=== PATIENT | female | born 1955 | race Caucasian/White ===

== ENCOUNTER 2020-04-25 12:17 | Emergency (ER) | payer MEDICAID, SELFPAY ==
[2020-04-25] VITALS (7 sets, daily range): BP systolic 100–113; BP diastolic 65–74; PULSE 70–86; RESP 17–22; TEMP 36.8; O2SAT 95–97; BMI 29.4
--- NOTE | 2020-04-25 12:31 | EKG12_ITS ---
Test Reason : CP Blood Pressure : / mmHG Vent. Rate : 080 BPM Atrial Rate : 080 BPM P-R Int : 154 ms QRS Dur : 084 ms QT Int : 394 ms P-R-T Axes : 039 -02 064 degrees QTc Int : 454 ms Normal sinus rhythm Low voltage QRS Borderline ECG Confirmed by MEGAN LATIF, OWEN ([id number]), editor in chief KAYLIE COLON ([id number]) on 04/30/2020 8:23:53 A M Referred By: ANTONIO Confirmed By:EILEEN UGZMAN MD
--- NOTE | 2020-04-25 12:31 | ED.VIS.GEN ---
History of Present Illness Chief Complaint: Chest Pain Informant: Patient Onset: Today Narrative: Patient presents with episode of sweating, lightheadedness and dizziness. Symptoms resolved after she took 1 nitro. Patient has had 2 prior MIs. During her heart attack in 2014 patient's only symptom was diffuse sweating. Patient is currently fighting a stone in her salivary duct. Patient states she was sitting on the couch eating lunch when today's episode occurred. She does state that she had increased pain when trying to eat and this preceded today's episode. - Past Medical History (1) Myocardial infarction Status: Chronic (2) H/O heart artery stent Status: Chronic Past Medical History - Allergies and Home Meds Allergies/Adverse Reactions: Allergies niacin Allergy (Verified 04/25/20 12:18) Rash Primary Care Physician: Josey Agarwal NP, SHEET PILE DRIVER OPERATOR-C [Nurse Practitioner] - Prior records reviewed: Yes Smoking Status: Current every day smoker Review of Systems General: Denies: Chills, Fever Eyes: Denies: Visual changes - bilaterally ENT: Denies: Bilateral ear pain Cardiovascular: Denies: Chest pain Respiratory: Denies: Dyspnea, Cough Gastrointestinal: Denies: Abdominal pain, Nausea, Vomiting Musculoskeletal: Denies: Swelling, Extremity Pain Skin: Denies: Rash Neurological: Reports: - - Sweating, lightheaded and dizzy Hematologic: Denies: Easy bruising, Easy bleeding Allergy: Denies: Uticaria Physical Exam Vital Signs/Narrative: Vital Signs Temp Pulse Resp BP Pulse Ox 04/25/20 12:18 98.3 F 86 22 H 103/67 96 04/25/20 12:17 84 22 H 103/67 95 Inital Vital Signs reviewed: Yes General: Well nourished, Well developed Head: Normocephalic ENT: Moist mucous membranes Neck: Supple Cardiovascular: Regular rate, Regular rhythm Respiratory: No distress, CTA bilaterally Abdomen: Soft, Nontender Back: Nontender Skin: Normal color Neurological: Alert, Oriented x3, Normal Strength, Normal Sensation Psychological: Normal affect Diagnostic/Tx/Re-eval Impressions Chest X-Ray 04/25/20 12:54 IMPRESSION: Stable mild increased linear markings at the lung bases suggestive of mild linear scarring. Electronically Signed: Ananth Clay, at 13:08 EDT , Service support , 04/25/20 12:54 Chest 1 View (Portable) [RAD] Stat Laboratory Results 04/25/20 04/25/20 04/25/20 12:33 12:33 15:27 WBC 10.3 RBC 4.86 Hgb 14.8 Hct 44.5 MCV 91.6 MCH 30.5 MCHC 33.3 RDW Std Deviation 41.1 RDW Coeff of Erica 12.3 Plt Count 335 MPV 10.4 Immature Gran % (Auto) 0.300 Neut % (Auto) 59.9 Lymph % (Auto) 33.5 [place] % (Auto) 4.9 Eos % (Auto) 1.0 Baso % (Auto) 0.4 Absolute Neuts (auto) 6.2 Absolute Lymphs (auto) 3.44 Nucleated RBC % 0 Sodium 133 L Potassium 3.4 L Chloride 101 Carbon Dioxide 25.0 Anion Gap 7 BUN 10 Creatinine 1.01 Estim Creat Clear Calc 55.44 Est GFR (MDRD) Af Amer 71 Est GFR (MDRD) Non-Af 59 L BUN/Creatinine Ratio 9.9 L Glucose 140 H Calcium 9.1 Troponin I < 0.015 < 0.015 - EKG Initial EKG Interpretation: Sinus Rhythm - Sinus at 80 with no acute ischemia. Follow-up EKG Interpretation: Sinus Rhythm - Sinus at 74 with no acute ischemia. - Medical Decision Making Patient denies having chest pain with this episode. She did break out in sweats and my suspicion is this was a vasovagal reaction from her pain after eating. I did obtain a report from the patient's heart cath that was performed in January 2019. This revealed normal left main coronary artery with patent previous LAD stent and patent previous circumflex stent. There is a 40% stenosis of the distal circumflex. 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 EF was 50%. Patient did agree to a repeat 3-hour EKG and troponin. Both of these are unremarkable. 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 ED Disposition - Plan for ED Patient: Disposition: Home or Assisted Living Diagnosis: Atypical chest pain Instructions: ED Chest Pain NonCardiac Referrals: Josey Agarwal SHEET PILE DRIVER OPERATOR, SHE[employer] PILE DRIVER OPERATOR-C [Nurse Practitioner] - 1 Week
[2020-04-25 12:38] LABS: Absolute Lymphocyte Count 3.44 X10^3/uL (0.83-4.51); Absolute Neutrophil Count 6.2 X10^3/uL (2.0-7.7); Basophil# 0.04 X10^3/uL; Basophil% 0.4 % (0-1); Hematocrit 44.5 % (37-47); Hemoglobin 14.8 g/dL (12.0-15.0); Lymphocyte # 3.44 X10^3/ul (4.0); Lymphocyte % 33.5 % (19-41); Mean Corp Hgb Conc 33.3 g/dL (32-36); Mean Corpuscular Hgb 30.5 pg (27.0-32.0); Mean Corpuscular Volume 91.6 fL (81-99); Mean Platelet Vol. 10.4 fl (6.2-12.0); Monocyte% 4.9 % (0-10); NRBC Flagged by Analyzer 0 % (0-5); Neutrophil # 6.16 X10^3/uL (2.7-7.7); Neutrophil % 59.9 % (47-70); Platelet Count 335 K/mm3 (150-450); RBC Distribution Width CV 12.3 % (11.6-14.6); RBC Distribution Width SD 41.1 fl (35.1-43.9); Red Blood Count 4.86 M/mm3 (4.2-5.4); White Blood Count 10.3 K/mm3 (4.4-11.0)
--- NOTE | 2020-04-25 12:54 | RAD_ITS ---
STUDY: X-RAY CHEST REASON FOR EXAM: Female, 64 years old. Pat arrives to ed with resolved chest pain. Took 1 nitro at 1130am. Hx of mi and stents. Pain currently in left jaw with hx of stone in her saliva gland. TECHNIQUE: Single AP portable view of the chest. COMPARISON: Comparison is made with prior study dated 02/02/2017. FINDINGS: EKG electrodes are seen. Stable mild increased markings at the lung bases suggestive of a scarring. There is no demonstrated pleural abnormality. Normal size heart. Normal mediastinum and sivakumar. Normal visualized pulmonary arteries. There is atherosclerotic calcification of the aortic arch with tortuosity. There are diffuse degenerative changes of the visualized thoracic spine. Normal visualized ribs, clavicles, and shoulders. There is no demonstrated abnormality of the visualized soft tissue structures of the upper abdomen. RAD/Chest 1 View (Portable) IMPRESSION: Stable mild increased linear markings at the lung bases suggestive of mild linear scarring. Electronically Signed: Ananth Clay, at 13:08 EDT , Service support ,
[2020-04-25 12:56] LABS: Anion Gap 7 (5-15); BUN 10 mg/dL (7-18); BUN/Creat Ratio 9.9 RATIO (10-20); Calcium,Total 9.1 mg/dL (8.5-10.1); Chloride 101 mmol/L (98-107); Creatinine, Serum 1.01 mg/dL (0.55-1.02); EST Glomerular Filtration Rate 59 mL/min (>60); Est Glom Filt Rate - Afr Amer 71 mL/min (>60); Estimated Creatinine Clearance 55.44 ml/min; Glucose 140 mg/dL (74-106); Potassium 3.4 mmol/L (3.5-5.1); Sodium Level 133 mmol/L (136-145)
[2020-04-25] MEDS: 0.9% Normal Saline 1,000 ML 150 ML IV (13:07)
--- NOTE | 2020-04-25 15:30 | EKG12_ITS ---
Test Reason : REPEAT EKG Blood Pressure : / mmHG Vent. Rate : 074 BPM Atrial Rate : 074 BPM P-R Int : 156 ms QRS Dur : 078 ms QT Int : 424 ms P-R-T Axes : 036 -04 056 degrees QTc Int : 470 ms Normal sinus rhythm Low voltage QRS Borderline ECG Confirmed by MEGAN LATIF, OWEN ([id number]), video effects editor KAYLIE COLON ([id number]) on 04/30/2020 8:24:08 A M Referred By: ANTONIO Confirmed By:EILEEN GUZMAN MD
== END 2020-04-25 16:09 | disposition home or self-care (01) ==
PROVIDERS: Emergency Provider Emergency Medicine; PCP Family Medicine
DX: R07.89 Other chest pain (principal); I25.2 Old myocardial infarction; Z95.5 Presence of coronary angioplasty implant and graft; Z79.82 Long term (current) use of aspirin; Z79.899 Other long term (current) drug therapy; F17.200 Nicotine dependence, unspecified, uncomplicated
CPT/HCPCS: 71045; 80048; 84484; 85025; 93005; 96360; 96361; 99285; J7030; A4216

== ENCOUNTER → 2025-02-07 | Outpatient (CLI) | payer MEDICARE, SELFPAY ==
--- NOTE | 2025-02-07 07:21 | CT_ITS ---
PROCEDURE: SOFT TISSUE NECK WITH CONTRAST 02/07/2025 REASON FOR EXAM: LEFT NECK MASS TECHNIQUE: SOFT TISSUE NECK WITH CONTRAST CONTRAST: Isovue-300 VOLUME: 75 mL One or more dose reduction techniques were used (e.g., Automated exposure control, adjustment of the mA and/or kV according to patient size, use of iterative reconstruction technique). RADIATION DOSE SUMMARY: CTDlvol: 16.99 mGy DLP: 492.51 mGycm COMPARISON: None FINDINGS: Airway: Midline and patent. Salivary glands: There is a swollen left parotid gland. There is a 9.3 mm by a 5.5 mm calculus in the anterior midportion of the left parotid gland. Lymph nodes: Small benign-appearing submental lymph nodes. Thyroid: Unremarkable Vasculature: Calcification of the carotid arteries. Orbits: Unremarkable Paranasal sinuses and mastoids: Grossly clear at visualized levels. Lung apices: Clear. Upper mediastinum: Unremarkable Bones: Multilevel degenerative changes of the spine. Other: CT/Soft Tissue Neck WITH Contrast IMPRESSION: Swelling of the left parotid gland with a 9.3 mm x 5.5 mm calculus in the anter ior and portion of the left parotid gland. Reading Location: [id number]
--- OUTSIDE RECORDS SUMMARY | 2025-02-07 07:33 | XMS RPT_ITS | CCD ---
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 Name Role Phone MANDO ALVAREZ Unavailable Unavaila ble TAYLORHARDIK Gibbons Unavailable Unavailable Rojas [employer], Yaneth Nicole Unavailable Unavaila ble SheetsElana Unavailable [phone] Unavailable Unavailable Sheets DOElana Primary Care Provider Sheets DOElana Primary Care Provider Sheets DOElana Primary Care Provider [phone] Sheets DO, Elana C Primary Care Provider Elana Chery Primary Care Joleen vailable Mando Stevens Attending Joleen vailable Mando Stevens Referring Joleen vailable Sheets Elana EUGENE Primary Care Pro vider Sheets DOElana Primary Care Provider BOB MARTIN Attending Unavailable ELANA CHERY Primary Care Unavailable BOB MARTIN Referring Unavailable ELANA CHERY Referring Unavailable ELANA CHERY Primary Care Unavailable BOB MARTIN Attending Unavailable ELANA CHERY Primary Care Joleen vailable ELANA CHERY Primary Care Joleen vailable Mando Stevens MD Unavailable Mando Stevens MD Unavailable ELANA CHERY Attending Unavailable ELANA CHERY Referring Unavailable SHEETS, ELANA C Primary Care Unavailable SHEETS, ELANA C Attending Unavailable SHEETS, ELANA C Referring Unavailable SHEETS, ELANA C Primary Care Unavailable SHEETS, ELANA C Primary Care Unavailable YANETH GLYNN Attending Unavaila ble SHEETS, ELANA C Referring Unavailable SHEETS, ELANA C Primary Care Unavailable SHEETS, ELANA C Attending Unavailable SHEETS, ELANA C Primary Care Unavailable SHEETS, ELANA C Attending Unavailable SHEETS, ELANA C Referring Unavailable SHEETS, ELANA C Primary Care Unavailable PHI LANCASTER Referring Unavailable SHEETS, ELANA C Primary Care Unavailable Parth'MANDO ANDREWS Attending Unavail able SHEETS, ELANA LONDONO Primary Care Joleen vailable MANDO STEVENS Attending Unavail able SHEETS, ELANA LONDONO Primary Care Joleen vailable [place] Attending Unavailabl e WarCarl garay Referring Unavailabl e Sheets, Elana Primary Care Unavailable Allergies Allergy Classification Reported Allergen(s) Allergy Type Date of Onset Reaction(s) Facility Anti-Epileptic Agents (2 sources) gabapentin Drug Allergy 2 Swelling [facility] Niacin (2 sources) Niacin Drug Allergy 6 Rash [facility] Opioid Agonists (2 sources) traMADol Drug Allergy 6 Itching [facility] (2 sources) atorvastatin Drug Allergy 6 [facility] Work Phone: (1 source) Lovastatin Drug Allergy 6 Itching; Rash [facility] Work Phone: (2 sources) traMADol Drug Allergy 6 itching [facility] Work Phone: (19 sources) Hmg-Coa Reductase Inhibitors (Statins); Translations: [Statins] Allergy to drug (finding) Myalgia [facility] 305 DO Work Phone: (19 sources) Lovastatin / Niacin; Translations: [Advicor TB24] Drug Allergy Itching, Rash [facility] 305 DO Work Phone: (20 sources) traMADol; Translations: [tramadol] Drug Allergy 6 Itching, Other [facility] (20 sources) Niacin; Translations: [NIACIN] Drug Allergy 6 Rash [facility] (20 sources) gabapentin; Translations: [GABAPENTIN] Drug Allergy 2 Swelling [facility] (5 sources) HMG-CoA reductase inhibitor; Translations: [CRTOIIS-BUH-KSA REDUCTASE INHIBITORS] Drug Allergy 3 Rash, Myalgia [facility] Work Phone: (5 sources) Lovastatin / Niacin; Translations: [NIACIN-LOVASTATI N] Drug Allergy [address] [facility] (1 source) Niacin Drug Allergy 0 [facility] Medications Current Medications Medication Drug Class(es) Dates Sig (Normalized) Sig (Original) acetaminophen 500 mg oral tablet (20 sources) End: 09-06-2024 take 1 tablet by mouth every eight hours as needed acetaminophen (Tylenol) 500 mg tablet Take 1 tablet (500 mg) by mouth every 8 hours if needed for mild pain (1 - 3). Active Comment on above: Take 500 mg by mouth every 8 hours as needed. acetaminophen 325 mg / HYDROcodone bitartrate 5 mg oral tablet (2 sources) Opioid Agonist Start: 04-06-2023 End: 05-18-2024 take 0.5-1 tablets by mouth twice daily as needed for pain HYDROcodone-acetami nophen (Amboy) 5-325 mg tablet Take 0.5-1 tablets by mouth 2 times a day as needed for moderate pain (4 - 6). 04/06/2023 05/18/2024 Discontinued (Med List Cleanup) acetaminophen 325 mg / oxyCODONE hydrochloride 5 mg oral tablet (20 sources) Opioid Agonist Start: 02-03-2023 oxyCODONE-acetamino phen (PERCOCET) 5-325 mg tablet TAKE 1/2 TO 1 TABLET UP TO 3 TIMES DAILY NEEDED FOR PAIN 02/03/2023 Active Comment on above: TAKE 1/2 TO 1 TABLET UP TO 3 TIMES DAILY NEEDED FOR PAIN [id number] 200 actuat albuterol 0.09 mg/actuat metered dose inhaler (20 sources) beta2-Adrenergic Agonist Start: 08-10-2024 End: 09-06-2024 take 2-4 puff(s) by inhalation every two hours as needed for wheezing albuterol HFA (PROVENTIL HFA, VENTOLIN HFA) 90 mcg/actuation inhaler Inhale 2-4 Puffs as instructed every 2 hours as needed for wheezing/shortness of breath. 1 Each 08/10/2024 09/06/2024 Discontinued Start: 03-05-2022 End: 10-18-2024 albuterol HFA (PROVENTIL HFA , VENTOLIN HFA) 90 mcg/actuation inhaler Indications: Other emphysema (HCC) USE 2 INHALATIONS BY MOUTH EVERY 4 HOURS NEEDED 40.2 g 3 10/18/2024 Active Start: 01-08-2022 End: 03-05-2022 take 2 puff(s) by mouth every four hours as needed albuterol HFA (PROVENTIL HFA, VENTOLIN HFA) 90 mcg/actuation inhaler Indications: Other emphysema (HCC) INHALE 2 PUFFS BY MOUTH EVERY 4 HOURS NEEDED 1 Each 5 01/08/2022 03/05/2022 Discontinued Start: 03-05-2021 End: 12-30-2021 take 2 puff(s) by mouth every four hours as needed albuterol HFA (PROVENTIL HFA, VENTOLIN HFA) 90 mcg/actuation inhaler Indications: Other emphysema (HCC) INHALE 2 PUFFS BY MOUTH EVERY 4 HOURS NEEDED 1 Each 5 03/05/2021 12/30/2021 Discontinued Start: 06-28-2018 End: 12-30-2021 take 2.5 mg by inhalation every six hours as needed albuterol (PROVENTIL) 2.5 mg /3 mL (0.083 %) nebulizer solution Use 3 mL via nebulizer every 6 hours as needed for Wheezing/Shortness of Breath. Inhale by nebulizer over 5-15 minutes. 30 Vial 0 06/28/2018 12/30/2021 Discontinued Start: 05-13-2016 take 2 puff(s) by in halation every four hours as needed for cough PROAIR HFA 108 (90 Base) MCG/ACT AERS 2 puffs INH q 4 hours PRN SOB/Cough ALBUTEROL SULFATE [id number] Bonnie Kirkland CNP End: 12-26-2024 albuterol 2.5 mg /3 mL (0.08 3 %) nebulizer solution Inhale. 12/26/2024 Discontinued (Med List Cleanup) Albuterol Sulfat e (2.5 MG/3ML) 0.083% Inhalation Nebulization Solution USE 1 UNIT DOSE EVERY 4-6 HOURS NEEDED FOR WHEEZING . Quantity: 0 Refills: 0 Ordered: 15-May-2021 DO Active take 1 puff(s) by in halation every four hours as needed ProAir HFA 108 (90 Base) MCG/ACT AERS INHALE 1 PUFF EVERY 4 HOURS NEEDED. Quantity: 0 Refills: 0 Ordered: 15-May-2021 DO Active Comment on above: Use 3 mL via nebuliz er every 6 hours as needed for Wheezing/Shortness of Breath. Inhale by nebulizer over 5-15 minutes. INHALE 2 PUFFS BY MO UTH EVERY 4 HOURS NEEDED USE 2 INHALATIONS BY MOUTH EVERY 4 HOURS NEEDED amLODIPine 5 mg oral tablet (20 sources) Dihydropyridine Calcium Channel Jessica Start: 016 End: take 1 tablet by mouth once daily amLODIPine (Norvasc) 5 mg tablet Indications: Essential (primary) hypertension Take 1 tablet (5 mg) by mouth once daily. as directed 90 tablet 3 09/12/2024 Active Comment on above: TAKE 1 TABLET BY NATHALY TH ONCE DAILY. atorvastatin 40 mg oral tablet (20 sources) HMG-CoA Reductase Inhibitor Start: take 1 tablet by mouth once daily at bedtime atorvastatin (Lipitor) 40 mg tablet Indications: Mixed hyperlipidemia Take 1 tablet (40 mg) by mouth once daily at bedtime. 90 tablet 3 09/12/2024 Active Start: 03-17-2024 take 1 tablet by nathaly th once daily at bedtime atorvastatin (Lipitor) 40 mg tablet Indications: Mixed hyperlipidemia TAKE 1 TABLET BY MOUTH EVERYDAY AT BEDTIME 90 tablet 3 03/17/2024 Active Start: 05-04-2023 take 1 tablet by nathaly th once daily at bedtime atorvastatin (Lipitor) 40 mg tablet Indications: Mixed hyperlipidemia TAKE 1 TABLET BY MOUTH EVERYDAY AT BEDTIME 90 tablet 3 05/04/2023 Active Start: 05-14-2022 take 1 tablet by nathaly th once daily at bedtime Atorvastatin Calcium 40 MG Oral Tablet take 1 tablet by mouth once daily at bedtime Quantity: 90 Refills: 3 Ordered: 14-May-2022 Mando Stevens MD Start : 14-May-2022 Active Start: 05-02-2021 take 0.5 tablet by m outh once daily at bedtime Atorvastatin Calcium 80 MG Oral Tablet Take 1/2 Tablet by mouth everyday at bedtime Quantity: 45 Refills: 3 Ordered: 17-May-2021 Mando Stevens MD Start : 02-May-2021 Active Start: 05-13-2016 take 1 tablet by nathaly th once daily atorvastatin (LIPITOR) 80 mg tablet TAKE 1 TABLET BY MOUTH ONCE DAILY. 30 tablet 11 08/14/2016 Active Comment on above: TAKE 1 TABLET BY NATHALY TH ONCE DAILY. baclofen 10 mg oral tablet (1 source) gamma-Aminobutyric Acid-ergic Agonist Start: 3 End: 3 baclofen (Lioresal) 10 mg tablet 1 tablet (10 mg) 3 times a day as needed for muscle spasms. 0 08/13/2022 05/20/2023 Discontinued (Therapy completed) benazepril hydrochloride 10 mg oral tablet (20 sources) Angiotensin Converting Enzyme Inhibitor Start: 6 End: 6 take 1 tablet by mouth once daily benazepril (LOTENSIN) 10 mg tablet 1 po every day 06/11/2019 Active Comment on above: 1 po every day calcium carbonate 500 mg chewable tablet (20 sources) calcium carbonat e (TUMS) 500 mg chew Take 500 mg by mouth as needed. Active End: 05-20-2023 calcium carbonate (Tums) 200 mg calcium chewable tablet Chew 1 tablet (500 mg) if needed for indigestion or heartburn. 0 05/20/2023 Discontinued (Therapy completed) Comment on above: Take 500 mg by mouth as needed. cephalexin 500 mg oral capsule (1 source) Cephalosporin Antibacterial Start: 023 End: 023 take 1 capsule by mouth every eight hours cephalexin (Keflex) 500 mg capsule Take 1 capsule (500 mg) by mouth every 8 hours. 0 04/01/2023 05/20/2023 Discontinued (Therapy completed) clopidogrel 75 mg oral tablet (20 sources) P2Y12 Platelet Inhibitor Start: 016 End: take 1 tablet by mouth once daily clopidogrel (PLAVIX) 75 mg tablet Take 1 tablet by mouth once daily. 0 07/26/2015 Active Comment on above: Take 1 tablet by nathaly once daily. cyclobenzaprine hydrochloride 10 mg oral tablet (20 sources) Muscle Relaxant Start: End: take 1 tablet by mouth three times daily as needed for muscle spasms cyclobenzaprine (Flexeril) 10 mg tablet Take 1 tablet (10 mg) by mouth 3 times a day as needed for muscle spasms. 0 11/05/2022 05/20/2023 Discontinued (Therapy completed) Comment on above: Take 1 tablet by nathaly three times daily as needed. TAKE 1 TABLET BY NATHALY THREE TIMES A DAY NEEDED dextromethorphan hydrobromide 3 mg/ml oral solution (1 source) Uncompetitive W-jcvyid-V-aspartate Receptor Antagonist, Sigma-1 Agonist End: dextromethorphan 15 mg/5 mL syrup Take by mouth. As directed. 0 05/20/2023 Discontinued (Therapy completed) docusate sodium 100 mg oral capsule (20 sources) Start: take 1 capsule by mouth twice daily docusate sodium (COLACE) 100 mg capsule Take 1 capsule by mouth twice daily. 60 capsule 01/25/2021 Active Comment on above: Take 1 capsule by mo [facility] twice daily. famotidine 20 mg oral tablet (20 sources) Histamine-2 Receptor Antagonist Start: 025 take 1 tablet by mouth once daily famotidine (PEPCID) 20 mg tablet Indications: GERD without esophagitis Take 1 tablet by mouth once daily. 90 tablet 3 12/02/2024 Active Start: 05-14-2023 End: 06-03-2024 take 1 tablet by mouth once daily famotidine (PEPCID) 20 mg tablet Indications: GERD without esophagitis Take 1 tablet by mouth once daily. 90 tablet 3 06/03/2024 Active Start: 06-03-2021 End: 05-23-2022 take 1 tablet by mouth once daily famotidine (PEPCID) 20 mg tablet Indications: GERD without esophagitis Take 1 tablet by mouth once daily. 90 tablet 3 05/23/2022 Active Comment on above: Take 1 tablet by nathaly th once daily. take 1 tablet by nathaly th every day hydroCHLOROthiazide 12.5 mg oral capsule (20 sources) Thiazide Diuretic Start: 2023 take 1 capsule by mouth once daily hydroCHLOROthiazide (Microzide) 12.5 mg capsule Indications: Essential (primary) hypertension TAKE 1 CAPSULE BY MOUTH EVERY DAY 90 capsule 3 03/17/2024 Active Start: 05-21-2021 End: 05-20-2023 take 1 capsule by mouth once daily hydroCHLOROthiazide (Microzide) 12.5 mg capsule Indications: Essential (primary) hypertension TAKE 1 CAPSULE BY MOUTH EVERY DAY 90 capsule 3 05/04/2023 Active Start: 03-13-2016 take 1 tablet by nathaly th once daily hydroCHLOROthiazide (HYDRODIURIL, ESIDRIX) 12.5 mg tablet TAKE 1 TABLET BY MOUTH ONCE DAILY. 90 tablet 3 10/08/2016 Active Comment on above: TAKE 1 TABLET BY NATHALY TH ONCE DAILY. ketorolac tromethamine 5 mg/ml ophthalmic solution (2 sources) Nonsteroidal Anti-inflammatory Drug, Cyclooxygenase Inhibitor Start: 05-10-20 take 1 drop(s) into the eye(s) four times daily ketorolac (Acular) 0.5 % ophthalmic solution Administer 1 drop into the right eye 4 times a day. 05/10/2024 Active metoprolol tartrate 25 mg oral tablet (20 sources) beta-Adrenergic Jessica Start: 09-13-19 take 0.5 tablet by mouth twice daily metoprolol tartrate (Lopressor) 25 mg tablet Indications: Essential (primary) hypertension Take 0.5 tablets (12.5 mg) by mouth 2 times a day. 90 tablet 2 09/12/2024 Active Start: 03-17-2024 take 0.5 tablet by m outh twice daily metoprolol tartrate (Lopressor) 25 mg tablet Indications: Essential (primary) hypertension TAKE 1/2 TABLET TWICE A DAY BY MOUTH 90 tablet 3 03/17/2024 Active Start: 02-02-2023 take 0.5 tablet by m outh every twelve hours metoprolol tartrate, short acting, (LOPRESSOR) 25 mg tablet Take 0.5 tablets by mouth every 12 hours. 0 02/02/2023 Active Start: 05-21-2021 End: 05-20-2023 take 0.5 tablet by mouth twice daily metoprolol tartrate (Lopressor) 25 mg tablet Indications: Essential (primary) hypertension TAKE 1/2 TABLET BY MOUTH TWICE A DAY 90 tablet 3 05/04/2023 Active Start: 03-13-2016 METOPROLOL TAR TRATE 50 MG TABS 1/2 tab two times daily METOPROLOL TARTRATE [id number] Yaneth Quintanilla take 1 tablet by nathaly th once daily at bedtime metoprolol succinate ER (TOPROL XL) 25 mg 24 hr tablet Take 25 mg by mouth once daily. One tablet at bedtime Active take 1 tablet by nathaly th twice daily metoprolol succinate ER (TOPROL XL) 25 mg 24 hr tablet Take 25 mg by mouth twice daily. 0 Active Comment on above: Take 25 mg by mouth twice daily. Take 0.5 tablets by mouth every 12 hours. Take 25 mg by mouth once daily. One tablet at bedtime nitroglycerin 0.4 mg sublingual tablet (20 sources) Nitrate Vasodilator Start: 03-13-20 End: 06-17-20 24 nitroglycerin (Nitrostat) 0.4 mg SL tablet Indications: CAD S/P percutaneous coronary angioplasty , Past myocardial infarction Place 1 tablet (0.4 mg) under the tongue every 5 minutes if needed for chest pain. 25 tablet 5 09/12/2024 Active Comment on above: DISSOLVE 1 TABLET UN KRISTINE THE TONGUE EVERY 5 MINUTES NEEDED. ofloxacin 3 mg/ml ophthalmic solution (2 sources) Quinolone Antimicrobial Start: 05-10-20 take 1 drop(s) into the eye(s) four times daily ofloxacin (Ocuflox) 0.3 % ophthalmic solution Administer 1 drop into the right eye 4 times a day. 05/10/2024 Active potassium chloride 10 meq extended release oral tablet (20 sources) Start: 06-09-20 End: 11-25-19 25 potassium chloride (K-TAB) 10 mEq tablet Indications: Hypokalemia TAKE 1 TABLET EVERY DAY 90 tablet 3 11/24/2024 Active Start: 03-05-2021 End: 06-27-2022 take 1 tablet by mouth once daily potassium chloride (K-TAB) 10 mEq tablet Indications: Hypokalemia Take 1 tablet by mouth once daily. 90 tablet 3 06/27/2022 Active Comment on above: Take 1 tablet by nathaly th once daily. take 1 tablet by nathaly th every day pravastatin sodium 40 mg oral tablet (20 sources) HMG-CoA Reductase Inhibitor Start: End: take 2 tablets by mouth once daily at bedtime pravastatin (Pravachol) 40 mg tablet Take 2 tablets (80 mg) by mouth once daily at bedtime. 04/14/2022 05/18/2024 Discontinued (Med List Cleanup) Start: 04-14-2022 take 1 tablet by nathaly th once daily Pravastatin Sodium 40 MG Oral Tablet TAKE 1 TABLET DAILY. Quantity: 90 Refills: 3 Ordered: 14-Apr-2022 Mando Stevens MD Start : 14-Apr-2022 Active End: 12-03-2023 take 1 tablet by mouth once daily at bedtime pravastatin (PRAVACHOL) 80 mg tablet Take 80 mg by mouth daily at bedtime. 0 12/03/2023 Discontinued (Other) Comment on above: Take 80 mg by mouth daily at bedtime. spironolactone 25 mg oral tablet (20 sources) Aldosterone Antagonist Start: 05-13-20 take 1 tablet by mouth once daily spironolactone (ALDACTONE) 25 mg tablet TAKE 1 TABLET BY MOUTH ONCE DAILY. 90 tablet 3 07/15/2016 Active Comment on above: TAKE 1 TABLET BY NATHALY TH ONCE DAILY. tiZANidine 4 mg oral tablet (20 sources) Central alpha-2 Adrenergic Agonist Start: 02-12-20 take 1 tablet by mouth three times daily as needed tiZANidine (ZANAFLEX) 4 mg tablet TAKE 1/2 TO 1 TABLET BY MOUTH UP TO 3 TIMES A DAY, NEEDED FOR MUSCLE SPASMS 02/11/2023 Active Start: 08-19-2021 End: 11-15-2021 take 1 tablet by mouth every eight hours as needed tiZANidine (ZANAFLEX) 4 mg tablet Take 1 tablet by mouth every 8 hours as needed (muscle spasm). 60 tablet 1 08/19/2021 11/04/2021 Discontinued Comment on above: Take 1 tablet by nathaly th every 8 hours as needed (muscle spasm). TAKE 1/2 TO 1 TABLET BY MOUTH UP TO 3 TIMES A DAY, NEEDED FOR MUSCLE SPASMS triamcinolone-dimet hicone 0.1-5 % ktoc (3 sources) Start: 11-09-2023 End: 11-19-2023 triamcinolone-dimet hicone 0.1-5 % ktoc Apply to affected area two times a day for 10 days. 1 Kit 0 11/09/2023 11/19/2023 Active zolpidem tartrate 10 mg oral tablet (20 sources) gamma-Aminobutyric Acid-ergic Agonist Start: 08-31-2023 End: 01-05-2025 take 1 tablet by mouth every 30 days at bedtime as needed zolpidem (AMBIEN) 10 mg Indications: Chronic insomnia Take 1 tablet by mouth at bedtime as needed for up to 30 days. for insomnia. 90 tablet 12/06/2024 01/05/2025 Active Start: 02-14-2022 End: 12-26-2024 take 1 tablet by mouth every 30 days at bedtime as needed zolpidem (AMBIEN) 5 mg tablet Indications: Chronic insomnia Take 1 tablet by mouth at bedtime as needed for up to 30 days. for insomnia. 30 tablet 0 04/13/2023 05/13/2023 Active Comment on above: Take 1 tablet by nathaly at bedtime as needed for up to 30 days. for insomnia. Completed/Discontinued Medications Medication Drug Class(es) Dates Sig (Normalized) Sig (Original) Aspirin (20 sources) Platelet Aggregation Inhibitor, Nonsteroidal Anti-inflammatory Drug Start: 03-13-2016 ASPIRIN LOW DOSE 81 MG TBEC [address] daily ASPIRIN [id number] Yaneth Lee Dwight Start: 12-12-2011 take 1 tablet by nathaly th once daily aspirin, enteric coated (ASPIRIN, ENTERIC COATED) 81 mg EC tablet Take 1 tablet by mouth once daily. 0 12/12/2011 Active Comment on above: Take 1 tablet by nathaly once daily. Wolfgang [employer] Body TABS (14 sources) [employer] Bod y TABS as directed Quantity: 0 Refills: 0 Ordered: 15-May-2021 DO Active betamethasone 1 mg/ml topical cream (10 sources) Corticosteroid Start: 023 End: 025 betamethasone valerate (Valisone) 0.1 % cream Apply topically 2 times a day. APPLY TO AFFECTED AREA 10/09/2022 12/26/2024 Discontinued (Med List Cleanup) Comment on above: Apply to affected ar ea twice daily. cholecalciferol 55921 unt oral tablet (1 source) Vitamin D Start: 016 VITAMIN D3 86108 UNIT TABS one tab once a week CHOLECALCIFEROL [id number] Yaneth Quintanilla ezetimibe 10 mg oral tablet (20 sources) Dietary Cholesterol Absorption Inhibitor Start: 022 take 1 tablet by mouth once daily ezetimibe (ZETIA) 10 mg tablet Indications: Hyperlipidemia, mixed Take 10 mg by mouth once daily. 0 01/21/2022 Active Start: 02-24-2021 End: 12-30-2021 take 1 tablet by mouth once daily ezetimibe (ZETIA) 10 mg tablet Indications: Hyperlipidemia, mixed Take 10 mg by mouth once daily. 0 02/24/2021 12/30/2021 Discontinued Comment on above: Take 10 mg by mouth once daily. gabapentin 300 mg oral capsule (15 sources) Anti-epileptic Agent Start: 10-15-19 End: 01-13-20 take 1 capsule by mouth three times daily gabapentin (NEURONTIN) 300 mg capsule Take 1 capsule by mouth three times daily for 90 days. 90 capsule 2 10/14/2021 Active Comment on above: Take 1 capsule by mo ut three times daily for 90 days. hydrOXYzine pamoate 25 mg oral capsule (8 sources) Antihistamine Start: 06-12-20 End: 12-31-19 take 25-50 mg by mouth every twenty-four hours as needed hydrOXYzine pamoate (VISTARIL) 25 mg capsule Take 1-2 capsules by mouth at bedtime as needed (insomnia). 60 capsule 2 06/12/2021 12/30/2021 Discontinued Comment on above: Take 1-2 capsules by mouth at bedtime as needed (insomnia). ibuprofen 800 mg oral tablet (4 sources) Nonsteroidal Anti-inflammatory Drug Start: 05-13-20 16 IBUPROFEN 800 MG TABS one table TID IBUPROFEN [id number] Elham Guadarrama LPN take 1 tablet by nathaly th every six hours as needed ibuprofen 200 mg tablet Take 1 tablet (2 00 mg) by mouth every 6 hours if needed for mild pain (1 - 3). Active iv contrast (will be provide d with radiology test) (8 sources) Start: 08-13-2021 End: 12-30-2021 iv contrast (will be provide d with radiology test) CT Urogram WO/W Inject, intravenously, once for 1 dose.No IV access, insert saline lock prior to the beginning of sedation, infusion, injection of imaging exam. Discontinue saline lock post exam. If Pt. has a central line or IVAD, may access for administration according to line specific nursing protocol. Once exam is complete flush line and de-access according to line specific nursing protocol in the CT contrast administration guidelines link. 1 Each 0 08/13/2021 12/30/2021 Discontinued Start: 08-13-2021 iv contrast (w ill be provided with radiology test) CT Urogram WO/W Inject, intravenously, once for 1 dose.No IV access, insert saline lock prior to the beginning of sedation, infusion, injection of imaging exam. Discontinue saline lock post exam. If Pt. has a central line or IVAD, may access for administration according to line specific nursing protocol. Once exam is complete flush line and de-access according to line specific nursing protocol in the CT contrast administration guidelines link. 1 Each 0 08/13/2021 Active Comment on above: CT Urogram WO/W Inje ct, intravenously, once for 1 dose.No IV access, insert saline lock prior to the beginning of sedation, infusion, injection of imaging exam. Discontinue saline lock post exam. If Pt. has a central line or IVAD, may access for administration according to line specific nursing protocol. Once exam is complete flush line and de-access according to line specific nursing protocol in the CT contrast administration guidelines link. lidocaine 0.05 mg/mg medicated patch (7 sources) Antiarrhythmic, Amide Local Anesthetic Start: 11-12-19 24 End: 12-03-19 24 apply 1 dose transdermal route once daily lidocaine (LIDODERM) 5 % Indications: Left lumbar radiculitis Apply 1 Patch as directed once daily. REMOVE AFTER 12 HOURS. 30 Patch 2 11/12/2023 12/03/2023 Discontinued (Other) Start: 11-09-2023 End: 11-23-2023 lidocaine HCL (XYLOCAINE) 1 % topical gel Apply 1 application to affected area every 8 hours as needed for up to 14 days. 226 g 0 11/09/2023 11/23/2023 Active loratadine 10 mg oral tablet (20 sources) Start: 05-21-2021 End: 05-18-2024 take 1 tablet by mouth once daily loratadine (CLARITIN) 10 mg tablet Indications: Acute rhinosinusitis Take 1 tablet by mouth once daily. 30 tablet 11 01/08/2022 02/14/2022 Discontinued Comment on above: TAKE 1 TABLET BY NATHALY TH EVERY DAY Take 1 tablet by nathaly th once daily. methocarbamol 750 mg oral tablet (20 sources) Muscle Relaxant Start: 07-31-2021 End: 01-19-2022 take 1 tablet by mouth three times daily methocarbamol (ROBAXIN) 750 mg tablet Take 1 tablet by mouth three times daily. 90 tablet 0 01/20/2022 Active End: 05-20-2023 take 1 tablet by mouth three times daily methocarbamol (Robaxin) 500 mg tablet Take 1 tablet (500 mg) by mouth 3 times a day. 0 05/20/2023 Discontinued (Therapy completed) Comment on above: Take 1 tablet by nathaly th three times daily. TAKE 1 TABLET BY NATHALY TH THREE TIMES A DAY METHYLPREDNISOLONE (2 sources) Corticosteroid Start: 03-13-2016 MEDROL 4 MG TBPK one tab ther pack uad per package METHYLPREDNISOLONE [id number] Yaneth Quintanilla Start: 03-13-2016 End: 06-12-2016 MEDROL 4 MG TBPK one tab the r pack uad per package METHYLPREDNISOLONE [id number] Yaneth Rojas LPN pregabalin 50 mg oral capsule (8 sources) Start: 12-30-2021 End: 03-30-2022 take 1 capsule by mouth three times daily pregabalin (LYRICA) 50 mg capsule Indications: Radiculopathy, lumbar region Take 1 capsule by mouth three times daily for 90 days. 90 capsule 2 12/30/2021 02/14/2022 Discontinued Comment on above: Take 1 capsule by mo [facility] three times daily for 90 days. raNITIdine 150 mg oral tablet (1 source) Histamine-2 Receptor Antagonist Start: 03-13-2016 take 1 tablet by mouth twice daily RANITIDINE HCL 150 MG TABS One tablet by mouth twice daily RANITIDINE HCL [id number] Yaneth Quintanilla Tussin SYRP (14 sources) Tussin SYRP as directed Quantity: 0 Refills: 0 Ordered: 15-May-2021 DO Active Problems Active Problems Problem Classification Problem Date Documented Da te Episodic/Chronic Chronic kidney disease (20 sources) Chronic kidney disease stage 3; Translations: [Stage 3 chronic kidney disease] Onset: 9 11-11-2019 Chronic Chronic kidney disease (1 source) Chronic kidney disease; Translations: [Stage 3 chronic kidney disease, unspecified whether stage 3a or 3b CKD (HCC)] Onset: 0 Chronic obstructive pulmonary disease and bronchiectasis (20 sources) Chronic obstructive lung disease; Translations: [Pulmonary emphysema] Onset: 6 06-12-2016 Chronic Conditions associated with dizziness or vertigo (1 source) Dizziness; Translations: [Dizziness and giddiness] 12-13-2024 Episodic Coronary atherosclerosis and other heart disease (20 sources) Coronary arteriosclerosis; Translations: [Coronary atherosclerosis of unspecified type of vessel, [place] or graft] Onset: 2 05-13-2016 Chronic Disorders of lipid metabolism (20 sources) Mixed hyperlipidemia; Translations: [Mixed hyperlipidemia] Onset: 9 09-21-2018 Chronic Esophageal disorders (20 sources) Gastroesophageal reflux disease; Translations: [Gastro-esophageal reflux disease with esophagitis] Onset: 6 05-13-2016 Chronic Essential hypertension (20 sources) Hypertensive disorder; Translations: [Unspecified essential hypertension] Onset: 9 09-21-2018 Chronic Gastrointestinal hemorrhage (4 sources) Rectal hemorrhage; Translations: [Hemorrhage of anus and rectum] Onset: 4 12-19-2023 Episodic Immunizations and screening for infectious disease (6 sources) Patient encounter status; Translations: [Encounter for immunization] Episodic Miscellaneous mental health disorders (20 sources) Chronic insomnia; Translations: [Psychophysiologic insomnia] Onset: 7 03-23-2017 Chronic Nonmalignant breast conditions (3 sources) Lump in lower outer quadrant of left breast; Translations: [Unspecified lump in the left breast, lower outer quadrant] Episodic Nonspecific chest pain (3 sources) Chest pain; Translations: [Chest pain, unspecified] Onset: 5 12-26-2024 Episodic Other aftercare (14 sources) Drug therapy finding; Translations: [Long-term (current) use of other medications] Episodic Other and unspecified benign neoplasm (1 source) History of polyp of colon; Translations: [Personal history of colonic polyps] Episodic Other and unspecified benign neoplasm (1 source) Lipoma of right upper limb; Translations: [Benign lipomatous neoplasm of skin and subcutaneous tissue of right arm] 09-16-2023 Episodic Other circulatory disease (1 source) Hypotensive episode; Translations: [Hypotension, unspecified] 01-01-2025 Episodic Other connective tissue disease (1 source) Swelling of lower limb; Translations: [Other specified soft tissue disorders] 12-19-2023 Episodic Other inflammatory condition of skin (20 sources) Psoriasis; Translations: [Psoriasis, unspecified] Onset: 3 08-22-2022 Chronic Other non-traumatic joint disorders (1 source) Hip pain; Translations: [Pain in right hip] Episodic Other nutritional; endocrine; and metabolic disorders (17 sources) Obesity; Translations: [Obesity, unspecified] Onset: 4 05-18-2024 Chronic Other nutritional; endocrine; and metabolic disorders (2 sources) Body mass index (BMI) 30.0-30.9, adult; Translations: [Body mass index (BMI) 30.0-30.9, adult] Onset: 4 Chronic Other nutritional; endocrine; and metabolic disorders (2 sources) Overweight; Translations: [Overweight] Episodic Other nutritional; endocrine; and metabolic disorders (5 sources) Overweight in adulthood with body mass index of 25 or more but less than 30; Translations: [Body mass index (BMI) 29.0-29.9, adult] Onset: 3 05-20-2023 Episodic Other nutritional; endocrine; and metabolic disorders (1 source) H/O: Disorder; Translations: [Personal history of other endocrine, nutritional and metabolic disease] 01-07-2024 Episodic Other nutritional; endocrine; and metabolic disorders (2 sources) Body mass index (BMI) 27.0-27.9, adult; Translations: [Body mass index (BMI) 27.0-27.9, adult] Onset: 5 Episodic Other skin disorders (1 source) Localized swelling, mass and lump, neck; Translations: [Localized swelling, mass and lump, neck] Onset: 5 Episodic Other upper respiratory infections (1 source) Acute rhinosinusitis; Translations: [Acute sinusitis, unspecified] Episodic Residual codes; unclassified (1 source) Tobacco use and exposure - finding; Translations: [Tobacco use] Episodic Residual codes; unclassified (1 source) Tobacco user; Translations: [Tobacco use] Episodic Substance-related disorders (20 sources) Tobacco dependence syndrome; Translations: [Smokes tobacco daily] Onset: 6 05-13-2016 Chronic Comment on above: since age 21, smokes 1 PPD; Unclassified (2 sources) Hypokalemia / E87.6(ICD-9) Onset: 7 Unclassified (1 source) F/U 3 Month Onset: 5 Unclassified (1 source) Obesity, class 1; Translations: [Obesity, class 1] Onset: 4 Past or Other Problems Problem Classification Problem Date Documented Date Episodic/Chronic Acquired foot deformities (20 sources) Metatarsophalangeal joint stiff; Translations: [Other deformities of toe(s) (acquired), right foot] Onset: 9 09-21-2018 Episodic Acute myocardial infarction (3 sources) Myocardial infarction; Translations: [Acute myocardial infarction, unspecified] Onset: 3 Resolved: 3 05-20-2023 Chronic Coronary atherosclerosis and other heart disease (4 sources) Coronary angioplasty status; Translations: [Coronary angioplasty status] Onset: 3 Episodic Fluid and electrolyte disorders (20 sources) Hypokalemia; Translations: [Hypopotassemia] Onset: 9 07-01-2019 Episodic Genitourinary symptoms and ill-defined conditions (20 sources) Microscopic hematuria; Translations: [Other microscopic hematuria] Onset: 2 02-14-2022 Episodic Influenza (1 source) Influenza due to other identified influenza virus with other respiratory manifestations; Translations: [Influenza A] Onset: 5 Episodic Osteoarthritis (20 sources) Osteoarthritis of multiple joints ; Translations: [Polyosteoarthritis, unspecified] Onset: 9 Resolved: 9 09-28-2018 Chronic Other and unspecified benign neoplasm (20 sources) Lipoma (clinical); Translations: [Benign lipomatous neoplasm, unspecified] Onset: 4 09-16-2023 Episodic Other and unspecified benign neoplasm (20 sources) Lipoma of upper limb; Translations: [Benign lipomatous neoplasm of skin and subcutaneous tissue of unspecified limb] Onset: 4 09-16-2023 Episodic Other connective tissue disease (20 sources) Chronic pain of left upper limb; Translations: [Pain in left finger(s)] Onset: 7 Resolved: 8 01-07-2018 Episodic Other diseases of veins and lymphatics (19 sources) Vascular insufficiency; Translations: [Venous (peripheral) insufficiency, unspecified] Onset: 3 05-19-2023 Episodic Other gastrointestinal disorders (20 sources) Heartburn; Translations: [Heartburn] Onset: 8 11-23-2017 Episodic Other gastrointestinal disorders (1 source) Diarrhea, unspecified; Translations: [Diarrhea, unspecified type] Onset: 5 Episodic Other lower respiratory disease (1 source) Chronic cough; Translations: [Cough] Onset: 6 05-13-2016 Episodic Other nutritional; endocrine; and metabolic disorders (20 sources) Obese class I; Translations: [Obesity, unspecified] Onset: 9 Resolved: 0 04-26-2020 Chronic Other nutritional; endocrine; and metabolic disorders (1 source) Personal history of other endocrine, nutritional and metabolic disease; Translations: [History of low potassium] Onset: 4 Episodic Spondylosis; intervertebral disc disorders; other back problems (20 sources) Chronic low back pain; Translations: [Chronic midline low back pain without sciatica] Onset: 7 03-23-2017 Episodic Unclassified (1 source) Other and unspecified misadventures during medical care; Translations: [Hypokalemia] Onset: 7 Unclassified (1 source) Obesity, class 1; Translations: [Obesity, class 1] Onset: 4 Varicose veins of lower extremity (19 sources) Varicose veins of lower extremity with inflammation; Translations: [Varicose veins of lower extremities with inflammation] Onset: 3 05-19-2023 Episodic Results Test Name Value Interpretation Reference Range Facility BASIC METABOLIC PANEL WITH A VIDYA ARGUELLOon 12-27-2024 BUN/CREATININE RATIO SEE NOTE: Normal 6-22 [facility] Comment on above: Result Comment: Not Reported: BUN and Creatinine are within reference range. Performed By: #### 7 600, [id number] #### [facility] [place] [address] Crate Opener: Reza Ramirez MD Calcium [Mass/Vol] 9.1 mg/dL Normal 8.6-10.4 [facility] Comment on above: Performed By: #### 7 600, [id number] #### [facility] [place] [address] Crate Opener: Reza Ramirez MD Chloride [Moles/Vol] 96 mmol/L Low 98-110 [facility] Comment on above: Performed By: #### 7 600, [id number] #### [facility] [place] [address] Crate Opener: Reza Ramirez MD CO2 [Moles/Vol] 25 mmol/L Normal 20-32 [facility] Comment on above: Performed By: #### 7 600, [id number] #### [facility] [place] [address] Crate Opener: Reza Ramirez MD Creatinine [Mass/Vol] 0.88 mg/dL Normal 0.50-1.05 [facility] Comment on above: Performed By: #### 7 600, [id number] #### [facility] [place] [address] Crate Opener: Reza Ramirez MD ELECTROLYTE BALANCE 12 mmol/L (calc) Normal 7-17 [facility] Comment on above: Performed By: #### 7 600, [id number] #### [facility] [address], [address] [place] [address] Crate Opener: Reza Ramirez MD GFR/1.73 sq M.predicted among non-blacks MDRD (S/P/Bld) [Vol rate/Area] 72 mL/min/{1.73_m2} Normal > OR = 60 [facility] Comment on above: Performed By: #### 7 600, [id number] #### [facility] of [address], [address] [place] [address] Crate Opener: Reza Ramirez MD Glucose [Mass/Vol] 96 mg/dL Normal 65-99 [facility] Comment on above: Result Comment: Fasting reference interval Performed By: #### 7 600, [id number] #### [facility] [place] [address] Crate Opener: Reza Ramirez MD Potassium [Moles/Vol] 3.8 mmol/L Normal 3.5-5.3 [facility] Comment on above: Performed By: #### 7 600, 50389 #### [facility] [place] [address] Crate Opener: Reza Ramirez MD Sodium [Moles/Vol] 133 mmol/L Low 135-146 [facility] Comment on above: Performed By: #### 7 600, 45649 #### [facility] [place] [address] Crate Opener: Reza Ramirez MD Urea nitrogen [Mass/Vol] 11 mg/dL Normal 7-25 [facility] Comment on above: Performed By: #### 7 600, 84140 #### [facility] of [place] [address] Crate Opener: Reza Ramirez MD LIPID PANEL, [facility] 12-11 Cholesterol [Mass/Vol] 126 mg/dL Normal <200 [facility] Comment on above: Order Comment: FASTI NG:YES FASTING: YES Performed By: #### 7 600, [id number] #### [facility] [address], [address] [place], [place] [id number] Crate Opener: Reza Ramirez MD Cholesterol in HDL [Mass/Vol] 32 mg/dL Low > OR = 50 [facility] Comment on above: Order Comment: FASTI NG:YES FASTING: YES Performed By: #### 7 600, 84731 #### [facility] [address], [address] [place] [address] Crate Opener: Reza Ramirez MD Cholesterol in LDL [Mass/Vol] 73 mg/dL Normal [facility] Comment on above: Order Comment: FASTI NG:YES FASTING: YES Result Comment: Refe rence range: <100 Desirable range <100 mg/dL for primary prevention; <70 mg/dL for patients with CHD or diabetic patients with > or = 2 CHD risk factors. LDL-C is now calculated using the Jessica calculation, which is a validated novel method providing better accuracy than the Friedewald equation in the estimation of LDL-C. Nhan CARLOS et al. TANG. 2013;310(19): 4941-0739 (http://education.[employer]/faq/XDJ322) Performed By: #### 7 600, [id number] #### [facility] [address], [address] [place] [address] Crate Opener: Reza Ramirez MD Cholesterol.total/Ch olesterol in HDL [Mass ratio] 3.9 {ratio} Normal <5.0 [facility] Comment on above: Order Comment: FASTI NG:YES FASTING: YES Performed By: #### 7 600, 86027 #### [facility] [address], [address] [place], [place] [id number] Crate Opener: Reza Ramirez MD NON HDL CHOLESTEROL 94 mg/dL (calc) Normal <130 [facility] Comment on above: Order Comment: FASTI NG:YES FASTING: YES Result Comment: For patients with diabetes plus 1 major ASCVD risk factor, treating to a non-HDL-C goal of <100 mg/dL (LDL-C of <70 mg/dL) is considered a therapeutic option. Performed By: #### 7 600, 90300 #### [facility] [address], [address] [place] [address] Crate Opener: Reza Ramirez MD Triglyceride [Mass/Vol] 125 mg/dL Normal <150 [facility] Comment on above: Order Comment: FASTI NG:YES FASTING: YES Performed By: #### 7 600, 03253 #### [facility] [address], [address] [place] [address] Crate Opener: Reza Ramirez MD CNOVon 12-06-2024 CNOV Office Visit (AGFAMP LARISSA) JACKIE YU ([id number]) 1955 F Date Time Provider Department 12/06/24 9:00 AM ELANA CHERY During your visit today, we recorded the following information about you: Temperature Pulse Blood pressure Weight 98.6 degrees 81/minute 102/70 81.2 kg Height 1.676 m Elana Chery DO 01/01/2025 12:06 AM Signed Subjective HPI Jackie is a 69-year-old female with a history of HTN and two MIs, presenting for evaluation of hypotension. Hypotension: - Noted hypotensive readings as low as SBP 91 mmHg. - Current SBP: 102 mmHg. - Reports fatigue and occasional dizziness. - No syncope. - On Norvasc 5 mg, benazepril 10 mg, HCTZ 12.5 mg, metoprolol ER 25 mg, and spironolactone 25 mg daily. - Oil Analyst is Dr. Mando Stevens at [facility] in [place]; next appointment in May. Myocardial Infarctions: - History of two MIs. - Underwent heart catheterization two years ago with no significant findings. - On Lipitor 80 mg daily. Nicotine Use: - Smokes approximately one pack of cigarettes per day. - Not ready to quit. Sleep: - Taking Ambien, which is effective for sleep. ALLERGIES Allergen Reactions Tramadol Itching Niacin Rash Gabapentin Swelling Current Outpatient Medications Medication Sig Dispense Refill famotidine (PEPCID) 20 mg tablet Take 1 tablet by mouth once daily. 90 tablet 3 potassium chloride (K-TAB) 10 mEq tablet TAKE 1 TABLET EVERY DAY 90 tablet 3 albuterol HFA (PROVENTIL HFA, VENTOLIN HFA) 90 mcg/actuation inhaler USE 2 INHALATIONS BY MOUTH EVERY 4 HOURS NEEDED 40.2 g 3 oxyCODONE-acetaminophen (PERCOCET) 5-325 mg tablet TAKE 1/2 TO 1 TABLET UP TO 3 TIMES DAILY NEEDED FOR PAIN tiZANidine (ZANAFLEX) 4 mg tablet TAKE 1/2 TO 1 TABLET BY MOUTH UP TO 3 TIMES A DAY, NEEDED FOR MUSCLE SPASMS amLODIPine (NORVASC) 5 mg tablet Take 1 tablet by mouth once daily. 90 tablet 3 nitroglycerin sublingual (NITROQUICK) 0.4 mg SL tablet DISSOLVE 1 TABLET UNDER THE TONGUE EVERY 5 MINUTES NEEDED. 100 tablet 0 docusate sodium (COLACE) 100 mg capsule Take 1 capsule by mouth twice daily. 60 capsule 0 benazepril (LOTENSIN) 10 mg tablet 1 po every day calcium carbonate (TUMS) 500 mg chew Take 500 mg by mouth as needed. hydroCHLOROthiazide (HYDRODIURIL, ESIDRIX) 12.5 mg tablet TAKE 1 TABLET BY MOUTH ONCE DAILY. 90 tablet 3 atorvastatin (LIPITOR) 80 mg tablet TAKE 1 TABLET BY MOUTH ONCE DAILY. 30 tablet 11 spironolactone (ALDACTONE) 25 mg tablet TAKE 1 TABLET BY MOUTH ONCE DAILY. 90 tablet 3 metoprolol succinate ER (TOPROL XL) 25 mg 24 hr tablet Take 25 mg by mouth once daily. One tablet at bedtime clopidogrel (PLAVIX) 75 mg tablet Take 1 tablet by mouth once daily. 0 aspirin, enteric coated (ASPIRIN, ENTERIC COATED) 81 mg EC tablet Take 1 tablet by mouth once daily. 0 zolpidem (AMBIEN) 10 mg Take 1 tablet by mouth at bedtime as needed for up to 30 days. for insomnia. 90 tablet 0 No current facility-administered medications for this visit. ACTIVE PROBLEM LIST Ascvd (Arteriosclerotic Cardiovascular Disease) Gerd With Esophagitis Chronic Insomnia Chronic Midline Low Back Pain With Left-Sided Sciatica Smoker Heartburn Other Emphysema (Hcc) Hallux Limitus of Right Foot Hypertension Stage 3 Chronic Kidney Disease (Hcc) Hyponatremia Spinal Stenosis of Lumbar Region Left Lumbar Radiculitis Microscopic Hematuria Hypokalemia Hyperlipidemia, Mixed Psoriasis Lipoma Lipoma of Upper Extremity Social History Tobacco Use Smoking status: Every Day Current packs/day: 1.00 Average packs/day: 1 pack/day for 45.0 years (45.0 ttl pk-yrs) Types: Cigarettes Start date: 07/13/1984 Smokeless tobacco: Never Vaping Use Vaping status: Never Used Substance Use Topics Alcohol use: Yes Comment: rare Drug use: Never Family History Problem Relation Age of Onset Heart Mother CABG Hyperlipidemia Mother Hypertension Mother Coronary Artery Disease Mother Heart Sister stents No Known Problems Brother Diabetes No Family History Stroke No Family History Blood Disease No Family History Blood Clots No Family History Factor 5 Leiden No Family History DVT No Family History Systemic Lupus Erythematosus No Family History Multiple Sclerosis No Family History Bipolar disorder No Family History Schizophrenia No Family History Alzheimer's Disease No Family History Dementia No Family History Parkinson?s Disease No Family History COPD No Family History Aneurysm No Family History Reviewed past medical history, family history and surgeries. All medications and supplements were reviewed with the patient. Review of Systems Constitutional: Positive for malaise/fatigue. Negative for chills, diaphoresis, fever and weight loss. HENT: Negative for ear pain and hearing loss. Eyes (more content not included)... [facility] (ALONZOMPLARISSA) JACKIE YU ([id number]) 1955 F Date Time Provider Department 09/12/24 ELANA CHERY During your visit today, we recorded the following information about you: Kalyani Flores MA 09/12/2024 7:21 AM Signed ----- Message from Ayana Lee MA sent at 09/06/2024 8:35 AM EST ----- Send all medications to [facility] pharmacy as patient's insurance changed. MIGUEL Mcgee Kimberly C, DO 09/13/2024 11:58 AM Signed Addended by: ELANA CHERY on: 09/13/2024 11:58 AM Modules accepted: Orders Allergies As of Date: 09/12/2024 Noted Allergy Reaction TRAMADOL 05/09/2016 9 - Itching NIACIN 07/26/2015 2 - Rash GABAPENTIN 03/29/2022 7 - Swelling Date Reviewed: 09/06/2024 Reviewed by: Elana Chery DO - Fully Assessed Reason for Visit: Medication Problem [65] Visit Diagnosis:Hypokalemia [E87.6] Order(s):potassium chloride (K-TAB) 10 mEq tabletTake 1 tablet by mouth once daily.Disp: 90 tabletRfl: 0 Prescriptions as of 09/13/2024 - potassium chloride (K-TAB) 10 mEq tablet Take 1 tablet by mouth once daily. - zolpidem (AMBIEN) 10 mg Take 1 tablet by mouth at bedtime as needed for up to 30 days. for insomnia. - albuterol HFA (PROVENTIL HFA, VENTOLIN HFA) 90 mcg/actuation inhaler USE 2 INHALATIONS BY MOUTH EVERY 4 HOURS NEEDED - famotidine (PEPCID) 20 mg tablet Take 1 tablet by mouth once daily. - oxyCODONE-acetaminophen (PERCOCET) 5-325 mg tablet TAKE 1/2 TO 1 TABLET UP TO 3 TIMES DAILY NEEDED FOR PAIN - tiZANidine (ZANAFLEX) 4 mg tablet TAKE 1/2 TO 1 TABLET BY MOUTH UP TO 3 TIMES A DAY, NEEDED FOR MUSCLE SPASMS - amLODIPine (NORVASC) 5 mg tablet Take 1 tablet by mouth once daily. - nitroglycerin sublingual (NITROQUICK) 0.4 mg SL tablet DISSOLVE 1 TABLET UNDER THE TONGUE EVERY 5 MINUTES NEEDED. - docusate sodium (COLACE) 100 mg capsule Take 1 capsule by mouth twice daily. - benazepril (LOTENSIN) 10 mg tablet 1 po every day - calcium carbonate (TUMS) 500 mg chew Take 500 mg by mouth as needed. - hydroCHLOROthiazide (HYDRODIURIL, ESIDRIX) 12.5 mg tablet TAKE 1 TABLET BY MOUTH ONCE DAILY. - atorvastatin (LIPITOR) 80 mg tablet TAKE 1 TABLET BY MOUTH ONCE DAILY. - spironolactone (ALDACTONE) 25 mg tablet TAKE 1 TABLET BY MOUTH ONCE DAILY. - metoprolol succinate ER (TOPROL XL) 25 mg 24 hr tablet Take 25 mg by mouth once daily. One tablet at bedtime - clopidogrel (PLAVIX) 75 mg tablet Take 1 tablet by mouth once daily. - aspirin, enteric coated (ASPIRIN, ENTERIC COATED) 81 mg EC tablet Take 1 tablet by mouth once daily. Problem List As Of Date 09/12/2024 Noted Resolved ASCVD (arteriosclerotic cardiovascular disease)*02/13/2012 GERD with esophagitis [K21.00] 03/23/2017 Chronic insomnia [F51.04] 03/23/2017 Chronic midline low back pain with left-sided s*03/23/2017 Smoker [F17.200] 03/23/2017 Chronic thumb pain, left [M79.645, G89.29] 05/04/2017 01/07/2018 Heartburn [R12] 11/23/2017 Other emphysema (HCC) [J43.8] 12/04/2017 Hallux limitus of right foot [M20.5X1] 09/21/2018 Hypertension [I10] 09/21/2018 Osteoarthritis of multiple joints [M15.9] 09/28/2018 09/28/2018 Obesity, Class I, BMI 30-34.9 [E66.811] 03/01/2019 04/26/2020 Stage 3 chronic kidney disease (HCC) [N18.30] 05/12/2019 Hyponatremia [E87.1] 07/01/2019 Spinal stenosis of lumbar region [M48.061] 11/16/2020 Left lumbar radiculitis [M54.16] 11/16/2020 Microscopic hematuria [R31.29] 02/14/2022 Hypokalemia [E87.6] 02/14/2022 Hyperlipidemia, mixed [E78.2] 03/13/2022 Psoriasis [L40.9] 08/22/2022 Lipoma [D17.9] 09/16/2023 Lipoma of upper extremity [D17.20] 09/16/2023 Prescriptions ordered this encounter Disp Refills Start End POTASSIUM CHLORIDE ER 10 MEQ TABLET,* 90 t* 0 09/13/2024 Route: ORAL Sig: Take 1 tablet by mouth once daily. Medications Discontinued During This Encounter Prescriptions - potassium chloride (K-TAB) 10 mEq tablet (Discontinued) TAKE 1 TABLET BY MOUTH EVERY DAY Encounter Status:Closed by KALYANI FLORES on 09/12/24 [facility] CNOVon 09-06-2024 CNOV Office Visit (THEA DIAS) JACKIE YU ([id number]) 1955 F Date Time Provider Department 09/06/24 9:00 AM ELANA CHERY During your visit today, we recorded the following information about you: Temperature Pulse Respiration Blood pressure 98.1 degrees 81/minute 16/minute 102/62 Weight Height 83 kg 1.676 m Elana Chery DO 09/24/2024 6:16 PM Signed Subjective HPI F/u for pain, bad today, all over today in shoulders, hips BP is low today, she will call her size mixer to discuss She takes ambien as needed for bedtime She takes percocet as needed, usually once a day Takes it when she gets home from work if needed She smokes up to 1 PPD ALLERGIES Allergen Reactions Tramadol Itching Niacin Rash Gabapentin Swelling Current Outpatient Medications Medication Sig Dispense Refill zolpidem (AMBIEN) 10 mg Take 1 tablet by mouth at bedtime as needed for up to 30 days. for insomnia. 30 tablet 0 albuterol HFA (PROVENTIL HFA, VENTOLIN HFA) 90 mcg/actuation inhaler Inhale 2-4 Puffs as instructed every 2 hours as needed for wheezing/shortness of breath. 1 Each 0 albuterol HFA (PROVENTIL HFA, VENTOLIN HFA) 90 mcg/actuation inhaler USE 2 INHALATIONS BY MOUTH EVERY 4 HOURS NEEDED 40.2 g 3 famotidine (PEPCID) 20 mg tablet Take 1 tablet by mouth once daily. 90 tablet 3 potassium chloride (K-TAB) 10 mEq tablet TAKE 1 TABLET BY MOUTH EVERY DAY 90 tablet 0 oxyCODONE-acetaminophen (PERCOCET) 5-325 mg tablet TAKE 1/2 TO 1 TABLET UP TO 3 TIMES DAILY NEEDED FOR PAIN tiZANidine (ZANAFLEX) 4 mg tablet TAKE 1/2 TO 1 TABLET BY MOUTH UP TO 3 TIMES A DAY, NEEDED FOR MUSCLE SPASMS amLODIPine (NORVASC) 5 mg tablet Take 1 tablet by mouth once daily. 90 tablet 3 nitroglycerin sublingual (NITROQUICK) 0.4 mg SL tablet DISSOLVE 1 TABLET UNDER THE TONGUE EVERY 5 MINUTES NEEDED. 100 tablet 0 docusate sodium (COLACE) 100 mg capsule Take 1 capsule by mouth twice daily. 60 capsule 0 benazepril (LOTENSIN) 10 mg tablet 1 po every day calcium carbonate (TUMS) 500 mg chew Take 500 mg by mouth as needed. hydroCHLOROthiazide (HYDRODIURIL, ESIDRIX) 12.5 mg tablet TAKE 1 TABLET BY MOUTH ONCE DAILY. 90 tablet 3 atorvastatin (LIPITOR) 80 mg tablet TAKE 1 TABLET BY MOUTH ONCE DAILY. 30 tablet 11 spironolactone (ALDACTONE) 25 mg tablet TAKE 1 TABLET BY MOUTH ONCE DAILY. 90 tablet 3 metoprolol succinate ER (TOPROL XL) 25 mg 24 hr tablet Take 25 mg by mouth once daily. One tablet at bedtime clopidogrel (PLAVIX) 75 mg tablet Take 1 tablet by mouth once daily. 0 aspirin, enteric coated (ASPIRIN, ENTERIC COATED) 81 mg EC tablet Take 1 tablet by mouth once daily. 0 acetaminophen (TYLENOL) 500 mg tablet Take 500 mg by mouth every 8 hours as needed. (Patient not taking: Reported on 06/06/2024) No current facility-administered medications for this visit. ACTIVE PROBLEM LIST Ascvd (Arteriosclerotic Cardiovascular Disease) Gerd With Esophagitis Chronic Insomnia Chronic Midline Low Back Pain With Left-Sided Sciatica Smoker Heartburn Other Emphysema (Hcc) Hallux Limitus of Right Foot Hypertension Stage 3 Chronic Kidney Disease (Hcc) Hyponatremia Spinal Stenosis of Lumbar Region Left Lumbar Radiculitis Microscopic Hematuria Hypokalemia Hyperlipidemia, Mixed Psoriasis Lipoma Lipoma of Upper Extremity Social History Tobacco Use Smoking status: Every Day Current packs/day: 1.00 Average packs/day: 1 pack/day for 45.0 years (45.0 ttl pk-yrs) Types: Cigarettes Start date: 07/13/1984 Smokeless tobacco: Never Vaping Use Vaping status: Never Used Substance Use Topics Alcohol use: Yes Comment: rare Drug use: Never Family History Problem Relation Age of Onset Heart Mother CABG Hyperlipidemia Mother Hypertension Mother Coronary Artery Disease Mother Heart Sister stents No Known Problems Brother Diabetes No Family History Stroke No Family History Blood Disease No Family History Blood Clots No Family History Factor 5 Leiden No Family History DVT No Family History Systemic Lupus Erythematosus No Family History Multiple Sclerosis No Family History Bipolar disorder No Family History Schizophrenia No Family History Alzheimer's Disease No Family History Dementia No Family History Parkinson?s Disease No Family History COPD No Family History Aneurysm No Family History Reviewed past medical history, family history and surgeries. All medications and supplements were reviewed with the patient. Review of Systems Constitutional: Negative for chills, diaphoresis, fever, malaise/fatigue and weight loss. HENT: Negative for ear pain and hearing loss. Eyes: Negative for blurred vision and double vision. Respiratory: Negative for cough and shortness of breath. Cardiovascular: Negative for chest pain, palpitations and leg swelling. Gastro (more content not included)... Normal [facility] ALLIED HEALTHon 08-10-2024 ALLIED HEALTH HNO ID: [id number] Author: OLEGARIO ULLOA CT Service: Radiology Author Type: Technologist Type: Allied Health Filed: 08/10/2024 09:08 Note Text: Radiology Service Progress Note PATIENT NAME: Jackie Yu DATE OF SERVICE: August 10, 2024 TIME: 9:08 AM PATIENT IDENTITY VERIFICATION COMPLETED USING TWO (2) IDENTIFIERS: Name and Date of confirmed by patient verbally. FALL SCREENING: Has the patient had 2 falls in the last year or 1 fall with injury or currently using an Ambulatory Assistive Device (Walker, Cane, Wheelchair, Crutches, etc.)? No PATIENT GENDER DATA: Assigned female at . status: : No status: NO. PATIENT RELEVANT IMPLANT DATA REVIEWED: Not Applicable PATIENT PRESENTS WITH AN IMPLANTABLE OR ATTACHED SUPERVISOR PIPELINE MAINTENANCE: No RADIOLOGY DEPARTMENT: General X-ray: Exam(s) Completed: Chest X-Ray PERIPHERAL IV DATA: Not applicable SIGNED BY: CHAR Kaufman August 10, 2024 9:08 AM Normal [facility] Basic metabolic 2000 panelon 08-10-2024 Anion gap [Moles/Vol] 12 mmol/L Normal 8-15 [facility] Comment on above: Order Comment: Speci men Type: BLOOD SPECIMEN Ordering Facility: [facility] Address: [address] [place] [address] Performed By: #### 2 4321-2 #### [facility] CLIA [id number] [address] [facility] [place] [address] [place] Calcium [Mass/Vol] 8.9 mg/dL Normal 8.5-10.2 [facility] Comment on above: Order Comment: Speci men Type: BLOOD SPECIMEN Ordering Facility: [facility] Address: [address] [place] [address] Performed By: #### 2 4321-2 #### [facility] CLIA [id number] [address] [place] [address] [place] Chloride [Moles/Vol] 91 mmol/L Low 98-107 [facility] Comment on above: Order Comment: Speci men Type: BLOOD SPECIMEN Ordering Facility: [facility] Address: [address] [place] [address] Performed By: #### 2 4321-2 #### [facility] CLIA [id number] [address] [place] [address] [place] CO2 [Moles/Vol] 25 mmol/L Normal 22-30 [facility] Comment on above: Order Comment: Speci men Type: BLOOD SPECIMEN Ordering Facility: [facility] Address: [address] [place] [address] Performed By: #### 2 4321-2 #### [facility] CLIA [id number] [address] [place] [address] [place] Creatinine [Mass/Vol] 0.80 mg/dL Normal 0.58-0.96 [facility] Comment on above: Order Comment: Speci men Type: BLOOD SPECIMEN Ordering Facility: [facility] Address: [address] [place] [address] Performed By: #### 2 4321-2 #### [facility] CLIA [id number] [address] [place] [address] [place] Creatinine and Glomerular filtration rate.predicted panel (S/P/Bld) 80 mL/min/1.73m??? Normal >=60 [facility] Comment on above: Order Comment: Berry duarte Type: BLOOD SPECIMEN Ordering Facility: [facility] Address: [address] [place] [address] Result Comment: Pito mated Glomerular Filtration Rate (eGFR) is calculated using the 2020 CKD-EPI creatinine equation. This equation utilizes serum creatinine, sex, and age as parameters. The creatinine assay has traceable calibration to isotope dilution-mass spectrometry. Refer to KDIGO guidelines for clinical interpretation. In patients with unstable renal function, e.g. those with acute kidney injury, the eGFR may not accurately reflect actual GFR. Performed By: #### 2 4321-2 #### [facility] CLIA [id number] [address] [place], [place] [id number] [place] Glucose [Mass/Vol] 127 mg/dL High 74-99 [facility] Comment on above: Order Comment: Berry duarte Type: BLOOD SPECIMEN Ordering Facility: [facility] Address: [address] [place] [address] Result Comment: The [place] Diabetes Association (ADA) provides guidance for cutoff values for fasting glucose and random glucose. The ADA defines fasting as no caloric intake for at least 8 hours. Fasting plasma glucose results between 100 to 125 mg/dL indicate increased risk for diabetes (prediabetes). Fasting plasma glucose results greater than or equal to 126 mg/dL meet the criteria for diagnosis of diabetes. In the absence of unequivocal hyperglycemia, results should be confirmed by repeat testing. In a patient with classic symptoms of hyperglycemia or hyperglycemic crisis, random plasma glucose results greater than or equal to 200 mg/dL meet the criteria for diagnosis of diabetes. Reference: Standards of Medical Care in Diabetes 2016, [place] [employer] Association. Diabetes Care. 2016.39(Suppl 1). Performed By: #### 2 4321-2 #### [facility] CLIA [id number] [address] [place] [address] [place] Potassium [Moles/Vol] 3.7 mmol/L Normal 3.7-5.1 [facility] Comment on above: Order Comment: Speci men Type: BLOOD SPECIMEN Ordering Facility: [facility] Address: [address] [place] [address] Performed By: #### 2 4321-2 #### [facility] CLIA [id number] [address] [place] [address] [place] Sodium [Moles/Vol] 128 mmol/L Low 136-144 [facility] Comment on above: Order Comment: Speci men Type: BLOOD SPECIMEN Ordering Facility: [facility] Address: [address] [place] [address] Performed By: #### 2 4321-2 #### [facility] CLIA [id number] [address] [place] Urea nitrogen [Mass/Vol] 8 mg/dL Normal 7-21 [facility] Comment on above: Order Comment: Speci men Type: BLOOD SPECIMEN Ordering Facility: [facility] Address: [address] [place] [address] Performed By: #### 2 4321-2 #### [facility] CLIA [id number] [address] [place] CBC W Auto Differential pane l (Bld)on 08-10-2024 Basophils (Bld) [#/Vol] 10*3/uL Normal <0.11 [facility] Comment on above: Order Comment: Speci men Type: BLOOD SPECIMEN Ordering Facility: [facility] Address: [address] [place] [address] Performed By: #### 5 7021-8 #### [facility] CLIA [id number] [address] [place] Basophils/100 WBC (Bld) 0.2 % Normal [facility] Comment on above: Order Comment: Speci men Type: BLOOD SPECIMEN Ordering Facility: [facility] Address: [address] [place] [address] Performed By: #### 5 7021-8 #### [facility] CLIA [id number] [address] [place] [address] [place] Differential cell count method Nom (Bld) Auto Normal [facility] Comment on above: Order Comment: Speci men Type: BLOOD SPECIMEN Ordering Facility: [facility] Address: [address] [place] [address] Performed By: #### 5 7021-8 #### [facility] CLIA [id number] [address] [place] [address] [place] Eosinophils (Bld) [#/Vol] 0.07 10*3/uL Normal <0.46 [facility] Comment on above: Order Comment: Speci men Type: BLOOD SPECIMEN Ordering Facility: [facility] Address: [address] [place] [address] Performed By: #### 5 7021-8 #### [facility] CLIA [id number] [address] [place] [id number] [facility] Eosinophils/100 WBC (Bld) 1.5 % Normal [facility] Comment on above: Order Comment: Speci men Type: BLOOD SPECIMEN Ordering Facility: [facility] Address: [address] [place] [address] Performed By: #### 5 7021-8 #### [facility] CLIA [id number] [address] [place] [address] [facility] Erythrocyte distribution width (RBC) [Ratio] 12.1 % Normal 11.5-15.0 [facility] Comment on above: Order Comment: Speci men Type: BLOOD SPECIMEN Ordering Facility: [facility] Address: [address] [place] [address] Performed By: #### 5 7021-8 #### [facility] CLIA [id number] [address] [place] [address] [facility] Hematocrit (Bld) [Volume fraction] 44.7 % Normal 36.0-46.0 [facility] Comment on above: Order Comment: Speci men Type: BLOOD SPECIMEN Ordering Facility: [facility] Address: [address] [place] [address] Performed By: #### 5 7021-8 #### [facility] CLIA [id number] [address] [place] [address] [place] Hemoglobin (Bld) [Mass/Vol] 15.1 g/dL Normal 11.5-15.5 [facility] Comment on above: Order Comment: Speci men Type: BLOOD SPECIMEN Ordering Facility: [facility] Address: [address] [place] [address] Performed By: #### 5 7021-8 #### [facility] CLIA [id number] [address] [place] [address] [place] Immature granulocytes (Bld) [#/Vol] 10*3/uL Normal <0.10 [facility] Comment on above: Order Comment: Speci men Type: BLOOD SPECIMEN Ordering Facility: [facility] Address: [address] [place] [address] Performed By: #### 5 7021-8 #### [facility] CLIA [id number] [address] [place] [address] [place] Immature granulocytes/100 WBC (Bld) 0.2 % Normal [facility] Comment on above: Order Comment: Speci men Type: BLOOD SPECIMEN Ordering Facility: [facility] Address: [address] [place] [address] Performed By: #### 5 7021-8 #### [facility] CLIA [id number] [address] [place] [address] [place] Lymphocytes (Bld) [#/Vol] 2.27 10*3/uL Normal 1.00-4.00 [facility] Comment on above: Order Comment: Speci men Type: BLOOD SPECIMEN Ordering Facility: [facility] Address: [address] [place] [address] Performed By: #### 5 7021-8 #### [facility] CLIA [id number] [address] [place] [address] [place] Lymphocytes/100 WBC (Bld) 47.2 % Normal [facility] Comment on above: Order Comment: Speci men Type: BLOOD SPECIMEN Ordering Facility: [facility] Address: [address] [place] [address] Performed By: #### 5 7021-8 #### [facility] CLIA [id number] [address] [place] [address] [facility] MCH (RBC) [Entitic mass] 30.6 pg Normal 26.0-34.0 [facility] Comment on above: Order Comment: Speci men Type: BLOOD SPECIMEN Ordering Facility: [facility] Address: [address] [place] [address] Performed By: #### 5 7021-8 #### [facility] CLIA [id number] [address] [place] [address] [place] MCHC (RBC) [Mass/Vol] 33.8 g/dL Normal 30.5-36.0 [facility] Comment on above: Order Comment: Speci men Type: BLOOD SPECIMEN Ordering Facility: [facility] Address: [address] [place] [address] Performed By: #### 5 7021-8 #### [facility] CLIA [id number] [address] [place] [address] [place] MCV (RBC) [Entitic vol] 90.5 fL Normal 80.0-100.0 [facility] Comment on above: Order Comment: Speci men Type: BLOOD SPECIMEN Ordering Facility: [facility] Address: [address] [place] [address] Performed By: #### 5 7021-8 #### [facility] CLIA [id number] [address] [place] [id number] [facility] Monocytes (Bld) [#/Vol] 0.40 10*3/uL Normal <0.87 [facility] Comment on above: Order Comment: Speci men Type: BLOOD SPECIMEN Ordering Facility: [facility] Address: [address] [place] [address] Performed By: #### 5 7021-8 #### [facility] CLIA [id number] [address] [place] [address] [place] Monocytes/100 WBC (Bld) 8.3 % Normal [facility] Comment on above: Order Comment: Speci men Type: BLOOD SPECIMEN Ordering Facility: [facility] Address: [address] [place] [address] Performed By: #### 5 7021-8 #### [facility] CLIA [id number] [address] [place] [address] [place] Neutrophils (Bld) [#/Vol] 2.05 10*3/uL Normal 1.45-7.50 [facility] Comment on above: Order Comment: Speci men Type: BLOOD SPECIMEN Ordering Facility: [facility] Address: [address] [place] [address] Performed By: #### 5 7021-8 #### [facility] CLIA [id number] [address] [place] [address] [place] Neutrophils/100 WBC (Bld) 42.6 % Normal [facility] Comment on above: Order Comment: Speci men Type: BLOOD SPECIMEN Ordering Facility: [facility] Address: [address] [place] [address] Performed By: #### 5 7021-8 #### [facility] CLIA [id number] [address] [place] [address] [place] Nucleated RBC (Bld) [#/Vol] Normal [facility] Comment on above: Order Comment: Speci men Type: BLOOD SPECIMEN Ordering Facility: [facility] Address: [address] [place] [address] Performed By: #### 5 7021-8 #### [facility] CLIA [id number] [address] [place] [address] [place] Nucleated RBC/100 WBC (Bld) [Ratio] Normal [facility] Comment on above: Order Comment: Speci men Type: BLOOD SPECIMEN Ordering Facility: [facility] Address: [address] [place] [address] Performed By: #### 5 7021-8 #### [facility] CLIA [id number] [address] [place] [address] [place] Platelet mean volume (Bld) [Entitic vol] 10.6 fL Normal 9.0-12.7 [facility] Comment on above: Order Comment: Speci men Type: BLOOD SPECIMEN Ordering Facility: [facility] Address: [address] [place] [address] Performed By: #### 5 7021-8 #### [facility] CLIA [id number] [address] [place] [address] [place] Platelets (Bld) [#/Vol] 250 10*3/uL Normal 150-400 [facility] Comment on above: Order Comment: Speci men Type: BLOOD SPECIMEN Ordering Facility: [facility] Address: [address] [place] [address] Performed By: #### 5 7021-8 #### [facility] CLIA [id number] [address] [place] [address] [place] RBC (Bld) [#/Vol] 4.94 10*6/uL Normal 3.90-5.20 [facility] Comment on above: Order Comment: Speci men Type: BLOOD SPECIMEN Ordering Facility: [facility] Address: [address] [place] [address] Performed By: #### 5 7021-8 #### [facility] CLIA [id number] [address] [place] [address] [place] WBC (Bld) [#/Vol] 4.81 10*3/uL Normal 3.70-11.00 [facility] Comment on above: Order Comment: Speci men Type: BLOOD SPECIMEN Ordering Facility: [facility] Address: [address] [place] [address] Performed By: #### 5 7021-8 #### [facility] CLIA [id number] [address] [place] [address] [facility] ECG COMPLETEon 08-10-2024 ECG COMPLETE Ventricular Rate : 8 3 BPM Atrial Rate : 83 BPM P-R Interval : 136 ms QRS Duration : 72 ms Q-T Interval : 388 ms QTC Calculation(Bazett) : 455 ms Calculated P [place] : 67 degrees Calculated R [place] : 21 degrees Calculated T [place] : 77 degrees NORMAL SINUS RHYTHM NORMAL ECG NO PREVIOUS ECGS AVAILABLE Confirmed by MD CASEY VINAYAK ([id number]) on 08/10/2024 2:40:59 PM NAME : JACKIE YU PID : [id number] : 1955 Gender : Female Race : ORD : [id number] Procedure Date : Aug 10 2024 09:18:28 Edit Date : Aug 10 2024 14:41:01 Diagnosis: NORMAL SINUS RHYTHM NORMAL ECG NO PREVIOUS ECGS AVAILABLE Confirmed by MD CASEY VINAYAK ([id number]) on 08/10/2024 2:40:59 PM Test Reason : Shortness of Breath [facility] : [facility] Over[facility] By : MD CASEY VINAYAK Edited By : MD CASEY VINAYAK Referred By : , Acquired by : SUSAN FERGUSON [facility] ED NOTEon 08-10-2024 ED NOTE HNO ID: [id number] Author: BRITTA WELCH RN Service: ? Author Type: Registered Nurse Type: ED Notes Filed: 08/12/2024 08:54 Note Text: Patient Call Back Information How are you doing ? better Did we appropriately manage your pain? Yes Did you understand your discharge instructions? Yes Did you get your prescriptions filled? Yes Were you able to make a follow-up appointment with your physician? No Were you comfortable during your stay here? Yes Did a member of the ER nursing team round on you during your visit? Yes You will receive a patient satisfaction survey in the mail in the nest 2 weeks, please take the time to fill out the survey as your input from your ER visit is very important to us. Yes Can we do anything else to help you? No [facility] ED NOTE HNO ID: [id number] Author: BRITTA WELCH RN Service: ? Author Type: Registered Nurse Type: ED Notes Filed: 08/10/2024 11:27 Note Text: Pt given discharge instructions, pt questions answered and pt denies any further questions at time of discharge. Pt ambulates out of dept with a steady gait. 3 rx sent to [facility] [place] Normal [facility] ED NOTE HNO ID: [id number] Author: BRITTA WELCH, CARLOS Service: ? Author Type: Registered Nurse Type: ED Notes Filed: 08/10/2024 11:28 Note Text: Xray completed Normal [facility] ED NOTE HNO ID: [id number] Author: JAMAR YEPEZ, CARLOS Service: ? 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 - Symptoms began Thursday with worsening cough. - Severity: moderate - Timing: constant - Quality: sore - Symptoms are associated with cough, diarrhea x 2 days, lightheadedness when she stands up. - Symptoms are not associated with abdominal pain, chest pain, fever, rash, vomiting, leg pain, leg swelling, hemoptysis, syncope. Patient resents saying that she started on Thursday with a worsening cough from her baseline with history of COPD. She states she is short of breath. No chest pain. No known fever. She states her cough is dry. She denies hemoptysis or syncope. She states this morning she woke up and felt lightheaded. She states it is more when she stands up. She states it then goes away. She states that she had diarrhea for the past 2 days. She describes the diarrhea as watery and nonbloody. No abdominal pain. No vomiting. 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 She otherwise states that she has had no recent antibiotic use, no recent travel, no recent hospitalizations, no suspicious food intake. PAST MEDICAL HISTORY Diagnosis Date Arthritis ASCVD (arteriosclerotic cardiovascular disease) Chronic insomnia Chronic kidney disease, stage III (moderate) ([facility]) Closed displaced fracture of metatarsal bone of right foot DDD (degenerative disc disease), cervical GERD (gastroesophageal reflux disease) Hallux limitus of right foot Heart attack (HCC) 10/23/2006 another in apr 2015 High cholesterol Hypertension Hypokalemia Hyponatremia IBS (irritable bowel syndrome) Left lumbar radiculitis Microscopic hematuria Other emphysema ([facility]) Psoriasis Spinal stenosis PAST SURGICAL HISTORY Procedure Laterality Date CATARACT SURGERY, COMPLEX Bilateral 2023 FOOT SURGERY HX Right 1999 heal spur, tarsal tunnel FOOT SURGERY HX Right 09/28/2018 spur removed HEART SURGERY HX stents x11 HYSTERECTOMY 2000 HYSTERECTOMY HX IMPLANT NEUROELECTRD, PERIPHER STENTS (SPECIFY) heart stents, 2006, 2008, 2007, 2009, 2014 TONSILLECTOMY HX 1984 FAMILY HISTORY Problem Relation Age of Onset Heart Mother CABG Hyperlipidemia Mother Hypertension Mother Coronary Artery Disease Mother Heart Sister stents No Known Problems Brother Diabetes No Family History Stroke No Family History Blood Disease No Family History Blood Clots No Family History Factor 5 Leiden No Family History DVT No Family History Systemic Lupus Erythematosus No Family History Multiple Sclerosis No Family History Bipolar disorder No Family History Schizophrenia No Family History Alzheimer's Disease No Family History Dementia No Family History Parkinson?s Disease No Family History COPD No Family History Aneurysm No Family History Social History Tobacco Use Smoking status: Every Day Current packs/day: 1.00 Average packs/day: 1 pack/day for 45.0 years (45.0 ttl pk-yrs) Types: Cigarettes Start date: 07/13/1984 Smokeless tobacco: Never Vaping Use Vaping status: Never Used Substance and Sexual Activity Alcohol use: Yes Comment: rare Drug use: Never Sexual activity: Yes Partners: Male ALLERGIES Allergen Reactions Tramadol Itching Niacin Rash Gabapentin Swelling Review of Systems Constitutional: Negative for chills and fever. HENT: Positive for sore throat. Negative for drooling, ear pain, facial swelling and trouble swallowing. Respiratory: Positive for cough, shortness of breath and wheezing. Cardiovascular: Negative for chest pain. Gastrointestinal: Positive for diarrhea. Negative for abdominal pain, blood in stool, nausea and vomiting. Genitourinary: Negative for dysuria and flank pain. Musculoskeletal: Negative for neck stiffness. Skin: Negative for rash. Neurological: Positive for light-headedness (only when she stands up). Negative for syncope, weakness, numbness and headaches. Psychiatric/Behavioral: Negative for agitation and confusion. Physical Exam Vitals BP Pulse Temp Temp src Resp SpO2 Weight Height 08/10/24 0900 08/10/24 0838 08/10/24 0838 08/10/24 0838 08/10/24 0838 08/10/24 0838 08/10/24 0838 -- 102/69 90 36.1 ?C (97 ?F) Temporal 22 (!) 94 % 80.7 kg (178 lb) Physical Exam Vitals and nursing note reviewed. Constitutional: General: She is not in acute distress. Appearance: She is not ill-appearing, toxic-appearing or diaphoretic. HENT: Head: Normocephalic and atraumatic. Mouth/Throat: Mouth: Mucous membranes are moist. Pharyn (more content not included)... Normal [facility] HIGH SENSITIVITY TROPONIN T (INITIAL)on 08-10-2024 Troponin T.cardiac High sensitivity method [Mass/Vol] <6 Normal <12 [facility] Comment on above: Order Comment: Berry duarte Type: BLOOD SPECIMEN Ordering Facility: [facility] Address: [address] [place] [address] Performed By: #### L [id number] #### [facility] CLIA [id number] [address] [place] [address] [place] HIGH SENSITIVITY TROPONIN T (SECOND)on 08-10-2024 Troponin T.cardiac High sensitivity method [Mass/Vol] <6 Normal <12 [facility] Comment on above: Order Comment: Trinai gerald Type: BLOOD SPECIMEN Ordering Facility: [facility] Address: [address] [place] [address] Performed By: #### L [id number] #### [facility] CLIA [id number] [address] [place] [address] [place] S pyo DNA Throat Ql FLAKO+prob juan ramon 08-10-2024 S. pyogenes DNA FLAKO+probe Ql (Throat) Not detected Normal Not detected [facility] Comment on above: Order Comment: Speci men Type: SWAB Ordering Facility: [facility] Address: [address] [place] [address] Performed By: #### 6 0489-2 #### [facility] CLIA [id number] [address] [place], [place] [id number] [facility] XR CHEST 1V FRONTALon 2024 XR CHEST 1V FRONTAL * * *Final Report* * * DATE OF EXAM: Aug 10 2024 9:07AM LDX 5290 - XR CHEST 1V FRONTAL / PROCEDURE REASON: Shortness of breath * * * * Physician Interpretation * * * * EXAMINATION: CHEST RADIOGRAPH (SINGLE VIEW AP OR PA) CLINICAL HISTORY: Shortness of breath, Cough MQ: XC1_5 Comparison: 02/10/2019 RESULT: Lines, tubes, and devices: None. Lungs and pleura: No consolidation. No lung mass. No pleural effusion. Cardiomediastinal silhouette: Normal cardiomediastinal silhouette. Other: Spinal stimulator noted. IMPRESSION: No acute radiographic abnormality. Candle Maker: PSCB Transcribe Date/Time: Aug 10 2024 9:18A Dictated by : BREANNA CHRISTY MD This examination was interpreted and the report reviewed and electronically signed by: BREANNA CHRISTY MD on Aug 10 2024 9:19AM EST [id number] Normal [facility] Hepatic function 2000 panelo n 06-14-2024 Albumin [Mass/Vol] 4.1 g/dL 3.9 - 4.9 g/dL [facility] ALP [Catalytic activity/Vol] 156 U/L High 34 - 123 U/L [facility] ALT With P-5'-P [Catalytic activity/Vol] 13 U/L 7 - 38 U/L [facility] AST With P-5'-P [Catalytic activity/Vol] 14 U/L 13 - 35 U/L [facility] Bilirubin [Mass/Vol] 0.5 mg/dL 0.2 - 1 .3 mg/dL [facility] Bilirubin.direct [Mass/Vol] mg/dL NINF - 0.2 mg/dL [facility] Interpretation and review of laboratory results Abnormal [facility] Protein [Mass/Vol] 7.1 g/dL 6.3 - 8.0 g/dL [facility] Albumin [Mass/Vol] 4.1 g/dL Normal 3.9-4.9 [facility] Comment on above: Order Comment: Speci men Type: BLOOD SPECIMEN Ordering Facility: [facility] Address: [address] [place] [address] Performed By: #### 2 4325-3 #### [facility] CLIA [id number] [address] [place] [address] [place] ALP [Catalytic activity/Vol] 156 U/L High 34-123 [facility] Comment on above: Order Comment: Speci men Type: BLOOD SPECIMEN Ordering Facility: [facility] Address: [address] [place] [address] Performed By: #### 2 4325-3 #### [facility] CLIA [id number] [address] [place] [address] [place] ALT With P-5'-P [Catalytic activity/Vol] 13 U/L Normal 7-38 [facility] Comment on above: Order Comment: Speci men Type: BLOOD SPECIMEN Ordering Facility: [facility] Address: [address] [place] [address] Performed By: #### 2 4325-3 #### [facility] CLIA [id number] [address] [place] [address] [place] AST With P-5'-P [Catalytic activity/Vol] 14 U/L Normal 13-35 [facility] Comment on above: Order Comment: Speci men Type: BLOOD SPECIMEN Ordering Facility: [facility] Address: [address] [place] [address] Performed By: #### 2 4325-3 #### [facility] CLIA [id number] [address] [place] [address] [place] Bilirubin [Mass/Vol] 0.5 mg/dL Normal 0.2-1.3 [facility] Comment on above: Order Comment: Berry duarte Type: BLOOD SPECIMEN Ordering Facility: [facility] Address: [address] [place] [address] Performed By: #### 2 4325-3 #### [facility] CLIA [id number] [address] [place] [address] [place] Bilirubin.direct [Mass/Vol] mg/dL Normal <0.2 [facility] Comment on above: Order Comment: Berry duarte Type: BLOOD SPECIMEN Ordering Facility: [facility] Address: [address] [place] [address] Performed By: #### 2 4325-3 #### [facility] CLIA [id number] [address] [place] [address] [place] Protein [Mass/Vol] 7.1 g/dL Normal 6.3-8.0 [facility] Comment on above: Order Comment: Berry gerald Type: BLOOD SPECIMEN Ordering Facility: [facility] Address: [address] [place] [address] Performed By: #### 2 4325-3 #### [facility] CLIA [id number] [address] [place] [id number] [facility] [place] FECAL IMMUNOCHEMICAL TEST (F IT)on 06-13-2024 COLOGUARD RESULT Negative [facility] CNOVon 06-06-2024 CNOV Office Visit (THEA DIAS) JACKIE YU ([id number]) 1955 F Date Time Provider Department 06/06/24 3:00 PM ELANA CHERY During your visit today, we recorded the following information about you: Temperature Pulse Respiration Blood pressure 98 degrees 87/minute 18/minute 118/76 Weight Height 83 kg 1.676 m PoonamElanaDO 06/23/2024 10:23 AM Signed Jackie Yu is a 69 year old female here for a Medicare wellness visit. Medicare Health Risk Assessment General Health Very good Exercise: Minutes/Day 0 min Exercise: Days/Week 0 days Alcohol: Daily Use Never Alcohol: Drinks/Day Patient does not drink Alcohol: 6 or more drinks Never Feel off balance no Concerns: Teeth/Dentures no Concerns: Sexual function no Troubled by feelings no Frequency: Eating healthy diet yes ADLs requiring help no Safety precautions in home/vehicle no Smoke, vape, chews tobacco Yes, smokes 1 PPD Difficulty hearing no Difficulty seeing no Current Providers Specialists: I have reviewed specialist-related care of the patient in the medical record. Medical/Family history review Reviewed and updated problem list, medical/surgical/family /social history, medications, and allergies. Opioid use review Opioid Medications (last 90 days) 06/06/2024 Opioid Medications oxycodone HCl/acetaminophen TAKE 1/2 TO 1 TABLET UP TO 3 TIMES DAILY NEEDED FOR PAIN (5-325 mg tab) Details Patient-reported medication Prescribed No opioid use on file in the last 90 days Does patient have risk factors for opioid abuse? No Pain overview Current pain concerns and treatment plan reviewed. Patient not currently experiencing pain. Depression Screening PHQ-2 Score: 1 PHQ-9 Score: 2 Cognitive screening Mini Cog Score: 3 Cognitive screening reviewed and No further action needed (score 3-5). Functional Observation Was the patient's Timed Up AND Go test unsteady or >= 12 seconds? No Advance Care Planning Patient was not able to provide a surrogate decision maker or written advance directives Measurements BP 118/76 Pulse 87 Temp 36.7 ?C (98 ?F) Resp 18 Ht 167.6 cm (5' 6) Wt 83 kg (183 lb) SpO2 96% BMI 29.54 kg/m? ASSESSMENT/PLAN: 1. Medicare annual wellness visit, subsequent - ICD9: V70.0, ICD10: Z00.00 (primary diagnosis) - Counseled on healthy diet and regular exercise 2. Other emphysema (HCC) - ICD9: 492.8, ICD10: J43.8 ALBUTEROL SULFATE HFA 90 MCG/ACTUATION AEROSOL INHALER 3. Hyperlipidemia, mixed - ICD9: 272.2, ICD10: E78.2 - Controlled - Continue current medications - Counseled on healthy diet and regular exercise - HEPATIC FUNCTION PNL Elana Chery DO Referring Provider: SELF [200] Allergies As of Date: 06/06/2024 Noted Allergy Reaction TRAMADOL 05/09/2016 9 - Itching NIACIN 07/26/2015 2 - Rash GABAPENTIN 03/29/2022 7 - Swelling Date Reviewed: 06/06/2024 Reviewed by: Elana Chery DO - Fully Assessed Reason for Visit: Medicare Wellness Exam [4060] Primary Visit Diagnosis:Medicare annual wellness visit, subsequent [Z00.00] Other Visit Diagnoses:Other emphysema (HCC) [J43.8] Hyperlipidemia, mixed [E78.2] Order(s):albuterol HFA (PROVENTIL HFA, VENTOLIN HFA) 90 mcg/actuation inhalerUSE 2 INHALATIONS BY MOUTH EVERY 4 HOURS NEEDEDDisp: 40.2 gRfl: 3 ADVANCE CARE PLAN DISCUSSION [2330072] Order #: [id number]: 1 HEPATIC FUNCTION PNL [SQHFP] Order #: [id number] FUTURE Prescriptions as of 06/23/2024 - albuterol HFA (PROVENTIL HFA, VENTOLIN HFA) 90 mcg/actuation inhaler USE 2 INHALATIONS BY MOUTH EVERY 4 HOURS NEEDED - famotidine (PEPCID) 20 mg tablet Take 1 tablet by mouth once daily. - zolpidem (AMBIEN) 10 mg Take 1 tablet by mouth at bedtime as needed for up to 30 days. for insomnia. - potassium chloride (K-TAB) 10 mEq tablet TAKE 1 TABLET BY MOUTH EVERY DAY - oxyCODONE-acetaminophen (PERCOCET) 5-325 mg tablet TAKE 1/2 TO 1 TABLET UP TO 3 TIMES DAILY NEEDED FOR PAIN - tiZANidine (ZANAFLEX) 4 mg tablet TAKE 1/2 TO 1 TABLET BY MOUTH UP TO 3 TIMES A DAY, NEEDED FOR MUSCLE SPASMS - amLODIPine (NORVASC) 5 mg tablet Take 1 tablet by mouth once daily. - nitroglycerin sublingual (NITROQUICK) 0.4 mg SL tablet DISSOLVE 1 TABLET UNDER THE TONGUE EVERY 5 MINUTES NEEDED. - docusate sodium (COLACE) 100 mg capsule Take 1 capsule by mouth twice daily. - benazepril (LOTENSIN) 10 mg tablet 1 po every day - acetaminophen (TYLENOL) 500 mg tablet Take 500 mg by mouth every 8 hours as needed. - calcium carbonate (TUMS) 500 mg chew Take 500 mg by mouth as needed. - hydroCHLOROthiazide (HYDRODIURIL, ESIDRIX) 12.5 mg tablet TAKE 1 TABLET BY MOUTH ONCE DAILY. - atorvastatin (LIPITOR) 80 mg tablet TAKE 1 TABLET BY MOUTH ONCE DAILY. - spironolactone (ALDACTONE) 25 mg tablet TAKE 1 TABLET BY MOUTH ONCE DAILY. - met (more content not included)... Normal [facility] Lipid 1996 panelon 4 Cholesterol [Mass/Vol] 139 mg/dL Normal 0-199 [facility] Comment on above: Result Comment: Age Desirable Borderline High High 0-19 Y 0 - 169 170 - 199 >/= 200 20-24 Y 0 - 189 190 - 224 >/= 225 >24 Y 0 - 199 200 - 239 >/= 240 All ranges are based on fasting samples. Specific therapeutic targets will vary based on patient-specific cardiac risk. Pediatric guidelines reference:Pediatrics 2011, 128(S5).Adult guidelines reference: NCEP ATPIII Guidelines,TANG 2001, 258:2486-97 Venipuncture immediately after or during the administration of Metamizole may lead to falsely low results. Testing should be performed immediately prior to Metamizole dosing. Performed By: #### 2 4331-1 #### PAMELA LAWSON ([id number]) [facility] ([facility]) [address] [place] [address] Cholesterol in HDL [Mass/Vol] 33.5 mg/dL Normal [facility] Comment on above: Result Comment: Age Very Low Low Normal High 0-19 Y < 35 < 40 40-45 ---- 20-24 Y ---- < 40 >45 ---- >24 Y ---- < 40 40-60 >60 Performed By: #### 2 4331-1 #### PAMELA LAWSON ([id number]) [facility] ([facility]) [address] [place] [address] Cholesterol in LDL [Mass/Vol] 80 mg/dL Normal <=99 [facility] Comment on above: Result Comment: Near Borderline AGE Desirable Optimal High High Very High 0-19 Y 0 - 109 --- 110-129 >/= 130 ---- 20-24 Y 0 - 119 --- 120-159 >/= 160 ---- >24 Y 0 - 99 100-129 130-159 160-189 >/=190 Performed By: #### 2 4331-1 #### PAMELA LAWSON ([id number]) [facility] ([facility]) [address] [place] [address] Cholesterol in VLDL [Mass/Vol] 25 mg/dL Normal 0-40 [facility] Comment on above: Performed By: #### 2 4331-1 #### PAMELA LAWSON ([id number]) [facility] ([facility]) [address] [place] [address] CHOLESTEROL/HDL RATIO 4.1 Normal [facility] Comment on above: Result Comment: Ref Values Desirable < 3.4 High Risk > 5.0 Performed By: #### 2 4331-1 #### PAMELA LAWSON ([id number]) [facility] ([facility]) [address] [place] [address] NON HDL CHOLESTEROL 106 mg/dL Normal 0-149 [facility] Comment on above: Result Comment: Age Desirable Borderline High High Very High 0-19 Y 0 - 119 120 - 144 >/= 145 >/= 160 20-24 Y 0 - 149 150 - 189 >/= 190 ---- >24 Y 30 mg/dL above LDL Cholesterol goal Performed By: #### 2 4331-1 #### PAMELA LAWSON ([id number]) [facility] ([facility]) [address] [place] [address] Triglyceride [Mass/Vol] 126 mg/dL Normal 0-149 [facility] Comment on above: Result Comment: Age Desirable Borderline High Very High SEX:B mg/dL mg/dL mg/dL mg/dL <=14D 86-277 ---- ---- ---- 15D-365D 55-277 ---- ---- ---- 1Y-9Y 0-74 75-99 >=100 ---- 10Y-19Y 0-89 90-129 >=130 ---- 20Y-24Y 0-114 115-149 >=150 ---- >= 25Y 0-149 150-199 200-499 >=500 Venipuncture immediately after or during the administration of Metamizole may lead to falsely low results. Testing should be performed immediately prior to Metamizole dosing. Performed By: #### 2 4331-1 #### PAMELA LAWSON ([id number]) [facility] ([facility]) [address] [place] [address] Renal function 2000 panelon 05-12-2024 Albumin BCP dye [Mass/Vol] 3.9 g/dL Normal 3.4-5.0 [facility] Comment on above: Performed By: #### 2 4362-6 #### PAMELA LAWSON ([id number]) [facility] ([facility]) [address] [place] [address] Anion gap [Moles/Vol] 11 mmol/L Normal 10-20 [facility] Comment on above: Performed By: #### 2 4362-6 #### PAMELA LAWSON ([id number]) [facility] ([facility]) [address] [place] [address] Calcium [Mass/Vol] 9.3 mg/dL Normal 8.6-10.3 [facility] Comment on above: Performed By: #### 2 4362-6 #### PAMELA LAWSON ([id number]) [facility] ([facility]) [address] [place] [address] Chloride [Moles/Vol] 95 mmol/L Low 98-107 [facility] Comment on above: Performed By: #### 2 4362-6 #### PAMELA LAWSON ([id number]) [facility] ([facility]) [address] [place] [address] CO2 [Moles/Vol] 29 mmol/L Normal 21-32 [facility] Comment on above: Performed By: #### 2 4362-6 #### PAMELA LAWSON ([id number]) [facility] ([facility]) [address] [place] [address] Creatinine [Mass/Vol] 0.83 mg/dL Normal 0.50-1.05 [facility] Comment on above: Performed By: #### 2 4362-6 #### PAMELA LAWSON ([id number]) [facility] ([facility]) [address] [place] [address] Glomerular filtration rate/1.73 sq M.predicted 77 mL/min/1.73m*2 Normal >60 [facility] Comment on above: Result Comment: Calc ulations of estimated GFR are performed using the 2020 CKD-EPI Study Refit equation without the race variable for the IDMS-Traceable creatinine methods. https://jasn.asnjournals.org/content//ASN.1217299 988 Performed By: #### 2 4362-6 #### PAMELA LAWSON ([id number]) [facility] ([facility]) [address] [place] [address] Glucose [Mass/Vol] 114 mg/dL High 74-99 [facility] Comment on above: Performed By: #### 2 4362-6 #### PAMELA LAWSON ([id number]) [facility] ([facility]) [address] [place] [address] Phosphate [Mass/Vol] 4.3 mg/dL Normal 2.5-4.9 [facility] Comment on above: Result Comment: The performance characteristics of phosphorus testing in heparinized plasma have been validated by the individual laboratory site where testing is performed. Testing on heparinized plasma is not approved by the FDA; however, such approval is not necessary. Performed By: #### 2 4362-6 #### PAMELA LAWSON ([id number]) [facility] ([facility]) [address] [place] [address] Potassium [Moles/Vol] 4.2 mmol/L Normal 3.5-5.3 [facility] Comment on above: Performed By: #### 2 4362-6 #### PAMELA LAWSON ([id number]) [facility] ([facility]) [address] [place] [address] Sodium [Moles/Vol] 131 mmol/L Low 136-145 [facility] Comment on above: Performed By: #### 2 4362-6 #### APMELA LAWSON ([id number]) [facility] ([facility]) [address] [place] [address] Urea nitrogen [Mass/Vol] 9 mg/dL Normal 6-23 [facility] Comment on above: Performed By: #### 2 4362-6 #### PAMELA LAWSON ([id number]) [facility] ([facility]) [address] [place] [address] CNOVon 03-04-2024 CNOV Office Visit (THEA DIAS) JACKIE YU ([id number]) 1955 F Date Time Provider Department 03/04/24 4:00 PM ELANA CHERY During your visit today, we recorded the following information about you: Temperature Pulse Respiration Blood pressure 98.1 degrees 86/minute 16/minute 124/76 Weight Height 82.6 kg 1.683 m Elana Chery DO 03/25/2024 9:10 PM Signed Subjective HPI Pt is here for f/u for pain She is getting numbness in the distal part of her feet from the forefoot to the toes She is allergic to gabapentin, and does not want to take lyrica She is feeling more tired than before 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 for insomnia. 30 tablet 0 potassium chloride (K-TAB) 10 mEq tablet take 1 tablet by mouth every day 90 tablet 0 famotidine (PEPCID) 20 mg tablet take 1 tablet by mouth every day 90 tablet 3 oxyCODONE-acetaminophen (PERCOCET) 5-325 mg tablet TAKE 1/2 TO 1 TABLET UP TO 3 TIMES DAILY NEEDED FOR PAIN tiZANidine (ZANAFLEX) 4 mg tablet TAKE 1/2 TO 1 TABLET BY MOUTH UP TO 3 TIMES A DAY, NEEDED FOR MUSCLE SPASMS amLODIPine (NORVASC) 5 mg tablet Take 1 tablet by mouth once daily. 90 tablet 3 albuterol HFA (PROVENTIL HFA, VENTOLIN HFA) 90 mcg/actuation inhaler USE 2 INHALATIONS BY MOUTH EVERY 4 HOURS NEEDED 40.2 g 3 nitroglycerin sublingual (NITROQUICK) 0.4 mg SL tablet DISSOLVE 1 TABLET UNDER THE TONGUE EVERY 5 MINUTES NEEDED. 100 tablet 0 docusate sodium (COLACE) 100 mg capsule Take 1 capsule by mouth twice daily. (Patient taking differently: Take 100 mg by mouth as needed.) 60 capsule 0 benazepril (LOTENSIN) 10 mg tablet 1 po every day acetaminophen (TYLENOL) 500 mg tablet Take 500 mg by mouth every 8 hours as needed. calcium carbonate (TUMS) 500 mg chew Take 500 mg by mouth as needed. hydroCHLOROthiazide (HYDRODIURIL, ESIDRIX) 12.5 mg tablet TAKE 1 TABLET BY MOUTH ONCE DAILY. 90 tablet 3 atorvastatin (LIPITOR) 80 mg tablet TAKE 1 TABLET BY MOUTH ONCE DAILY. 30 tablet 11 spironolactone (ALDACTONE) 25 mg tablet TAKE 1 TABLET BY MOUTH ONCE DAILY. 90 tablet 3 metoprolol succinate ER (TOPROL XL) 25 mg 24 hr tablet Take 25 mg by mouth once daily. One tablet at bedtime clopidogrel (PLAVIX) 75 mg tablet Take 1 tablet by mouth once daily. 0 aspirin, enteric coated (ASPIRIN, ENTERIC COATED) 81 mg EC tablet Take 1 tablet by mouth once daily. 0 No current facility-administered medications for this visit. ACTIVE PROBLEM LIST Ascvd (Arteriosclerotic Cardiovascular Disease) Gerd With Esophagitis Chronic Insomnia Chronic Midline Low Back Pain With Left-Sided Sciatica Smoker Heartburn Other Emphysema (Hcc) Hallux Limitus of Right Foot Hypertension Stage 3 Chronic Kidney Disease (Hcc) Hyponatremia Spinal Stenosis of Lumbar Region Left Lumbar Radiculitis Microscopic Hematuria Hypokalemia Hyperlipidemia, Mixed Psoriasis Lipoma Lipoma of Upper Extremity Social History Tobacco Use Smoking status: Every Day Current packs/day: 1.00 Average packs/day: 1 pack/day for 45.0 years (45.0 ttl pk-yrs) Types: Cigarettes Start date: 07/13/1984 Smokeless tobacco: Never Vaping Use Vaping status: Never Used Substance Use Topics Alcohol use: Yes Comment: rare Drug use: Never Family History Problem Relation Age of Onset Heart Mother CABG Hyperlipidemia Mother Hypertension Mother Coronary Artery Disease Mother Heart Sister stents No Known Problems Brother Diabetes No Family History Stroke No Family History Blood Disease No Family History Blood Clots No Family History Factor 5 Leiden No Family History DVT No Family History Systemic Lupus Erythematosus No Family History Multiple Sclerosis No Family History Bipolar disorder No Family History Schizophrenia No Family History Alzheimer's Disease No Family History Dementia No Family History Parkinson?s Disease No Family History COPD No Family History Aneurysm No Family History Reviewed past medical history, family history and surgeries. All medications and supplements were reviewed with the patient. Review of Systems Constitutional: Negative for chills, diaphoresis, fever, malaise/fatigue and weight loss. HENT: Negative for ear pain and hearing loss. Eyes: Negative for blurred vision and double vision. Respiratory: Negative for cough and shortness of breath. Cardiovascular: Negative for chest pain, palpitations a (more content not included)... Normal [facility] CNOVon 02-12-2024 CNOV Office Visit (GENSWS ) JACKIE YU ([id number]) 1955 F Date Time Provider Department 02/12/24 8:15 AM BOB MARTIN During your visit today, we recorded the following information about you: Temperature Pulse Blood pressure Weight 97.4 degrees 80/minute 136/64 85.2 kg Bob Martin MD 02/14/2024 1:44 PM Signed FOLLOW UP VISIT NAME: Jackie Yu [facility] NO.: [id number] DATE OF SERVICE: 02/12/2024 : 1955 REFERRING PHYSICIAN: Elana Chery DO Jackie is a patient I am following for anal pain and occasional bleeding. Jackie is a 68 year old female with a complaint of anal pain. she has noticed anal pain with bleeding episodically for some time. she denies a history of constipation but did note some issues with frequent loose stools and straining. The patient was seen by her primary care physician and was referred for treatment. she has tried topical lidocaine. Patient's last colonoscopy was 10 years ago and she is currently due for colonoscopy. Patient has a history of coronary artery disease on Plavix and aspirin for coronary stents The patient is being seen by me today at the request of Dr. Elana Chery DO for my opinion and advice regarding anal pain likely fissure. She returns today for follow-up evaluation. She states she last noted irritation approximately 1 month ago. VITALS: Blood pressure 136/64, pulse 80, temperature 36.3 ?C (97.4 ?F), temperature source Temporal, weight 85.2 kg (187 lb 12.8 oz). On examination, deferred Assessment IMPRESSION: Anal discomfort, question fistula versus internal hemorrhoids PLAN: If the patient notes any problems or signs of recurrent bleeding, the patient should contact my office and follow-up for examination versus anoscopy and hemorrhoidal banding. Once this issue is solved we will discuss need for screening colonoscopy Diagnoses: (K62.5) Rectum bleeding (primary encounter diagnosis) (J44.9) Chronic obstructive pulmonary disease, unspecified COPD type (HCC) Return to Clinic: The patient is instructed to follow-up with me when symptomatic. ____ Bob Martin MD Referring Provider: BOB MARTIN [[id number]] Allergies As of Date: 02/12/2024 Noted Allergy Reaction TRAMADOL 05/09/2016 9 - Itching NIACIN 07/26/2015 2 - Rash GABAPENTIN 03/29/2022 7 - Swelling Date Reviewed: 02/12/2024 Reviewed by: Dominique Campos RN - Fully Assessed Reason for Visit: Established Patient [175] Primary Visit Diagnosis:Rectum bleeding [K62.5] Other Visit Diagnosis:Chronic obstructive pulmonary disease, unspecified COPD type (HCC) [J44.9] Prescriptions as of 02/14/2024 - zolpidem (AMBIEN) 10 mg Take 1 tablet by mouth at bedtime as needed for up to 30 days. for insomnia. - potassium chloride (K-TAB) 10 mEq tablet take 1 tablet by mouth every day - famotidine (PEPCID) 20 mg tablet take 1 tablet by mouth every day - oxyCODONE-acetaminophen (PERCOCET) 5-325 mg tablet TAKE 1/2 TO 1 TABLET UP TO 3 TIMES DAILY NEEDED FOR PAIN - tiZANidine (ZANAFLEX) 4 mg tablet TAKE 1/2 TO 1 TABLET BY MOUTH UP TO 3 TIMES A DAY, NEEDED FOR MUSCLE SPASMS - amLODIPine (NORVASC) 5 mg tablet Take 1 tablet by mouth once daily. - albuterol HFA (PROVENTIL HFA, VENTOLIN HFA) 90 mcg/actuation inhaler USE 2 INHALATIONS BY MOUTH EVERY 4 HOURS NEEDED - nitroglycerin sublingual (NITROQUICK) 0.4 mg SL tablet DISSOLVE 1 TABLET UNDER THE TONGUE EVERY 5 MINUTES NEEDED. - docusate sodium (COLACE) 100 mg capsule Take 1 capsule by mouth twice daily. - benazepril (LOTENSIN) 10 mg tablet 1 po every day - acetaminophen (TYLENOL) 500 mg tablet Take 500 mg by mouth every 8 hours as needed. - calcium carbonate (TUMS) 500 mg chew Take 500 mg by mouth as needed. - hydroCHLOROthiazide (HYDRODIURIL, ESIDRIX) 12.5 mg tablet TAKE 1 TABLET BY MOUTH ONCE DAILY. - atorvastatin (LIPITOR) 80 mg tablet TAKE 1 TABLET BY MOUTH ONCE DAILY. - spironolactone (ALDACTONE) 25 mg tablet TAKE 1 TABLET BY MOUTH ONCE DAILY. - metoprolol succinate ER (TOPROL XL) 25 mg 24 hr tablet Take 25 mg by mouth once daily. One tablet at bedtime - clopidogrel (PLAVIX) 75 mg tablet Take 1 tablet by mouth once daily. - aspirin, enteric coated (ASPIRIN, ENTERIC COATED) 81 mg EC tablet Take 1 tablet by mouth once daily. Problem List As Of Date 02/12/2024 Noted Resolved ASCVD (arteriosclerotic cardiovascular disease)*02/13/2012 GERD with esophagitis [K21.00] 03/23/2017 Chronic insomnia [F51.04] 03/23/2017 Chronic midline low back pain with left-sided s*03/23/2017 Smoker [F17.200] 03/23/2017 Chronic thumb pain, left [M79.645, G89.29] 05/04/2017 01/07/2018 Heartburn [R12] 11/23/2017 Other emphysema (HCC) [J43.8] 12/04/2017 Hallux limitus of right foot [M20.5X1] 09/21/2018 Hypertension [I10] 09/21/2018 Osteoarthritis of (more content not included)... Normal [facility] Basic metabolic 2000 panelon 01-07-2024 Anion gap [Moles/Vol] 9 mmol/L 8 - 15 mmol/L [facility] Calcium [Mass/Vol] 9.4 mg/dL 8.5 - 10. 2 mg/dL [facility] Chloride [Moles/Vol] 94 mmol/L Low 98 - 10 7 mmol/L [facility] CO2 [Moles/Vol] 28 mmol/L 22 - 30 mmol/L [facility] Creatinine [Mass/Vol] 0.83 mg/dL 0.58 - 0.96 mg/dL [facility] GFR/1.73 sq M.predicted among non-blacks MDRD (S/P/Bld) [Vol rate/Area] 77 mL/min/{1.73_m2} - PINF [facility] Comment on above: Estimated Glomerular Filtration Rate (eGFR) is calculated using the 2020 CKD-EPI creatinine equation. This equation utilizes serum creatinine, sex, and age as parameters. The creatinine assay has traceable calibration to isotope dilution-mass spectrometry. Refer to KDIGO guidelines for clinical interpretation. In patients with unstable renal function, e.g. those with acute kidney injury, the eGFR may not accurately reflect actual GFR. Glucose [Mass/Vol] 113 mg/dL High 74 - 99 mg/dL [facility] Comment on above: The [place] Diab[employer] s Association (ADA) provides guidance for cutoff values for fasting glucose and random glucose. The ADA defines fasting as no caloric intake for at least 8 hours. Fasting plasma glucose results between 100 to 125 mg/dL indicate increased risk for diabetes (prediabetes). Fasting plasma glucose results greater than or equal to 126 mg/dL meet the criteria for diagnosis of diabetes. In the absence of unequivocal hyperglycemia, results should be confirmed by repeat testing. In a patient with classic symptoms of hyperglycemia or hyperglycemic crisis, random plasma glucose results greater than or equal to 200 mg/dL meet the criteria for diagnosis of diabetes. Reference: Standards of Medical Care in Diabetes 2016, [place] [employer]. Diabetes Care. 2016.39(Suppl 1). Interpretation and review of laboratory results Abnormal [facility] Potassium [Moles/Vol] 4.1 mmol/L 3.7 - 5.1 mmol/L [facility] Sodium [Moles/Vol] 131 mmol/L Low 136 - 144 mmol/L [facility] Urea nitrogen [Mass/Vol] 8 mg/dL 7 - 21 mg/dL [facility] Anion gap [Moles/Vol] 9 mmol/L Normal 8-15 [facility] Comment on above: Order Comment: Berry duarte Type: BLOOD SPECIMEN Ordering Facility: [facility] Address: [address] [place] [address] Performed By: #### 2 4321-2 #### [facility] CLIA [id number] [address] [place] [address] [place] Calcium [Mass/Vol] 9.4 mg/dL Normal 8.5-10.2 [facility] Comment on above: Order Comment: Berry duarte Type: BLOOD SPECIMEN Ordering Facility: [facility] Address: [address] [place] [address] Performed By: #### 2 4321-2 #### [facility] CLIA [id number] [address] [place] [place] [id number] [place] Chloride [Moles/Vol] 94 mmol/L Low 98-107 [facility] Comment on above: Order Comment: Berry duarte Type: BLOOD SPECIMEN Ordering Facility: [facility] Address: [address] [place] [address] Performed By: #### 2 4321-2 #### [facility] CLIA [id number] [address] [place] [address] [place] CO2 [Moles/Vol] 28 mmol/L Normal 22-30 [facility] Comment on above: Order Comment: Speci men Type: BLOOD SPECIMEN Ordering Facility: [facility] Address: [address] [place] [address] Performed By: #### 2 4321-2 #### [facility] CLIA [id number] [address] [place] [address] [place] Creatinine [Mass/Vol] 0.83 mg/dL Normal 0.58-0.96 [facility] Comment on above: Order Comment: Speci men Type: BLOOD SPECIMEN Ordering Facility: [facility] Address: [address] [place] [address] Performed By: #### 2 4321-2 #### [facility] CLIA [id number] [address] [place] [id number] [facility] Creatinine and Glomerular filtration rate.predicted panel (S/P/Bld) 77 mL/min/1.73m??? Normal >=60 [facility] Comment on above: Order Comment: Speci men Type: BLOOD SPECIMEN Ordering Facility: [facility] Address: [address] [place] [address] Result Comment: Pito mated Glomerular Filtration Rate (eGFR) is calculated using the 2020 CKD-EPI creatinine equation. This equation utilizes serum creatinine, sex, and age as parameters. The creatinine assay has traceable calibration to isotope dilution-mass spectrometry. Refer to KDIGO guidelines for clinical interpretation. In patients with unstable renal function, e.g. those with acute kidney injury, the eGFR may not accurately reflect actual GFR. Performed By: #### 2 4321-2 #### [facility] CLIA [id number] [address] [place] [address] [place] Glucose [Mass/Vol] 113 mg/dL High 74-99 [facility] Comment on above: Order Comment: Speci men Type: BLOOD SPECIMEN Ordering Facility: [facility] Address: [address] [place] [address] Result Comment: The [place] Diabetes Association (ADA) provides guidance for cutoff values for fasting glucose and random glucose. The ADA defines fasting as no caloric intake for at least 8 hours. Fasting plasma glucose results between 100 to 125 mg/dL indicate increased risk for diabetes (prediabetes). Fasting plasma glucose results greater than or equal to 126 mg/dL meet the criteria for diagnosis of diabetes. In the absence of unequivocal hyperglycemia, results should be confirmed by repeat testing. In a patient with classic symptoms of hyperglycemia or hyperglycemic crisis, random plasma glucose results greater than or equal to 200 mg/dL meet the criteria for diagnosis of diabetes. Reference: Standards of Medical Care in Diabetes 2016, [place] [employer]. Diabetes Care. 2016.39(Suppl 1). Performed By: #### 2 4321-2 #### [facility] CLIA [id number] [address] [place] [address] [place] Potassium [Moles/Vol] 4.1 mmol/L Normal 3.7-5.1 [facility] Comment on above: Order Comment: Speci men Type: BLOOD SPECIMEN Ordering Facility: [facility] Address: [address] [place] [address] Performed By: #### 2 4321-2 #### [facility] CLIA [id number] [address] [place] [address] [place] Sodium [Moles/Vol] 131 mmol/L Low 136-144 [facility] Comment on above: Order Comment: Speci men Type: BLOOD SPECIMEN Ordering Facility: [facility] Address: [address] [place] [address] Performed By: #### 2 4321-2 #### [facility] CLIA [id number] [address] [place] [address] [place] Urea nitrogen [Mass/Vol] 8 mg/dL Normal 7-21 [facility] Comment on above: Order Comment: Speci men Type: BLOOD SPECIMEN Ordering Facility: [facility] Address: [address] [place] [address] Performed By: #### 2 4321-2 #### [facility] CLIA [id number] [address] [place] [address] [facility] [place] 01-06-2024 CNPN Telephone (AGRODRIMPLE) JACKIE YU ([id number]) 1955 F Date Time Provider Department 01/06/24 ELANA CHERY During your visit today, we recorded the following information about you: Ayana Sandhu MA 01/06/2024 7:26 AM Signed ----- Message from Bing Barron MA sent at 12/23/2023 7:32 AM EDT ----- Remind pt. Time to recheck potassium. Bing Barron MA Allergies As of Date: 01/06/2024 Noted Allergy Reaction TRAMADOL 05/09/2016 9 - Itching NIACIN 07/26/2015 2 - Rash GABAPENTIN 03/29/2022 7 - Swelling Date Reviewed: 12/26/2023 Reviewed by: Bob Martin MD - Fully Assessed Reason for Visit: Lab Orders [168] Primary Visit Diagnosis:History of low potassium [Z86.39] Order(s):BASIC METABOLIC PANEL [SQBMP] Order #: [id number] FUTURE Prescriptions as of 01/07/2024 - zolpidem (AMBIEN) 10 mg Take 1 tablet by mouth at bedtime as needed for up to 30 days. for insomnia. - potassium chloride (K-TAB) 10 mEq tablet take 1 tablet by mouth every day - famotidine (PEPCID) 20 mg tablet take 1 tablet by mouth every day - oxyCODONE-acetaminophen (PERCOCET) 5-325 mg tablet TAKE 1/2 TO 1 TABLET UP TO 3 TIMES DAILY NEEDED FOR PAIN - tiZANidine (ZANAFLEX) 4 mg tablet TAKE 1/2 TO 1 TABLET BY MOUTH UP TO 3 TIMES A DAY, NEEDED FOR MUSCLE SPASMS - amLODIPine (NORVASC) 5 mg tablet Take 1 tablet by mouth once daily. - albuterol HFA (PROVENTIL HFA, VENTOLIN HFA) 90 mcg/actuation inhaler USE 2 INHALATIONS BY MOUTH EVERY 4 HOURS NEEDED - nitroglycerin sublingual (NITROQUICK) 0.4 mg SL tablet DISSOLVE 1 TABLET UNDER THE TONGUE EVERY 5 MINUTES NEEDED. - docusate sodium (COLACE) 100 mg capsule Take 1 capsule by mouth twice daily. - benazepril (LOTENSIN) 10 mg tablet 1 po every day - acetaminophen (TYLENOL) 500 mg tablet Take 500 mg by mouth every 8 hours as needed. - calcium carbonate (TUMS) 500 mg chew Take 500 mg by mouth as needed. - hydroCHLOROthiazide (HYDRODIURIL, ESIDRIX) 12.5 mg tablet TAKE 1 TABLET BY MOUTH ONCE DAILY. - atorvastatin (LIPITOR) 80 mg tablet TAKE 1 TABLET BY MOUTH ONCE DAILY. - spironolactone (ALDACTONE) 25 mg tablet TAKE 1 TABLET BY MOUTH ONCE DAILY. - metoprolol succinate ER (TOPROL XL) 25 mg 24 hr tablet Take 25 mg by mouth once daily. One tablet at bedtime - clopidogrel (PLAVIX) 75 mg tablet Take 1 tablet by mouth once daily. - aspirin, enteric coated (ASPIRIN, ENTERIC COATED) 81 mg EC tablet Take 1 tablet by mouth once daily. Problem List As Of Date 01/06/2024 Noted Resolved ASCVD (arteriosclerotic cardiovascular disease)*02/13/2012 GERD with esophagitis [K21.00] 03/23/2017 Chronic insomnia [F51.04] 03/23/2017 Chronic midline low back pain with left-sided s*03/23/2017 Smoker [F17.200] 03/23/2017 Chronic thumb pain, left [M79.645, G89.29] 05/04/2017 01/07/2018 Heartburn [R12] 11/23/2017 Other emphysema (HCC) [J43.8] 12/04/2017 Hallux limitus of right foot [M20.5X1] 09/21/2018 Hypertension [I10] 09/21/2018 Osteoarthritis of multiple joints [M15.9] 09/28/2018 09/28/2018 Obesity, Class I, BMI 30-34.9 [E66.9] 03/01/2019 04/26/2020 Stage 3 chronic kidney disease (HCC) [N18.30] 05/12/2019 Hyponatremia [E87.1] 07/01/2019 Spinal stenosis of lumbar region [M48.061] 11/16/2020 Left lumbar radiculitis [M54.16] 11/16/2020 Microscopic hematuria [R31.29] 02/14/2022 Hypokalemia [E87.6] 02/14/2022 Hyperlipidemia, mixed [E78.2] 03/13/2022 Psoriasis [L40.9] 08/22/2022 Lipoma [D17.9] 09/16/2023 Lipoma of upper extremity [D17.20] 09/16/2023 Encounter Status:Closed by [facility] Office Visit (GENSWS ) JACKIE YU ([id number]) 1955 F Date Time Provider Department 12/25/23 1:30 PM BOB MARTINS During your visit today, we recorded the following information about you: Temperature Pulse Blood pressure Weight 97.8 degrees 95/minute 110/72 82.7 kg Karyna Rogers RN 12/25/2023 1:28 PM Signed REVIEW OF SYSTEMS: General: The patient denies fatigue, denies weight loss, denies weight gain, denies feeling hot, and denies feelings of cold. Eyes: The patient denies glaucoma, denies eye injury/surgery, does not wear glasses or contacts. Ear/Nose/Throat: The patient NOTES allergies, denies hayfever, denies ear infections, and denies bloody noses. Cardiovascular: The patient denies chest pain, NOTES heart disease, NOTES high blood pressure,NOTES cardiac stent, NOTES prior heart attack, denies irregular heart beat, NOTES high cholesterol, denies poor circulation, denies heart failure, other cardiac issues, denies claudication, denies cold feet, denies peripheral arterial stent. Respiratory: The patient denies tuberculosis, denies pneumonia, NOTES frequent cough, denies pulmonary embolism, NOTES shortness of breath, and denies coughing up blood. Gastrointestinal: The patient denies difficulty swallowing, NOTES acid reflux, denies ulcers, denies vomiting, denies jaundice/hepatitis, denies gallbladder problems, denies black or tarry stools, denies hemorrhoids, NOTES bleeding from rectum, denies diverticulitis, denies constipation, denies diarrhea, denies loss of stool control, and denies hernias. Kidney/Bladder: The patient NOTES kidney disease, denies urine infections, and denies bloody urine. Skin: The patient denies a history of skin cancer, denies bleeding/changing moles, and denies a history of skin rash. Neurologic: The patient denies a history of epilepsy/convulsions, denies headaches, NOTES head/spinal injuries, and denies stroke/TIA. Psychiatric: The patient denies psychiatric medications, denies depression, and denies voices, denies substance abuse. Endocrine: The patient denies thyroid disorders, denies diabetes, and denies hormonal problems. Hematologic: The patient NOTES a history of bruising, NOTES bleeding, and denies anemia, denies blood clots. Infections: The patient NOTES a history of measles and mumps, denies rheumatic fever, and denies sexually transmitted diseases. Musculoskeletal: The patient NOTES back pain/injury, NOTES back problems, denies sciatica, denies knee/foot trouble, denies arthritis, or denies gout. When was patient's last Mammogram screening? 04/2023 Last Colonoscopy: more than 10 years ago CARLOS Rodriguez Richard T, MD 12/25/2023 2:02 PM Signed The following instructions are important for you related to your office visit today with the [facility]. INSTRUCTIONS FOR AN ANAL FISSURE You have an anal fissure. An anal fissure is a small tear at at the edge of the anus. It is usually caused by straining with bowel movements, but sometime it occurs during periods of loose stools or diarrhea. 70% of the time, anal fissures will heal will regulation of the stools and conservative measures. Regulation of the bowel habits is most important - The fissure will not heal if there is continued straining. I usually recommend fiber for initial regularion. Add Miralax - now available over the counter, if fiber alone isn't helping the constipation. Healing of the fissure will not occur until bowel regulation is achieved I recommend that you avoid spicy foods and perform sitz baths three to four times per day and after bovel movements. A sitz bath is drawing luke warm water in the bathtub and soaking. The purpose is to relax the sphincter and rinse the anal area. DO NOT ADD EPSOM SALTS OR OTHER INGREDIENTS THIS CAN INCREASE THE BURNING. I will recommend a topical pain ointment, usually dibucaine or proctocream With each bowel movement, I recommend placing the topcial pain ointment prior to the bowel movements and use baby wipes and perform a sitz bath after each bowel movement. Dibucaine can be used between times as needed for anal pain. It the above measures are not helping within one week, call the office, and we may prescribe Diltiazem ointment. ( this is different from Dibucaine). If prescribed, it should be applied to the anal area twice a day. If you note any difficulties or concerns, you should contact our office immediately. If you note any additional difficulties, questions, or concerns, you should contact our office immediately @ [phone] and ask to be transferred to the General Surgery department. Bob Martin MD 12/26/2023 7:48 AM Signed HISTORY AND PHYSICAL Jackie Yu 1955 REFERRING PHYSICIAN: Elana Chery DO CHIEF COMPLAINT: Anal (more content not included)... Normal [facility] Comprehensive metabolic 2000 panelon 05-20-2023 Albumin BCP dye [Mass/Vol] 4.1 g/dL Normal 3.4-5.0 [facility] Comment on above: Performed By: #### 2 4323-8 #### HERLINDA Gibbons ([id number]) [facility] ([facility]) [address] [place] [address] ALP [Catalytic activity/Vol] 102 U/L Normal 33-136 [facility] Comment on above: Performed By: #### 2 4323-8 #### HERLINDA Gibbons ([id number]) [facility] ([facility]) [address] [place] [id number] ALT With P-5'-P [Catalytic activity/Vol] 15 U/L Normal 7-45 [facility] Comment on above: Result Comment: Nai ents treated with Sulfasalazine may generate falsely decreased results for ALT. Performed By: #### 2 4323-8 #### HERLINDA Gibbons ([id number]) [facility] ([facility]) [address] [place] [id number] Anion gap [Moles/Vol] 11 mmol/L Normal 10-20 [facility] Comment on above: Performed By: #### 2 4323-8 #### HERLINDA Gibbons ([id number]) [facility] ([facility]) [address] [place] [phone] AST With P-5'-P [Catalytic activity/Vol] 14 U/L Normal 9-39 [facility] Comment on above: Performed By: #### 2 4323-8 #### HERLINDA Gibbons ([id number]) [facility] ([facility]) [address] [place] [address] Bilirubin [Mass/Vol] 0.5 mg/dL Normal 0.0-1.2 [facility] Comment on above: Performed By: #### 2 4323-8 #### HERLINDA Gibbons ([id number]) [facility] ([facility]) [address] [place] [address] Calcium [Mass/Vol] 9.6 mg/dL Normal 8.6-10.3 [facility] Comment on above: Performed By: #### 2 4323-8 #### HERLINDA Gibbons ([id number]) [facility] ([facility]) [address] [place] [address] Chloride [Moles/Vol] 94 mmol/L Low 98-107 [facility] Comment on above: Performed By: #### 2 4323-8 #### HERLINDA Gibbons ([id number]) [facility] ([facility]) [address] [place] [address] CO2 [Moles/Vol] 28 mmol/L Normal 21-32 [facility] Comment on above: Performed By: #### 2 4323-8 #### HERLINDA Gibbons ([id number]) [facility] ([facility]) [address] [place] [address] Creatinine [Mass/Vol] 0.82 mg/dL Normal 0.50-1.05 [facility] Comment on above: Performed By: #### 2 4323-8 #### HERLINDA Gibbons ([id number]) [facility] ([facility]) [address] [place] [address] GFR/1.73 sq M.predicted MDRD (S/P/Bld) [Vol rate/Area] 79 mL/min/1.73m*2 Normal >60 [facility] Comment on above: Result Comment: Calc ulations of estimated GFR are performed using the 2020 CKD-EPI Study Refit equation without the race variable for the IDMS-Traceable creatinine methods. https://jasn.asnjournals.org/content/early//ASN.9796166 988 Performed By: #### 2 4323-8 #### HERLINDA Gibbons ([id number]) [facility] ([facility]) [address] [place] [address] Glucose [Mass/Vol] 89 mg/dL Normal 74-99 [facility] Comment on above: Performed By: #### 2 4323-8 #### HERLINDA Gibbons ([id number]) [facility] ([facility]) [address] [place] [address] Potassium [Moles/Vol] 4.5 mmol/L Normal 3.5-5.3 [facility] Comment on above: Performed By: #### 2 4323-8 #### HERLINDA Gibbons ([id number]) [facility] ([facility]) [address] [place] [address] Protein [Mass/Vol] 6.5 g/dL Normal 6.4-8.2 [facility] Comment on above: Performed By: #### 2 4323-8 #### HERLINDA Gibbons ([id number]) [facility] ([facility]) [address] [place] [address] Sodium [Moles/Vol] 128 mmol/L Low 136-145 [facility] Comment on above: Performed By: #### 2 4323-8 #### HERLINDA Gibbons ([id number]) [facility] ([facility]) [address] [place] [address] Urea nitrogen [Mass/Vol] 8 mg/dL Normal 6-23 [facility] Comment on above: Performed By: #### 2 4323-8 #### HERLINDA Gibbons ([id number]) [facility] ([facility]) [address] [place] [phone] MAURA DIAG W SANDY BILATERALon 04-14-2023 [facility] MRI LUMBAR SPINE WO IVCONon 12-10-2022 [facility] CBCon 06-13-2022 Erythrocyte distribution width (RBC) [Ratio] 12.1 % Normal 11.5 - 14.5 [facility] Comment on above: Performed By: #### C BC #### [address] [id number] Hematocrit (Bld) [Volume fraction] 43.2 % Normal 36.0 - 46.0 [facility] Comment on above: Performed By: #### C BC #### [address] [id number] Hemoglobin (Bld) [Mass/Vol] 14.7 g/dL Normal 12.0 - 16.0 [facility] Comment on above: Performed By: #### C BC #### [address] [id number] MCHC (RBC) [Mass/Vol] 34.0 g/dL Normal 32.0 - 36.0 [facility] Comment on above: Performed By: #### C BC #### [address] [id number] MCV (RBC) [Entitic vol] 95 fL Normal 80 - 100 [facility] Comment on above: Performed By: #### C BC #### [address] [id number] Platelets (Bld) [#/Vol] 348 10*3/uL Normal 150 - 450 [facility] Comment on above: Performed By: #### C BC #### [address] [id number] RBC 4.55 x10E12/L Normal 4.00 - 5.20 [facility] Comment on above: Performed By: #### C BC #### [address] [id number] WBC (Bld) [#/Vol] 8.3 10*3/uL Normal 4.4 - 11.3 [facility] Comment on above: Performed By: #### C BC #### [address] [id number] COMPREHENSIVE PANELon 2021 Albumin [Mass/Vol] 4.1 g/dL Normal 3.4 - 5.0 [facility] Comment on above: Performed By: #### C MP #### [address] [id number] ALP [Catalytic activity/Vol] 96 U/L Normal 33 - 136 [facility] Comment on above: Performed By: #### C MP #### [address] [id number] ALT [Catalytic activity/Vol] 8 U/L Normal 7 - 45 [facility] Comment on above: Result Comment: Nai ents treated with Sulfasalazine may generate falsely decreased results for ALT. Performed By: #### C MP #### [address] [id number] Anion gap [Moles/Vol] 12 mmol/L Normal 10 - 20 [facility] Comment on above: Performed By: #### C MP #### [address] [id number] AST [Catalytic activity/Vol] 12 U/L Normal 9 - 39 [facility] Comment on above: Performed By: #### C MP #### [address] [id number] Bilirubin [Mass/Vol] 0.6 mg/dL Normal 0.0 - 1.2 [facility] Comment on above: Performed By: #### C MP #### [address] [id number] Calcium [Mass/Vol] 9.2 mg/dL Normal 8.6 - 10.3 [facility] Comment on above: Performed By: #### C MP #### [address] [id number] Chloride [Moles/Vol] 95 mmol/L Low 98 - 107 [facility] Comment on above: Performed By: #### C MP #### [address] [id number] Creatinine [Mass/Vol] 0.85 mg/dL Normal 0.50 - 1.05 [facility] Comment on above: Performed By: #### C MP #### [address] [id number] GFR/1.73 sq M.predicted among non-blacks MDRD (S/P/Bld) [Vol rate/Area] 75 mL/min/{1.73_m2} Normal >90 [facility] Comment on above: Result Comment: CALC ULATIONS OF ESTIMATED GFR ARE PERFORMED USING THE 2020 CKD-EPI STUDY REFIT EQUATION WITHOUT THE RACE VARIABLE FOR THE IDMS-TRACEABLE CREATININE METHODS. https://jasn.asnjournals.org/content//ASN.[email or web address] 988 Performed By: #### C MP #### [address] [id number] Glucose [Mass/Vol] 106 mg/dL High 74 - 99 [facility] Comment on above: Performed By: #### C MP #### [address] [id number] HCO3 (Bld) [Moles/Vol] 28 mmol/L Normal 21 - 32 [facility] Comment on above: Performed By: #### C MP #### [address] [id number] Potassium [Moles/Vol] 3.6 mmol/L Normal 3.5 - 5.3 [facility] Comment on above: Performed By: #### C MP #### [address] [id number] Protein [Mass/Vol] 6.8 g/dL Normal 6.4 - 8.2 [facility] Comment on above: Performed By: #### C MP #### [address] [id number] Sodium [Moles/Vol] 131 mmol/L Low 136 - 145 [facility] Comment on above: Performed By: #### C MP #### [address] [id number] Urea nitrogen [Mass/Vol] 9 mg/dL Normal 6 - 23 [facility] Comment on above: Performed By: #### C MP #### [address] [id number] LIPID PANEL (CORONARY RISK 2 )on 06-13-2022 Cholesterol [Mass/Vol] 146 mg/dL Normal 0 - 199 [facility] Comment on above: Result Comment: . AGE DESIRABLE BORDERLINE HIGH HIGH 0-19 Y 0 - 169 170 - 199 >/= 200 20-24 Y 0 - 189 190 - 224 >/= 225 >24 Y 0 - 199 200 - 239 >/= 240 All ranges are based on fasting samples. Specific therapeutic targets will vary based on patient-specific cardiac risk. . Pediatric guidelines reference:Pediatrics 2011, 128(S5). Adult guidelines reference: NCEP ATPIII Guidelines, TANG 2001, 258:2486-97 . Venipuncture immediately after or during the administration of Metamizole may lead to falsely low results. Testing should be performed immediately prior to Metamizole dosing. Performed By: #### L IPID #### [address] [id number] Cholesterol in HDL [Mass/Vol] 35.9 mg/dL Abnormal [facility] Comment on above: Result Comment: . AGE VERY LOW LOW NORMAL HIGH 0-19 Y < 35 < 40 40-45 ---- 20-24 Y ---- < 40 >45 ---- >24 Y ---- < 40 40-60 >60 . Performed By: #### L IPID #### [address] [id number] Cholesterol in LDL [Mass/Vol] 82 mg/dL Normal 0 - 99 [facility] Comment on above: Result Comment: . NEAR BORD AGE DESIRABLE OPTIMAL HIGH HIGH VERY HIGH 0-19 Y 0 - 109 --- 110-129 >/= 130 ---- 20-24 Y 0 - 119 --- 120-159 >/= 160 ---- >24 Y 0 - 99 100-129 130-159 160-189 >/=190 . Performed By: #### L IPID #### [address] [id number] Cholesterol in VLDL [Mass/Vol] 28 mg/dL Normal 0 - 40 [facility] Comment on above: Performed By: #### L IPID #### [address] [id number] Cholesterol.total/Ch olesterol in HDL [Mass ratio] 4.1 {ratio} Normal [facility] Comment on above: Result Comment: REF VALUES DESIRABLE < 3.4 HIGH RISK > 5.0 Performed By: #### L IPID #### [address] [id number] Triglyceride [Mass/Vol] 139 mg/dL Normal 0 - 149 [facility] Comment on above: Result Comment: . AGE DESIRABLE BORDERLINE HIGH HIGH VERY HIGH 0 D-90 D 19 - 174 ---- ---- ---- 91 D- 9 Y 0 - 74 75 - 99 >/= 100 ---- 10-19 Y 0 - 89 90 - 129 >/= 130 ---- 20-24 Y 0 - 114 115 - 149 >/= 150 ---- >24 Y 0 - 149 150 - 199 200- 499 >/= 500 . Venipuncture immediately after or during the administration of Metamizole may lead to falsely low results. Testing should be performed immediately prior to Metamizole dosing. Performed By: #### L IPID #### [address] [id number] Laboratory - Chemistry and C hemistry - challengeon 06-13-2022 Albumin BCP dye [Mass/Vol] 4.1 g/dL 3.4 - 5.0 [place] [address] DO Work Phone: ALP [Catalytic activity/Vol] 96 U/L 33 - 136 [place] [address] DO Work Phone: ALT With P-5'-P [Catalytic activity/Vol] 8 U/L 7 - 45 [place] [address] DO Work Phone: Comment on above: Patients treated wit h Sulfasalazine may generate falsely decreased results for ALT. Anion gap [Moles/Vol] 12 mmol/L 10 - 20 [place] [address] DO Work Phone: AST With P-5'-P [Catalytic activity/Vol] 12 U/L 9 - 39 [place] [address] DO Work Phone: Bilirubin [Mass/Vol] 0.6 mg/dL 0.0 - 1.2 [place] [address] DO Work Phone: Calcium [Mass/Vol] 9.2 mg/dL 8.6 - 10.3 [place] [address] DO Work Phone: Chloride [Moles/Vol] 95 mmol/L below low threshold 98 - 107 [place] [address] DO Work Phone: CO2 [Moles/Vol] 28 mmol/L 21 - 32 [place] [address] DO Work Phone: Creatinine [Mass/Vol] 0.85 mg/dL See Below [facility] [employer] [place] DO Work Phone: Comment on above: Reference Range: 0.5 0 - 1.05 Glucose [Mass/Vol] 106 mg/dL above high threshold 74 - 99 [facility] [place] DO Work Phone: Potassium [Moles/Vol] 3.6 mmol/L 3.5 - 5.3 [facility] Work Phone: Protein [Mass/Vol] 6.8 g/dL 6.4 - 8.2 [facility] DO Work Phone: Sodium [Moles/Vol] 131 mmol/L below low threshold 136 - 145 [facility] Work Phone: Urea nitrogen [Mass/Vol] 9 mg/dL 6 - 23 [facility] Work Phone: Laboratory - Hematology and Cell countson 06-13-2022 Erythrocyte distribution width (RBC) [Ratio] 12.1 % See Below [facility] Work Phone: Comment on above: Reference Range: 11. 5 - 14.5 Hematocrit (Bld) [Volume fraction] 43.2 % See Below [facility] Work Phone: Comment on above: Reference Range: 36. 0 - 46.0 Hemoglobin (Bld) [Mass/Vol] 14.7 g/dL See Below [facility] Work Phone: Comment on above: Reference Range: 12. 0 - 16.0 MCHC (RBC) [Mass/Vol] 34.0 g/dL [facility] Below [facility] Work Phone: Comment on above: Reference Range: 32. 0 - 36.0 MCV (RBC) [Entitic vol] 95 fL 80 - 100 [facility] Work Phone: Platelets (Bld) [#/Vol] 348 10*3/uL 150 - 450 [facility] [employer] DO Work Phone: RBC (Bld) [#/Vol] 4.55 {x10E12/L} See Below [facility] [employer] DO Work Phone: Comment on above: Reference Range: 4.0 0 - 5.20 WBC (Bld) [#/Vol] 8.3 10*3/uL 4.4 - 11.3 [facility] [employer] DO Work Phone: Lipid Panelon 06-13-2022 Cholesterol [Mass/Vol] 146 mg/dL 0 - 199 [facility] [employer] DO Work Phone: Comment on above: . AGE DESIRABLE BORD BROWN HIGH HIGH 0-19 Y 0 - 169 170 - 199 >/= 200 20-24 Y 0 - 189 190 - 224 >/= 225 >24 Y 0 - 199 200 - 239 >/= 240 All ranges are based on fasting samples. Specific therapeutic targets will vary based on patient-specific cardiac risk.. Pediatric guidelines reference:Pediatrics 2011, 128(S5). Adult guidelines reference: NCEP ATPIII Guidelines, TANG 2001, 258:2486-97. Venipuncture immediately after or during the administration of Metamizole may lead to falsely low results. Testing should be performed immediately prior to Metamizole dosing. Cholesterol in HDL [Mass/Vol] 35.9 mg/dL Abnormal [facility] [employer] DO Work Phone: Comment on above: . AGE VERY LOW LOW N ORMAL HIGH 0-19 Y < 35 < 40 40-45 ---- 20- 24 Y ---- < 40 >45 ---- >24 Y ---- < 40 40-60 >60. Cholesterol in LDL [Mass/Vol] 82 mg/dL 0 - 99 [facility] [place] [place] [facility] DO Work Phone: Comment on above: . NEAR BORD AGE FERNANDO RABLE OPTIMAL HIGH HIGH VERY HIGH 0-19 Y 0 - 109 --- 110-129 >/= 130 ---- 20-24 Y 0 - 119 --- 120-159 >/= 160 ---- >24 Y 0 - 99 100-129 130-159 160-189 >/=190. Cholesterol.total/Ch olesterol in HDL [Mass ratio] 4.1 {ratio} [facility] [employer] DO Work Phone: Comment on above: REF VALUESDESIRABLE < 3.4HIGH RISK > 5.0 Triglyceride [Mass/Vol] 139 mg/dL 0 - 149 [facility] [employer] DO Work Phone: Comment on above: . AGE DESIRABLE BORD BROWN HIGH HIGH VERY HIGH 0 D-90 D 19 - 174 ---- ---- ----91 D- 9 Y 0 - 74 75 - 99 >/= 100 ---- 10-19 Y 0 - 89 90 - 129 >/= 130 ---- 20-24 Y 0 - 114 115 - 149 >/= 150 ---- >24 Y 0 - 149 150 - 199 200- 499 >/= 500. Venipuncture immediately after or during the administration of Metamizole may lead to falsely low results. Testing should be performed immediately prior to Metamizole dosing. Lipid Panel 28 mg/dL 0 - 40 [facility] [employer] DO Work Phone: No Panel Informationon 06-13 75 {mL/min/1.73m2} >90 [facility] [employer] DO Work Phone: Comment on above: CALCULATIONS OF PITO MATED GFR ARE PERFORMED USING THE 2020 CKD-EPI STUDY REFIT EQUATION WITHOUT THE RACE VARIABLE FOR THE IDMS-TRACEABLE CREATININE METHODS.https://jasn.asnjournals.org/content//ASN .[email or web address] Office Visit (Cardiology)on 05-14-2022 Follow-up visit Diagnoses/Problems Assessed CAD (coronary artery disease) (414.00) (I25.10) Hypertension (401.9) (I10) Mixed hyperlipidemia (272.2) (E78.2) Past myocardial infarction (412) (I25.2) Current every day smoker (305.1) (F17.200) since age 21, smokes 1 PPD Class 1 obesity with body mass index (BMI) of 30.0 to 30.9 in adult (278.00,V85.30) (E66.9,Z68.30) Orders CAD (coronary artery disease) Renew: Clopidogrel Bisulfate 75 MG Oral Tablet; TAKE 1 TABLET BY MOUTH EVERY DAY Hypertension Renew: amLODIPine Besylate 5 MG Oral Tablet; TAKE 1 TABLET DAILY DIRECTED Renew: Benazepril HCl - 10 MG Oral Tablet; TAKE 1 TABLET BY MOUTH EVERY DAY Renew: hydroCHLOROthiazide 12.5 MG Oral Capsule; TAKE 1 CAPSULE ONCE DAILY Renew: Metoprolol Tartrate 25 MG Oral Tablet; take 1/2 tablet by mouth twice a day Renew: Spironolactone 25 MG Oral Tablet; TAKE 1 TABLET DAILY Mixed hyperlipidemia Start: Atorvastatin Calcium 40 MG Oral Tablet; take 1 tablet by mouth once daily at bedtime Lipid Panel; Status:Active - Retrospective Authorization; Requested for:14May2023; Changed: From Pravastatin Sodium 40 MG Oral Tablet TAKE 1 TABLET DAILY To Pravastatin Sodium 40 MG Oral Tablet TAKE 2 TABLETS AT BEDTIME SocHx: Current every day smoker Tobacco Use Screening; Status:Complete; Done: 14May2022 Patient Instructions Continue same medications/treatment. Patient educated on proper medication use. Patient educated on risk factor modification. Please bring any lab results from other providers/physicians to your next appointment. Please bring all medicines, vitamins, and herbal supplements with you when you come to the office. Prescriptions will not be filled unless you are compliant with your follow up appointments or have a follow up appointment scheduled as per instruction of your physician. Refills should be requested at the time of your visit. Follow up in 1 year Fasting blood work 1 week prior to 1 year f/up. Fasting blood work 2 months AFTER you start Atorvastatin 40 mg INCREASE Pravastatin to 40 mg 2 tabs daily until gone, then start Atorvastatin Susan Hall Rn, am scribing for and in the presence of, Dr. Mando Stevens The provider reviewed the following test(s) and result(s) with the patient: laboratory tests Chief Complaint Patient here for 1 year follow-up. History of Present Illness The patient states she has been doing well from a cardiac standpoint. She denies chest discomfort or symptoms of myocardial ischemia. She denies any significant dyspnea on exertion. She denies any significant palpitations, preceding syncope. She has not used nitroglycerin. We did discuss management of her lipids. I am going to try her on atorvastatin 40 mg a day when she finishes her current dose of pravastatin. I am going to recheck lipids in 2 months after she is on atorvastatin. IMPRESSION: 1. Coronary artery disease, no angina 2. Remote ST-elevation myocardial infarction. 3. Remote multivessel percutaneous coronary intervention. 4. Essential hypertension. 5. Mixed hyperlipidemia. 6. Obesity. 7. Tobacco abuse. Please excuse any errors in grammar or translation related to this dictation. Voice recognition software was utilized to prepare this document. 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 amLODIPine Besylate 5 MG Oral TabletTAKE 1 TABLET DAILY DIRECTED. Aspirin 81 MG Oral Tablet Delayed ReleaseTAKE 1 TABLET DAILY. Wolfgang Back AND Body TABSas directed Benazepril HCl - 10 MG Oral TabletTAKE 1 TABLET BY MOUTH EVERY DAY Clopidogrel Bisulfate 75 MG Oral TabletTAKE 1 TABLET BY MOUTH EVERY DAY Docusate Sodium 100 MG Oral CapsuleTAKE 1 CAPSULE TWICE DAILY. Famotidine 20 MG Oral TabletTAKE 1 TABLET AT BEDTIME. hydroCHLOROthiazide 12.5 MG Oral CapsuleTAKE 1 CAPSULE BY MOUTH EVERY DAY Loratadine 10 MG Oral TabletTAKE 1 TABLET AT BEDTIME. Methocarbamol 500 MG Oral TabletTAKE 1 TABLET 3 TIMES DAILY. Metoprolol Tartrate 25 MG Oral Tablettake 1/2 tablet by mouth twice a day Nitroglycerin 0.4 MG Sublingual Tablet SublingualPLACE 1 TAB (more content not included)... Normal [employer] Tobacco Screening.on 022 Adult depression screening assessment No [facility] [employer] 305 DO Work Phone: Fall risk assessment a) No falls within the last year [facility] [place] [facility] DO Work Phone: Tobacco use status [facility]PH[facility] a) Yes [facility] [employer] 305 DO Work Phone: Tobacco Screening. Yes [facility] 305 DO Work Phone: LIPID PANEL (CORONARY RISK 2 )on 03-24-2022 Cholesterol [Mass/Vol] 184 mg/dL Normal 0 - 199 [facility] Comment on above: Result Comment: . AGE DESIRABLE BORDERLINE HIGH HIGH 0-19 Y 0 - 169 170 - 199 >/= 200 20-24 Y 0 - 189 190 - 224 >/= 225 >24 Y 0 - 199 200 - 239 >/= 240 All ranges are based on fasting samples. Specific therapeutic targets will vary based on patient-specific cardiac risk. . Pediatric guidelines reference:Pediatrics 2011, 128(S5). Adult guidelines reference: NCEP ATPIII Guidelines, TANG 2001, 258:2486-97 . Venipuncture immediately after or during the administration of Metamizole may lead to falsely low results. Testing should be performed immediately prior to Metamizole dosing. Performed By: #### L IPID #### [address] [id number] Cholesterol in HDL [Mass/Vol] 44.0 mg/dL Normal [facility] Comment on above: Result Comment: . AGE VERY LOW LOW NORMAL HIGH 0-19 Y < 35 < 40 40-45 ---- 20-24 Y ---- < 40 >45 ---- >24 Y ---- < 40 40-60 >60 . Performed By: #### L IPID #### [address] [id number] Cholesterol in LDL [Mass/Vol] 114 mg/dL High 0 - 99 [facility] Comment on above: Result Comment: . NEAR BORD AGE DESIRABLE OPTIMAL HIGH HIGH VERY HIGH 0-19 Y 0 - 109 --- 110-129 >/= 130 ---- 20-24 Y 0 - 119 --- 120-159 >/= 160 ---- >24 Y 0 - 99 100-129 130-159 160-189 >/=190 . Performed By: #### L IPID #### [address] [id number] Cholesterol in VLDL [Mass/Vol] 26 mg/dL Normal 0 - 40 [facility] Comment on above: Performed By: #### L IPID #### [address] [id number] Cholesterol.total/Ch olesterol in HDL [Mass ratio] 4.2 {ratio} Normal [facility] Comment on above: Result Comment: REF VALUES DESIRABLE < 3.4 HIGH RISK > 5.0 Performed By: #### L IPID #### [address] [id number] Triglyceride [Mass/Vol] 130 mg/dL Normal 0 - 149 [facility] Comment on above: Result Comment: . AGE DESIRABLE BORDERLINE HIGH HIGH VERY HIGH 0 D-90 D 19 - 174 ---- ---- ---- 91 D- 9 Y 0 - 74 75 - 99 >/= 100 ---- 10-19 Y 0 - 89 90 - 129 >/= 130 ---- 20-24 Y 0 - 114 115 - 149 >/= 150 ---- >24 Y 0 - 149 150 - 199 200- 499 >/= 500 . Venipuncture immediately after or during the administration of Metamizole may lead to falsely low results. Testing should be performed immediately prior to Metamizole dosing. Performed By: #### L IPID #### [address] [id number] Lipid Panelon 03-24-2022 Cholesterol [Mass/Vol] 184 mg/dL 0 - 199 [facility] [place] [facility] DO Work Phone: Comment on above: . AGE DESIRABLE BORD BROWN HIGH HIGH 0-19 Y 0 - 169 170 - 199 >/= 200 20-24 Y 0 - 189 190 - 224 >/= 225 >24 Y 0 - 199 200 - 239 >/= 240 All ranges are based on fasting samples. Specific therapeutic targets will vary based on patient-specific cardiac risk.. Pediatric guidelines reference:Pediatrics 2011, 128(S5). Adult guidelines reference: NCEP ATPIII Guidelines, TANG 2001, 258:2486-97. Venipuncture immediately after or during the administration of Metamizole may lead to falsely low results. Testing should be performed immediately prior to Metamizole dosing. Cholesterol in HDL [Mass/Vol] 44.0 mg/dL [facility] [employer] DO Work Phone: Comment on above: . AGE VERY LOW LOW N ORMAL HIGH 0-19 Y < 35 < 40 40-45 ---- 20- 24 Y ---- < 40 >45 ---- >24 Y ---- < 40 40-60 >60. Cholesterol in LDL [Mass/Vol] 114 mg/dL above high threshold 0 - 99 [facility] [employer] DO Work Phone: Comment on above: . NEAR BORD AGE FERNANDO RABLE OPTIMAL HIGH HIGH VERY HIGH 0-19 Y 0 - 109 --- 110-129 >/= 130 ---- 20-24 Y 0 - 119 --- 120-159 >/= 160 ---- >24 Y 0 - 99 100-129 130-159 160-189 >/=190. Cholesterol.total/Ch olesterol in HDL [Mass ratio] 4.2 {ratio} [facility] Work Phone: Comment on above: REF VALUESDESIRABLE < 3.4HIGH RISK > 5.0 Triglyceride [Mass/Vol] 130 mg/dL 0 - 149 [facility] [employer] DO Work Phone: Comment on above: . AGE DESIRABLE BORD BROWN HIGH HIGH VERY HIGH 0 D-90 D 19 - 174 ---- ---- ----91 D- 9 Y 0 - 74 75 - 99 >/= 100 ---- 10-19 Y 0 - 89 90 - 129 >/= 130 ---- 20-24 Y 0 - 114 115 - 149 >/= 150 ---- >24 Y 0 - 149 150 - 199 200- 499 >/= 500. Venipuncture immediately after or during the administration of Metamizole may lead to falsely low results. Testing should be performed immediately prior to Metamizole dosing. Lipid Panel 26 mg/dL 0 - 40 [facility] [employer] DO Work Phone: CBC panel Auto (Bld)on 02-24 Erythrocyte distribution width (RBC) [Ratio] 11.6 % 11.5 - 15.0 % [facility] Hematocrit (Bld) [Volume fraction] 43.4 % 36.0 - 46.0 % [facility] Hemoglobin (Bld) [Mass/Vol] 14.7 g/dL 11.5 - 15.5 g/dL [facility] MCH (RBC) [Entitic mass] 31.9 pg 26.0 - 34.0 pg [facility] MCHC (RBC) [Mass/Vol] 33.9 g/dL 30.5 - 36.0 g/dL [facility] MCV (RBC) [Entitic vol] 94.1 fL 80.0 - 100.0 fL [facility] Platelet mean volume (Bld) [Entitic vol] 9.8 fL 9.0 - 12.7 fL [facility] Platelets (Bld) [#/Vol] 334 10*3/uL 150 - 400 k/uL [facility] RBC (Bld) [#/Vol] 4.61 10*6/uL 3.90 - 5.2 0 m/uL [facility] WBC (Bld) [#/Vol] 7.92 10*3/uL 3.70 - 11. 00 k/uL [facility] Comprehensive metabolic 2000 panelon 02-24-2022 Albumin [Mass/Vol] 4.2 g/dL 3.9 - 4.9 g/dL [facility] ALP [Catalytic activity/Vol] 119 U/L 34 - 123 U/L [facility] ALT With P-5'-P [Catalytic activity/Vol] 11 U/L 7 - 38 U/L [facility] Anion gap [Moles/Vol] 12 mmol/L 9 - 18 mmol/L [facility] AST With P-5'-P [Catalytic activity/Vol] 15 U/L 13 - 35 U/L [facility] Bilirubin [Mass/Vol] 0.5 mg/dL 0.2 - 1 .3 mg/dL [facility] Calcium [Mass/Vol] 9.3 mg/dL 8.5 - 10. 2 mg/dL [facility] Chloride [Moles/Vol] 91 mmol/L Low 97 - 10 5 mmol/L [facility] CO2 [Moles/Vol] 27 mmol/L 22 - 30 mmol/L [facility] Creatinine [Mass/Vol] 0.87 mg/dL 0.58 - 0.96 mg/dL [facility] Estimated Glomerular Filtration Rate 74 mL/min/1.73m >=60 mL/min/1.73m [facility] Glucose [Mass/Vol] 96 mg/dL 74 - 99 mg/dL [facility] Potassium [Moles/Vol] 3.8 mmol/L 3.7 - 5.1 mmol/L [facility] Protein [Mass/Vol] 6.8 g/dL 6.3 - 8.0 g/dL [facility] Sodium [Moles/Vol] 130 mmol/L Low 136 - 144 mmol/L [facility] Urea nitrogen [Mass/Vol] 8 mg/dL 7 - 21 mg/dL [facility] Lipid 1996 panelon 2 Cholesterol [Mass/Vol] 197 mg/dL <200 mg/dL [facility] Cholesterol in HDL [Mass/Vol] 36 mg/dL Low >39 mg/dL [facility] Cholesterol in LDL [Mass/Vol] 126 mg/dL High <100 mg/dL [facility] Cholesterol in LDL/Cholesterol in HDL [Mass ratio] 3.50 {ratio} High <2.54 [facility] Cholesterol in VLDL [Mass/Vol] 35 mg/dL High <30 mg/dL [facility] Cholesterol non HDL [Mass/Vol] 161 mg/dL High <130 mg/dL [facility] Cholesterol.total/Ch olesterol in HDL [Mass ratio] 5.47 {ratio} High <5.10 [facility] Fasting Time 12 hrs [facility] Triglyceride [Mass/Vol] 177 mg/dL High <150 mg/dL [facility] MRI LUMBAR SPINE WO IVCONon 11-13-2021 [facility] CNPNon 09-25-2021 CNPN Telephone (NEADFV) JACKIE YU ([id number]) 1955 F Date Time Provider Department 09/25/21 [place] During your visit today, we recorded the following information about you: Eloise Worthington [facility] 09/25/2021 9:54 AM Signed Patient states she is now experiencing pain in her right leg and hip, same pain she was having on her right leg. Her next visit is not until October 28, she is asking if she can get some pain medication until her follow-up. She can be reached at [phone] Harinder Loyola RN 09/25/2021 1:00 PM Signed Patient's appointment expedited to 09/30/21. Aimee Fernández [facility] 10/03/2021 12:50 PM Signed Patient called stating she is now also having right sided pain. She wants to know if the doctor can give her a stronger muscle relaxer. She is also taking Tizanidine 4 mg which is not helping per patient. Please call her at [phone]. Harinder Loyola RN 10/03/2021 12:58 PM Signed Will forward for review. Alex Garcai PA-C 10/03/2021 1:17 PM Signed Today patient states she is having pain in right hip and right leg. No bowel/bladder dysfunction. This started about 2 weeks ago. No provoking incident. Methocarbamol 750mg was helpful if taken with aspirin. She has not tried gabapentin or lyrica due to too many side effects. Her family doctor has her on trazadone and it isn't helping. I told her that medication was for sleep and she said that wasn't the right medication then and maybe it is tizanidine. I discussed avoiding taking 2 muscle relaxers together. Recommended membrane stabilizer which she refuses at this time. She would like to try medrol dose pack which was sent to her pharmacy. She will follow up as scheduled. Alex Garcia PA-C 10/03/2021 1:17 PM Signed Addended by: ALEX GARCIA on: 10/03/2021 01:17 PM Modules accepted: Orders Aimee Del Valle 10/14/2021 9:13 AM Signed Patient called this morning, she is still having rt hip and rt leg pain, the muscle relaxer is no longer working for her. She would like to try Gabapentin. Please send to [facility] in [place]. Harinder Loyola RN 10/14/2021 9:56 AM Signed Will forward for review. Angela Ortiz PA-C 10/14/2021 10:04 AM Signed Addended by: ANGELA ORTIZ on: 10/14/2021 10:04 AM Modules accepted: Orders Allergies As of Date: 09/25/2021 Noted Allergy Reaction TRAMADOL 05/09/2016 9 - Itching NIACIN 07/26/2015 2 - Rash Date Reviewed: 08/19/2021 Reviewed by: Sunita Martin MA - Fully Assessed Reason for Visit: Paing Right leg AND Hip [Other] Order(s):[] methylPREDNISolone (MEDROL, JOANIE,) 4 mg Dose-PackAs instructed per packageDisp: 1 PackageRfl: 0 gabapentin (NEURONTIN) 300 mg capsuleTake 1 capsule by mouth three times daily for 90 days.Disp: 90 capsuleRfl: 2 Prescriptions as of 10/14/2021 - gabapentin (NEURONTIN) 300 mg capsule Take 1 capsule by mouth three times daily for 90 days. - nitroglycerin sublingual (NITROQUICK) 0.4 mg SL tablet DISSOLVE 1 TABLET UNDER THE TONGUE EVERY 5 MINUTES NEEDED. - tiZANidine (ZANAFLEX) 4 mg tablet Take 1 tablet by mouth every 8 hours as needed (muscle spasm). - iv contrast (will be provided with radiology test) CT Urogram WO/W Inject, intravenously, once for 1 dose.No IV access, insert saline lock prior to the beginning of sedation, infusion, injection of imaging exam. Discontinue saline lock post exam. If Pt. has a central line or IVAD, may access for administration according to line specific nursing protocol. Once exam is complete flush line and de-access according to line specific nursing protocol in the CT contrast administration guidelines link. - methocarbamol (ROBAXIN) 750 mg tablet Take 1 tablet by mouth three times daily. - hydrOXYzine pamoate (VISTARIL) 25 mg capsule Take 1-2 capsules by mouth at bedtime as needed (insomnia). - famotidine (PEPCID) 20 mg tablet Take 1 tablet by mouth once daily. - potassium chloride (K-TAB) 10 mEq tablet Take 1 tablet by mouth once daily. - loratadine (CLARITIN) 10 mg tablet TAKE 1 TABLET BY MOUTH EVERY DAY - ezetimibe (ZETIA) 10 mg tablet Take 10 mg by mouth once daily. - albuterol HFA (PROVENTIL HFA, VENTOLIN HFA) 90 mcg/actuation inhaler INHALE 2 PUFFS BY MOUTH EVERY 4 HOURS NEEDED - docusate sodium (COLACE) 100 mg capsule Take 1 capsule by mouth twice daily. - benazepril (LOTENSIN) 10 mg tablet 1 po every day - acetaminophen (TYLENOL EXTRA STRENGTH) 500 mg tablet Take 500 mg by mouth every 8 hours as needed. - albuterol (PROVENTIL) 2.5 mg /3 mL (0.083 %) nebulizer solution Use 3 mL via nebulizer every 6 hours as needed for Wheezing/Shortness of Breath. Inhale by nebulizer over 5-15 minutes. - calcium carbonate (TUMS) 500 mg chew Take 500 mg by mouth as needed. - amLODIPine (NORVASC) 5 mg tablet TAKE 1 TABLET BY MOUTH ONCE DAILY. - hydroCHLOROthiazide (HYDRODIURIL, ESIDRIX) 12.5 m (more content not included)... Normal [facility] CT UROGRAM WO/W IVCONon 02-2 CT UROGRAM WO/W IVCON * * *Final Report* * * DATE OF EXAM: Sep 02 2021 8:53AM [facility] 0560 - CT UROGRAM WO/W IVCON / PROCEDURE REASON: R31.29-Hematuria, microscopic * * * * Physician Interpretation * * * * EXAMINATION: CT ABDOMEN AND PELVIS WITHOUT AND WITH IV CONTRAST, INCLUDING EXCRETORY PHASE IMAGING (CT UROGRAM) 3D RECONSTRUCTIONS CLINICAL HISTORY: Hematuria. TECHNIQUE: CT urogram protocol including unenhanced, renal parenchymal phase and excretory phase renal imaging was obtained following IV contrast. Normal saline was also administered IV. No oral contrast was given. 3D image post-processing was performed and archived at the request of the referring physician, on the CT scanner workstation without concurrent physician supervision. MQ: CTU_2 Contrast: IV: 150 ml of Omnipaque 300 IV Saline: ml of Oral Contrast: None CT Radiation dose: Integrated dose-length product (DLP) for this visit = 2364 mGy*cm. CT Dose Reduction Employed: Automated exposure control (AEC) COMPARISON: Ultrasound dated 06/28/2021. CT dated 02/10/2019. RESULT: Kidneys and urinary tract: Right: There are no renal calculi or masses. The opacified calices, renal pelvis and ureter are normal without dilation, filling defect, or stricture. Left: Too small to characterize hypodensity in the midpole. The opacified calices, renal pelvis and ureter are normal without dilation, filling defect, or stricture. Bladder: Bladder is partially decompressed without filling defects, calculus, or focal wall thickening. Abdomen and Pelvis: Liver: No mass. Biliary: No bile duct dilation. Gallbladder is unremarkable. Spleen: No mass. No splenomegaly. Pancreas: No mass or duct dilation. Adrenals: 3.5 cm fat-containing right adrenal myelolipoma with calcifications, unchanged from prior. GI tract: No dilation or wall thickening. Diverticulosis without evidence of diverticulitis. Normal appendix. Lymph nodes: No abdominal or pelvic lymphadenopathy. Mesentery/Peritoneum: No ascites or mass. Retroperitoneum: No mass. Vasculature: The celiac axis and SMA are patent. The portal vein and branches, splenic vein, SMV, and hepatic veins are patent. Atherosclerotic calcifications of the abdominal aorta with mild ectasia of the infrarenal aorta measuring up to 2.5 cm, unchanged from prior. There is asymmetric enlargement of the proximal left greater saphenous vein at the confluence with the femoral vein, unchanged from prior. Pelvis: No mass, ascites or fluid collection. Bones and Soft Tissues: Degenerative changes. Lower thorax: Unremarkable. Metallographic Technician (topogram) images: No additional findings. IMPRESSION: No nephrolithiasis, hydronephrosis, or filling defect within the renal collecting system. Additional findings as described in the body of the report. Candle Maker: DOUG Transcribe Date/Time: Sep 02 2021 9:48A Dictated by : ROLANDO COOK MD This examination was interpreted and the report reviewed and electronically signed by: ROLANDO COOK MD on Sep 02 2021 9:59AM EST [id number] Normal [facility] Office Visit (Cardiology)on 05-16-2021 Follow-up visit Diagnoses/Problems Assessed Angina, class IV (413.9) (I20.9) CAD (coronary artery disease) (414.00) (I25.10) Past myocardial infarction (412) (I25.2) Hypertension (401.9) (I10) Mixed hyperlipidemia (272.2) (E78.2) Obese (278.00) (E66.9) Current every day smoker (305.1) (F17.200) since age 21, smokes 1 PPD Orders CAD (coronary artery disease), High risk medication use Complete Blood Count; Status:Active - Retrospective Authorization; Requested for:13May2022; Hypertension Comprehensive Metabolic Panel; Status:Active - Retrospective Authorization; Requested for:13May2022; Mixed hyperlipidemia Lipid Panel; Status:Active - Retrospective Authorization; Requested for:13May2022; SocHx: Current every day smoker Tobacco Use Screening; Status:Complete; Done: 16May2021 Patient Instructions By signing my name below, I, Elana Ronquillo LPN,Scribe, attest that this documentation has been prepared under the direction and in the presence of Dr. Mando Stevens MD, [facility]. Followup in 1 year Chief Complaint Patient here for 1 year follow-up. History of Present Illness The patient states she has been doing well from a cardiac standpoint. She denies chest discomfort or symptoms of myocardial ischemia. She has not used nitroglycerin. She denies any significant problem with dyspnea. She denies any significant palpitations or syncope. She denies any problem with her medications. Unfortunately still continues to smoke cigarettes. I did go over results of her lipid profile with her. Her cholesterol is very good. Her LDL cholesterol 59. IMPRESSION: 1. Coronary artery disease, no angina 2. Remote ST-elevation myocardial infarction. 3. Remote multivessel percutaneous coronary intervention. 4. Essential hypertension. 5. Mixed hyperlipidemia. 6. Obesity. 7. Tobacco abuse. Please excuse any errors in grammar or translation related to this dictation. Voice recognition software was utilized to prepare this document. Active Problems Problems Angina, class IV (413.9) (I20.9) CAD (coronary artery disease) (414.00) (I25.10) Current every day smoker (305.1) (F17.200) since age 21, smokes 1 PPD Hypertension (401.9) (I10) Hypokalemia (276.8) (E87.6) Mixed hyperlipidemia (272.2) (E78.2) Past myocardial infarction (412) (I25.2) Varicose veins of lower extremity with inflammation, unspecified laterality (454.1) (I83.10) Venous insufficiency (459.81) (I87.2) Surgical History Problems History of Back surgery 12/2020 History of Colonoscopy Jul 13, 2008 History of Foot surgery History of Hysterectomy History of Ostectomy of calcaneus for spur History of Percutaneous transluminal coronary angioplasty 04/2015 Current Meds Medication NameInstruction Albuterol Sulfate (2.5 MG/3ML) 0.083% Inhalation Nebulization SolutionUSE 1 UNIT DOSE EVERY 4-6 HOURS NEEDED FOR WHEEZING . amLODIPine Besylate 5 MG Oral TabletTAKE 1 TABLET DAILY DIRECTED. Aspirin 81 MG Oral Tablet Delayed ReleaseTAKE 1 TABLET DAILY. Atorvastatin Calcium 80 MG Oral TabletTAKE 1 TABLET BY MOUTH EVERYDAY AT BEDTIME Wolfgang Back [employer] TABSas directed Benazepril HCl - 10 MG Oral TabletTAKE 1 TABLET BY MOUTH EVERY DAY Clopidogrel Bisulfate 75 MG Oral TabletTAKE 1 TABLET BY MOUTH EVERY DAY Docusate Sodium 100 MG Oral CapsuleTAKE 1 CAPSULE TWICE DAILY. Famotidine 20 MG Oral TabletTAKE 1 TABLET AT BEDTIME. hydroCHLOROthiazide 12.5 MG Oral CapsuleTAKE 1 CAPSULE ONCE DAILY. Loratadine 10 MG Oral TabletTAKE 1 TABLET AT BEDTIME. Metoprolol Tartrate 25 MG Oral TabletTAKE 1/2 TABLET TWICE DAILY Nitroglycerin 0.4 MG Sublingual Tablet SublingualPLACE 1 TABLET UNDER THE TONGUE EVERY 5 MINUTES FOR UP TO 3 DOSES NEEDED FOR CHEST PAIN.CALL 911 IF PAIN PERSISTS. Potassium Chloride ER 10 MEQ Oral Tablet Extended ReleaseTAKE 1 TABLET DAILY. ProAir HFA 108 (90 Base) MCG/ACT Inhalation Aerosol SolutionINHALE 1 PUFF EVERY 4 HOURS NEEDED. Tussin SYRPas directed Spironolactone 25 MG Oral TabletTAKE 1 TABLET DAILY. Allergies Medication Advicor TB24 Itching; Rash; Recorded By: Maria Luisa Garcia; 04/25/2021 12:56:37 PM Statins Myalgia; Recorded By: Maria Luisa Garcia; 04/25/2021 12:56:37 PM tramadol Recorded By: Maria Luisa Garcia; 04/25/2021 12:56:37 PM Family History Mother Family history of arteriosclerotic cardiovascular disease (V17.49) (Z82.49) Family history of CABG (V17.49) (Z82.49) Family history of cardiac disorder (V17.49) (Z82.49) Family history of hyperlipidemia (V18.19) (Z83.438) Family history of hypertension (V17.49) (Z82.49) Father Family history of arteriosclerotic cardiovascular disease (V17.49) (Z82.49) Sister Family history of arteriosclerotic cardiovascular disease (V17.49) (Z82.49) Social History Problems Caffeine use (V49.89) (Z78.9) 2 cups daily Current every day smoker (305.1) (F17.200) since age 21, smokes 1 PPD No alcohol use No illicit drug use Review of Systems [employer] (more content not included)... Normal [facility] Tobacco Screening.on 021 Fall risk assessment a) No falls within the last year [facility] DO Work Phone: Tobacco use status [facility] a) Yes [facility] DO Work Phone: Lipid Panelon 04-02-2021 Cholesterol [Mass/Vol] 109 mg/dL 0 - 199 [facility] DO Work Phone: Comment on above: . AGE DESIRABLE BORD BROWN HIGH HIGH 0-19 Y 0 - 169 170 - 199 >/= 200 20-24 Y 0 - 189 190 - 224 >/= 225 >24 Y 0 - 199 200 - 239 >/= 240 All ranges are based on fasting samples. Specific therapeutic targets will vary based on patient-specific cardiac risk.. Pediatric guidelines reference:Pediatrics 2011, 128(S5). Adult guidelines reference: NCEP ATPIII Guidelines, TANG 2001, 258:2486-97. Venipuncture immediately after or during the administration of Metamizole may lead to falsely low results. Testing should be performed immediately prior to Metamizole dosing. Cholesterol in HDL [Mass/Vol] 31.0 mg/dL Abnormal [facility] [employer] DO Work Phone: Comment on above: . AGE VERY LOW LOW N ORMAL HIGH 0-19 Y < 35 < 40 40-45 ---- 20- 24 Y ---- < 40 >45 ---- >24 Y ---- < 40 40-60 >60. Cholesterol in LDL [Mass/Vol] 59 mg/dL 0 - 99 [facility] [employer] DO Work Phone: Comment on above: . NEAR BORD AGE FERNANDO RABLE OPTIMAL HIGH HIGH VERY HIGH 0-19 Y 0 - 109 --- 110-129 >/= 130 ---- 20-24 Y 0 - 119 --- 120-159 >/= 160 ---- >24 Y 0 - 99 100-129 130-159 160-189 >/=190. Cholesterol.total/Ch olesterol in HDL [Mass ratio] 3.5 {ratio} [facility] [employer] DO Work Phone: Comment on above: REF VALUESDESIRABLE < 3.4HIGH RISK > 5.0 Triglyceride [Mass/Vol] 97 mg/dL 0 - 149 [facility] [employer] DO Work Phone: Comment on above: . AGE DESIRABLE BORD BROWN HIGH HIGH VERY HIGH 0 D-90 D 19 - 174 ---- ---- ----91 D- 9 Y 0 - 74 75 - 99 >/= 100 ---- 10-19 Y 0 - 89 90 - 129 >/= 130 ---- 20-24 Y 0 - 114 115 - 149 >/= 150 ---- >24 Y 0 - 149 150 - 199 200- 499 >/= 500. Venipuncture immediately after or during the administration of Metamizole may lead to falsely low results. Testing should be performed immediately prior to Metamizole dosing. Lipid Panel 19 mg/dL 0 - 40 -[facility] [facility] DO Work Phone: CNOVon 03-14-2021 CNOV Office Visit (NSFRVW ) JACKIE YU ([id number]) 1955 F Date Time Provider Department 03/14/21 10:40 AM A[place] HILL NSFRVW During your visit today, we recorded the following information about you: Temperature Pulse Blood pressure Weight 97.5 degrees 72/minute 114/65 84.8 kg Height 1.702 m Aquilino Hill MD 03/14/2021 8:44 PM Signed SPINE SURGERY FOLLOW UP SERVICE DATE: 03/14/2021 SURGERY DATE: 01/25/2021 Left L4/5 microdiscectomy Jackie Yu is seen for 6 week post operative follow up. Since last time I saw the patient reports slight improvement in her symptoms. She denies having any further back pain but still complaining of intermittent left leg pain. No major concerns. PAIN EVALUATION 03/14/2021 1004 Pain Level: 9 Pain Location: Leg-Left Description: Aching;Sharp;Shooting;R adiating Duration Units: Months Frequency: Intermittent Intervention/Comfort measure: Medication ANTIPLATELET OR ANTICOAGULATION STATUS: No Patient Entered Questionnaires Spine Questions 02/11/2021 Pain Location: Leg Pain Duration: 1-3 months Symptoms from neck/cervical spine: No Employment Status: Disabled due to back pain, permanently or temporarily Off work 1 month or more due to back/neck pain: No Applied for/receive disability/WC due to low back/neck pain No Involved in law suit/legal claim: No PROMIS Score Percentiles Physical Health 02/11/2021 Physical Function Percentile 8 Sleep Percentile 16* Fatigue Percentile 18* Pain Interference Percentile 4 Social Health 02/11/2021 Social Role Satisfaction Percentile 4 PROMIS Global Health Scale 02/11/2021 Physical Health Percentile 7 Mental Health Percentile 43 Percentiles provide an indication of how the patient's score ranks in relation to the general population. Higher percentile rankings indicate better function/quality of life. 50th percentile is the average of the general population and indicates half of respondents had a worse score. Depression Screening: PHQ-9 02/11/2021 Score 14 PHQ-9 Self-harm Question 02/11/2021 Thoughts that you would be better off , or of hurting yourself in some way 0 PHQ-9 Self-Harm (Item 9) response options: 0 Not at all 1 Several days 2 More than half the days 3 Nearly every day PHQ-9 Levels: 0-4 No to mild depression 5-9 Mild depression 10-14 Moderate depression 15-19 Moderately severe depression 20-27 Severe depression PHYSICAL EXAM: BP 114/65 (BP Site: Left Arm, BP Position: Sitting, BP Cuff Size: Large Adult) Pulse 72 Temp 36.4 ?C (97.5 ?F) Ht 170.2 cm (5' 7) Wt 84.8 kg (187 lb) SpO2 97% BMI 29.29 kg/m? Oriented x3 PERRL FS Motor: UE D 5/5, B 5/5, T 5/5, G 5/5, HI 5/5 LE HF 5/5, KE 5/5, DF 5/5, PF 5/5, EHL 5/5 Incision C/D/I DATA REVIEW No additional images reviewed today ASSESSMENT/PLAN (M54.16) Radiculopathy, lumbar region (primary encounter diagnosis) 1. Percocet ordered 2. Okay to return to work 3. Follow up: 4 weeks SIGNATURE: Aquilino Hill MD PATIENT NAME: Jackie Yu DATE: March 14, 2021 TIME: 8:42 PM PAGER: Referring Provider: SELF [200] Allergies As of Date: 03/14/2021 Noted Allergy Reaction TRAMADOL 05/09/2016 9 - Itching NIACIN 07/26/2015 2 - Rash Date Reviewed: 03/14/2021 Reviewed by: Lashanda Alejandra Ma - Fully Assessed Reason for Visit: Follow Up [171] Primary Visit Diagnosis:Radiculopathy , lumbar region [M54.16] Order(s):oxyCODONE-acet aminophen (PERCOCET) 5-325 mg tabletTake 1 tablet by mouth every 8 hours as needed for pain (for pain.).Disp: 24 tabletRfl: 0 Prescriptions as of 03/14/2021 - oxyCODONE-acetaminophen (PERCOCET) 5-325 mg tablet Take 1 tablet by mouth every 8 hours as needed for pain (for pain.). - ezetimibe (ZETIA) 10 mg tablet Take 10 mg by mouth once daily. - albuterol HFA (PROVENTIL HFA, VENTOLIN HFA) 90 mcg/actuation inhaler INHALE 2 PUFFS BY MOUTH EVERY 4 HOURS NEEDED - famotidine (PEPCID) 20 mg tablet Take 1 tablet by mouth once daily. - potassium chloride (K-TAB) 10 mEq tablet Take 1 tablet by mouth once daily. - methocarbamol (ROBAXIN-750) 750 mg tablet Take 1 tablet by mouth three times daily. - docusate sodium (COLACE) 100 mg capsule Take 1 capsule by mouth twice daily. - loratadine (CLARITIN) 10 mg tablet TAKE 1 TABLET BY MOUTH EVERY DAY - benazepril (LOTENSIN) 10 mg tablet 1 po every day - acetaminophen (TYLENOL EXTRA STRENGTH) 500 mg tablet Take 500 mg by mouth every 8 hours as needed. - albuterol (PROVENTIL) 2.5 mg /3 mL (0.083 %) nebulizer solution Use 3 mL via nebulizer every 6 hours as needed for Wheezing/Shortness of Breath. Inhale by nebulizer over 5-15 minutes. - calcium carbonate (TUMS) 500 mg chew Take 500 mg by mouth as needed. - amLODIPine (NORVASC) 5 mg tablet TAKE 1 TABLET BY MOUTH ONCE DAILY. - hydroCHLOROthiazide ( (more content not included)... Normal [facility] OBSOLETEon 02-14-2021 OBSOLETE Refill (NEADFV) JACKIE YU ([id number]) 1955 F Date Time Provider Department 02/14/21 [place] During your visit today, we recorded the following information about you: Brandy Macias 02/14/2021 9:15 AM Signed Call from patient requesting refill. Pending Prescriptions Disp Refills OXYCODONE-ACETAMINOPHEN 5 MG-325 MG TABLET 24 tablet 0 Sig: Take 1 tablet by mouth every 4 hours as needed for pain (for pain.). CHON Class: C-II CA: No Patient last seen 02-11-21 Brandy Alaniz PA-C 02/14/2021 11:47 AM Signed PDMP report reviewed. Rx sent to pharmacy. Recommend spacing medication to q6h. She can supplement with a tablet of Tylenol between her Percocet doses. She also has Robaxin she can utilize for pain control as well. Harinder Loyola RN 02/14/2021 12:05 PM Signed Spoke with patient and informed of message below. Patient verbalized understanding and states she tries to only take it in the morning and before bed. Allergies As of Date: 02/14/2021 Noted Allergy Reaction TRAMADOL 05/09/2016 9 - Itching NIACIN 07/26/2015 2 - Rash Date Reviewed: 02/11/2021 Reviewed by: Sunita Martin MA - Fully Assessed Reason for Visit: Refill Request [94] Visit Diagnoses:Left lumbar radiculitis [M54.16] Spinal stenosis of lumbar region, unspecified whether neurogenic claudication present [M48.061] Order(s):oxyCODONE-acet aminophen (PERCOCET) 5-325 mg tabletTake 1 tablet by mouth every 6 hours as needed for pain (for pain.) for up to 7 days.Disp: 28 tabletRfl: 0 Prescriptions as of 02/14/2021 - oxyCODONE-acetaminophen (PERCOCET) 5-325 mg tablet Take 1 tablet by mouth every 6 hours as needed for pain (for pain.) for up to 7 days. - methylPREDNISolone (MEDROL DOSE-PACK) 4 mg Dose-Pack As Instructed per package - potassium chloride (K-TAB) 10 mEq tablet TAKE 1 TABLET BY MOUTH EVERY DAY - methocarbamol (ROBAXIN-750) 750 mg tablet Take 1 tablet by mouth three times daily. - docusate sodium (COLACE) 100 mg capsule Take 1 capsule by mouth twice daily. - traZODone (DESYREL) 50 mg tablet TAKE 1 TABLET BY MOUTH EVERY DAY AT BEDTIME NEEDED - loratadine (CLARITIN) 10 mg tablet TAKE 1 TABLET BY MOUTH EVERY DAY - famotidine (PEPCID) 20 mg tablet TAKE 1 TABLET BY MOUTH EVERY DAY - albuterol HFA (PROVENTIL HFA, VENTOLIN HFA) 90 mcg/actuation inhaler INHALE 2 PUFFS BY MOUTH EVERY 4 HOURS NEEDED - benazepril (LOTENSIN) 10 mg tablet 1 po every day - acetaminophen (TYLENOL EXTRA STRENGTH) 500 mg tablet Take 500 mg by mouth every 8 hours as needed. - albuterol (PROVENTIL) 2.5 mg /3 mL (0.083 %) nebulizer solution Use 3 mL via nebulizer every 6 hours as needed for Wheezing/Shortness of Breath. Inhale by nebulizer over 5-15 minutes. - calcium carbonate (TUMS) 500 mg chew Take 500 mg by mouth as needed. - amLODIPine (NORVASC) 5 mg tablet TAKE 1 TABLET BY MOUTH ONCE DAILY. - hydroCHLOROthiazide (HYDRODIURIL, ESIDRIX) 12.5 mg tablet TAKE 1 TABLET BY MOUTH ONCE DAILY. - atorvastatin (LIPITOR) 80 mg tablet TAKE 1 TABLET BY MOUTH ONCE DAILY. - spironolactone (ALDACTONE) 25 mg tablet TAKE 1 TABLET BY MOUTH ONCE DAILY. - metoprolol succinate ER (TOPROL XL) 25 mg 24 hr tablet Take 25 mg by mouth twice daily. - clopidogrel (PLAVIX) 75 mg tablet Take 1 tablet by mouth once daily. - nitroglycerin sublingual (NITROSTAT) 0.4 mg SL tablet Dissolve 1 tablet under the tongue every 5 minutes as needed. - aspirin, enteric coated (ECOTRIN LOW STRENGTH) 81 mg EC tablet Take 1 tablet by mouth once daily. Problem List As Of Date 02/14/2021 Noted Resolved ASCVD (arteriosclerotic cardiovascular disease)*02/13/2012 GERD with esophagitis [K21.00] 03/23/2017 Chronic insomnia [F51.04] 03/23/2017 Chronic midline low back pain without sciatica *03/23/2017 Smoker [F17.200] 03/23/2017 Chronic thumb pain, left [M79.645, G89.29] 05/04/2017 01/07/2018 Heartburn [R12] 11/23/2017 Other emphysema (HCC) [J43.8] 12/04/2017 Hallux limitus of right foot [M20.5X1] 09/21/2018 High cholesterol [E78.00] 09/21/2018 Hypertension [I10] 09/21/2018 Osteoarthritis of multiple joints [M15.9] 09/28/2018 09/28/2018 Obesity, Class I, BMI 30-34.9 [E66.9] 03/01/2019 04/26/2020 Stage 3 chronic kidney disease (HCC) [N18.30] 05/12/2019 Hyponatremia [E87.1] 07/01/2019 Spinal stenosis of lumbar region [M48.061] 11/16/2020 Left lumbar radiculitis [M54.16] 11/16/2020 Prescriptions ordered this encounter Disp Refills Start End OXYCODONE-ACETAMINOPHEN 5 MG-325 MG * 28 t* 0 02/14/2021 02/21/2021 Route: ORAL Sig: Take 1 tablet by mouth every 6 hours as needed for pain (for pain.) for up to 7 days. Medications Discontinued During This Encounter Prescriptions - oxyCODONE-acetaminophen (PERCOCET) 5-325 mg tablet (Discontinued) Take 1 tablet by mouth every 4 hours as needed for pain (for pain.). Encounter Nu (more content not included)... [facility] 02-06-2021 VISH Telephone (NEADFV) JACKIE YU ([id number]) 1955 F Date Time Provider Department 02/06/21 AQUILINO HILL During your visit today, we recorded the following information about you: Aimee Fernández Pss 02/06/2021 9:59 AM Signed Post op patient called to ask Dr Hill if he will give her a refill on her Oxycodone. She is still having a lot of pain, and has been trying to manage it with her Tens unit, and Tylenol, but neither is helping much. If approved, please send script to [facility] in [facility]. Harinder Loyola RN 02/06/2021 11:00 AM Signed Will forward for review. Harinder Loyola RN 02/06/2021 11:36 AM Signed Prescription sent to pharmacy. Allergies As of Date: 02/06/2021 Noted Allergy Reaction TRAMADOL 05/09/2016 9 - Itching NIACIN 07/26/2015 2 - Rash Date Reviewed: 01/25/2021 Reviewed by: Dari Weiss RN - Fully Assessed Reason for Visit: Medication Question [1478] Visit Diagnoses:Left lumbar radiculitis [M54.16] Spinal stenosis of lumbar region, unspecified whether neurogenic claudication present [M48.061] Order(s):oxyCODONE-acet aminophen (PERCOCET) 5-325 mg tabletTake 1 tablet by mouth every 4 hours as needed for pain (for pain.).Disp: 24 tabletRfl: 0 Prescriptions as of 02/06/2021 - oxyCODONE-acetaminophen (PERCOCET) 5-325 mg tablet Take 1 tablet by mouth every 4 hours as needed for pain (for pain.). - potassium chloride (K-TAB) 10 mEq tablet TAKE 1 TABLET BY MOUTH EVERY DAY - methocarbamol (ROBAXIN-750) 750 mg tablet Take 1 tablet by mouth three times daily. - docusate sodium (COLACE) 100 mg capsule Take 1 capsule by mouth twice daily. - traZODone (DESYREL) 50 mg tablet TAKE 1 TABLET BY MOUTH EVERY DAY AT BEDTIME NEEDED - loratadine (CLARITIN) 10 mg tablet TAKE 1 TABLET BY MOUTH EVERY DAY - famotidine (PEPCID) 20 mg tablet TAKE 1 TABLET BY MOUTH EVERY DAY - albuterol HFA (PROVENTIL HFA, VENTOLIN HFA) 90 mcg/actuation inhaler INHALE 2 PUFFS BY MOUTH EVERY 4 HOURS NEEDED - benazepril (LOTENSIN) 10 mg tablet 1 po every day - acetaminophen (TYLENOL EXTRA STRENGTH) 500 mg tablet Take 500 mg by mouth every 8 hours as needed. - albuterol (PROVENTIL) 2.5 mg /3 mL (0.083 %) nebulizer solution Use 3 mL via nebulizer every 6 hours as needed for Wheezing/Shortness of Breath. Inhale by nebulizer over 5-15 minutes. - calcium carbonate (TUMS) 500 mg chew Take 500 mg by mouth as needed. - guaifenesin/dextrometho rphan ([id number] -CATHY ORAL) Take 1 tablet by mouth as needed. - amLODIPine (NORVASC) 5 mg tablet TAKE 1 TABLET BY MOUTH ONCE DAILY. - hydroCHLOROthiazide (HYDRODIURIL, ESIDRIX) 12.5 mg tablet TAKE 1 TABLET BY MOUTH ONCE DAILY. - atorvastatin (LIPITOR) 80 mg tablet TAKE 1 TABLET BY MOUTH ONCE DAILY. - spironolactone (ALDACTONE) 25 mg tablet TAKE 1 TABLET BY MOUTH ONCE DAILY. - metoprolol succinate ER (TOPROL XL) 25 mg 24 hr tablet Take 25 mg by mouth twice daily. - clopidogrel (PLAVIX) 75 mg tablet Take 1 tablet by mouth once daily. - nitroglycerin sublingual (NITROSTAT) 0.4 mg SL tablet Dissolve 1 tablet under the tongue every 5 minutes as needed. - aspirin, enteric coated (ECOTRIN LOW STRENGTH) 81 mg EC tablet Take 1 tablet by mouth once daily. Problem List As Of Date 02/06/2021 Noted Resolved ASCVD (arteriosclerotic cardiovascular disease)*02/13/2012 GERD with esophagitis [K21.00] 03/23/2017 Chronic insomnia [F51.04] 03/23/2017 Chronic midline low back pain without sciatica *03/23/2017 Smoker [F17.200] 03/23/2017 Chronic thumb pain, left [M79.645, G89.29] 05/04/2017 01/07/2018 Heartburn [R12] 11/23/2017 Other emphysema (HCC) [J43.8] 12/04/2017 Hallux limitus of right foot [M20.5X1] 09/21/2018 High cholesterol [E78.00] 09/21/2018 Hypertension [I10] 09/21/2018 Osteoarthritis of multiple joints [M15.9] 09/28/2018 09/28/2018 Obesity, Class I, BMI 30-34.9 [E66.9] 03/01/2019 04/26/2020 Stage 3 chronic kidney disease (HCC) [N18.30] 05/12/2019 Hyponatremia [E87.1] 07/01/2019 Spinal stenosis of lumbar region [M48.061] 11/16/2020 Left lumbar radiculitis [M54.16] 11/16/2020 Prescriptions ordered this encounter Disp Refills Start End OXYCODONE-ACETAMINOPHEN 5 MG-325 MG * 24 t* 0 02/06/2021 Route: ORAL Sig: Take 1 tablet by mouth every 4 hours as needed for pain (for pain.). Medications Discontinued During This Encounter Prescriptions - oxyCODONE-acetaminophen (PERCOCET) 5-325 mg tablet (Discontinued) Take 1 tablet by mouth every 4 hours as needed for pain (for pain.). Encounter Status:Closed by HARINDER LOYOLA on 02/06/21 [facility] ANES POSTPROC EVALon 021 ANES POSTPROC EVAL HNO ID: [id number] Author: Semaj Rolon MD Service: Anesthesiology Author Type: Anesthesiologist Type: Anesthesia Postprocedure Evaluation Filed: 01/25/2021 5:13 PM Note Text: POST ANESTHESIA EVALUATION NOTE : 1955 Procedure Summary Date: 01/25/21 Room / Location: OR02 / OR Anesthesia Start: 1245 Anesthesia Stop: 1415 Procedure: LAMINECTOMY DISCECTOMY LUMBAR LEVEL 1 (Left Spine Lumbar) Diagnosis: Spinal stenosis of lumbar region, unspecified whether neurogenic claudication present (Spinal stenosis of lumbar region, unspecified whether neurogenic claudication present [M48.061]) Surgeons: Aquilino Hill MD Responsible Provider: Semaj Rolon MD Anesthesia Type: general ASA Status: 3 Anesthesia Type: general Last vitals Vitals Value Taken Time BP 108/65 01/25/21 1550 Temp 36.4 ?C (97.5 ?F) 01/25/21 1550 HR SpO2 85 01/25/21 1413 Resp 16 01/25/21 1550 SpO2 93 % 01/25/21 1550 Post Anesthesia Patient Status Patient Evaluation: PACU. PACU/ICU Patient Condition: stable. Anticipated Disposition: phase 2 then home. Neurological Status: aware and responsive. Pulmonary Status: breathing comfortably on room air Airway Control: returned to baseline unsupported. Cardiovascular Status: stable. Pain Management: clinically adequate Postoperative Hydration: acceptable. Intraoperative Events: no significant anesthesia events Post Operative Nausea/Vomiting Status: no significant post operative nausea or vomiting Anesthetic Observations: Recommendation: continue current plan of care. No complications documented. SIGNATURE: Semaj Rolon MD PATIENT NAME: Jackie Yu DATE: January 25, 2021 TIME: 5:13 PM CSN: [id number] [facility] ANES PRE-OPon 01-25-2021 ANES PRE-OP HNO ID: [id number] Author: Semaj Rolon MD Service: Anesthesiology Author Type: Anesthesiologist Type: Anesthesia Preprocedure Evaluation Filed: 01/25/2021 11:25 AM Note Text: ANESTHESIOLOGY DAY OF SURGERY NOTE : 1955 Procedure(s) (LRB): LAMINECTOMY DISCECTOMY LUMBAR LEVEL 1 (Left) Surgeon(s): Aquilino Hill MD Estimated body mass index is 29.13 kg/m? as calculated from the following: Height as of 01/21/21: 170.2 cm (5' 7). Weight as of 01/21/21: 84.4 kg (186 lb). Most recent hematocrit and potassium results: Hematocrit 41.8 01/15/2021 Potassium 4.1 01/15/2021 Relevant Problems CARDIO (+) ASCVD (arteriosclerotic cardiovascular disease) (+) Hypertension -RENAL (+) Stage 3 chronic kidney disease (HCC) PULMONARY (+) Other emphysema (HCC) Other (+) GERD with esophagitis (+) High cholesterol (+) Smoker I - PHYSICAL EVALUATION AIRWAY Patient intubated: No. Mallampati: III. TM distance: <3 FB. Neck ROM: limited extension. Mouth opening: adequate. Short neck: yes. Thick neck: yes DENTAL Dentures, upper: partial. Dentures, lower: partial. Additional exam findings: yes. CARDIOVASCULAR Rhythm: regular Rate: normal Murmur not present. PULMONARY Breath sounds clear to auscultation. II - ANESTHESIA PLAN ASA Score: 3 Anesthetic Plan: general NPO Status: adequate Monitoring plan: standard ASA. Postoperative analgesic plan: parenteral or oral opioids. Anesthetic Risks, Benefits, Alternatives, Personnel Discussed. Consent obtained from: patient.Patient / Surrogate agrees to blood products: Yes Potential Anesthesia issues that may suggest increased risk of complications or contraindication to planned procedure: none. Vitals Value Taken Time BP 119/75 01/25/21924 Pulse 71 01/25/21924 Resp 16 01/25/21924 Temp 36.4 ?C (97.5 ?F) 01/25/21924 SpO2 96 % 01/25/21924 Facility-Administered Medications as of 01/25/2021 Medication Dose Route Frequency - lactated ringers iv infusion 75 mL/hr INTRAVENOUS CONTINUOUS - ceFAZolin iv piggyback 2 g in D5W (iso-osmotic) 100 mL (ANCEF) 2 g INTRAVENOUS ONCE - [COMPLETED] promethazine 12.5 mg tab(s) (PHENERGAN) 12.5 mg ORAL Pre-Op Once - acetaminophen 1,000 mg tab(s) (TYLENOL) 1,000 mg ORAL Pre-Op Once - [COMPLETED] celecoxib 200 mg cap(s) (CeleBREX) 200 mg ORAL Pre-Op Once Outpatient Medications as of 01/25/2021 Medication Sig - loratadine (CLARITIN) 10 mg tablet TAKE 1 TABLET BY MOUTH EVERY DAY - famotidine (PEPCID) 20 mg tablet TAKE 1 TABLET BY MOUTH EVERY DAY - benazepril (LOTENSIN) 10 mg tablet 1 po every day - acetaminophen (TYLENOL EXTRA STRENGTH) 500 mg tablet Take 500 mg by mouth every 8 hours as needed. - amLODIPine (NORVASC) 5 mg tablet TAKE 1 TABLET BY MOUTH ONCE DAILY. - hydroCHLOROthiazide (HYDRODIURIL, ESIDRIX) 12.5 mg tablet TAKE 1 TABLET BY MOUTH ONCE DAILY. - atorvastatin (LIPITOR) 80 mg tablet TAKE 1 TABLET BY MOUTH ONCE DAILY. - spironolactone (ALDACTONE) 25 mg tablet TAKE 1 TABLET BY MOUTH ONCE DAILY. - metoprolol succinate ER (TOPROL XL) 25 mg 24 hr tablet Take 25 mg by mouth twice daily. - clopidogrel (PLAVIX) 75 mg tablet Take 1 tablet by mouth once daily. - aspirin, enteric coated (ECOTRIN LOW STRENGTH) 81 mg EC tablet Take 1 tablet by mouth once daily. - [] cyclobenzaprine (FLEXERIL) 10 mg tablet TAKE 1 TABLET BY MOUTH TWICE DAILY NEEDED. (Patient not taking: Reported on 12/31/2020 ) - traZODone (DESYREL) 50 mg tablet TAKE 1 TABLET BY MOUTH EVERY DAY AT BEDTIME NEEDED - albuterol HFA (PROVENTIL HFA, VENTOLIN HFA) 90 mcg/actuation inhaler INHALE 2 PUFFS BY MOUTH EVERY 4 HOURS NEEDED - albuterol (PROVENTIL) 2.5 mg /3 mL (0.083 %) nebulizer solution Use 3 mL via nebulizer every 6 hours as needed for Wheezing/Shortness of Breath. Inhale by nebulizer over 5-15 minutes. - calcium carbonate (TUMS) 500 mg chew Take 500 mg by mouth as needed. - guaifenesin/dextrometho rphan ([id number]-[id number]-[id number] -CATHY ORAL) Take 1 tablet by mouth as needed. - nitroglycerin sublingual (NITROSTAT) 0.4 mg SL tablet Dissolve 1 tablet under the tongue every 5 minutes as needed. I have interviewed and examined the patient. I have reviewed the medical record and/or the pre-anesthesia evaluation, pertinent labs, and test results. This contains updated information obtained within 48 hours of Surgery/Procedure. SIGNATURE: Semaj Rolon MD PATIENT NAME: Jackie Yu DATE: January 25, 2021 TIME: 11:16 AM CSN: [id number] [facility] BRIEF OP NOTon 01-25-2021 BRIEF OP NOT HNO ID: [id number] Author: Aquilino Hill MD Service: Neurosurgery Author Type: Physician Type: Brief Op Note Filed: 01/25/2021 5:32 PM Note Text: BRIEF OP NOTE LOG ID: [id number] Surgery/Procedure Date: 01/25/2021 Incision/Procedure Start Time: 1:07 PM Incision Close/Procedure End Time: 2:00 PM Surgeon(s)/Proceduralis t(s) and Collection Systems Consultant(s): Surgeon(s) and Role: * Aquilino Hill MD - Primary Procedure(s): Left L4/5 microdiscectomy Anesthesia: General Findings: Appropriate decompression Estimated Blood Loss: 25 mls Specimens: None Complications: None Pre-Op/Pre-Procedure Diagnosis: Left L4/5 herniated disc Post-Op/Post-Procedure Diagnosis: Left L4/5 herniated disc SIGNATURE: Aquilino Hill MD PATIENT NAME: Jackie Yu DATE: January 25, 2021 TIME: 1:53 PM PAGER/CONTACT #: [facility] OPERATIVE NOon 01-25-2021 OPERATIVE NO HNO ID: [id number] Author: Aquilino Hill MD Service: Neurosurgery Author Type: Physician Type: Operative Report Filed: 01/25/2021 6:30 PM Note Text: OPERATIVE/PROCEDURE REPORT LOG ID: [id number] SURGERY/PROCEDURE DATE: 01/25/2021 INCISION/PROCEDURE START TIME: 1:07 PM INCISION CLOSE/PROCEDURE END TIME: 2:00 PM SURGEON(S)/PROCEDURALIS T(S) AND WIRE MACHINE CUTTER(S): Surgeon(s) and Role: * Aquilino Hill MD - Primary Nurse Practitioner: Leonela Edouard APRN.CLUTCH ASSEMBLER SURGERY/PROCEDURE(S): Left L4/5 microdiscectomy ANESTHESIA: General INDICATION: 65-year-old female who presented to clinic with symptoms of left L4 radiculopathy. Conservative management offering only mild relief. MRI showed small disc herniation at the foraminal level at the L4 with root compression. Given the failed attempt of conservative management the decision was made for surgical decompression L4-5 SURGERY/PROCEDURE DETAILS: Patient was brought to the operating room. A huddle was performed with anesthesia team and nursing staff and surgical team all agreed to proceed. Patient was positioned prone on the Rupert table. IV antibiotics were given. The area was prepped and draped in usual fashion. A #15 blade scalpel was used to make an incision approximately 3 cm in length in the midline lumbar region. Monopolar cautery and blunt dissection were used to dissect down to the fascial plain and achieved hemostasis. Fascia was cleared and then incised down to the spinous process of L4. Using bony landmarks, the soft tissues and muscles were reflected laterally to the left side. Once adequate visualization of the L4/5 was achieved, a self-retaining retractor was inserted. An instrument was inserted into the wound to identify the L4 level utilizing cross-table intra-operative x-ray. After verification of the level, the high speed side-cutting air drill was used to perform a hemilaminectomy of L4 on the left side. Once the lamina had been removed, a curette was used to remove the ligamentum flavum and expose the dura. Once the dura was visualized, a Kerrison rongeur was then used to remove the remainder of the ligamentum flavum and soft tissue. Adequate hemostasis was achieved with bipolar cautery. The nerve root was retracted medially with a nerve root retractor. The pituitary grabber was used along with the blunt tip nerve hook to free a disk fragment impinging on the nerve root. The pituitary grabber removed the disk fragment successfully. Additional disk fragments were identified and removed with the pituitary grabber. The nerve was well decompressed. Incision was closed in 3 layers. 1 Vicryl for fascia, 2-0 Vicryl for subcutaneous layer, 4-0 monocryl for skin. Dressing was applied. Patient was gently emerged from anesthesia and was transferred to PACU in stable condition. PRE-OP/PRE-PROCEDURE DIAGNOSIS: Left L4/5 herniated disc POST-OP/POST-PROCEDURE DIAGNOSIS: Left L4/5 herniated disc ESTIMATED BLOOD LOSS: 25 mls SPECIMENS: None IMPLANTABLE DEVICES: None DRAINS: None COMPLICATIONS: None PARTICIPATION IN SURGERY/PROCEDURE: Aquilino Hill and Leonela Edouard performed the opening decompression and closure together SIGNATURE: Aquilino Hill MD PATIENT NAME: Jackie Yu DATE: January 25, 2021 TIME: 6:18 PM [facility] XR LUMBAR SPECIFY 1Von 01-25 XR LUMBAR SPECIFY 1V * * *Final Report* * * DATE OF EXAM: Jan 25 2021 1:07PM GEORGIE [id number] - XR LUMBAR SPECIFY 1V / PROCEDURE REASON: Spinal stenosis of lumbar region * * * * Physician Interpretation * * * * EXAMINATION: XR LUMBAR SPECIFY 1V CLINICAL INFORMATION: 65 years old Female with Spinal stenosis of lumbar region TECHNIQUE: Single lateral intraoperative image of the lumbar spine timed 1:03 PM labeled #1. COMPARISON: MRI lumbar spine 11/21/2020 RESULT: Counting reference: Lumbosacral junction. Upper L5 is considered the level of the iliac crest. A single lateral image is obtained intraoperatively for surgical planning. Through a posterior approach, a linear localizing instrument is directed towards the L5 vertebral body. IMPRESSION: Intraoperative examination for surgical planning and documentation. Candle Maker: DOUG Transcribe Date/Time: Jan 25 2021 1:10P Dictated by : LÓPEZ GORDON DO This examination was interpreted and the report reviewed and electronically signed by: LÓPEZ GORDON DO on Jan 25 2021 1:12PM EST [id number] VERIFY LEVEL [id number] 01-25-2021 XR VERIFY LEVEL L-SPINE-NB * * *Final Report* * * DATE OF EXAM: Jan 25 2021 1:18PM GEORGIE [id number] - XR VERIFY LEVEL L-SPINE-NB / PROCEDURE REASON: Spinal stenosis of lumbar region * * * * Physician Interpretation * * * * EXAMINATION: XR VERIFY LEVEL L-SPINE-NB CLINICAL INFORMATION: 65 years old Female with Spinal stenosis of lumbar region TECHNIQUE: Single lateral intraoperative image of the lumbar spine timed 1:15 PM labeled #2. COMPARISON: MRI lumbar spine 11/21/2020 RESULT: Counting reference: Lumbosacral junction. Mid-upper L5 is considered the level of the iliac crest A single lateral image is obtained intraoperatively for surgical planning. Through a posterior approach, a linear localizing surgical instrument projects over the L4 pars interarticularis. Image annotated with vertebral body levels and confirmed with the responsible surgeon at the time of interpretation. IMPRESSION: Intraoperative examination for surgical planning and documentation. COMMUNICATION: Localization level(s) confirmed with: Dr. Aquilino Hill on 01/25/2021 1:20 PM via phone and Skype during the surgical procedure. Candle Maker: DOUG Transcribe Date/Time: Jan 25 2021 1:20P Dictated by : LÓPEZ GORDON DO This examination was interpreted and the report reviewed and electronically signed by: LÓPEZ GORDON DO on Jan 25 2021 1:23PM EST [id number] [facility] CNCOon 01-21-2021 CNCO Letter Text [facility] Confirm Blood Typeon 021 ABO/RH(D) Positive [facility] Comment on above: Performed By: #### C ONABO #### [facility] [address] [id number] HISTORY PHYSICALon HISTORY PHYSICAL HNO ID: [id number] Author: Vivien Davalos PA-C Service: ? Author Type: Physician Collection Systems Consultant Type: HANDP Filed: 01/21/2021 10:07 AM Note Text: HISTORY AND PHYSICAL EXAMINATION SERVICE DATE: 01/21/2021 SERVICE TIME: 10:01 AM PRIMARY CARE PHYSICIAN: Elana Chery DO REASON FOR VISIT: Jackie Yu is a 65 year old female who is scheduled for Procedure(s) with comments: LAMINECTOMY DISCECTOMY LUMBAR LEVEL 1 (Left) - Left L4-5 microdiscectomy at the request of Dr. Aquilino Hill for consultation. My final recommendation will be communicated back to the requesting physician by way of shared medical record or letter. Subjective The patient has the following: ACTIVE PROBLEM LIST Ascvd (Arteriosclerotic Cardiovascular Disease) Gerd With Esophagitis Chronic Insomnia Chronic Midline Low Back Pain Without Sciatica Smoker Heartburn Other Emphysema (Hcc) Hallux Limitus of Right Foot High Cholesterol Hypertension Stage 3 Chronic Kidney Disease (Hcc) Hyponatremia Spinal Stenosis of Lumbar Region Left Lumbar Radiculitis CHIEF COMPLAINT: Back pain HPI: Jackie Yu maximo 65 year old female who presents with low back pain for the past 2 months. She describes her pain as sharp shooting pain that radiates into the left leg and rates it 8/10. She has tried tylenol and muscle relaxer with some improvement and not Worsened by anything in particular. REVIEW OF SYSTEMS: General: No weight loss, malaise or fevers. Neurological: Negative for: headaches, seizures, TIA and strokes. Respiratory: Positive for: COPD, current cough (chronic, dry) and tobacco use. Patient's COPD severity: mild. Negative for: dyspnea, home oxygen and obstructive sleep apnea. Cardiovascular: Denies palpitations, syncope Positive for: CAD, hyperlipidemia and hypertension Patient's last office visit with size mixer, Dr. Mando Rizvi, The following tests and/or procedures were performed: cardiac stents (x 11, last done 2014). Negative for: chest pain, CHF, DVT/PE and murmur/valvular heart disease. GI: Positive for: GERD Negative for: abdominal pain, difficulty swallowing, liver disease, nausea and vomiting. : CKD3 Negative for: dysuria, frequent urination, hematuria, urinary incontinence and nocturia >1 time per night. PATIENT INTAKE COORDINATOR: Negative for abnormal vaginal bleeding, abnormal vaginal discharge. Endocrine: Negative for: diabetes mellitus, hyperthyroidism and hypothyroidism. Hematology: Positive for: chronic anti-coagulation/platel et meds. Patient is on anti-coagulation/platel et medication(s): Aspirin and Plavix. Negative for: anemia. Oncology: No history of CA metastasis, chemo within 30 days, or radiotherapy within 90 days. No history of oncological symptoms or problems. Psych: No history of psychiatric symptoms or problems. Musculoskeletal: See HPI Skin: Negative for lesions, rash and itching. PAST MEDICAL HISTORY Diagnosis Date - Arthritis - Closed displaced fracture of metatarsal bone of right foot - GERD (gastroesophageal reflux disease) - Hallux limitus of right foot - Heart attack (HCC) 10/23/2006 another in apr 2015 - High cholesterol - Hypertension - IBS (irritable bowel syndrome) PAST SURGICAL HISTORY Procedure Laterality Date - FOOT SURGERY HX Right 1999 heal spur, tarsal tunnel - FOOT SURGERY HX Right 09/28/2018 spur removed - HEART SURGERY HX stents x11 - HYSTERECTOMY 2001 - HYSTERECTOMY HX - STENTS (SPECIFY) heart stents, 2006, 2008, 2008, 2009, 2014 - TONSILLECTOMY HX 1984 FAMILY HISTORY Problem Relation Age of Onset - Heart Mother CABG - Hyperlipidemia Mother - Hypertension Mother - Heart Sister stents - No Known Problems Brother Social History Tobacco Use - Smoking status: Current Every Day Smoker Packs/day: 1.00 Years: 45.00 Pack years: 45.00 Types: Cigarettes Start date: 07/13/1984 - Smokeless tobacco: Never Used - Tobacco comment: down to 2 ppd (09/2018) Vaping Use - Vaping Use: Never used Substance Use Topics - Alcohol use: No Comment: rare - Drug use: No Prior to Admission medications as of 01/21/21 0929 Medication Sig Last Dose Taking potassium chloride (K-TAB) 10 mEq tablet Take 1 tablet by mouth once daily. Taking Yes mupirocin (BACTROBAN) 2 % ointment Apply 1/2 ointment with a cotton swap in each nostril 2x daily for five days preop Taking Yes traZODone (DESYREL) 50 mg tablet TAKE 1 TABLET BY MOUTH EVERY DAY AT BEDTIME NEEDED Taking Yes loratadine (CLARITIN) 10 mg tablet TAKE 1 TABLET BY MOUTH EVERY DAY Taking Yes famotidine (PEPCID) 20 mg tablet TAKE 1 TABLET BY MOUTH EVERY DAY Taking Yes albuterol HFA (PROVENTIL HFA, VENTOLIN HFA) 90 mcg/actuation inhaler INHALE 2 PUFFS BY MOUTH EVERY 4 HOURS NEEDED Taking Yes benazepril (LOTENSIN) 10 mg tablet 1 po every day Taking Yes acetaminophen (TYLENOL EXTRA STRENGTH) 500 mg tablet Take 500 mg by mouth e (more content not included)... Normal [facility] Type and SCR (30D)on 021 ABO/RH(D) Positive [facility] Comment on above: Performed By: #### T [id number] #### [facility] [address] [id number] [facility] Tele[facility] (NSFRVW) JACKIE YU ([id number]) 1955 F Date Time Provider Department 01/18/21 [place] [facility] During your visit today, we recorded the following information about you: Fareed Jung Sec 01/18/2021 2:45 PM Signed Patient is scheduled for surgery on 01/25. She received information that she needs to stop medications but she has to work this upcoming week and doesn't feel she can go without. Her phone number is [phone]. Fareed Loyola RN 01/18/2021 3:33 PM Signed Spoke with patient and discussed medications. Okay to continue medications that patient was referring to. Patient also states that she is on ASA and Plavix and does not have PAT until Thursday. Patient sees size mixer Dr. Stevens with [facility] in [place]. . Called Dr. Stevens's twice with no ability to reach anyone. Will forward to provider. Allergies As of Date: 01/18/2021 Noted Allergy Reaction TRAMADOL 05/09/2016 9 - Itching NIACIN 07/26/2015 2 - Rash Date Reviewed: 12/31/2020 Reviewed by: Sunita Martin MA - Fully Assessed Reason for Visit: Patient Question [1477] Prescriptions as of 01/18/2021 - potassium chloride (K-TAB) 10 mEq tablet Take 1 tablet by mouth once daily. - methylPREDNISolone (MEDROL DOSE-PACK) 4 mg Dose-Pack As Instructed per package - mupirocin (BACTROBAN) 2 % ointment Apply 1/2 ointment with a cotton swap in each nostril 2x daily for five days preop - traZODone (DESYREL) 50 mg tablet TAKE 1 TABLET BY MOUTH EVERY DAY AT BEDTIME NEEDED - loratadine (CLARITIN) 10 mg tablet TAKE 1 TABLET BY MOUTH EVERY DAY - famotidine (PEPCID) 20 mg tablet TAKE 1 TABLET BY MOUTH EVERY DAY - fluticasone (FLONASE) 50 mcg/actuation nasal spray SPRAY 1 SPRAY INTO EACH NOSTRIL EVERY DAY - albuterol HFA (PROVENTIL HFA, VENTOLIN HFA) 90 mcg/actuation inhaler INHALE 2 PUFFS BY MOUTH EVERY 4 HOURS NEEDED - benazepril (LOTENSIN) 10 mg tablet 1 po every day - acetaminophen (TYLENOL EXTRA STRENGTH) 500 mg tablet Take 500 mg by mouth every 8 hours as needed. - albuterol (PROVENTIL) 2.5 mg /3 mL (0.083 %) nebulizer solution Use 3 mL via nebulizer every 6 hours as needed for Wheezing/Shortness of Breath. Inhale by nebulizer over 5-15 minutes. - calcium carbonate (TUMS) 500 mg chew Take 500 mg by mouth as needed. - guaifenesin/dextrometho rphan (AGKZDTIWRW-RQAZF-XWZYS -CATHY ORAL) Take 1 tablet by mouth as needed. - amLODIPine (NORVASC) 5 mg tablet TAKE 1 TABLET BY MOUTH ONCE DAILY. - hydroCHLOROthiazide (HYDRODIURIL, ESIDRIX) 12.5 mg tablet TAKE 1 TABLET BY MOUTH ONCE DAILY. - atorvastatin (LIPITOR) 80 mg tablet TAKE 1 TABLET BY MOUTH ONCE DAILY. - spironolactone (ALDACTONE) 25 mg tablet TAKE 1 TABLET BY MOUTH ONCE DAILY. - metoprolol succinate ER (TOPROL XL) 25 mg 24 hr tablet Take 25 mg by mouth once daily. - clopidogrel (PLAVIX) 75 mg tablet Take 1 tablet by mouth once daily. - nitroglycerin sublingual (NITROSTAT) 0.4 mg SL tablet Dissolve 1 tablet under the tongue every 5 minutes as needed. - aspirin, enteric coated (ECOTRIN LOW STRENGTH) 81 mg EC tablet Take 1 tablet by mouth once daily. Problem List As Of Date 01/18/2021 Noted Resolved ASCVD (arteriosclerotic cardiovascular disease)*02/13/2012 GERD with esophagitis [K21.00] 03/23/2017 Chronic insomnia [F51.04] 03/23/2017 Chronic midline low back pain without sciatica *03/23/2017 Smoker [F17.200] 03/23/2017 Chronic thumb pain, left [M79.645, G89.29] 05/04/2017 01/07/2018 Heartburn [R12] 11/23/2017 Other emphysema (HCC) [J43.8] 12/04/2017 Hallux limitus of right foot [M20.5X1] 09/21/2018 High cholesterol [E78.00] 09/21/2018 Hypertension [I10] 09/21/2018 Osteoarthritis of multiple joints [M15.9] 09/28/2018 09/28/2018 Obesity, Class I, BMI 30-34.9 [E66.9] 03/01/2019 04/26/2020 Stage 3 chronic kidney disease (HCC) [N18.30] 05/12/2019 Hyponatremia [E87.1] 07/01/2019 Spinal stenosis of lumbar region [M48.061] 11/16/2020 Left lumbar radiculitis [M54.16] 11/16/2020 Encounter Status:Closed by [facility]) JACKIE YU ([id number]) 1955 F Date Time Provider Department 12/31/20 [place] [facility] During your visit today, we recorded the following information about you: Harinder Loyola RN 12/31/2020 9:14 AM Signed Neuro SPINE CARE COORDINATION PRE-OP VISIT ? Spoke with patient on the phone for pre op education. Given both written and verbal instructions re : Skin prep, wound care, pain management and post op restrictions. ? Mailed to patient: [facility] Surgery Guide, skin prep supplies, Spine Surgery Pre/post op education packet. Yes. ? Reviewed with patient to report to the registration desk for surgery ? Yes. ? Reviewed with the patient that a surgery loss control representative will call the working day prior to surgery to confirm surgery time? Yes. ? Patient aware eat nothing after midnight prior to surgery, clear liquids only until 2 hours before report time. Yes. ? Patient aware surgery will be OUTPATIENT. ? Discussed care post discharge : Self care. ? Does patient have transportation to and from surgery ? Yes. ? Falls Education provided ? Yes ? Nasal swab obtained ? No. Patient instructed in mupirocin treatment : Prescription will be sent to preferred pharmacy. ? Questions answered and patient voice(s) understanding via teach back. ? Additional Comments : Post -op Support. Harinder Loyola RN Neuro SPINE CARE COORDINATION SURGERY SCHEDULING ? Patient accepts surgery date of 01/25/[address] Hill. Planned procedure is left L4-5 microdiscectomy. PAT will be called and scheduled by patient. ? Healthquest : N/A ? Medications reviewed : Yes. Meds to be stopped prior to surgery : anticoagulant Plavix and ASA. ? Additional pre op clearances needed : cardiac. ? Any implanted devices : No. ? Transplant History No. ? Patient will get optimization lab work : To be completed at [facility]. ? Questions answered. Patient verbalizes understanding via teach back. ? Additional comments : Informed to call with any questions or concerns. Harinder Loyola RN Allergies As of Date: 12/31/2020 Noted Allergy Reaction TRAMADOL 05/09/2016 9 - Itching NIACIN 07/26/2015 2 - Rash Date Reviewed: 12/31/2020 Reviewed by: Sunita Martin MA - Fully Assessed Reason for Visit: Schedule Surgery [1330] Prescriptions as of 12/31/2020 Sig: METHYLPREDNISOLONE 4 MG TABLE* As Instructed per package CYCLOBENZAPRINE 10 MG TABLET TAKE 1 TABLET BY MOUTH TWICE * Patient not taking: Reported on 12/31/2020 TRAZODONE 50 MG TABLET TAKE 1 TABLET BY MOUTH EVERY * CEFUROXIME AXETIL 500 MG TABL* Take 1 tablet by mouth twice * Patient not taking: Reported on 12/31/2020 LORATADINE 10 MG TABLET TAKE 1 TABLET BY MOUTH EVERY * FAMOTIDINE 20 MG TABLET TAKE 1 TABLET BY MOUTH EVERY * FLUTICASONE PROPIONATE 50 MCG* SPRAY 1 SPRAY INTO EACH NOSTR* Patient not taking: Reported on 12/31/2020 ALBUTEROL SULFATE HFA 90 MCG/* INHALE 2 PUFFS BY MOUTH EVERY* BENAZEPRIL 10 MG TABLET 1 po every day ACETAMINOPHEN 500 MG TABLET Take 500 mg by mouth every 8 * ALBUTEROL SULFATE 2.5 MG/3 ML* Use 3 mL via nebulizer every * CALCIUM CARBONATE 200 MG CALC* Take 500 mg by mouth as neede* MUCINEX COUGH ORAL Take 1 tablet by mouth as nee* Patient not taking: Reported on 12/31/2020 JCYMPEQSGS-GJZZZ-XLTDE- CATHY O* Take 1 tablet by mouth as nee* AMLODIPINE 5 MG TABLET TAKE 1 TABLET BY MOUTH ONCE D* HYDROCHLOROTHIAZIDE 12.5 MG T* TAKE 1 TABLET BY MOUTH ONCE D* ATORVASTATIN 80 MG TABLET TAKE 1 TABLET BY MOUTH ONCE D* SPIRONOLACTONE 25 MG TABLET TAKE 1 TABLET BY MOUTH ONCE D* METOPROLOL SUCCINATE ER 25 MG* Take 25 mg by mouth once anthony* CLOPIDOGREL 75 MG TABLET Take 1 tablet by mouth once d* NITROGLYCERIN 0.4 MG SUBLINGU* Dissolve 1 tablet under the t* ASPIRIN 81 MG TABLET,DELAYED * Take 1 tablet by mouth once d* Problem List As Of Date 12/31/2020 Noted Resolved ASCVD (arteriosclerotic cardiovascular disease)*02/13/2012 GERD with esophagitis [K21.00] 03/23/2017 Chronic insomnia [F51.04] 03/23/2017 Chronic midline low back pain without sciatica *03/23/2017 Smoker [F17.200] 03/23/2017 Chronic thumb pain, left [M79.645, G89.29] 05/04/2017 01/07/2018 Heartburn [R12] 11/23/2017 Other emphysema (HCC) [J43.8] 12/04/2017 Hallux limitus of right foot [M20.5X1] 09/21/2018 High cholesterol [E78.00] 09/21/2018 Hypertension [I10] 09/21/2018 Osteoarthritis of multiple joints [M15.9] 09/28/2018 09/28/2018 Obesity, Class I, BMI 30-34.9 [E66.9] 03/01/2019 04/26/2020 Stage 3 chronic kidney disease (HCC) [N18.30] 05/12/2019 Hyponatremia [E87.1] 07/01/2019 Spinal stenosis of lumbar region [M48.061] 11/16/2020 Left lumbar radiculitis [M54.16] 11/16/2020 Encounter Status:Closed by HARINDER LOYOLA on 12/31/20 [facility] HISTORY PHYSICALon HISTORY PHYSICAL HNO ID: [id number] Author: Ricardo Mcgrath MD Service: Pain Management Author Type: Physician Type: HANDP Filed: 12/06/2020 8:05 AM Note Text: HISTORY AND PHYSICAL EXAMINATION PATIENT NAME: Jackie Yu DATE of SERVICE: 12/06/2020 Jackie Yu is here for the pain mangement procedure. The patient presents with persistent pain complaints. Jackie Yu denies any interval changes or new pain complaints or focal neurologic deficits. PAST MEDICAL HISTORY Diagnosis Date - Arthritis - Closed displaced fracture of metatarsal bone of right foot - GERD (gastroesophageal reflux disease) - Hallux limitus of right foot - Heart attack (HCC) 10/23/2006 another in apr 2015 - High cholesterol - Hypertension - IBS (irritable bowel syndrome) PAST SURGICAL HISTORY Procedure Laterality Date - FOOT SURGERY HX Right 1999 heal spur, tarsal tunnel - FOOT SURGERY HX Right 09/28/2018 spur removed - HEART SURGERY HX stents x11 - HYSTERECTOMY 2000 - HYSTERECTOMY HX - STENTS (SPECIFY) heart stents, 2006, 2008, 2007, 2009, 2014 - TONSILLECTOMY HX 1984 Social History Tobacco Use - Smoking status: Current Every Day Smoker Packs/day: 1.00 Years: 45.00 Pack years: 45.00 Types: Cigarettes Start date: 07/13/1984 - Smokeless tobacco: Never Used - Tobacco comment: down to 07/14 ppd (09/2018) Vaping Use - Vaping Use: Never used Substance Use Topics - Alcohol use: No Comment: rare - Drug use: No FAMILY HISTORY Problem Relation Age of Onset - Heart Mother CABG - Hyperlipidemia Mother - Hypertension Mother ALLERGIES Allergen Reactions - Tramadol Itching - Niacin Rash Current Facility-Administered Medications Medication Dose Route Frequency - NaCl 0.9% iv infusion 30 mL/hr INTRAVENOUS CONTINUOUS Physical Exam: Performed in conjunction with observation. The patient is alert and oriented x3. The patient is in no acute distress. Neck: Supple. The range of motion is intact. Lungs: clear CVR: RRR. Extremities: no reported edema or erythema. Examination indicates no changes Impression: Lumbar foraminal stenosis Plan: The informed consent has been obtained. The plan is to proceed with the procedure as planned. SIGNATURE: Ricardo Mcgrath MD DATE: December 06, 2020 TIME: 8:04 AM [facility] OPERATIVE NOon 12-06-2020 OPERATIVE NO HNO ID: [id number] Author: Ricardo Mcgrath MD Service: Pain Management Author Type: Physician Type: Operative Report Filed: 12/06/2020 8:26 AM Note Text: PATIENT NAME: Jackie Yu SERVICE DATE: 12/06/2020 PROCEDURE NOTE PREOPERATIVE DIAGNOSIS(ES) Lumbar radiculopathy Lumbar disc displacement Lumbar canal stenosis without neurogenic claudication Lumbar DDD POSTOPERATIVE DIAGNOSIS(ES): Same PROCEDURE: Left L4-5 lumbar transforaminal epidural steroid injection under fluoroscopy. ANESTHESIA: Conscious sedation with Versed 3mg IV INDICATIONS: The patient presents for lumbar transforaminal epidural steroid injection. Since the last assessment, the patient denies any new pain complaints and denies any focal neurological deficits. The risks and benefits of the procedure were discussed. Specifically, the risks of bleeding, infection, inadvertent dural puncture, spinal heaches, vasovagal reaction, epidural hematoma, partial or permanent nerve injury were covered. The potential side effects of medications used in procedures including increase in lumbar pain, headaches, facial redness or warmth (flushing), anxiety or mood swings, sleeplessness, fever, high blood sugar, brief reduction in immunity were discussed. The patient expressed understanding of potential risks and wishes to proceed with the procedure. PROCEDURE NOTE: The patient was brought to the operating room. The patient was placed in the prone position with pressure points protected. Continuous hemodynamic monitoring was initiated including blood pressure, EKG, and pulse oximetry. Supplemental oxygen per nasal canula was started. The intravenous medication was administered incrementally to provide conscious sedation and to allow the patient to remain comfortable and conversant throughout the procedure. The lower back was prepped in sterile fashion. Upon AP projection under a fluoroscopy, the lumbar L4-5 level was identified. The fluoroscopy was rotated in oblique projection to identify the neuroforamen. Entry point was marked and anesthetized with 2ml of 0.25% Marcaine. This was followed by insertion of a 5 inch spinal needle, which was inserted and advanced towards the 12 o' clock of the L4-5 neuroforamen. Once the Needle tip contacted the inferior lateral aspect of the pedicle, aspiration was performed which was negative for blood or CSF. This was followed by injection of 0.5 ml of Omnipaque 300, which revealed a spread through the neuroforamen into the anterior epidural space. There was no evidence of intravascular or intrathecal flow. This was then followed by a total injection of 2 mL of 0.25% Marcaine with 40 mg of Depomedrol. The patient tolerated the procedure well. The needle was removed intact. Dry dressing was placed over the injection site. The patient was taken to the recovery room in stable condition. EBL: nil Start time: 8:18 AM End time: 8:24 AM I was present the entire time and personally performed the procedure. SIGNATURE: Ricardo Mcgrath MD DATE: December 06, 2020 TIME: 8:26 AM [facility] XR FLUOROSCOPYon 12-06-2020 XR FLUOROSCOPY * * *Final Report* * * DATE OF EXAM: Dec 06 2020 8:27AM MDR [id number] - XR FLUOROSCOPY / PROCEDURE REASON: pain * * * * Physician Interpretation * * * * INDICATION: pain TECHNIQUE: Fluoroscopy with 6 views of the lower lumbar spine Fluoroscopic Radiation Summary: Plane A, Air Kerma: 4.7 mGy Dose Area Product (DAP): 647.0 mGy*cm^2 Fluoro time: 0:11 min:sec FINDINGS/ IMPRESSION: A needle with injected contrast is seen in the left L4-5 foramen. Please refer to the performing LIP's report. Candle Maker: PSCDaksha Transcribe Date/Time: Dec 06 2020 8:41A Dictated by : CODY RENDON MD This examination was interpreted and the report reviewed and electronically signed by: CODY RENDON MD on Dec 06 2020 8:41AM EST [id number] Normal [facility] History and Physical - Surgi rigo Update < 30 dayson 09-18-2020 History and Physical - Surgical Update < 30 days History & Physical Reviewed: I have reviewed the History and Physical dated: 05-Sep-2020 History and Physical reviewed and relevant findings noted. Patient examined to review pertinent physical findings.: No significant changes Home Medications Reviewed: no changes noted Allergies Reviewed: no changes noted Airway/Sedation Assessment: Mouth Opening OKyes Neck Flexibility OKyes Loose Teethno Oropharyngeal ClassificationClass I ASA PS ClassificationASA III Sedation Planmoderate (sedation level of 3-4) ERAS (Enhanced Recovery After Surgery): ERAS Patient: no Consent: COVID-19 Consent: COVID-19 Risk ConsentSurgeon has reviewed berger risks related to the risk of james COVID-19 and if they contract COVID-19 what the risks are. Signatures/Attestation: Note Completion: Attending Provider Inpatient Certification StatementObservation patient/other outpatient visits Electronic Signatures: Mando Stevens) (Signed 18-Sep-2020 07:49) Authored: History & Physical Reviewed, Airway/Sedation, ERAS, Consent, Note Completion Last Updated: 18-Sep-2020 07:49 by Mando Stevens) Normal [facility] Left Heart Catheterizationon 09-18-2020 Left Heart Catheterization [facility], Manager [employer] [address] [place] [address] Cardiovascular Catheterization Report Patient Name: JACKIE Lee GIGI Performing Physician: Nora Stevens MD Study Date: 09/18/2020 Verifying Physician: Nora Stevens MD MRN/PID: [id number] Oil Analyst: Accession/Order#: [id number] Referring Physician: Susan Chery Date of : 1955 Referring Physician: Gender: F Referring Physician: Nora Stevens MD Study: Left Heart Catheterization Indications: JACKIE YU is a 65 year old female who presents with hypertension, dyslipidemia, prior percutaneous coronary intervention, prior myocardial infarction and tobacco Use - current. New onset angina <=2 months and worsening angina, with a chest pain assessment of typical angina. Study performed as an elective cath procedure. Medical History: Stress test performed: No. CTA performed: No. Tanya accessed: No. LVEF Assessed: No. Procedure Description: After infiltration with 2% Lidocaine, the right femoral artery was cannulated with a modified Seldinger technique. Subsequently a 5 Mohawk sheath was placed in the right femoral artery. Selective coronary catheterization was performed using a 5 Fr catheter(s) exchanged over a guide wire to cannulate the coronary arteries. A JL 5 tip catheter was used for left coronary injections. A AR Mod tip catheter was used for right coronary injections. Multiple injections of contrast were made into the left and right coronary arteries with angiograms recorded in multiple projections. Retrograde left heart catheterizion was accomplished with a 5 Fr. pigtail catheter. A single plane left ventriculogram was recorded in the 30 degree BAKER projection. The contrast dose was 20 ml injected at 10 ml/sec. The catheter was then withdrawn across the aortic valve under continuous pressure monitoring and removed. After completion of the procedure, femoral artery angiography was performed. This demonstrated a common femoral artery puncture appropriate for closure. A Vascade 5F vascular closure Device was placed per protocol. Coronary Angiography: The coronary circulation is co-dominant. Left Main Coronary Artery: There is 30% stenosis in the distal left main coronary artery. Left Anterior Descending Coronary Artery Distribution: There is 10-30% stenosis in the proximal and mid left anterior descending artery. There is 60% stenosis in the Prox 1st Diag left anterior descending artery. Circumflex Coronary Artery Distribution: Contains patent previously placed stents. There is 10-30% stenosis in the the mid and the distal Circumflex artery. Right Coronary Artery Distribution: Fills via collaterals. There is 100% stenosis in the the proximal Right Coronary Artery. There is evidence of instent restenosis in this segment. Left Ventriculography: The estimated left ventricular ejection fraction is normal at 65%. Hemo Personnel: + -----+ + Name Duty + -----+ + Mando Stevens MD, MD 1 + -----+ + Ros Loving RT PROC SCRUB 1 + -----+ + Estrella Hogan RN PROC CIRC 1 + -----+ + Debra He RN PROC CIRC 2 + -----+ + Tiffany Arrieta RT PROC RECORD 1 + -----+ + Darcie Madera RN PROC NURSE 1 + -----+ + Joyce Leroy RN PROC NURSE 2 + -----+ + Sedation Time: + --+ + Sedation Start/End Times Time + --+ + Start 09/18/2020 08:04:56 + --+ + Drugs Fentanyl 50 mcg IV per physician for sed + --+ + End 09/18/2020 08:24:37 + --+ + Equipment Used: + +-- + Date/Time Description + +-- + 09/18/2020 7:54:02 AM {Sheath} - 5F [place] Sheath w/ Wire - Qty: 1 Part #: [id number] + +-- + 09/18/2020 7:54:02 AM {5 Fr Catheter} - 5F JL4 Infiniti - Qty: 1 Part #: 35 + +-- + 09/18/2020 7:54:02 AM {5 Fr Catheter} - 5F 3DRC - Qty: 1 Part #: 24 + +-- + 09/18/2020 7:54:02 AM {5 Fr Catheter} - 5F Pigtail Angled 145 [employer] - Qty: 1 Part #: 47 + +-- + 09/18/2020 8:15:54 AM {5 Fr Catheter} - 5F AR MOD - Qty: 1 Each Part #: 30 + +-- + 09/18/2020 8:16:02 AM {5 Fr Catheter} - 5F JL5 Infiniti - Qty: 1 Each Part #: 37 + +-- + 09/18/2020 8:27:43 AM {Closure Device} - 5F Vascade Closure Device - Qty: 1 Each Part #: 393 + +-- + Fluoroscopy Time: + ----+--------+ X-Ray Summary Fluoro Time: 3.60 min + ----+--------+ + +---------+ Contrast: Dose: + +---------+ Omnipaque: 128.00 ml + +---------+ Hemodynamic Pressures: +----+ -+---------+ --+ +------ +---------+ Site Date Time Phase Systolic mmHg Diastolic ED Mean mmHg Name mmHg mmHg +----+ -+---------+ --+ +------ +---------+ AO 09/18/2020 8:12:28 AIR REST 93 62 75 AM +----+ -+---------+ --+ +------ +---------+ LV 09/18/2020 8:21:43 AIR REST 66 10 14 AM +----+ -+---------+ --+ +------ +---------+ Oxygen Saturation %: + + --+ Sample Site HB (g/100ml) + + --+ SYS ART 15.4 + + --+ SYS LYNNETTE 15.4 + + --+ PUL ART 15.4 + + --+ PUL LYNNETTE 15.4 + + --+ Cardiac Cath Transition of Care Summary: Post Procedure Diagnosis: Double vessel disease. Blood Loss: Estimated blood loss during the procedure was 0 mls. Specimens Removed: Number of specimen(s) removed: none. CONCLUSIONS: 1. Distal Left Main: 30% stenosis. 2. Proximal and mid LAD Lesion: The percent stenosis is 10-30%. 3. Prox 1st Diag LAD Lesion: The percent stenosis is 60%. 4. Circumflex Coronary Artery: contains patent previously placed stents. 5. Mid and distal CX Lesion: The percent stenosis is 10-30%. 6. Right Coronary Artery: fills via collaterals. 7. Proximal RCA Lesion: The percent stenosis is 100%. 8. Proximal RCA Lesion: Instent Restenosis. 9. The Left Ventricular Ejection Fraction is 65%. CPT Codes: Left Heart Cath (visualization of coronaries) and [id number]; Moderate Sedation Services initial 15 minutes patient >5 years-29597 ICD 10 Codes: I25.119-Atherosclerotic heart disease of [place] coronary artery with unspecified angina pectoris 15201 Mando tSevens MD Performing Physician cc Report to: Susan Chery cc Report to: [id number] Mando Stevens MD Final Normal [facility] Order Reconciliationon 09-18 Order Reconciliation Page 1 Discharge Reconciliation Document Reconciliation Type: Discharge requested on behalf of Lilly Camacho (Advanced Practice Nurse) done by Lilly Camacho (HYDRAULIC PILE HAMMER OPERATOR-CLUTCH ASSEMBLER) Discharge - Reconciliation: 18-Sep-2020 08:42 by: Lilly Camacho ([facility]) Discharge - Reset to Incomplete: 18-Sep-2020 08:55 by: Lilly Camacho ([facility]) Discharge - Reconciliation: 18-Sep-2020 08:55 by: Lilly Camacho ([facility]) Home Medications EnteredHOME MEDICATIONS AT DISCHARGE DateReconciliation Comment/ Additional Information albuterol 2.5 mg/3 mL (0.083%) inhalation solution 3 milliliter(s) by nebulizer 4 times a day, As Needed 18-Sep-2020 07:25 albuterol 2.5 mg/3 mL (0.083%) inhalation solution 3 milliliter(s) by nebulizer 4 times a day, As Needed 18-Sep-2020 07:25 albuterol 2.5 mg/3 mL (0.083%) inhalation solution is continued as albuterol 2.5 mg/3 mL (0.083%) inhalation solution amLODIPine 5 mg oral tablet 1 tab(s) orally once a day 10-Jan-2019 08:19 amLODIPine 5 mg oral tablet 1 tab(s) orally once a day 10-Jan-2019 08:19 amLODIPine 5 mg oral tablet is continued as amLODIPine 5 mg oral tablet aspirin 81 mg oral tablet, chewable 1 tab(s) orally once a day 10-Jan-2019 08:19 aspirin 81 mg oral tablet, chewable 1 tab(s) orally once a day 10-Jan-2019 08:19 aspirin 81 mg oral tablet, chewable is continued as aspirin 81 mg oral tablet, chewable atorvastatin 80 mg oral tablet 1 tab(s) orally once a day (at bedtime) 18-Sep-2020 07:26 atorvastatin 80 mg oral tablet 1 tab(s) orally once a day (at bedtime) 18-Sep-2020 07:26 atorvastatin 80 mg oral tablet is continued as atorvastatin 80 mg oral tablet [employer] 500 mg-32.5 mg oral tablet 2 tab(s) orally every 6 hours, As Needed 17-Sep-2020 18:02 [employer] 500 mg-32.5 mg oral tablet 2 tab(s) orally every 6 hours, As Needed 17-Sep-2020 18:02 [employer] 500 mg-32.5 mg oral tablet is continued as [employer] 500 mg-32.5 mg oral tablet benazepril 10 mg oral tablet 1 tab(s) orally once a day 10-Jan-2019 08:20 benazepril 10 mg oral tablet 1 tab(s) orally once a day 10-Jan-2019 08:20 benazepril 10 mg oral tablet is continued as benazepril 10 mg oral tablet clopidogrel 75 mg oral tablet 1 tab(s) orally once a day 10-Jan-2019 08:20 clopidogrel 75 mg oral tablet 1 tab(s) orally once a day 10-Jan-2019 08:20 clopidogrel 75 mg oral tablet is continued as clopidogrel 75 mg oral tablet Coricidin HBP Cold & Flu 325 mg-2 mg oral tablet 1 tab(s) orally every 6 hours, As Needed 10-Jan-2019 08:21 Coricidin HBP Cold & Flu 325 mg-2 mg oral tablet 1 tab(s) orally every 6 hours, As Needed 10-Jan-2019 08:21 Coricidin HBP Cold & Flu 325 mg-2 mg oral tablet is continued as Coricidin HBP Cold & Flu 325 mg-2 mg oral tablet famotidine 20 mg oral tablet 1 tab(s) orally once a day 18-Sep-2020 07:29 famotidine 20 mg oral tablet 1 tab(s) orally once a day 18-Sep-2020 07:29 famotidine 20 mg oral tablet is continued as famotidine 20 mg oral tablet hydroCHLOROthiazide 12.5 mg oral capsule 1 cap(s) orally once a day 10-Jan-2019 08:23 hydroCHLOROthiazide 12.5 mg oral capsule 1 cap(s) orally once a day 10-Jan-2019 08:23 hydroCHLOROthiazide 12.5 mg oral capsule is continued as hydroCHLOROthiazide 12.5 mg oral capsule loratadine 10 mg oral tablet 1 tab(s) orally once a day 18-Sep-2020 07:34 loratadine 10 mg oral tablet 1 tab(s) orally once a day 18-Sep-2020 07:34 loratadine 10 mg oral tablet is continued as loratadine 10 mg oral tablet magnesium oxide 250 mg oral tablet 1 tab(s) orally once a day 18-Sep-2020 07:27 magnesium oxide 250 mg oral tablet 1 tab(s) orally once a day 18-Sep-2020 07:27 magnesium oxide 250 mg oral tablet is continued as magnesium oxide 250 mg oral tablet Metoprolol Tartrate 25 mg oral tablet 0.5 tab(s) orally 2 times a day 10-Jan-2019 08:28 Metoprolol Tartrate 25 mg oral tablet 1 tab(s) orally 2 times a day 18-Sep-2020 08:55 Discontinued; Copy/Discontinue Prescription is created for Metoprolol Tartrate 25 mg oral tablet Nitrostat 0.4 mg sublingual tablet 1 tab(s) sublingual every 5 minutes, up to 3 doses As Needed - for chest pain 10-Jan-2019 08:28 Nitrostat 0.4 mg sublingual tablet 1 tab(s) sublingual every 5 minutes, up to 3 doses As Needed - for chest pain 10-Jan-2019 08:28 Nitrostat 0.4 mg sublingual tablet is continued as Nitrostat 0.4 mg sublingual tablet ProAir HFA 90 mcg/inh inhalation aerosol 2 puff(s) inhaled 4 times a day, As Needed 10-Jan-2019 08:29 ProAir HFA 90 mcg/inh inhalation aerosol 2 puff(s) inhaled 4 times a day, As Needed 10-Jan-2019 08:29 ProAir HFA 90 mcg/inh inhalation aerosol is continued as ProAir HFA 90 mcg/inh inhalation aerosol spironolactone 25 mg oral tablet 1 tab(s) orally once a day 11-Jan-2019 11:40 spironolactone 25 mg oral tablet 1 tab(s) orally once a day 11-Jan-2019 11:40 spironolactone 25 mg oral tablet is continued as spironolactone 25 mg oral tablet Tuss-DM 10 milliliter(s) orally every 4 hours, As Needed 17-Sep-2020 18:01 Tuss-DM 10 milliliter(s) orally every 4 hours, As Needed 17-Sep-2020 18:01 Tuss-DM is continued as Tuss-DM Current OrdersDateHOME MEDICATIONS AT DISCHARGE DateReconciliation Comment/ Additional Information Sodium Chloride 0.9% Infusion IV Bag Volume = 1,000 mL Run at: 100 mL/hr IntraVenous Stop After 3 HoursClinician Notes: Post procedure 18-Sep-2020 08:41 Sodium Chloride 0.9% Infusion is not required Sodium Chloride 0.9% Infusion IV Bag Volume = 1,000 mL Run at: 100 mL/hr IntraVenous 17-Sep-2020 17:53 Sodium Chloride 0.9% Infusion is not required Home Medications Added During Discharge Reconciliation Discharge Discharge Diagnosis< I25.10 CAD (coronary artery disease) Discharge Provider, Serafin Stevens Instructions for Staff Only: Discharge to home 1 hour after ambulating if stable. Discharge Disposition : .Home Condition at Discharge: Satisfactory Discharge Communication Instructions for Nursing Only: Remove IV prior to discharge from hospital. Do not remove any midline, if present, without an order from the provider. Discharge Instructions - PHR After your discharge from the hospital, two Summary of Care Documents will be available online in your Personal Health Record (PHR). 1.Consolidated-Clinical Document Architecture (C-CDA) Patient Discharge Summary This document is a summary of your hospital stay to be kept for your reference.2.C-CDA Visit Summary This document is a summary of your hospital stay to be shared with your follow-up providers (doctor, sheet metal mechanic, physical therapist, etc.). Follow Up with Dr. Stevens in 8 Months Follow up appointment is scheduled with Dr. Stevens on 05/16/2021 @ 2:15PM or sooner as needed. All Active Home Medications at time of Discharge Reconciliation: 18-Sep-2020 08:55 albuterol 2.5 mg/3 mL (0.083%) inhalation solution 3 milliliter(s) by nebulizer 4 times a day, As Needed amLODIPine 5 mg oral tablet 1 tab(s) orally once a day aspirin 81 mg oral tablet, chewable 1 tab(s) orally once a day atorvastatin 80 mg oral tablet 1 tab(s) orally once a day (at bedtime) [employer] 500 mg-32.5 mg oral tablet 2 tab(s) orally every 6 hours, As Needed benazepril 10 mg oral tablet 1 tab(s) orally once a day clopidogrel 75 mg oral tablet 1 tab(s) orally once a day Coricidin HBP Cold & Flu 325 mg-2 mg oral tablet 1 tab(s) orally every 6 hours, As Needed Discharge Discharge Diagnosis< I25.10 CAD (coronary artery disease) Discharge Provider, Serafin Stevens Instructions for Staff Only: Discharge to home 1 hour after ambulating if stable. Discharge Disposition : .Home Condition at Discharge: Satisfactory Discharge Communication Instructions for Nursing Only: Remove IV prior to discharge from hospital. Do not remove any midline, if present, without an order from the provider. Discharge Instructions - PHR After your discharge from the hospital, two Summary of Care Documents will be available online in your Personal Health Record (PHR). 1.Consolidated-Clinical Document Architecture (C-CDA) Patient Discharge Summary This document is a summary of your hospital stay to be kept for your reference.2.C-CDA Visit Summary This document is a summary of your hospital stay to be shared with your follow-up providers (doctor, sheet metal mechanic, physical therapist, etc.). famotidine 20 mg oral tablet 1 tab(s) orally once a day Follow Up with Dr. Stevens in 8 Months Follow up appointment is scheduled with Dr. Stevens on 05/16/2021 @ 2:15PM or sooner as needed. hydroCHLOROthiazide 12.5 mg oral capsule 1 cap(s) orally once a day loratadine 10 mg oral tablet 1 tab(s) orally once a day magnesium oxide 250 mg oral tablet 1 tab(s) orally once a day Metoprolol Tartrate 25 mg oral tablet 1 tab(s) orally 2 times a day Nitrostat 0.4 mg sublingual tablet 1 tab(s) sublingual every 5 minutes, up to 3 doses As Needed - for chest pain ProAir HFA 90 mcg/inh inhalation aerosol 2 puff(s) inhaled 4 times a day, As Needed spironolactone 25 mg oral tablet 1 tab(s) orally once a day Tuss-DM 10 milliliter(s) orally every 4 hours, As Needed Normal [facility] Patient Profile - Preop v2on 09-18-2020 Patient Profile - Preop v2 Profile: Initial Info: How to be AddressedVIRGINIA(1) Spoken Language PreferredEnglish (1) Source of Informationpatient Are you currently using the Personal Electronic Health Record or [facility] ([facility]) Are you interested in learning more about [facility] for the management of your healthnot at this time Stated Reason for AdmissionHeart cath Primary Contact Name and NumberHeike Yu [phone] Patient Belongingssee belongings sheet Medications Brought to Hospitalno General Health: Weight in kg83.2 kilogram(s) Weight in pmx060.4 pound(s) Weight Methodactual (measured) Scale Typestanding Height in feet5 feet Height in inches7 inch(es) Height in cm170.1 centimeter(s) Height Methodstated BMI (kg/m2)28.755 square meter Patient or Family Member Reaction to Anesthesiano previous reaction Blood Avoidance/Restrictionsn one Health Mgmt: Symptoms/Conditions Managed at Homecardiovascular Cardiovascular Symptoms/Conditionshype rtension; myocardial infarction Cardiovascular Management Strategiesmedication therapy; routine screening Barriers to Managing Healthnone Relationship/Environ: Living Arrangementsmobile home Lives Withadult child(cristobal) Resource/Environmental Concernsnone Anticipated Transition [facility] Anticipated at Transitionnone Substance: Current or Former Substance Use never: e-Cigarette/Vaping YES: Cigarette/Tobacco, Alcohol Tobacco Cessation Education (provide if tobacco use within the last 12 mos) patient declined Alcohol Use Statuscurrent alcohol Alcohol Frequencymonthly or less Risk Screens: COVID-19 Screening Completedno exposure or symptoms Advance Directive/DNRno Advance Directive Information Givenpatient/family declined Advance Directive Mental Healthnot applicable During the past month, have you often been bothered by feeling down, depressed or hopelessno During the past month, have you often had little interest or pleasure in doing thingsno Have you had any thoughts of harming yourselfno Have you had any thoughts of harming anyone elseno Are you or have you been threatened or abused physically,emotionally or sexually abused by anyoneno Do you feel UNSAFE going back to the place you are livingno Patient is Able to be Assessed for Learningyes Factors Influencing Readiness to Learnnone Factors that Impact Ability to Learnnone Devices/Methods Used to Communicateglasses Learning Preferenceswritten material; individual instruction Cultural Considerationsnone Developmental Considerationsnone Druze Considerationsnone Other learner availableno Falls RiskPatient location auto qualifies him/her for HIGH RISK. Are there any cultural, spiritual, caodaism practices/values/needs that are important for us to knowno Pain Scalenumerical 0-10 Pain Scale Educationteaching provided Current Pain Level0 = None Acceptable Pain Level5 = Moderate Expression of Pain (nonverbal)verbalizatio n Chronic Painno Information Review: Allergies, Home Meds and Significant Events have been Reviewed and Verified with Patient/Familyyes Allergy, Intolerance, Adverse Event: Allergies: tramadol: Drug, Itching, Active niacin: Drug, Hives/Urticaria, Active statins: Drug Category, Hives/Urticaria, Active Advicor: Drug, Unknown, Active Electronic Signatures: Jazzy Gray) (Signed 18-Sep-2020 07:17) Authored: Initial Info, General Health, Health Mgmt, Relationship/Environ, Substance, Risk Screens, Additional Information Last Updated: 18-Sep-2020 07:17 by Jazzy Gray (CARLOS) References: 1. Data Referenced From Patient Profile - Preop v2 11-Jan-2019 10:55 Normal [facility] Preop Checkliston 09-18-2020 Preop Checklist This report has been cancelled. Normal [facility] Preop Checklist Preop Checklist: Preop Checklist: Arrival [id number] Arrival Time06:05 Procedure Typeleft heart cath Temperature C36.4 degrees C Temperature F97.5 degrees F Heart Rate76 beats per minute Respiratory Rate18 breath per minute Blood Pressure Fjonoryi89 mm/Hg Blood Pressure Apjyvxoob06 mm/Hg NPO [id number] 20:00 ID Band Onyes Allergy Bandyes Consent Signedyes H&P Completeyes EKG Performedyes HCG Urine TestN/A Chlorhexadine Bath Givennot applicable Nasal Antiseptic Appliednot applicable Hair Washednot applicable Soap and water bath with hair shampoo the night before surgerynot applicable Hat placed on prior to transportnot applicable SCD's Appliednot applicable RENA Hose Appliednot ordered Denturesnot applicable Prostheticsnot applicable Hearing Aidsnot applicable Valuables Securednot applicable Glasses / Contactsnot applicable Bowel Prepno Cardiovascular Assessment: Apicalregular Radial Pulsespalpable Pedal Pulsespalpable Extremitieswarm Respiratory Assessment: Respirationsunlabored Air Exchangegood Neurological Assessment: Level of Consciousnessalert, oriented Mobilitymoves all extremities Able to Express Selfyes Emotional Statuscalm Preop Education: Surgical Site Infection Preventionyes Pain Scales and Managementyes Language / Communication: Language / CommunicationEnglish Electronic Signatures: Joyce Leroy) (Signed 18-Sep-2020 06:48) Authored: Preop Checklist Last Updated: 18-Sep-2020 06:48 by Joyce Leroy) Normal [facility] SCREENINGon 04-10-2020 [facility] SCREENING Final Report DATE OF EXAM: Apr 10 2020 2:41PM LDW [id number] - [facility] SCREENING / PROCEDURE REASON: Screening mammogram, encounter for Physician Interpretation #[id number] - [facility] SCREENING BILATERAL DIGITAL SCREENING MAMMOGRAM WITH CAD: 04/10/2020 HISTORY: Routine screening mammogram. Patient reports no breast problems. RESULT: TECHNIQUE: The study was acquired using full field digital technology and interpreted from soft copy. Current study was also evaluated with a Computer Aided Detection (CAD). Comparison is made to exams dated: 04/07/2019 mammogram, 04/02/2017 mammogram, 08/18/2013 mammogram, and 05/04/2012 mammogram - [facility]. There are scattered fibroglandular elements in both breasts. No significant masses, calcifications, or other findings are seen in either breast. There has been no significant interval change. IMPRESSION: NEGATIVE There is no mammographic evidence of malignancy. A 1 year screening mammogram is recommended. Bhaskar poole/lamar:04/10/2020 15:38:11 Mule Operator(s): Chaitanya Dykes (Romaine)(M), [facility] letter sent: Normal over 40 Mammogram BI-RADS: 1 Negative Multiple national specialty organizations have released breast cancer screening guidelines for women at average risk for developing breast cancer - guidelines that are based on both evidence and opinion, yet differ on when to start and how often to screen for breast cancer. With representation from Breast Imaging, Internal Medicine, Women's Health, Family Medicine, and Medical/Surgical Oncology, the [facility] has carefully reviewed the data and reached the following consensus: 1) All women should engage in shared decision-making with their providers to decide when to start and how often to screen; 2) All women should have the opportunity to start screening mammography at age 40; 3) For women ages 45-55, we recommend annual screening mammograms; 4) For women ages 55 and over, we support both the transition from an annual to a biennial interval if this aligns more with patient's values and preferences, or continuation with annual screening; 5) All women should discuss with their providers when to stop screening mammograms. Candle Maker: Lamar Transcribe Date/Time: Apr 10 2020 2:26P Dictated by : BHASKAR FERRARO MD This examination was interpreted and the report reviewed and electronically signed by: BHASKAR FERRARO MD on Apr 10 2020 3:38PM EST Normal [facility] Fecal Occult Bloodon 020 Fecal Occult Blood Positive Abnormal Negative [facility] Comment on above: Result Comment: @ ICEMAIL LEFT TO CALL BACK TO OBTAIN RESULTS. Performed By: #### G FR #### [facility] [address] [place] [address] Hemogramon 03-13-2020 Erythrocyte distribution width (RBC) [Ratio] 12.9 % Normal 11.5-15.9 [facility] Comment on above: Performed By: #### G FR #### [place] [address] Hematocrit (Bld) [Volume fraction] 44.4 % Normal 37.0-47.0 [facility] Comment on above: Performed By: #### G FR #### [place] [address] Hemoglobin (Bld) [Mass/Vol] 15.0 g/dL Normal 12.0-16.0 [facility] Comment on above: Performed By: #### G FR #### [place] [address] MCH (RBC) [Entitic mass] 30.4 pg Normal 27.0-31.0 [facility] Comment on above: Performed By: #### G FR #### [place] [address] MCHC (RBC) [Mass/Vol] 33.8 % Normal 32.0-36.0 [facility] Comment on above: Performed By: #### G FR #### [facility] [address] [place] [address] MCV (RBC) [Entitic vol] 90.1 fL Normal 81.0-99.0 [facility] Comment on above: Performed By: #### G FR #### [place] [address] Platelet mean volume (Bld) [Entitic vol] 10.5 fL Normal 7.1-10.5 [facility] Comment on above: Performed By: #### G FR #### [facility] [address] [place], [place] [address] Platelets (Bld) [#/Vol] 332 thou/cmm Normal 150-400 [facility] Comment on above: Performed By: #### G FR #### [facility] [address] [place], [place] [address] RBC (Bld) [#/Vol] 4.93 mil/cmm Normal 4.20-5.40 [facility] Comment on above: Performed By: #### G FR #### [facility] [address] [place], [place] [address] WBC (Bld) [#/Vol] 12.8 thou/cmm High 4.8-10.5 [facility] Comment on above: Performed By: #### G FR #### [facility] [address] [place], [place] [address] CT FACIAL BONE/YE WO IVCON on 02-08-2020 CT FACIAL BONE/YE WO IVCON Final Report DATE OF EXAM: Feb 08 2020 4:00PM [facility] 0507 - CT FACIAL BONE/YE WO IVCON / PROCEDURE REASON: multiple diagnoses Physician Interpretation EXAMINATION: CT FACIAL BONE/YE WITHOUT IV CONTRAST CLINICAL HISTORY: Localized swelling, mass, and lump of head. Atypical facial pain. Technique: Spiral high resolution axial unenhanced images were obtained through the facial bones with sagittal and coronal planar reconstructions. MQ: [id number] Dose-Length Product (DLP): 493.[address] Dose Reduction Employed: No dose reduction techniques were required COMPARISON: No prior available. RESULT: Soft Tissues: There is mild enlargement and adjacent edema involving the left parotid gland suspicious for left parotitis. There is a single 3 mm calcification in the central aspect of the left parotid gland that could represent a sialolith. There is some increased density noted along the left parotid duct region along the anterior left gland measuring approximately 3 mm that may represent a small sialolith or dense secretions in the left parotid duct. No definite evidence of focal abscess given the lack of IV contrast. Facial bones: No evidence of an acute fracture in the visualized facial bones. Orbits: No evidence of an acute fracture. The globes are intact. The soft tissue planes of the orbits are maintained. Paranasal Sinuses: The paranasal sinuses are clear. Foreign Bodies: No evidence of radiopaque foreign bodies. Other: No evidence of a remote fracture. No lytic or blastic process seen in the facial bones. Metallographic Technician (topogram) images: Unremarkable. IMPRESSION: 1. Left parotitis. Sialolith in the central aspect of the left parotid gland. 2. Dense secretions versus small sialolith in the left parotid duct along the anterior margin of the left parotid gland. 3. CT facial bone/mandible is otherwise unremarkable given the lack of IV contrast. Candle Maker: PSCB Transcribe Date/Time: Feb 08 2020 4:32P Dictated by : SUNI GIRON MD This examination was interpreted and the report reviewed and electronically signed by: SUNI GIRON MD on Feb 08 2020 4:41PM EST Normal [facility] Hepatitis C Antibodyon 10-09 Hepatitis C Ab Negative Normal Negative [facility] Comment on above: Performed By: #### G FR #### [place] [address] Comprehensive Metabolic Pane kelvin 10-08-2019 Albumin [Mass/Vol] 4.0 g/dL Normal 3.9-4.9 [facility] Comment on above: Performed By: #### C MP #### [place] [address] ALP [Catalytic activity/Vol] 141 U/L High 34-123 [facility] Comment on above: Performed By: #### C MP #### [place] [address] ALT [Catalytic activity/Vol] 21 U/L Normal 7-38 [facility] Comment on above: Performed By: #### C MP #### [facility] [address] [place] [address] Anion gap [Moles/Vol] 12 mmol/L Normal 9-18 [facility] Comment on above: Performed By: #### C MP #### [place] [address] AST [Catalytic activity/Vol] 18 U/L Normal 13-35 [facility] Comment on above: Performed By: #### C MP #### [facility] [address] [place], [place] [address] Bilirubin [Mass/Vol] 0.6 mg/dL Normal 0.2-1.3 [facility] Comment on above: Performed By: #### C MP #### [facility] [address] [place], [place] [address] Calcium [Mass/Vol] 9.2 mg/dL Normal 8.5-10.2 [facility] Comment on above: Performed By: #### C MP #### [facility] [address] [place], [place] [address] Chloride [Moles/Vol] 98 mmol/L Normal 97-105 [facility] Comment on above: Performed By: #### C MP #### [facility] [address] [place], [place] [address] CO2 Blood 27 mmol/L Normal 22-30 [facility] Comment on above: Performed By: #### C MP #### [facility] [address] [place], [place] [address] Creatinine [Mass/Vol] 0.99 mg/dL High 0.58-0.96 [facility] Comment on above: Performed By: #### C MP #### [facility] [address] [place], [place] [address] Glucose [Mass/Vol] 115 mg/dL High 74-99 [facility] Comment on above: Result Comment: The [place] Diabetes Association (ADA) provides guidance for cutoff values for fasting glucose and random glucose. The ADA defines fasting as no caloric intake for at least 8 hours.Fasting plasma glucose results between 100 to 125 mg/dL indicate increased risk for diabetes (prediabetes). Fasting plasma glucose results greater than or equal to 126 mg/dL meet the criteria for diagnosis of diabetes. In the absence of unequivocal hyperglycemia, results should be confirmed by repeat testing. In a patient with classic symptoms of hyperglycemia or hyperglycemic crisis, random plasma glucose results greater than or equal to 200 mg/dL meet the criteria for diagnosis of diabetes. Reference: Standards of Medical Care in Diabetes 2016; [place] [employer] Association. Diabetes Care. 2016;39(Suppl 1). Performed By: #### C MP #### [facility] [address] [place], [place] [address] Potassium [Moles/Vol] 4.0 mmol/L Normal 3.7-5.1 [facility] Comment on above: Performed By: #### C MP #### [facility] [address] [place], [place] [address] Protein [Mass/Vol] 6.7 g/dL Normal 6.3-8.0 [facility] Comment on above: Performed By: #### C MP #### [facility] [address] [place], [place] [address] Sodium [Moles/Vol] 137 mmol/L Normal 136-144 [facility] Comment on above: Performed By: #### C MP #### [facility] [address] [place], [place] [address] Urea nitrogen [Mass/Vol] 9 mg/dL Normal 7-21 [facility] Comment on above: Performed By: #### C MP #### [facility] [address] [place], [place] [address] Lipid Profileon 10-08-2019 Cholesterol [Mass/Vol] 145 mg/dL Normal 0-199 [facility] Comment on above: Performed By: #### L LIPD #### [facility] [address] [place], [place] [address] Cholesterol in HDL [Mass/Vol] 34 mg/dL Normal >40 [facility] Comment on above: Performed By: #### L LIPD #### [facility] [address] [place], [place] [address] Cholesterol in LDL [Mass/Vol] 91 mg/dL Normal 0-150 [facility] Comment on above: Performed By: #### L LIPD #### [facility] [address] [place], [place] [address] Cholesterol.total/Ch olesterol in HDL [Mass ratio] 4.3 {ratio} Normal 1.8-5.3 [facility] Comment on above: Performed By: #### L LIPD #### [facility] [address] [place], [place] [address] Triglyceride Blood 101 mg/dL Normal 0-149 [facility] Comment on above: Performed By: #### L LIPD #### [place] [address] Risk Factor See Below Normal [facility] Comment on above: Result Comment: Card iac Risk Factor The CHD risk factor is based on the total Chol/HDL ratio. Other factors affect CHD risk such as hypertension, smoking, diabetes, severe obesity and premature CHD. Cardiac Risk Total Chol/HDL ratio Men Women 1/2 avg risk 3.4-4.9 3.3-6.3 Avg risk 5.0-9.5 6.4-7.0 2x avg risk 9.6-23.3 7.1-10.9 3x avg risk >23.4 >11.0 Performed By: #### L LIPD #### [place] [address] MDRD GFRon 10-08-2019 GFR/1.73 sq M predicted among non-blacks MDRD (S/P/Bld) [Vol rate/Area] 56.58 mL/min/{1.73_m2} Normal >60mL/min/1. 73m2 [facility] Comment on above: Result Comment: If t he patient is , multiply the result by 1.210. Performed By: #### G FR #### [place] [address] Basic Panelon 09-02-2019 Creatinine [Mass/Vol] 1.13 mg/dL High 0.51-0.95 [facility] Comment on above: Result Comment: Use of this assay is not recommended for patients undergoing treatment with phenindione, due to the potential for falsely depressed results. Performed By: #### P 8 #### [place] [address] Anion gap [Moles/Vol] 6 mmol/L Low 8-16 [facility] Comment on above: Performed By: #### P 8 #### [facility] [address] [place], [place] [address] Calcium [Mass/Vol] 8.8 mg/dL Normal 8.5-10.1 [facility] Comment on above: Performed By: #### P 8 #### [facility] [address] [place], [place] [address] CO2 [Moles/Vol] 30 mmol/L Normal 21-32 [facility] Comment on above: Performed By: #### P 8 #### [facility] [address] [place], [place] [address] Urea nitrogen [Mass/Vol] 16 mg/dL Normal 7-18 [facility] Comment on above: Performed By: #### P 8 #### [facility] [address] [place], [place] [address] Glucose [Mass/Vol] 76 mg/dL Normal 70-99 [facility] Comment on above: Performed By: #### P 8 #### [facility] [address] [place], [place] [address] Chloride [Moles/Vol] 101 mmol/L Normal 98-107 [facility] Comment on above: Performed By: #### P 8 #### [facility] [address] [place], [place] [address] Potassium [Moles/Vol] 4.2 mmol/L Normal 3.5-5.1 [facility] Comment on above: Performed By: #### P 8 #### [facility] [address] [place], [place] [address] Sodium [Moles/Vol] 133 mmol/L Low 136-145 [facility] Comment on above: Performed By: #### P 8 #### [facility] [address] [place], [place] [address] MDRD GFRon 09-02-2019 GFR/1.73 sq M predicted among non-blacks MDRD (S/P/Bld) [Vol rate/Area] 48.58 mL/min/{1.73_m2} Normal >60mL/min/1. 73m2 [facility] Comment on above: Result Comment: If t he patient is , multiply the result by 1.210. Performed By: #### G FR #### [facility] [address] [place], [place] [address] XR HIP 3V PELV+ AP/LAT LTon 06-12-2019 XR HIP 3V PELV+ AP/LAT LT * * *Final Report* * * DATE OF EXAM: Jun 12 2019 11:06AM LDX 5351 - XR HIP 3V PELV+ AP/LAT LT / PROCEDURE REASON: Joint pain, hip * * * * Physician Interpretation * * * * EXAM TITLE: XR HIP 3V PELV+ AP/LAT LT DATE: 06/12/2019 INDICATION: Left hip pain. No known injury. COMPARISON: 03/10/2013 AP view the pelvis and AP and frog-leg lateral view of the left hip show no fracture. Normal alignment. Both hip joints are fairly well-preserved. No bone erosion or bone destruction involving either hip joint. Density of the femoral heads is normal. Mild degenerative changes noted in the lower lumbar spine. IMPRESSION: No acute findings radiographically. Candle Maker: PSCB Transcribe Date/Time: Jun 12 2019 11:17A Dictated by : GABRIEL HACKETT MD This examination was interpreted and the report reviewed and electronically signed by: GABRIEL HACKETT MD on Jun 12 2019 11:18AM EST Normal [facility] Basic Panelon 05-17-2019 Creatinine [Mass/Vol] 0.95 mg/dL Normal 0.51-0.95 [facility] Comment on above: Performed By: #### P 8 #### [facility] [address] [place], [place] [address] Urea nitrogen [Mass/Vol] 13 mg/dL Normal 7-18 [facility] Comment on above: Performed By: #### P 8 #### [facility] [address] [place], [place] [address] Glucose [Mass/Vol] 104 mg/dL High 70-99 [facility] Comment on above: Performed By: #### P 8 #### [facility] [address] [place], [place] [address] Anion gap [Moles/Vol] 10 mmol/L Normal 8-16 [facility] Comment on above: Performed By: #### P 8 #### [facility] [address] [place], [place] [address] CO2 [Moles/Vol] 28 mmol/L Normal 21-32 [facility] Comment on above: Performed By: #### P 8 #### [facility] [address] [place], [place] [address] Calcium [Mass/Vol] 9.2 mg/dL Normal 8.5-10.1 [facility] Comment on above: Performed By: #### P 8 #### [facility] [address] [place], [place] [address] Chloride [Moles/Vol] 98 mmol/L Normal 98-107 [facility] Comment on above: Performed By: #### P 8 #### [facility] [address] [place], [place] [address] Potassium [Moles/Vol] 4.4 mmol/L Normal 3.5-5.1 [facility] Comment on above: Performed By: #### P 8 #### [facility] [address] [place] [address] Sodium [Moles/Vol] 132 mmol/L Low 136-145 [facility] Comment on above: Performed By: #### P 8 #### [facility] [address] [place], [place] [address] MDRD GFRon 05-17-2019 GFR/1.73 sq M predicted among non-blacks MDRD (S/P/Bld) [Vol rate/Area] 59.41 mL/min/{1.73_m2} Normal >60mL/min/1. 73m2 [facility] Comment on above: Result Comment: If t he patient is , multiply the result by 1.210. Performed By: #### G FR #### [facility] [address] [place], [place] [address] Comprehensive Panelon 2018 ALP [Catalytic activity/Vol] 148 U/L High 45-117 [facility] Comment on above: Performed By: #### P 14 #### [facility] [address] [place], [place] [address] Protein [Mass/Vol] 7.2 g/dL Normal 6.4-8.2 [facility] Comment on above: Performed By: #### P 14 #### [facility] [address] [place], [place] [address] Bilirubin [Mass/Vol] 0.3 mg/dL Normal 0.2-1.0 [facility] Comment on above: Performed By: #### P 14 #### [facility] [address] [place], [place] [address] ALT [Catalytic activity/Vol] 35 U/L Normal 12-78 [facility] Comment on above: Performed By: #### P 14 #### [facility] [address] [place], [place] [address] AST [Catalytic activity/Vol] 19 U/L Normal 15-37 [facility] Comment on above: Performed By: #### P 14 #### [facility] [address] [place], [place] [address] Creatinine [Mass/Vol] 1.16 mg/dL High 0.51-0.95 [facility] Comment on above: Performed By: #### P 14 #### [facility] [address] [place], [place] [address] Albumin [Mass/Vol] 3.7 g/dL Normal 3.4-5.0 [facility] Comment on above: Performed By: #### P 14 #### [facility] [address] [place], [place] [address] Anion gap [Moles/Vol] 8 mmol/L Normal 8-16 [facility] Comment on above: Performed By: #### P 14 #### [facility] [address] [place], [place] [address] Calcium [Mass/Vol] 9.2 mg/dL Normal 8.5-10.1 [facility] Comment on above: Performed By: #### P 14 #### [facility] [address] [place], [place] [address] CO2 [Moles/Vol] 30 mmol/L Normal 21-32 [facility] Comment on above: Performed By: #### P 14 #### [facility] [address] [place], [place] [address] Glucose [Mass/Vol] 99 mg/dL Normal 70-99 [facility] Comment on above: Performed By: #### P 14 #### [facility] [address] [place], [place] [address] Urea nitrogen [Mass/Vol] 11 mg/dL Normal 7-18 [facility] Comment on above: Performed By: #### P 14 #### [facility] [address] [place], [place] [address] Chloride [Moles/Vol] 98 mmol/L Normal 98-107 [facility] Comment on above: Performed By: #### P 14 #### [facility] [address] [place], [place] [address] Potassium [Moles/Vol] 3.9 mmol/L Normal 3.5-5.1 [facility] Comment on above: Performed By: #### P 14 #### [facility] [address] [place], [place] [address] Sodium [Moles/Vol] 132 mmol/L Low 136-145 [facility] Comment on above: Performed By: #### P 14 #### [facility] [address] [place], [place] [address] MDRD GFRon 04-26-2019 GFR/1.73 sq M predicted among non-blacks MDRD (S/P/Bld) [Vol rate/Area] 47.19 mL/min/{1.73_m2} Normal >60mL/min/1. 73m2 [facility] Comment on above: Result Comment: If t he patient is , multiply the result by 1.210. Performed By: #### G FR #### [facility] [address] [place], [place] [address] Potassiumon 01-22-2017 Potassium molar conc 3.9 mmol/L Normal 3.5-5.1 [facility] Comment on above: Performed By: #### 1 [id number] ####[facility] [address] [place] [address] Office Visit: chronic cougho n 06-12-2016 Protein mass conc Done Invalid Interpretation Code [facility] Work Phone: Protein mass conc no Invalid Interpretation Code [facility] Work Phone: Protein mass conc yes Invalid Interpretation Code [facility] Work Phone: Tobacco smoking status NHIS Never Invalid Interpretation Code [facility] Work Phone: Tobacco smoking status NHIS Current every day smoker Invalid Interpretation Code [facility] Work Phone: Vital Signs Date Time Vital Sign Value Performing Clinician Facility 12-26-2024 15:48-0400 Body height 171.5 cm Mando Stevens MD Work Phone: [facility] 12-26-2024 15:48-0400 Body mass index (BMI) [Ratio] 27.84 kg/m2 Mando Stevens MD Work Phone: [facility] 12-26-2024 15:48-0400 Body weight 81.83 kg Mando Stevens MD Work Phone: [facility] 12-26-2024 15:48-0400 Diastolic blood pressure 76 mm[Hg] Mando Stevens MD Work Phone: [facility] 12-26-2024 15:48-0400 Heart rate 72 /min Mando Stevens MD Work Phone: [facility] 12-26-2024 15:48-0400 Systolic blood pressure 118 mm[Hg] Mando Stevens MD Work Phone: [facility] 12-06-2024 08:32-0400 Body height 167.6 cm Elana Sheets DO Work Phone: [facility] 12-06-2024 08:32-0400 Body mass index (BMI) [Ratio] 28.89 kg/m2 Elana Sheets DO Work Phone: [facility] 12-06-2024 08:32-0400 Body temperature 98.6 [degF] Elana Sheets DO Work Phone: [facility] 12-06-2024 08:32-0400 Body weight 81.19 kg Elana Sheets DO Work Phone: [facility] 12-06-2024 08:32-0400 Diastolic blood pressure 70 mm[Hg] Elana Sheets DO Work Phone: [facility] 12-06-2024 08:32-0400 Heart rate 81 /min Elana Sheets DO Work Phone: [facility] 12-06-2024 08:32-0400 SaO2% (BldA) [Mass fraction] 97 % Elana Sheets DO Work Phone: [facility] 12-06-2024 08:32-0400 Systolic blood pressure 102 mm[Hg] Elana Sheets DO Work Phone: [facility] 09-06-2024 08:37-0500 Body height 167.6 cm Elana Sheets DO Work Phone: [facility] 09-06-2024 08:37-0500 Body mass index (BMI) [Ratio] 29.54 kg/m2 Elana Sheets DO Work Phone: [facility] 09-06-2024 08:37-0500 Body temperature 98.1 [degF] Elana Sheets DO Work Phone: [facility] 09-06-2024 08:37-0500 Body weight 83.01 kg Elana Sheets DO Work Phone: [facility] 09-06-2024 08:37-0500 Diastolic blood pressure 62 mm[Hg] Elana Sheets DO Work Phone: [facility] 09-06-2024 08:37-0500 Heart rate 81 /min Elana Sheets DO Work Phone: [facility] 09-06-2024 08:37-0500 Respiratory rate 16 /min Elana Sheets DO Work Phone: [facility] 09-06-2024 08:37-0500 SaO2% (BldA) [Mass fraction] 98 % Elana Sheets DO Work Phone: [facility] 09-06-2024 08:37-0500 Systolic blood pressure 102 mm[Hg] Elana Sheets DO Work Phone: [facility] 06-06-2024 14:45-0500 Body height 167.6 cm Elana Sheets DO Work Phone: [facility] 06-06-2024 14:45-0500 Body mass index (BMI) [Ratio] 29.54 kg/m2 Elana Sheets DO Work Phone: [facility] 06-06-2024 14:45-0500 Body temperature 98.01 [degF] Elana Sheets DO Work Phone: [facility] 06-06-2024 14:45-0500 Body weight 83.01 kg Elana Sheets DO Work Phone: [facility] 06-06-2024 14:45-0500 Diastolic blood pressure 76 mm[Hg] Elana Sheets DO Work Phone: [facility] 06-06-2024 14:45-0500 Heart rate 87 /min Elana Sheets DO Work Phone: [facility] 06-06-2024 14:45-0500 Respiratory rate 18 /min Elana Sheets DO Work Phone: [facility] 06-06-2024 14:45-0500 SaO2% (BldA) [Mass fraction] 96 % Elana Sheets DO Work Phone: [facility] 06-06-2024 14:45-0500 Systolic blood pressure 118 mm[Hg] Elana Sheets DO Work Phone: [facility] 05-18-2024 07:27-0500 Body height 167.6 cm Mando Stevens MD Work Phone: [facility] 05-18-2024 07:27-0500 Body mass index (BMI) [Ratio] 30.18 kg/m2 Mando Stevens MD Work Phone: [facility] 05-18-2024 07:27-0500 Body weight 84.82 kg Mando Stevens MD Work Phone: [facility] 05-18-2024 07:27-0500 Diastolic blood pressure 80 mm[Hg] Mando Stevens MD Work Phone: [facility] 05-18-2024 07:27-0500 Heart rate 84 /min Mando Stevens MD Work Phone: [facility] 05-18-2024 07:27-0500 Systolic blood pressure 106 mm[Hg] Mando Stevens MD Work Phone: [facility] 03-04-2024 16:09-0400 Body height 168.3 cm Elana Sheets DO Work Phone: [facility] 03-04-2024 16:09-0400 Body mass index (BMI) [Ratio] 29.15 kg/m2 Elana Sheets DO Work Phone: [facility] 03-04-2024 16:09-0400 Body temperature 98.1 [degF] Elana Sheets DO Work Phone: [facility] 03-04-2024 16:09-0400 Body weight 82.56 kg Elana Sheets DO Work Phone: [facility] 03-04-2024 16:09-0400 Diastolic blood pressure 76 mm[Hg] Elana Sheets DO Work Phone: [facility] 03-04-2024 16:09-0400 Heart rate 86 /min Elana Sheets DO Work Phone: [facility] 03-04-2024 16:09-0400 Respiratory rate 16 /min Elana Sheets DO Work Phone: [facility] 03-04-2024 16:09-0400 SaO2% (BldA) [Mass fraction] 94 % Elana Sheets DO Work Phone: [facility] 03-04-2024 16:09-0400 Systolic blood pressure 124 mm[Hg] Elana Chery DO Work Phone: [facility] 02-12-2024 07:57-0400 Body mass index (BMI) [Ratio] 30.08 kg/m2 Bob Martin MD Work Phone: [facility] 02-12-2024 07:57-0400 Body temperature 97.39 [degF] Bob Martin MD Work Phone: [facility] 02-12-2024 07:57-0400 Body weight 85.19 kg Bob Martin MD Work Phone: [facility] 02-12-2024 07:57-0400 Diastolic blood pressure 64 mm[Hg] Bob Martin MD Work Phone: [facility] 02-12-2024 07:57-0400 Heart rate 80 /min Bob Martin MD Work Phone: [facility] 02-12-2024 07:57-0400 Systolic blood pressure 136 mm[Hg] Bob Martin MD Work Phone: [facility] 12-25-2023 13:28-0400 Body mass index (BMI) [Ratio] 29.22 kg/m2 Bob Martin MD Work Phone: [facility] 12-25-2023 13:28-0400 Body temperature 97.81 [degF] Bob Martin MD Work Phone: [facility] 12-25-2023 13:28-0400 Body weight 82.74 kg Bob Martin MD Work Phone: [facility] 12-25-2023 13:28-0400 Diastolic blood pressure 72 mm[Hg] Bob Martin MD Work Phone: [facility] 12-25-2023 13:28-0400 Heart rate 95 /min Bob Martin MD Work Phone: [facility] 12-25-2023 13:28-0400 SaO2% (BldA) [Mass fraction] 97 % Bob Martin MD Work Phone: [facility] 12-25-2023 13:28-0400 Systolic blood pressure 110 mm[Hg] Bob Martin MD Work Phone: [facility] 12-03-2023 15:20-0400 Body height 168.3 cm Elana Sheets DO Work Phone: [facility] 12-03-2023 15:20-0400 Body mass index (BMI) [Ratio] 29.8 kg/m2 Elana Sheets DO Work Phone: [facility] 12-03-2023 15:20-0400 Body temperature 98.01 [degF] Elana Sheets DO Work Phone: [facility] 12-03-2023 15:20-0400 Body weight 84.37 kg Elana Sheets DO Work Phone: [facility] 12-03-2023 15:20-0400 Diastolic blood pressure 66 mm[Hg] Elana Sheets DO Work Phone: [facility] 12-03-2023 15:20-0400 Heart rate 85 /min Elana Sheets DO Work Phone: [facility] 12-03-2023 15:20-0400 Respiratory rate 16 /min Elana Sheets DO Work Phone: [facility] 12-03-2023 15:20-0400 SaO2% (BldA) [Mass fraction] 98 % Elana Sheets DO Work Phone: [facility] 12-03-2023 15:20-0400 Systolic blood pressure 108 mm[Hg] Elana Sheets DO Work Phone: [facility] 09-04-2023 15:54-0500 Body height 168.3 cm Elana Sheets DO Work Phone: [facility] 09-04-2023 15:54-0500 Body temperature 98.1 [degF] Elana Sheets DO Work Phone: [facility] 09-04-2023 15:54-0500 Body weight 84.82 kg Elana Sheets DO Work Phone: [facility] 09-04-2023 15:54-0500 Diastolic blood pressure 68 mm[Hg] Elana Sheets DO Work Phone: [facility] 09-04-2023 15:54-0500 Heart rate 89 /min Elana Sheets DO Work Phone: [facility] 09-04-2023 15:54-0500 Respiratory rate 18 /min Elana Sheets DO Work Phone: [facility] 09-04-2023 15:54-0500 SaO2% (BldA) [Mass fraction] 97 % Elnaa Sheets DO Work Phone: [facility] 09-04-2023 15:54-0500 Systolic blood pressure 114 mm[Hg] Elana Sheets DO Work Phone: [facility] 05-20-2023 07:34-0500 Body height 167.6 cm Mando Stevens MD Work Phone: [facility] 05-20-2023 07:34-0500 Body mass index (BMI) [Ratio] 29.7 kg/m2 Mando Stevens MD Work Phone: [facility] 05-20-2023 07:34-0500 Body weight 83.46 kg Mando Stevens MD Work Phone: [facility] 05-20-2023 07:34-0500 Diastolic blood pressure 60 mm[Hg] Mando Stevens MD Work Phone: [facility] 05-20-2023 07:34-0500 Heart rate 80 /min Mando Stevens MD Work Phone: [facility] 05-20-2023 07:34-0500 Systolic blood pressure 122 mm[Hg] Mando Stevens MD Work Phone: [facility] 03-02-2023 07:58-0400 Body height 168.3 cm Elana Sheets DO Work Phone: [facility] 03-02-2023 07:58-0400 Body weight 83.01 kg Elana Sheets DO Work Phone: [facility] 03-02-2023 07:58-0400 Diastolic blood pressure 60 mm[Hg] Elana Sheets DO Work Phone: [facility] 03-02-2023 07:58-0400 Heart rate 89 /min Elana Sheets DO Work Phone: [facility] 03-02-2023 07:58-0400 SaO2% (BldA) [Mass fraction] 93 % Elana Sheets DO Work Phone: [facility] 03-02-2023 07:58-0400 Systolic blood pressure 110 mm[Hg] Elana Sheets DO Work Phone: [facility] 11-19-2022 07:33-0400 Body height 168.3 cm Elana Sheets DO Work Phone: [facility] 11-19-2022 07:33-0400 Body temperature 98.01 [degF] Elana Sheets DO Work Phone: [facility] 11-19-2022 07:33-0400 Body weight 84.28 kg Elana Sheets DO Work Phone: [facility] 11-19-2022 07:33-0400 Diastolic blood pressure 74 mm[Hg] Elana Sheets DO Work Phone: [facility] 11-19-2022 07:33-0400 Heart rate 88 /min Elana Sheets DO Work Phone: [facility] 11-19-2022 07:33-0400 Respiratory rate 18 /min Elana Sheets DO Work Phone: [facility] 11-19-2022 07:33-0400 SaO2% (BldA) [Mass fraction] 98 % Elana Sheets DO Work Phone: [facility] 11-19-2022 07:33-0400 Systolic blood pressure 120 mm[Hg] Elana Sheets DO Work Phone: [facility] 05-23-2022 13:16-0500 Body height 168.3 cm Elana Sheets DO Work Phone: [facility] 05-23-2022 13:16-0500 Body temperature 98.29 [degF] Elana Sheets DO Work Phone: [facility] 05-23-2022 13:16-0500 Body weight 85.37 kg Elana Sheets DO Work Phone: [facility] 05-23-2022 13:16-0500 Diastolic blood pressure 68 mm[Hg] Elana Sheets DO Work Phone: [facility] 05-23-2022 13:16-0500 Heart rate 84 /min Elana Sheets DO Work Phone: [facility] 05-23-2022 13:16-0500 Respiratory rate 16 /min Elana Sheets DO Work Phone: [facility] 05-23-2022 13:16-0500 SaO2% (BldA) [Mass fraction] 96 % Elana Sheets DO Work Phone: [facility] 05-23-2022 13:16-0500 Systolic blood pressure 110 mm[Hg] Elana Sheets DO Work Phone: [facility] 05-14-2022 16:03-0400 Body height 167.64 cm Elana C Sheets Work Phone: [facility] [address] DO Work Phone: 05-14-2022 16:03-0400 Body mass index (BMI) [Ratio] 30.43 kg/m2 Elana C Sheets Work Phone: [facility] [address] DO Work Phone: 05-14-2022 16:03-0400 Body surface area Derived from formula 1.95 m2 Elana C Sheets Work Phone: [facility] [address] DO Work Phone: 05-14-2022 16:03-0400 Body weight 85.5 kg Elana C Sheets Work Phone: [facility] [address] DO Work Phone: 05-14-2022 16:03-0400 Diastolic blood pressure 74 mm[Hg] Elana C Sheets Work Phone: [facility] [address] DO Work Phone: 05-14-2022 16:03-0400 Heart rate 72 /min Elana C Sheets Work Phone: [facility] [address] DO Work Phone: 05-14-2022 16:03-0400 Systolic blood pressure 122 mm[Hg] Elana C Sheets Work Phone: [facility] [address] DO Work Phone: 02-14-2022 13:51-0400 Body height 168.3 cm Elana Sheets DO Work Phone: [facility] 02-14-2022 13:51-0400 Body temperature 98.4 [degF] Elana Sheets DO Work Phone: [facility] 02-14-2022 13:51-0400 Body weight 84.91 kg Elana Sheets DO Work Phone: [facility] 02-14-2022 13:51-0400 Diastolic blood pressure 74 mm[Hg] Elana Sheets DO Work Phone: [facility] 02-14-2022 13:51-0400 Heart rate 80 /min Elana Sheets DO Work Phone: [facility] 02-14-2022 13:51-0400 Respiratory rate 18 /min Elana Sheets DO Work Phone: [facility] 02-14-2022 13:51-0400 SaO2% (BldA) [Mass fraction] 95 % Elana Sheets DO Work Phone: [facility] 02-14-2022 13:51-0400 Systolic blood pressure 108 mm[Hg] Elana Sheets DO Work Phone: [facility] 01-15-2022 07:12-0400 Body height 170.2 cm Phi [employer] HYDRAULIC PILE HAMMER OPERATOR.CLUTCH ASSEMBLER Work Phone: [facility] 01-15-2022 07:12-0400 Body temperature 98.2 [degF] [employer] HYDRAULIC PILE HAMMER OPERATOR.CLUTCH ASSEMBLER Work Phone: [facility] 01-15-2022 07:12-0400 Body weight 85.09 kg Phi K[employer]zy HYDRAULIC PILE HAMMER OPERATOR.CLUTCH ASSEMBLER Work Phone: [facility] 01-15-2022 07:12-0400 Diastolic blood pressure 70 mm[Hg] [employer] HYDRAULIC PILE HAMMER OPERATOR.CLUTCH ASSEMBLER Work Phone: [facility] 01-15-2022 07:12-0400 Heart rate 86 /min [employer] HYDRAULIC PILE HAMMER OPERATOR.CLUTCH ASSEMBLER Work Phone: [facility] 01-15-2022 07:12-0400 Respiratory rate 18 /min Ph[employer] HYDRAULIC PILE HAMMER OPERATOR.CLUTCH ASSEMBLER Work Phone: [facility] 01-15-2022 07:12-0400 SaO2% (BldA) [Mass fraction] 97 % [employer] HYDRAULIC PILE HAMMER OPERATOR.CLUTCH ASSEMBLER Work Phone: [facility] 01-15-2022 07:12-0400 Systolic blood pressure 122 mm[Hg] [employer] HYDRAULIC PILE HAMMER OPERATOR.CLUTCH ASSEMBLER Work Phone: [facility] 12-30-2021 14:34-0400 Body height 170.2 cm Aquilino Hill MD Work Phone: [facility] 12-30-2021 14:34-0400 Body weight 87.14 kg Aquilino Hill MD Work Phone: [facility] 12-30-2021 14:34-0400 Diastolic blood pressure 66 mm[Hg] Aquilino Hill MD Work Phone: [facility] 12-30-2021 14:34-0400 Heart rate 84 /min Aquilino Hill MD Work Phone: [facility] 12-30-2021 14:34-0400 SaO2% (BldA) [Mass fraction] 97 % qAuilino Hill MD Work Phone: [facility] 12-30-2021 14:34-0400 Systolic blood pressure 108 mm[Hg] Aquilino Hill MD Work Phone: [facility] 10-28-2021 13:58-0400 Body height 170.2 cm Aquilino Hill MD Work Phone: [facility] 10-28-2021 13:58-0400 Body weight 87.23 kg Aquilino Hill MD Work Phone: [facility] 10-28-2021 13:58-0400 Diastolic blood pressure 68 mm[Hg] Aquilino Hill MD Work Phone: [facility] 10-28-2021 13:58-0400 Heart rate 87 /min Aquilino Hill MD Work Phone: [facility] 10-28-2021 13:58-0400 SaO2% (BldA) [Mass fraction] 97 % Aquilino Hill MD Work Phone: [facility] 10-28-2021 13:58-0400 Systolic blood pressure 116 mm[Hg] Aquilino Hill MD Work Phone: [facility] 05-16-2021 14:39-0400 Body height 167.64 cm Elana C Sheets Work Phone: [facility] 305 DO Work Phone: 05-16-2021 14:39-0400 Body mass index (BMI) [Ratio] 30.34 kg/m2 Elana C Sheets Work Phone: [facility] 305 DO Work Phone: 05-16-2021 14:39-0400 Body surface area Derived from formula 1.95 m2 Elana C Sheets [facility] Work Phone: 05-16-2021 14:39-0400 Body weight 85.28 kg Elana C Sheets [facility] Re[facility] Work Phone: 05-16-2021 14:39-0400 Diastolic blood pressure 60 mm[Hg] [facility] C [facility] Work Phone: 05-16-2021 14:39-0400 Heart rate 68 /min Elana C Sheets [facility] Work Phone: 05-16-2021 14:39-0400 Systolic blood pressure 120 mm[Hg] Elana C Sheets [facility]: [facility] Work Phone: 06-12-2016 08:20-0500 BMI (Body Mass Index) 28.66 kg/m2 Yaneth Rojas LPN [facility] Work Phone: 06-12-2016 08:20-0500 Body Temperature 98.4 [degF] Yaneth Rojas LPN [facility] [place] Work Phone: 06-12-2016 08:20-0500 Body Temperature 98.42 [degF] Yaneth Rojas LPN [facility] [place] Work Phone: 06-12-2016 08:20-0500 BP Diastolic 69 mm[Hg] Yaneth Rojas SERVICE EMPLOYEE [facility] [place] [employer] Work Phone: 06-12-2016 08:20-0500 BP Systolic 101 mm[Hg] Yaneth Rojas SERVICE EMPLOYEE [facility] [place] [employer] Work Phone: 06-12-2016 08:20-0500 BSA (Body Surface Area) 1.95 m2 Yaneth Rojas SERVICE EMPLOYEE [facility] [employer] Work Phone: 06-12-2016 08:20-0500 Height 170.18 cm Yaneth Rojas SERVICE EMPLOYEE [facility] [place] [employer] Work Phone: 06-12-2016 08:20-0500 Pulse (Heart Rate) 90 /min Yaneth Rojas SERVICE EMPLOYEE [facility] [place] Phone: 06-12-2016 08:20-0500 Respiratory Rate 18 /min Yaneth Rojas SERVICE EMPLOYEE [facility] [place] [employer] Work Phone: 06-12-2016 08:20-0500 Weight 83.01 kg Yaneth Rojas SERVICE EMPLOYEE [facility] [place] Phone: 06-12-2016 08:20-0500 Weight 83.18 kg Yaneth Rojas SERVICE EMPLOYEE [facility] [place] Phone: Encounters Encounter Date Encounter Type Care Provider Facility Start: 02-07-2025 ambulatory Carl burnettty:[facility] Start: 12-26-2024 End: 12-26-2024 Office outpatient visit 25 minutes Mando Stevens MD Work Phone: [facility] Comment on above: Chest pain, unspecif ied type; CAD S/P percutaneous coronary angioplasty; History of [place] (myocardial infarction); Primary hypertension; Mixed hyperlipidemia; BMI 27.0-27.9,adult; Current every day smoker Start: 12-26-2024 End: 12-26-2024 [facility] Start: 12-06-2024 End: 12-06-2024 Patient encounter procedure Elana C Sheets DO Work Phone: [facility] Comment on above: Hypotensive episode (Primary Dx); Primary hypertension; Dizziness; ASCVD (arteriosclerotic cardiovascular disease); Chronic insomnia; Chronic obstructive pulmonary disease, unspecified COPD type (HCC); Stage 3 chronic kidney disease, unspecified whether stage 3a or 3b CKD (HCC); Hyperlipidemia, mixed; Smoker Start: 12-06-2024 End: 12-06-2024 ambulatory ELANA C SHEETS Facility:[facility] Start: 11-24-2024 End: 11-24-2024 Refill Elana C Sheets DO Work Phone: [facility] Comment on above: Refill Request Start: 10-18-2024 End: 10-18-2024 Refill Elana C Sheets DO Work Phone: [facility] Comment on above: Refill Request Start: 09-16-2024 End: 09-16-2024 Refill Elana C Sheets DO Work Phone: [facility] Comment on above: Refill Request Start: 09-12-2024 End: 09-12-2024 Telephone encounter Elana C Sheets DO Work Phone: [facility] Comment on above: Medication Problem Start: 09-06-2024 End: 09-06-2024 Patient encounter procedure Elana C Sheets DO Work Phone: [facility] Comment on above: Chronic midline low back pain with left-sided sciatica (Primary Dx) Start: 09-06-2024 End: 09-06-2024 ambulatory ELANA C SHEETS Facility:[facility] Start: 08-25-2024 End: 08-25-2024 Refill Elana C Sheets DO Work Phone: [facility] Comment on above: Refill Request Start: 08-10-2024 End: 08-10-2024 Emergency department patient visit ELANA C SHEETS Facility:[facility] Start: 07-26-2024 End: 07-26-2024 Refill Elana C Sheets DO Work Phone: [facility] Comment on above: Refill Request Start: 07-04-2024 End: 07-04-2024 ambulatory Jacqui Avila [facility] Comment on above: Population Health Na vigation Outreach ([facility] Attributed Member - Chart Review/) Start: 06-24-2024 End: 06-24-2024 Chart abstracting Elana C Sheets DO Work Phone: [facility] Comment on above: Outside Lab Results Start: 06-23-2024 End: 06-24-2024 Refill Elana C Sheets DO Work Phone: [facility] Comment on above: Refill Request Start: 06-14-2024 End: 06-14-2024 ambulatory ELANA C SHEETS Facility:[facility] Start: 06-06-2024 End: 06-06-2024 Patient encounter procedure Elana C Sheets DO Work Phone: [facility] Comment on above: Medicare annual well ness visit, subsequent (Primary Dx); Other emphysema (HCC); Hyperlipidemia, mixed Start: 06-06-2024 End: 06-06-2024 ambulatory ELANA C SHEETS Facility:[facility] Start: 06-03-2024 End: 06-03-2024 Refill Elana C Sheets DO Work Phone: [facility] Comment on above: Refill Request Start: 05-27-2024 End: 05-27-2024 ambulatory Michael Mcnamara RN [facility] Comment on above: Population Health Na vigation Outreach ([facility] Attributed Member - Chart Review ) Start: 05-26-2024 End: 05-26-2024 Refill Elana C Sheets DO Work Phone: [facility] Comment on above: Refill Request Start: 05-24-2024 End: 05-27-2024 ambulatory Elana C Sheets DO Work Phone: [employer] Associate Professor [employer] Start: 05-24-2024 End: 05-27-2024 Home visit Elana C Sheets DO Work Phone: [employer] Start: 05-21-2024 End: 05-23-2024 Refill Elana C Sheets DO Work Phone: [facility] Comment on above: Refill Request Start: 05-18-2024 End: 05-18-2024 Office outpatient visit 25 minutes Mando Stevens MD Work Phone: [facility] Comment on above: CAD S/P percutaneous coronary angioplasty; History of [place] (myocardial infarction); Primary hypertension; Mixed hyperlipidemia; Class 1 obesity with body mass index (BMI) of 30.0 to 30.9 in adult, unspecified obesity type, unspecified whether serious comorbidity present; Current every day smoker; Past myocardial infarction Start: 05-18-2024 End: 05-18-2024 ambulatory MANDO STEVENS [facility] Ambulatory Start: 05-17-2024 End: 05-17-2024 ambulatory Jacqui Avila [facility] Comment on above: Population Health Na vigation Outreach ([facility] Attributed Member - Chart Review/) Start: 05-12-2024 End: 05-12-2024 ambulatory [facility]LANA LONDONO [facility] Start: 04-28-2024 End: 04-28-2024 Refill Elana C Sheets DO Work Phone: [facility] Comment on above: Refill Request Start: 03-29-2024 End: 03-29-2024 Refill Elana C Sheets DO Work Phone: [facility] Comment on above: Refill Request Start: 03-16-2024 End: 03-18-2024 Refill Cely Barrett APRN.CNP Work Phone: [facility] Comment on above: Refill Request Start: 03-04-2024 End: 03-04-2024 Patient encounter procedure Elana C Sheets DO Work Phone: [facility] Comment on above: Left lumbar radiculi tis (Primary Dx); Smoker Start: 03-04-2024 End: 03-04-2024 ambulatory ELANA C SHEETS Facility:[facility] Start: 02-29-2024 End: 02-29-2024 Refill Elana C Sheets DO Work Phone: [facility] Comment on above: Refill Request Start: 02-23-2024 Refill Elana C She ets DO Work Phone: [facility] Comment on above: Refill Request Start: 02-12-2024 End: 02-12-2024 ambulatory Jacqui Avila [facility] Comment on above: Population Health Na vigation Outreach ([facility] Attributed Member- Needs 2023 Medicare Wellness Appt Scheduled/) Start: 02-12-2024 End: 02-12-2024 Patient encounter procedure Bob Martin MD Work Phone: General Surgery Comment on above: Rectum bleeding (Catarina bing Dx); Chronic obstructive pulmonary disease, unspecified COPD type (HCC) Start: 01-29-2024 Refill Elana C She ets DO Work Phone: [facility] Comment on above: Refill Request Start: 01-28-2024 Refill Elana C She ets DO Work Phone: [facility] Comment on above: Refill Request Start: 01-07-2024 End: 01-07-2024 ambulatory PHI [place] Facility:[facility] Start: 01-06-2024 Telephone encounter Elana C Sheets DO Work Phone: [facility] Comment on above: Lab Orders Start: 12-29-2023 Refill Elana C She ets DO Work Phone: [facility] Comment on above: Refill Request Start: 12-25-2023 End: 12-25-2023 ambulatory ELANA C SHEETS Facility:[facility] Start: 12-25-2023 End: 12-25-2023 Patient encounter procedure Bob Martin MD Work Phone: General Surgery Comment on above: Chronic obstructive pulmonary disease, unspecified COPD type (HCC) (Primary Dx); Rectum bleeding Start: 12-22-2023 Telephone encounter Elana C Sheets DO Work Phone: [facility] Comment on above: Results Start: 12-03-2023 End: 12-03-2023 Patient encounter procedure Elana C Sheets DO Work Phone: [facility] Comment on above: Rectum bleeding (Catarina bing Dx); Chronic insomnia; Spinal stenosis of lumbar region, unspecified whether neurogenic claudication present; Leg swelling; Other emphysema (HCC); Hyponatremia; Stage 3 chronic kidney disease, unspecified whether stage 3a or 3b CKD ([facility]); Smoker Start: 11-30-2023 Refill Elana C She ets DO Work Phone: [facility] Comment on above: Refill Request Start: 11-26-2023 Refill Elana C She ets DO Work Phone: [facility] Comment on above: Refill Request Start: 11-16-2023 ambulatory iVdhya Yoder [facility] Start: 11-10-2023 ambulatory Elana C She ets DO Work Phone: [facility] Start: 11-10-2023 Telephone encounter Elana C Sheets DO Work Phone: [facility] Comment on above: Medication Question Start: 11-02-2023 Refill Elana C She ets DO Work Phone: [facility] Comment on above: Refill Request Start: 09-29-2023 Refill Elana C She ets DO Work Phone: [facility] Comment on above: Refill Request Start: 09-04-2023 End: 09-04-2023 Patient encounter procedure Elana C Sheets DO Work Phone: [facility] Comment on above: Lipoma of right uppe r extremity Start: 08-30-2023 Refill Elana C She ets DO Work Phone: [facility] Comment on above: Refill Request Start: 05-20-2023 End: 05-20-2023 ambulatory ELANA LONDONOBEAU CHERY [facility] Start: 05-20-2023 End: 05-20-2023 Office outpatient visit 25 minutes Mando Stevens MD Work Phone: [facility] Comment on above: CAD S/P percutaneous coronary angioplasty; Past myocardial infarction; Primary hypertension; Mixed hyperlipidemia; Current every day smoker; BMI 29.0-29.9,adult Start: 04-14-2023 Telephone encounter Elana Chery DO Work Phone: [facility] Comment on above: Orders Start: 04-14-2023 End: 04-14-2023 Subsequent hospital visit by physician Mammo/Bone Density [facility] RADIO MAMMO [facility] D [facility] Start: 04-13-2023 Refill Elana C Bernice ets DO Work Phone: [facility] Comment on above: Refill Request Start: 03-02-2023 End: 03-02-2023 Patient encounter procedure Elana Mccord Sheets DO Work Phone: [facility] Comment on above: Chronic insomnia (Pr imary Dx); Left lumbar radiculitis Start: 02-10-2023 Refill Elana C She ets DO Work Phone: [facility] Comment on above: Refill Request Start: 01-07-2023 Refill Elana C She ets DO Work Phone: [facility] Comment on above: Refill Request Start: 12-12-2022 Telephone encounter Bing Barron MA [facility] Comment on above: Orders Start: 12-10-2022 End: 12-10-2022 Subsequent hospital visit by physician Mri [facility] (1.5t) RADIO MRI [facility] Comment on above: M54.17 Start: 12-09-2022 Refill Elana C She ets DO Work Phone: [facility] Comment on above: Refill Request Start: 11-19-2022 End: 11-19-2022 Patient encounter procedure Elana C Sheets DO Work Phone: [facility] Comment on above: Chronic insomnia (Pr imary Dx) Start: 11-11-2022 Refill Elana C She ets DO Work Phone: [facility] Comment on above: Refill Request Start: 11-05-2022 Refill Elana C She ets DO Work Phone: [facility] Comment on above: Refill Request Start: 10-10-2022 Refill Elana C She ets DO Work Phone: [facility] Comment on above: Refill Request Start: 10-09-2022 Refill Britta Suri Simonl l HYDRAULIC PILE HAMMER OPERATOR.CLUTCH ASSEMBLER Work Phone: [facility] Comment on above: Refill Request Start: 09-09-2022 Refill Elana C She ets DO Work Phone: [facility] Comment on above: Refill Request Start: 08-22-2022 Telephone encounter Elana Mccord Sheets DO Work Phone: [facility] Comment on above: Patient Question Start: 08-12-2022 Refill Elana C She ets DO Work Phone: [facility] Comment on above: Refill Request Start: 08-05-2022 ambulatory Elana Mccord She ets DO Work Phone: Associate Professor Of Mathematics Start: 08-05-2022 Telephone encounter Bing Barron [facility] Comment on above: Orders Start: 06-27-2022 Refill Elana C She ets DO Work Phone: [facility] Comment on above: Refill Request Start: 06-13-2022 Chart Update Elana C She ets Work Phone: [facility] 305 DO Work Phone: Start: 05-28-2022 ambulatory Anjali Garza um HYDRAULIC PILE HAMMER OPERATOR.CLUTCH ASSEMBLER Work Phone: Pulmonary Medicine Start: 05-23-2022 End: 05-23-2022 Patient encounter procedure Elana C Sheets DO Work Phone: [facility] Comment on above: Chronic insomnia (Pr imary Dx); GERD without esophagitis Start: 05-14-2022 Office outpatient vi sit 25 minutes Elana C Sheets Work Phone: [place] [address] DO Work Phone: Start: 05-14-2022 ambulatory Elana Chery Facility: Start: 05-07-2022 Documentation procedure Mammography Coordinator [facility] Start: 05-07-2022 Letter encounter Mammography Coordin ator [place] ANCILLARY AREA NOT LISTED Start: 05-06-2022 End: 05-06-2022 Subsequent hospital visit by physician Mammo/Bone Density [facility] RADIO M[facility]MO [facility] Comment on above: MAURA SCREEN Start: 04-23-2022 End: 04-23-2022 ambulatory Adan Butt MD Work Phone: [facility] Comment on above: History of colon clifton yps (Primary Dx); Tobacco use; Chronic obstructive pulmonary disease, unspecified COPD type (HCC) Start: 04-23-2022 End: 04-23-2022 Telemedicine consultation with patient Adan Butt MD Work Phone: [facility] Start: 04-20-2022 Refill Elana C Bernice ets DO Work Phone: [facility] Comment on above: Refill Request Start: 04-16-2022 Refill Elana C She ets DO Work Phone: [facility] Comment on above: Refill Request Start: 04-14-2022 Result Review Elana C Bernice ets Work Phone: [facility] 305 DO Work Phone: Start: 04-11-2022 Telephone encounter Elana C Sheets DO Work Phone: [facility] Comment on above: Results Start: 04-01-2022 Rx Renewal Elana Qeuen ets [facility] Work Phone: Start: 03-31-2022 Chart Update Elana Queen ets Work Phone: [facility] 305 DO Work Phone: Start: 03-31-2022 ambulatory Elana Queen ets DO Work Phone: [facility] Comment on above: ER F/U Start: 03-22-2022 Refill Elana Queen ets DO Work Phone: [facility] Comment on above: Refill Request Start: 03-04-2022 Refill Elana Queen ets DO Work Phone: [facility] Comment on above: Refill Request Start: 02-25-2022 Telephone encounter Jacqui Mcdonough PA-C Work Phone: [facility] Comment on above: Appointment Start: 02-14-2022 End: 02-14-2022 Patient encounter procedure Elana Mccord Sheets DO Work Phone: [facility] Comment on above: Primary hypertension (Primary Dx); Chronic midline low back pain without sciatica; Chronic insomnia; Hyperlipidemia, mixed; Hypokalemia; Screening for colon cancer; Encounter for screening mammogram for breast cancer; Encounter for immunization Start: 01-24-2022 ambulatory [facility]Historcal[facility] Start: 01-21-2022 Telephone encounter Elana Mccord Sheets [facility] [employer] DO Work Phone: Start: 01-19-2022 Refill Daryl johnson PAAvis Work Phone: [facility] Comment on above: Refill Request Start: 01-15-2022 Telephone encounter Elana Mccord Sheets DO Work Phone: [facility] Comment on above: optum form Start: 01-15-2022 End: 01-15-2022 Patient encounter procedure Phi Lancaster APRN.CLUTCH ASSEMBLER Work Phone: [facility] Comment on above: Bilateral hip pain ( Primary Dx); Spinal stenosis of lumbar region, unspecified whether neurogenic claudication present Start: 01-08-2022 Refill Elana Queen ets DO Work Phone: [facility] Start: 01-02-2022 Telephone encounter Elana Chery DO Work Phone: [facility] Comment on above: Patient Question Start: 12-30-2021 End: 12-30-2021 Patient encounter procedure Aquilino Hill MD Work Phone: [facility] Comment on above: Radiculopathy, lumba r region (Primary Dx) Start: 12-16-2021 Refill Daryl CHASEC Work Phone: [facility] Comment on above: Refill Request Start: 11-14-2021 Refill Aquilino Hill MD Work Phone: [facility] Comment on above: Refill Request Start: 11-13-2021 End: 11-13-2021 Subsequent hospital visit by physician Mri [facility] (1.5t) [facility] Comment on above: Spinal stenosis of l umbar region with neurogenic claudication [M48.062] Start: 11-06-2021 Refill Angela CHASEC Work Phone: Neurology Comment on above: Refill Request Start: 10-30-2021 Refill Aquilino Hill MD Work Phone: [facility] Comment on above: Refill Request Start: 10-29-2021 ambulatory Sunita Nava [facility] Comment on above: Population Health Na vigation Outreach ([employer] [facility]) Start: 10-28-2021 End: 10-28-2021 Patient encounter procedure Aquilino Hill MD Work Phone: [facility] Comment on above: Spinal stenosis of l umbar region with neurogenic claudication Start: 08-01-2021 Rx Renewal Elana C She ets Work Phone: [facility] 250 DO Work Phone: Start: 05-30-2021 AUDIT Elana C She ets Work Phone: [facility] 305 DO Work Phone: Start: 05-21-2021 Rx Renewal Elana C She ets Work Phone: [facility] 250 DO Work Phone: Start: 05-17-2021 Rx Renewal Elana C She ets Work Phone: [facility] 305 DO Work Phone: Start: 05-17-2021 Rx Renewal Elana C She ets Work Phone: [facility] 305 DO Work Phone: Start: 05-16-2021 FUV, Provider: Mando Stevens, Status: Pen, Time: 2:15 PM Elana C Sheets Work Phone: [facility] DO Work Phone: Start: 05-16-2021 Office outpatient vi sit 25 minutes Elana C Sheets Work Phone: [facility] 305 DO Work Phone: Start: 05-15-2021 Rx Renewal Elana C She ets Work Phone: [facility] 250 DO Work Phone: Start: 05-02-2021 Rx Renewal Elana C She ets Work Phone: [facility] DO Work Phone: Start: 05-01-2021 AUDIT Elana Queen ets [facility] DO Work Phone: Start: 04-25-2021 AUDIT Elana Queen ets Work Phone: [facility] 305 DO Work Phone: Start: 01-22-2017 [facility] MANDO ALVAREZ Facility:7 Procedures Date Procedure Procedure Detail Performing Clinician Start: 06-13-2024 Hemoglobin.gastroint estina l.lower [Presence] in Stool by Immunoassay [facility] Provider Start: 05-12-2024 Lipid 1996 panel - S jaylin or Plasma Mando Stevens MD Work Phone: Start: 05-20-2023 Comprehensive metabo lic 2000 panel - Serum or Plasma ELANA SHEETS Start: 05-14-2023 Lipid 1996 panel - S jaylin or Plasma Mando Stevens MD Work Phone: Start: 04-14-2023 End: 04-14-2023 Digital breast tomosynthesis bilateral Elana C Sheets DO Work Phone: Start: 12-10-2022 Mri spinal canal lum bar w/o contrast material Red Merritt Work Phone: Start: 05-07-2022 Mammography Mammograph y Coordinator Start: 02-24-2022 Lipid 1996 panel - S jaylin or Plasma Elana Sheets DO Work Phone: Start: 11-13-2021 Mri spinal canal lum bar w/o contrast material Aquilino Hill MD Work Phone: Start: 08-19-2021 Adult depression scr eening assessment Sunita Nava MA Start: 05-02-2021 Mammography Sunita Nava MA Start: 01-21-2021 Antibody screen Comment on above: Performed By: #### T [id number] #### [place] [address] Start: 05-13-2016 End: 06-13-2016 DMB Sergio Good DO Work Phone: Start: 05-13-2016 End: 06-13-2016 Follow Up Appt 1 month Sergio Good DO Work Phone: Start: 05-13-2016 End: 06-10-2016 Pulmonary Function Test - complete Sergio Good DO Work Phone: Colonoscopy Elana C Roby ts Work Phone: Comment on above: Jul 13, 2008; Hysterectomy Elana C Shee ts Work Phone: Operative procedure on foot Elana C Sheets Work Phone: Ostectomy of calcane us for spur Elana C Sheets Work Phone: Percutaneous translu hector coronary angioplasty Elana C Sheets Work Phone: Comment on above: 04/2015; Procedure on back Elana C Sheets Work Phone: Comment on above: 12/2020; Plan of Treatment Date Care Activity Detail Author Start: 05-12-[address] [facility] Start: 05-14-[address]28 [address]id [address] [facility] Start: 08-10-2027 Diabetes Screening Diabetes Screenin [facility] Start: 06-13-2027 Screening for malign ant neoplasm of colon [facility] Start: 02-24-2027 Lipid 1996 panel - Serum or Plasma Lipid Screening [facility] Start: 02-24-2027 LIPID SCREEN LIPID SCREEN [facility] Start: 01-06-2027 Diabetes Screening Diabetes Screenin g [facility] Start: 12-02-2026 Diabetes Screening Diabetes Screenin g [facility] Start: 05-20-2026 Diabetes Screening Diabetes Screenin [facility] Start: 12-11-2025 LIPID SCREEN LIPID SCREEN [facility] Start: 12-06-2025 Annual PCP Team Cotton Cleaner sabas Disease Visit Annual PCP Team Chronic Disease Visit [facility] Start: 12-06-2025 RSV Vaccine (1 - Ris k 60-74 years 1-dose series) RSV Vaccine (1 - Risk 60-74 years 1-dose series) [facility] Comment on above: Postponed from 05/08 (Declined at this time) Start: 12-06-2025 Shingrix Vaccine (2 of 2) Shingrix Vaccine (2 of 2) [facility] Comment on above: Postponed from 05/03 (Declined at this time) Start: 12-06-2025 Urine microalbumin profile DTaP,Tdap,Td Vaccine (1 - Tdap) [facility] Comment on above: Postponed from 05/08 (Declined at this time) Start: 09-06-2025 Annual PCP Team Cotton Cleaner sabas Disease Visit Annual PCP Team Chronic Disease Visit [facility] Start: 09-06-2025 BP Controlled (<130/80) BP Controlle d (<130/80) [facility] Start: 08-10-2025 Creatinine measurement Serum Creatin ine [facility] Start: 06-13-2025 Screening for malign ant neoplasm of colon Fecal Occult Blood [facility] Start: 06-06-2025 Annual PCP Team Cotton Cleaner sabas Disease Visit Annual PCP Team Chronic Disease Visit [facility] Start: 06-06-2025 Anxiety Screening Anxiety Screening [facility] Comment on above: Postponed from 05/08 (Postponed To Appropriate Date) Start: 06-06-2025 BP Controlled (<130/80) BP Controlle d (<130/80) [facility] Start: 06-06-2025 Covid-19 Vaccine ( season) Covid-19 Vaccine ( season) [facility] Comment on above: Postponed from 03/13 (Declined at this time) Start: 06-06-2025 Depression Screening Depression Scre ening [facility] Comment on above: Postponed from 05/08 (Postponed To Appropriate Date) Start: 06-06-2025 Screening for malign ant neoplasm of colon Colorectal Cancer Screening [facility] Comment on above: Postponed from 05/08 (Declined at this time) Start: 06-06-2025 Screening for malign ant neoplasm of lung Lung Cancer Screening [facility] Comment on above: Postponed from 05/08 (Declined at this time) Start: 06-06-2025 Screening for osteoporosis Bone Density Screening [facility] Comment on above: Postponed from 05/08 (Declined at this time) Start: 06-06-2025 End: 06-06-2025 Patient encounter procedure 06/06/2025 8:00 AM EST Office Visit [facility] [address] [place] [address] Elana Chery DO [address] [place] [address] 6 MTH F/U Insomnia [facility] Comment on above: 6 MTH F/U Insomnia Start: 05-19-2025 End: 05-19-2025 Patient encounter procedure 05/19/2025 10:00 AM EST Office Visit [facility] [address] [facility] [address] [place] [address] Mando Stevens MD [address] [facility] [address], [address] [place], [place] [phone] [facility] Start: 05-12-2025 Creatinine measurement Serum Creatin ine [facility] Start: 03-04-2025 Annual PCP Team Cotton Cleaner sabas Disease Visit Annual PCP Team Chronic Disease Visit [facility] Start: 03-04-2025 BP Controlled (<130/80) BP Controlle d (<130/80) [facility] Start: 02-24-2025 DIABETES SCREEN DIABETES SCREEN [facility] Start: 02-24-2025 Diabetes Screening Diabetes Screenin g [facility] Start: 01-06-2025 Creatinine measurement Serum Creatin ine [facility] Start: 12-26-2024 End: 12-26-2025 Basic metabolic 2000 panel - Serum or Plasma Basic metabolic panel Lab Routine CAD S/P percutaneous coronary angioplasty Expected: 12/26/2024 (Approximate), Expires: 12/26/2025 [facility] Service Area Work Phone: Comment on above: Expected: 12/26/2024 (Approximate), Expires: 12/26/2025 Start: 12-26-2024 End: 12-26-2025 Lipid 1996 panel - Serum or Plasma Lipid panel Lab Routine Mixed hyperlipidemia Expected: 12/26/2024 (Approximate), Expires: 12/26/[address] [facility] Work Phone: Comment on above: Expected: 12/26/2024 (Approximate), Expires: 12/26/2025 Start: 12-24-2024 BP Controlled (<130/80) BP Controlle d (<130/80) [facility] Start: 12-06-2024 End: 12-06-2024 Patient encounter procedure 12/06/2024 9:00 AM EDT Office Visit [facility] [address] [place] [address] Elana Chery DO [address] [place] [address] 3 MTH F/U Pain [facility] Comment on above: 3 MTH F/U Pain Start: 12-02-2024 Annual PCP Team Cotton Cleaner sabas Disease Visit Annual PCP Team Chronic Disease Visit [facility] Start: 12-02-2024 BP Controlled (<130/80) BP Controlle d (<130/80) [facility] Start: 12-02-2024 Covid-19 Vaccine ( season) Covid-19 Vaccine ( season) [facility] Comment on above: Postponed from 03/13 (Declined at this time) Start: 12-02-2024 Creatinine measurement Serum Creatin ine [facility] Start: 12-02-2024 RSV Vaccine (1 - 1-d ose 60+ series) RSV Vaccine (1 - 1-dose 60+ series) [facility] Comment on above: Postponed from 05/08 (Declined at this time) Start: 12-02-2024 RSV Vaccine (1 - Ris k 60-74 years 1-dose series) RSV Vaccine (1 - Risk 60-74 years 1-dose series) [facility] Comment on above: Postponed from 05/08 (Declined at this time) Start: 12-02-2024 Shingrix Vaccine (2 of 2) Shingrix Vaccine (2 of 2) [facility] Comment on above: Postponed from 05/03 (Declined at this time) Start: 12-02-2024 Urine microalbumin profile DTaP,Tdap,Td Vaccine (1 - Tdap) [facility] Comment on above: Postponed from 05/08 (Declined at this time) Start: 09-06-2024 End: 09-06-2024 Patient encounter procedure [facility] Comment on above: 3 MTH F/U Pain 3 MTH F/U Pain, Care Gap- Colon screen, pls schedule AMW, last . Start: 09-04-2024 Annual PCP Team Cotton Cleaner sabas Disease Visit Annual PCP Team Chronic Disease Visit [facility] Start: 09-04-2024 BP Controlled (<130/80) BP Controlle d (<130/80) [facility] Start: 07-13-2024 Advance Directive Discussion Advance Directive Discussion [facility] Start: 07-13-2024 Medicare Advantage Annual Wellness Visit Medicare Advantage Annual Wellness Visit [facility] Start: 06-06-2024 End: 06-06-2024 Patient encounter procedure [facility] Comment on above: Medicare wellness Medicare wellness, F MALAY Care Gap- Colon, Mamm, BMD Start: 06-02-2024 Annual PCP Team Cotton Cleaner sabas Disease Visit Annual PCP Team Chronic Disease Visit [facility] Start: 06-02-2024 BP Controlled (<130/80) BP Controlle d (<130/80) [facility] Start: 05-20-2024 Creatinine measurement Serum Creatin ine [facility] Start: 05-13-2024 End: 05-20-2024 Lipid 1996 panel - Serum or Plasma Lipid panel Lab Routine CAD S/P percutaneous coronary angioplasty Mixed hyperlipidemia Expected: 05/13/2024 (Approximate), Expires: 05/20/[address] [facility] Work Phone: Comment on above: Expected: 05/13/2024 (Approximate), Expires: 05/20/2024 Start: 04-14-2024 Mammography Mammogram Screening [facility] Start: 04-14-2024 Screening for malign ant neoplasm of breast [facility] Start: 03-25-2024 End: 03-25-2024 Patient encounter procedure 03/25/2024 1:30 PM EDT Office Visit General Surgery [address] [place] [address] Bob Martin MD [address] [address] 1 MTH F/U RECTAL BLEEDING General Surgery Comment on above: 1 MTH F/U RECTAL BLE EDING Start: 03-13-2024 Covid-19 Vaccine () Covid-19 Vaccine () [facility] Start: 03-13-2024 Covid-19 Vaccine () Covid-19 Vaccine () [facility] Start: 03-13-2024 Influenza vaccination Influenza Vacc ine (#1) [facility] Start: 03-04-2024 End: 03-04-2024 Patient encounter procedure [facility] Comment on above: 3 mth f/u 3 mth f/u, Pls sched ule AMW as future appt Start: 03-02-2024 ANNUAL PCP TEAM SPEECH LANGUAGE PATHOLOGY ASSISTANT SABAS DISEASE VISIT ANNUAL PCP TEAM CHRONIC DISEASE VISIT [facility] Start: 03-02-2024 BONE DENSITY BONE DENSITY [facility] Comment on above: Postponed from 05/08 (Declined at this time) Start: 03-02-2024 Bone Density Screening Bone Density Screening [facility] Comment on above: Postponed from 05/08 (Declined at this time) Start: 03-02-2024 BP CONTROLLED (<130/80) BP CONTROLLE D (<130/80) [facility] Start: 03-02-2024 COVID-19 VACCINE (3 - Moderna series) COVID-19 VACCINE (3 - Moderna series) [facility] Comment on above: Postponed from 12/25 (Declined at this time) Start: 03-02-2024 Screening for osteoporosis Bone Density Screening [facility] Comment on above: Postponed from 05/08 (Declined at this time) Start: 02-12-2024 End: 02-12-2024 Patient encounter procedure 02/12/2024 1:30 PM EDT Office Visit General Surgery [address] [place] [address] Bob Martin MD [address] [address] follow up rectal bleeding General Surgery Comment on above: follow up rectal ble eding Start: 01-16-2024 DIABETES SCREEN DIABETES SCREEN [facility] Start: 01-01-2024 End: 01-01-2024 Patient encounter procedure 01/01/2024 12:00 PM EDT Office Visit General Surgery [address] [place] [address] Bob Martin MD [address] [address] Rectum bleeding [K62.5] General Surgery Comment on above: Rectum bleeding [K62 .5] Start: 12-25-2023 End: 12-25-2023 Patient encounter procedure 12/25/2023 1:30 PM EDT Office Visit General Surgery [address] [place] [address] Bob Martin MD [address] [id number] Rectum bleeding [K62.5] [facility] Surgery Comment on above: Rectum bleeding [K62 .5] Start: 12-03-2023 End: 12-03-2023 Patient encounter procedure [facility] Comment on above: f/u insomnia f/u insomnia + pt re questing a referral to see Mario iqbal [place] for hemorrhoids and skin tags Start: 11-26-2023 End: 02-25-2024 Basic metabolic 2000 panel - Serum or Plasma BASIC METABOLIC PANEL Lab Routine Primary hypertension Expected: 11/26/2023, Expires: 02/25/2024 [facility] Comment on above: Expected: 11/26/2023 , Expires: 02/25/2024 Start: 11-26-2023 End: 02-25-2024 CBC panel - Blood by Automated count COMPLETE BLOOD COUNT Lab Routine Primary hypertension Expected: 11/26/2023, Expires: 02/25/2024 [facility] Work Phone: Comment on above: Expected: 11/26/2023 , Expires: 02/25/2024 Start: 11-20-2023 ANNUAL PCP TEAM SPEECH LANGUAGE PATHOLOGY ASSISTANT SABAS DISEASE VISIT ANNUAL PCP TEAM CHRONIC DISEASE VISIT [facility] Start: 11-20-2023 BP CONTROLLED (<130/80) BP CONTROLLE D (<130/80) [facility] Start: 08-22-2023 ANNUAL PCP TEAM SPEECH LANGUAGE PATHOLOGY ASSISTANT SABAS DISEASE VISIT ANNUAL PCP TEAM CHRONIC DISEASE VISIT [facility] Start: 08-22-2023 BP CONTROLLED (<130/80) BP CONTROLLE D (<130/80) [facility] Start: 07-13-2023 Advance Directive Discussion Advance Directive Discussion [facility] Start: 07-13-2023 Behavioral Health Screening Behavioral Health Screening [facility] Start: 07-13-2023 Depression Assessment Depression Ass essment [facility] Start: 05-23-2023 ANNUAL PCP TEAM SPEECH LANGUAGE PATHOLOGY ASSISTANT SABAS DISEASE VISIT ANNUAL PCP TEAM CHRONIC DISEASE VISIT [facility] Start: 05-23-2023 BP CONTROLLED (<130/80) BP CONTROLLE D (<130/80) [facility] Start: 05-23-2023 [facility] Comment on above: Postponed from 07/13 (Postponed To Appropriate Date) Start: 05-20-2023 End: 05-20-2024 Comprehensive metabolic 2000 panel - Serum or Plasma Comprehensive metabolic panel Lab Routine CAD S/P percutaneous coronary angioplasty Expected: 05/20/2023 (Approximate), Expires: 05/20/2024 [facility] Service Area Work Phone: Comment on above: Expected: 05/20/2023 (Approximate), Expires: 05/20/2024 Start: 05-20-2023 FUV, Provider: Mando Stevens, Status: Pen, Time: 7:30 AM FUV, Provider: Mando Stevens, Status: Pen, Time: 7:30 AM [facility] [address] DO Work Phone: Start: 05-07-2023 Mammography [facility] Start: 03-13-2023 Covid-19 Vaccine ( season) Covid-19 Vaccine ( season) [facility] Start: 03-13-2023 Influenza vaccination [facility] Start: 02-24-2023 SERUM CREATININE SERUM CREATININE Cl [facility] Start: 02-14-2023 ANNUAL PCP TEAM SPEECH LANGUAGE PATHOLOGY ASSISTANT SABAS DISEASE VISIT ANNUAL PCP TEAM CHRONIC DISEASE VISIT [facility] Start: 02-14-2023 BONE DENSITY BONE DENSITY [facility] Comment on above: Postponed from 05/08 (Declined at this time) Start: 02-14-2023 BP CONTROLLED (<130/80) BP CONTROLLE D (<130/80) [facility] Start: 02-14-2023 COVID-19 VACCINE (3 - Booster for Moderna series) COVID-19 VACCINE (3 - Booster for Moderna series) [facility] Comment on above: Postponed from 04/01 (Declined at this time) Postponed from 12/25 (Declined at this time) Start: 02-14-2023 COVID-19 VACCINE (3 - Moderna series) COVID-19 VACCINE (3 - Moderna series) [facility] Comment on above: Postponed from 12/25 (Declined at this time) Start: 02-14-2023 SHINGRIX VACCINE (2 of 2) SHINGRIX VACCINE (2 of 2) [facility] Comment on above: Postponed from 05/03 (Declined at this time) Start: 01-15-2023 ANNUAL PCP TEAM SPEECH LANGUAGE PATHOLOGY ASSISTANT SABAS DISEASE VISIT ANNUAL PCP TEAM CHRONIC DISEASE VISIT [facility] Start: 01-15-2023 BP CONTROLLED (<130/80) BP CONTROLLE D (<130/80) [facility] Start: 12-30-2022 BP CONTROLLED (<130/80) BP CONTROLLE D (<130/80) [facility] Start: 10-28-2022 BP CONTROLLED (<130/80) BP CONTROLLE D (<130/80) [facility] Start: 08-19-2022 Adult depression screening assessment DEPRESSION SCREENING [facility] Start: 08-13-2022 SERUM CREATININE SERUM CREATININE Cl [facility] Start: 08-05-2022 End: 10-05-2022 Hemoglobin A1c in Blood HGB A1C Lab Routine Medication management Expected: 08/05/2022, Expires: 10/05/2022 [facility] Work Phone: Comment on above: Expected: 08/05/2022 , Expires: 10/05/2022 Start: 08-05-2022 End: 10-05-2022 SCHEDULE LAB TESTING SCHEDULE LAB TESTING Lab Routine Expected: 08/05/2022, Expires: 10/05/2022 [facility] Work Phone: Comment on above: Expected: 08/05/2022 , Expires: 10/05/2022 Start: 07-16-2022 ANNUAL PCP TEAM SPEECH LANGUAGE PATHOLOGY ASSISTANT SABAS DISEASE VISIT ANNUAL PCP TEAM CHRONIC DISEASE VISIT [facility] Start: 07-13-2022 ADVANCE DIRECTIVE DISCUSSION ADVANCE DIRECTIVE DISCUSSION [facility] Start: 07-13-2022 DEPRESSION [facility]ESSMENT [facility] Start: 05-14-2022 EPV, Provider: Mando Stevens, Status: Pen, Time: 4:00 PM EPV, Provider: Mando Stevens, Status: Pen, Time: 4:00 PM [facility] DO Work Phone: Start: 05-02-2022 Mammography MAMMOGRAM [facility] Start: 03-13-2022 Influenza vaccination INFLUENZA (#1) [facility] Start: 03-05-2022 Influenza vaccination LUNG CANCER SC REENING [facility] Comment on above: Postponed from 05/08 (Declined at this time) Postponed from 05/08 (Declined at this time) Start: 03-05-2022 SPIROMETRY SPIROMETRY [facility] Comment on above: Postponed from 05/08 (Declined at this time) Start: 03-05-2022 Urine microalbumin profile DTAP,TDAP,TD (1 - Tdap) [facility] Comment on above: Postponed from 05/08 (Declined at this time) Start: 07-13-2021 ADVANCE DIRECTIVE DISCUSSION ADVANCE DIRECTIVE DISCUSSION [facility] Start: 07-13-2021 DEPRESSION ASSESSMENT DEPRESSION ASS [facility] Start: 05-16-2021 FUV, Provider: Mando Stevens, Status: Pen, Time: 2:15 PM FUV, Provider: Mando Stevens, Status: Pen, Time: 2:15 PM [facility] DO Work Phone: Start: 2021 BONE DENSITY BONE DENSITY [facility] Start: 2021 PNEUMOVAX AGE 65 AND OVER WITH 5YR LOOKBACK (#1) PNEUMOVAX AGE 65 AND OVER WITH 5YR LOOKBACK (#1) [facility] Start: 2021 Screening for osteoporosis Bone Density Screening [facility] Start: 05-03-2021 SHINGRIX VACCINE (2 of 2) SHINGRIX VACCINE (2 of 2) [facility] Start: 05-03-2021 Zoster Vaccines (2 o f 2) Zoster Vaccines (2 of 2) [facility] Start: 04-01-2021 COVID-19 VACCINE (3 - Booster for Moderna series) COVID-19 VACCINE (3 - Booster for Moderna series) [facility] Start: 03-13-2021 COLORECTAL CANCER SCREENING COLORECTAL CANCER SCREENING [facility] Start: 03-13-2021 FECAL OCCULT BLOOD FECAL OCCULT BLOO D [facility] Start: 03-13-2021 Screening for malign ant neoplasm of colon [facility] Start: 12-25-2020 COVID-19 Vaccine (3 - Moderna series) COVID-19 Vaccine (3 - Moderna series) [facility] Start: 06-12-2016 End: 06-12-2016 DMB DMB [facility] Phone: Start: 06-12-2016 End: 06-12-2016 Follow Up Appt 3 months Follow Up Appt 3 months [facility] Phone: Start: 05-13-2016 End: 06-13-2016 DMB DMB [facility] Phone: Start: 05-13-2016 End: 06-13-2016 Follow Up Appt 1 month Follow Up Appt 1 month [facility] Phone: Start: 05-13-2016 End: 06-10-2016 Pulmonary Function Test - complete Pulmonary Function Test - complete [facility] Phone: Start: 2016 RSV High Risk: (Elde rly (60+) or Population) (1 - Risk 60-74 years 1-dose series) RSV High Risk: (Elderly (60+) or Population) (1 - Risk 60-74 years 1-dose series) [facility] Start: 2016 RSV Vaccine (1 - 1-d ose 60+ series) RSV Vaccine (1 - 1-dose 60+ series) [facility] Start: 2006 Influenza vaccination LUNG CANCER [facility] Start: 2006 Screening for malign ant neoplasm of lung Lung Cancer Screening [facility] Start: 2001 COLOGUARD (FIT-DNA) COLOGUARD (FIT-D NA) [facility] Start: 2001 Colonoscopy COLONOSCOPY [facility] Start: [address] COLONOGRAPHY [facility] Start: 2001 Screening for malign ant neoplasm of colon [facility] Start: 2001 SIGMOIDOSCOPY SIGMOIDOSCOPY [facility] Start: 1986 Zoledronic acid therapy ALPHA- 1 ANTITRYPSIN DEFICIENCY SCREENING [facility] Start: 1978 DTaP/Tdap/Td Vaccine s (1 - Tdap) DTaP/Tdap/Td Vaccines (1 - Tdap) [facility] Start: 1975 Urine microalbumin profile [facility] Start: 1975 Urine screening for protein CKD: Urine Protein Screening [facility] Start: 1974 Anxiety Screening Anxiety Screening [facility] Start: 1974 BP Controlled (<130/80) BP Controlle d (<130/80) [facility] Start: 1974 Depression Screening Depression Scre ening [facility] Start: 1974 Diabetes mellitus screening Diabetes Screening [facility] Start: 1974 Hepatitis C screening Hepatitis C [facility] Start: 1974 SPIROMETRY SPIROMETRY [facility] Start: 1962 PNEUMOCOCCAL: 65+ (1 - PCV) PNEUMOCOCCAL: 65+ (1 - PCV) [facility] Start: 1956 Medicare Annual Wellness Visit Medicare Annual Wellness Visit (AWV) [facility] Start: 1956 Screening for malign ant neoplasm of colon [facility] Start: 1956 Screening for osteoporosis Bone Density Scan [facility] End: 06-23-2025 DBT Breast - bilateral screening MAURA SCREENING W SANDY Radiology Routine Encounter for screening mammogram for breast cancer 1 Occurrences starting 05/24/2024 until 06/23/2025 [facility] Work Phone: Comment on above: 1 Occurrences starti ng 05/24/2024 until 06/23/2025 Im adm prq id subq/i m njxs 1 vaccine IMADM PRQ ID SUBQ/IM NJXS 1 VACC Immunization/Injection Routine Encounter for immunization Ordered: 02/14/2022 [facility] Work Phone: Comment on above: Ordered: 02/14/2022 End: 01-11-2024 MAURA DIAGNOSTIC LEFT MAURA DIAGNOSTIC LEFT Radiology Routine Mass of lower outer quadrant of left breast 1 Occurrences starting 12/12/2022 until 01/11/2024 [facility] Work Phone: Comment on above: 1 Occurrences starti ng 12/12/2022 until 01/11/2024 Mri spinal canal lum bar w/o contrast material MRI LUMBAR SPINE WO IVCON Radiology Routine Spinal stenosis of lumbar region with neurogenic claudication 11/13/2021 5:09 PM EDT [facility] Work Phone: Patient Education Albuterol%20(I nhalation) %20(Aerosol%2C%20Aerosol %20Powder%2C%20Suspensio n%2C%20Solution) [facility] Work Phone: End: 03-16-2023 Screening mammography bi 2-view breast inc cad MAURA SCREENING Radiology Routine Encounter for screening mammogram for breast cancer 1 Occurrences starting 02/14/2022 until 03/16/2023 [facility] Work Phone: Comment on above: 1 Occurrences starti ng 02/14/2022 until 03/16/2023 End: 05-06-2022 Screening mammography bi 2-view breast inc cad MAURA SCREENING Radiology Routine Encounter for screening mammogram for breast cancer 1 Occurrences starting 05/06/2022 until 05/06/2022 [facility] Work Phone: Comment on above: 1 Occurrences starti ng 05/06/2022 until 05/06/2022 End: 01-11-2024 US BREAST LTD LEFT US BREAST LTD LEFT Radiology Routine Mass of lower outer quadrant of left breast 1 Occurrences starting 12/12/2022 until 01/11/2024 [facility] Work Phone: Comment on above: 1 Occurrences starti ng 12/12/2022 until 01/11/2024 [facility] Immunizations Immunization Date Immunization Notes Care Provider [facility] 05-10-2024 influenza, high dose seasonal, preservative-free Elana Sheets DO Work Phone: [facility] 03-09-2023 Influenza, Seasonal, Quadrivalent, Adjuvanted Mando Stevens MD Work Phone: 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 Work Phone: [facility] 04-17-2022 pneumococcal (PCV20) vaccine, 20 valent (PREVNAR 20) Anjali Rahman APRN.[employer]UTCH [employer]SEMBLER Work Phone: [facility] 04-17-2022 influenza virus vaccine, unspecified formulation Elana Sheets DO Work Phone: [facility] 02-14-2022 pneumococcal Conjuga te, unspecified formulation Elana Sheets DO Work Phone: [facility] Work Phone: 02-14-2022 pneumococcal (PCV20) vaccine, 20 valent (PREVNAR 20) Jacqui Mcdonough PA-C Work Phone: [facility] 03-08-2021 influenza, injectabl e, quadrivalent, preservative free Sunita Nava MA [facility] 03-08-2021 zoster vaccine recombinant Sunita Elijah RIVERA [facility] 10-30-2020 Moderna COVID-19 Vaccine 100 MCG/0.5ML Intramuscular Suspension; Translations: [Moderna COVID-19 Vaccine 100 MCG/0.5ML Intramuscular Suspension] [employer] Work Phone: [facility] Work Phone: Comment on above: Series: 10-01-2020 Moderna COVID-19 Vaccine 100 MCG/0.5ML Intramuscular Suspension; Translations: [Moderna COVID-19 Vaccine 100 MCG/0.5ML Intramuscular Suspension] [employer] Work Phone: [facility] Work Phone: Comment on above: Series: 03-18-2020 influenza, injectabl e, quadrivalent, preservative free Sunita Nava MA [facility] Payers Date Payer Category Payer Self-pay 2024 Medicare [id number] 2024 Medicare (Managed Care) [id number]. [id number] 2023 Dual Eligibility Medicare/Medicaid Organization [facility] [id number] 2023 Medicare [id number] 2022 Private Health Insurance [facility] DUAL COMPLETE [facility] DUAL COMPLETE [id number] 2022-Present [address] [address] [place] [address] [id number] 2022 Private Health Insurance [id number] 2022 Medicaid [id number] 2022 Medicare [facility] MEDICARE [facility] DUAL COMPLETE HMO SNP [id number] 2022-Present [phone] [address] [place] [address] Medicare [id number] 2022 Medicare [id number] 2021 Medicaid [id number] 2021 Medicare [id number] 1955 Unknown [id number] 1955 Unknown [id number] 1955 Unknown [id number] 1955 Unknown [id number] 1955 Unknown [id number] Private Health Insurance [id number] Unknown Unknown [id number] Social History Date Type Detail Facility Start: 12-12-2011 End: 11-19-2022 Caffeine use Caffeine use [facility] Work Phone: Comment on above: 2 cups daily; since age 21, smokes 1 PPD; Start: 07-13-1984 End: 06-02-2023 Tobacco smoking status NHIS Smokes tobacco daily [facility] Start: 07-13-1984 History of tobacco use Cigarette Smo ker [facility] Start: 12-12-2011 End: 06-02-2023 Tobacco use and exposure Smokeless tobacco non-user [facility] Start: 10-28-2021 End: 12-06-2024 Alcohol intake Current drinker of alcohol (finding) [facility] Start: 10-11-2020 History SDOH Alcohol Comment rare [facility] Start: 09-21-2018 Tobacco Comment down to 07/14 pp d (09/2018) [facility] Start: 1955 Sex Assigned At Female [facility] Start: 10-18-2021 End: 05-18-2024 Exposure to SARS-CoV-2 (event) Not sure [facility] Start: 11-19-2022 End: 06-06-2024 Tobacco use panel [facility] Work Phone: Adult Depression Screening Assessment 1 [facility] Work Phone: Start: 10-25-2021 Gender identity Identifies as female gender (finding) [facility] Start: 10-25-2021 Sexual orientation Heterosexual (fin kennedy) [facility] Start: 05-20-2023 End: 12-26-2024 Alcohol intake Lifetime non-drinker (finding) [facility] Work Phone: Start: 1955 Sex Assigned At Not on file [facility] Work Phone: Has the [employer], or [employer] threatened to shut off services in your home in past 12Mo No [facility] Are you now , , , , never or living with a partner? [facility] How often to you hav e a drink containing alcohol? Never [facility] Do you feel stress - tense, restless, nervous, or anxious, or unable to sleep at night because your mind is troubled all the time - these days [OSQ] Not at all [facility] (I/We) worried wheth er (my/our) food would run out before (I/we) got money to buy more. Never true [facility] Functional Status Date Assessment Result Facility 01-17-2015 Are you deaf, or do you have serious difficulty hearing No 01/17/2015 2:33 PM EDT Olegario ZambranoRn)(Hist), RN No [facility] 01-17-2015 Are you blind, or do you have serious difficulty seeing, even when wearing glasses No 01/17/2015 2:33 PM EDT Olegario ZambranoRn)(Hist), RN No [facility] 01-17-2015 Do you have serious difficulty walking or climbing stairs No 01/17/2015 2:33 PM EDT Olegario ZambranoRn)(Hist), RN No [facility] 01-17-2015 Do you have difficul ty dressing or bathing No 01/17/2015 2:33 PM EDT Olegario ZambranoRn)(Hist), RN No [facility] 01-17-2015 Because of a physica l, mental, or emotional condition, do you have difficulty doing errands alone such as visiting a physician's office or shopping No 01/17/2015 2:33 PM EDT Olegario ZambranoRn)(Hist), RN No [facility] Mental Status Date Assessment Result Facility 01-17-2015 Because of a physica l, mental, or emotional condition, do you have serious difficulty concentrating, remembering, or making decisions No 01/17/2015 2:33 PM EDT Olegario ZambranoRn)(Hist), RN No [facility] Clinical Notes 03-01-2019 to 12-26-2024 Mando Stevens MD - 12/26/2024 3:30 PM EDTPatient Elana Luong DO - 12/06/2024 8:39 AM EDTTelephone Encounter - Ayana Sandhu MA - 11/24/2024 8:44 AM EDT Note Date & Type Note Facility 12-26-2024 History of Present illness Narrative CARDIOLOGY OFFICE VISIT CHIEF COMPLAINT Chief Complaint Patient presents with Follow-up Pt is here today following up with c/o chest pain HISTORY OF PRESENT ILLNESS The patient states that she will be seen today to evaluate her blood pressure. She states that her family physician stopped her hydrochlorothiazide and her potassium the beginning of December. She then developed significant swelling of her lower extremities. She decided to go back on her potassium and hydrochlorothiazide. She states the swelling resolved. She denies chest discomfort or symptoms of myocardial ischemia. She has not used nitroglycerin. She does have some mild dyspnea with activities unchanged from the past due to her cigarette smoking. She denies any significant palpitations, presyncope, or syncope. She denies any concerns with her medication. I told her I would like to get a chemistry profile and lipids today since she is fasting. I told her we will call her with results. IMPRESSION: 1. Coronary artery disease, no angina 2. Remote ST-elevation myocardial infarction. 3. Remote multivessel percutaneous coronary intervention. 4. Essential hypertension. 5. Mixed hyperlipidemia. 6. Obesity. 7. Tobacco abuse. Please excuse any errors in grammar or translation related to this dictation. Voice recognition software was utilized to prepare this document. Past Medical History Medical History[1] Social History Social History[2] Family History Family History[3] Allergies: RX Allergies[4] Outpatient Medications: Current Outpatient Medications Medication Instructions acetaminophen (Tylenol) 500 mg tablet 1 tablet, Every 8 hours PRN albuterol 90 mcg/actuation inhaler amLODIPine (NORVASC) 5 mg, oral, Daily, as directed aspirin 81 mg, Daily atorvastatin (LIPITOR) 40 mg, oral, Nightly benazepril (LOTENSIN) 10 mg, oral, Daily clopidogrel (PLAVIX) 75 mg, oral, Daily docusate sodium (COLACE) 100 mg, 2 times daily famotidine (PEPCID) 20 mg, Daily hydroCHLOROthiazide (MICROZIDE) 12.5 mg, Daily ibuprofen 200 mg, Every 6 hours PRN ketorolac (Acular) 0.5 % ophthalmic solution 1 drop, 4 times daily metoprolol tartrate (LOPRESSOR) 12.5 mg, oral, 2 times daily nitroglycerin (NITROSTAT) 0.4 mg, sublingual, Every 5 min PRN ofloxacin (Ocuflox) 0.3 % ophthalmic solution 1 drop, 4 times daily oxyCODONE-acetaminophen (Percocet) 5-325 mg tablet 0.5-1 tablets, 3 times daily spironolactone (ALDACTONE) 25 mg, oral, Daily tiZANidine (Zanaflex) 4 mg tablet 1 tablet, 3 times daily zolpidem (Ambien) 10 mg tablet REVIEW OF SYSTEMS Review of Systems Constitutional: Negative. Cardiovascular: Negative. Respiratory: Negative. Neurological: Negative. All other systems reviewed and are negative. VITALS Vitals: 12/26/24 1548 BP: 118/76 Pulse: 72 PHYSICAL EXAM Constitutional: Appearance: Healthy appearance. Not in distress. Eyes: Conjunctiva/sclera: Conjunctivae normal. Pupils: Pupils are equal, round, and reactive to light. Neck: Vascular: No JVR. JVD normal. Pulmonary: Effort: Pulmonary effort is normal. Breath sounds: Normal breath sounds. No wheezing. No rhonchi. No rales. Chest: Chest wall: Not tender to palpatation. Cardiovascular: PMI at left midclavicular line. Normal rate. Regular rhythm. Normal S1. Normal S2. Murmurs: There is no murmur. No gallop. No click. No rub. Pulses: Intact distal pulses. Edema: Peripheral edema absent. Abdominal: Tenderness: There is no abdominal tenderness. Musculoskeletal: Normal range of motion. General: No tenderness. Cervical back: Normal range of motion. Skin: General: Skin is warm and dry. Neurological: General: No focal deficit present. Mental Status: Alert and oriented to person, place and time. ASSESSMENT AND PLAN Problem List Items Addressed This Visit CAD S/P percutaneous coronary angioplasty Current every day smoker Hypertension Mixed hyperlipidemia History of [place] (myocardial infarction) BMI 27.0-27.9,adult Other Visit Diagnoses Chest pain, unspecified type - Primary @ASSESSMENTANDPLANTEXT@ I,Aneesh Campbell LPN am scribing for, and in the presence of Dr. Mando Alvarez MD . I, Dr. Mando Alvarez MD , personally performed the services described in the documentation as scribed by Aneesh Campbell LPN in my presence, and confirm it is both accurate and complete. Dr. Mando Alvarez MD Thank you for allowing me to participate in the care of this patient. Please do not hesitate to contact me with any further questions or concerns. [1] Past Medical History: Diagnosis Date Coronary artery disease Hyperlipidemia Hypertension Myocardial infarction (Multi) [2] Social History Tobacco Use Smoking status: Every Day Current packs/day: 1.00 Types: Cigarettes Smokeless tobacco: Never Substance Use Topics Alcohol use: Never Drug use: Never [3] Family History Problem Relation Name Age of Onset Other (CABG) Mother Other (cardiac disorder) Mother Hypertension Mother Hyperlipidemia Mother Other (arteriosclerotic cardiovascular disease) Mother Other (arteriosclerotic cardiovascular disease) Father Other (arteriosclerotic cardiovascular disease) Sister [4] Allergies Allergen Reactions Tramadol Other and Itching Niacin Rash Advicor [Niacin-Lovastatin] Itching Gabapentin Swelling Dxahyvv-Wsm-Yaw Reductase Inhibitors Rash and Myalgia documented in this encounter [facility] Work Phone: 12-26-2024 Instructions Aneesh Campbell LPN - 12/26/2024 3:30 PM EDT Keep May visit BNP and Lipid today Continue same medications and treatments. Patient educated on proper medication use. Patient educated on risk factor modification. Please bring any lab results from other providers / physicians to your next appointment. Please bring all medicines, vitamins, and herbal supplements with you when you come to the office. Prescriptions will not be filled unless you are compliant with your follow up appointments or have a follow up appointment scheduled as per instruction of your physician. Refills should be requested at the time of your visit. documented in this encounter [facility] Work Phone: 12-06-2024 Note HNO ID: [id number] Author: ELANA CHERY DO Service: ? Author Type: Physician Type: Progress Notes Filed: 01/01/2025 00:06 Note Text: Subjective HPI Jackie is a 69-year-old female with a history of HTN and two MIs, presenting for evaluation of hypotension. Hypotension: - Noted hypotensive readings as low as SBP 91 mmHg. - Current SBP: 102 mmHg. - Reports fatigue and occasional dizziness. - No syncope. - On Norvasc 5 mg, benazepril 10 mg, HCTZ 12.5 mg, metoprolol ER 25 mg, and spironolactone 25 mg daily. - Oil Analyst is Dr. Mando Stevens at [facility] in [place]; next appointment in May. Myocardial Infarctions: - History of two MIs. - Underwent heart catheterization two years ago with no significant findings. - On Lipitor 80 mg daily. Nicotine Use: - Smokes approximately one pack of cigarettes per day. - Not ready to quit. Sleep: - Taking Ambien, which is effective for sleep. ALLERGIES Allergen Reactions Tramadol Itching Niacin Rash Gabapentin Swelling Current Outpatient Medications Medication Sig Dispense Refill famotidine (PEPCID) 20 mg tablet Take 1 tablet by mouth once daily. 90 tablet 3 potassium chloride (K-TAB) 10 mEq tablet TAKE 1 TABLET EVERY DAY 90 tablet 3 albuterol HFA (PROVENTIL HFA, VENTOLIN HFA) 90 mcg/actuation inhaler USE 2 INHALATIONS BY MOUTH EVERY 4 HOURS NEEDED 40.2 g 3 oxyCODONE-acetaminophen (PERCOCET) 5-325 mg tablet TAKE 1/2 TO 1 TABLET UP TO 3 TIMES DAILY NEEDED FOR PAIN tiZANidine (ZANAFLEX) 4 mg tablet TAKE 1/2 TO 1 TABLET BY MOUTH UP TO 3 TIMES A DAY, NEEDED FOR MUSCLE SPASMS amLODIPine (NORVASC) 5 mg tablet Take 1 tablet by mouth once daily. 90 tablet 3 nitroglycerin sublingual (NITROQUICK) 0.4 mg SL tablet DISSOLVE 1 TABLET UNDER THE TONGUE EVERY 5 MINUTES NEEDED. 100 tablet 0 docusate sodium (COLACE) 100 mg capsule Take 1 capsule by mouth twice daily. 60 capsule 0 benazepril (LOTENSIN) 10 mg tablet 1 po every day calcium carbonate (TUMS) 500 mg chew Take 500 mg by mouth as needed. hydroCHLOROthiazide (HYDRODIURIL, ESIDRIX) 12.5 mg tablet TAKE 1 TABLET BY MOUTH ONCE DAILY. 90 tablet 3 atorvastatin (LIPITOR) 80 mg tablet TAKE 1 TABLET BY MOUTH ONCE DAILY. 30 tablet 11 spironolactone (ALDACTONE) 25 mg tablet TAKE 1 TABLET BY MOUTH ONCE DAILY. 90 tablet 3 metoprolol succinate ER (TOPROL XL) 25 mg 24 hr tablet Take 25 mg by mouth once daily. One tablet at bedtime clopidogrel (PLAVIX) 75 mg tablet Take 1 tablet by mouth once daily. 0 aspirin, enteric coated (ASPIRIN, ENTERIC COATED) 81 mg EC tablet Take 1 tablet by mouth once daily. 0 zolpidem (AMBIEN) 10 mg Take 1 tablet by mouth at bedtime as needed for up to 30 days. for insomnia. 90 tablet 0 No current facility-administered medications for this visit. ACTIVE PROBLEM LIST Ascvd (Arteriosclerotic Cardiovascular Disease) Gerd With Esophagitis Chronic Insomnia Chronic Midline Low Back Pain With Left-Sided Sciatica Smoker Heartburn Other Emphysema (Hcc) Hallux Limitus of Right Foot Hypertension Stage 3 Chronic Kidney Disease (Hcc) Hyponatremia Spinal Stenosis of Lumbar Region Left Lumbar Radiculitis Microscopic Hematuria Hypokalemia Hyperlipidemia, Mixed Psoriasis Lipoma Lipoma of Upper Extremity Social History Tobacco Use Smoking status: Every Day Current packs/day: 1.00 Average packs/day: 1 pack/day for 45.0 years (45.0 ttl pk-yrs) Types: Cigarettes Start date: 07/13/1984 Smokeless tobacco: Never Vaping Use Vaping status: Never Used Substance Use Topics Alcohol use: Yes Comment: rare Drug use: Never Family History Problem Relation Age of Onset Heart Mother CABG Hyperlipidemia Mother Hypertension Mother Coronary Artery Disease Mother Heart Sister stents No Known Problems Brother Diabetes No Family History Stroke No Family History Blood Disease No Family History Blood Clots No Family History Factor 5 Leiden No Family History DVT No Family History Systemic Lupus Erythematosus No Family History Multiple Sclerosis No Family History Bipolar disorder No Family History Schizophrenia No Family History Alzheimer's Disease No Family History Dementia No Family History Parkinson?s Disease No Family History COPD No Family History Aneurysm No Family History Reviewed past medical history, family history and surgeries. All medications and supplements were reviewed with the patient. Review of Systems Constitutional: Positive for malaise/fatigue. Negative for chills, diaphoresis, fever and weight loss. HENT: Negative for ear pain and hearing loss. Eyes: Negative for blurred vision and double vision. Respiratory: Negative for cough and shortness of breath. Cardiovascular: Negative for chest pain, palpitations and leg swelling. Gastrointestinal: Negative for constipation, diarrhea and heartburn. Genitourinary: Negative for dysuria and frequency. [facility] (more content not included)... [facility] 12-06-2024 History of Present illness Narrative Subjective HPI Jackie is a 69-year-old female with a history of HTN and two MIs, presenting for evaluation of hypotension. Hypotension: - Noted hypotensive readings as low as SBP 91 mmHg. - Current SBP: 102 mmHg. - Reports fatigue and occasional dizziness. - No syncope. - On Norvasc 5 mg, benazepril 10 mg, HCTZ 12.5 mg, metoprolol ER 25 mg, and spironolactone 25 mg daily. - Oil Analyst is Dr. Mando Stevens at [facility] in [place]; next appointment in May. Myocardial Infarctions: - History of two MIs. - Underwent heart catheterization two years ago with no significant findings. - On Lipitor 80 mg daily. Nicotine Use: - Smokes approximately one pack of cigarettes per day. - Not ready to quit. Sleep: - Taking Ambien, which is effective for sleep. ALLERGIES Allergen Reactions Tramadol Itching Niacin Rash Gabapentin Swelling Current Outpatient Medications Medication Sig Dispense Refill famotidine (PEPCID) 20 mg tablet Take 1 tablet by mouth once daily. 90 tablet 3 potassium chloride (K-TAB) 10 mEq tablet TAKE 1 TABLET EVERY DAY 90 tablet 3 albuterol HFA (PROVENTIL HFA, VENTOLIN HFA) 90 mcg/actuation inhaler USE 2 INHALATIONS BY MOUTH EVERY 4 HOURS NEEDED 40.2 g 3 oxyCODONE-acetaminophen (PERCOCET) 5-325 mg tablet TAKE 1/2 TO 1 TABLET UP TO 3 TIMES DAILY NEEDED FOR PAIN tiZANidine (ZANAFLEX) 4 mg tablet TAKE 1/2 TO 1 TABLET BY MOUTH UP TO 3 TIMES A DAY, NEEDED FOR MUSCLE SPASMS amLODIPine (NORVASC) 5 mg tablet Take 1 tablet by mouth once daily. 90 tablet 3 nitroglycerin sublingual (NITROQUICK) 0.4 mg SL tablet DISSOLVE 1 TABLET UNDER THE TONGUE EVERY 5 MINUTES NEEDED. 100 tablet 0 docusate sodium (COLACE) 100 mg capsule Take 1 capsule by mouth twice daily. 60 capsule 0 benazepril (LOTENSIN) 10 mg tablet 1 po every day calcium carbonate (TUMS) 500 mg chew Take 500 mg by mouth as needed. hydroCHLOROthiazide (HYDRODIURIL, ESIDRIX) 12.5 mg tablet TAKE 1 TABLET BY MOUTH ONCE DAILY. 90 tablet 3 atorvastatin (LIPITOR) 80 mg tablet TAKE 1 TABLET BY MOUTH ONCE DAILY. 30 tablet 11 spironolactone (ALDACTONE) 25 mg tablet TAKE 1 TABLET BY MOUTH ONCE DAILY. 90 tablet 3 metoprolol succinate ER (TOPROL XL) 25 mg 24 hr tablet Take 25 mg by mouth once daily. One tablet at bedtime clopidogrel (PLAVIX) 75 mg tablet Take 1 tablet by mouth once daily. 0 aspirin, enteric coated (ASPIRIN, ENTERIC COATED) 81 mg EC tablet Take 1 tablet by mouth once daily. 0 zolpidem (AMBIEN) 10 mg Take 1 tablet by mouth at bedtime as needed for up to 30 days. for insomnia. 90 tablet 0 No current facility-administered medications for this visit. ACTIVE PROBLEM LIST Ascvd (Arteriosclerotic Cardiovascular Disease) Gerd With Esophagitis Chronic Insomnia Chronic Midline Low Back Pain With Left-Sided Sciatica Smoker Heartburn Other Emphysema (Hcc) Hallux Limitus of Right Foot Hypertension Stage 3 Chronic Kidney Disease (Hcc) Hyponatremia Spinal Stenosis of Lumbar Region Left Lumbar Radiculitis Microscopic Hematuria Hypokalemia Hyperlipidemia, Mixed Psoriasis Lipoma Lipoma of Upper Extremity Social History Tobacco Use Smoking status: Every Day Current packs/day: 1.00 Average packs/day: 1 pack/day for 45.0 years (45.0 ttl pk-yrs) Types: Cigarettes Start date: 07/13/1984 Smokeless tobacco: Never Vaping Use Vaping status: Never Used Substance Use Topics Alcohol use: Yes Comment: rare Drug use: Never Family History Problem Relation Age of Onset Heart Mother CABG Hyperlipidemia Mother Hypertension Mother Coronary Artery Disease Mother Heart Sister stents No Known Problems Brother Diabetes No Family History Stroke No Family History Blood Disease No Family History Blood Clots No Family History Factor 5 Leiden No Family History DVT No Family History Systemic Lupus Erythematosus No Family History Multiple Sclerosis No Family History Bipolar disorder No Family History Schizophrenia No Family History Alzheimer's Disease No Family History Dementia No Family History Parkinson s Disease No Family History COPD No Family History Aneurysm No Family History Reviewed past medical history, family history and surgeries. All medications and supplements were reviewed with the patient. Review of Systems Constitutional: Positive for malaise/fatigue. Negative for chills, diaphoresis, fever and weight loss. HENT: Negative for ear pain and hearing loss. Eyes: Negative for blurred vision and double vision. Respiratory: Negative for cough and shortness of breath. Cardiovascular: Negative for chest pain, palpitations and leg swelling. Gastrointestinal: Negative for constipation, diarrhea and heartburn. Genitourinary: Negative for dysuria and frequency. Musculoskeletal: Negative for back pain, falls, joint pain and myalgias. Skin: Negative for itching and rash. Neurological: Positive for dizziness. Negative for weakness and headaches. Endo/Heme/Allergies: Does not bruise/bleed easily. Psychiatric/Behavioral: Negative for depression and substance abuse. The patient has insomnia. Objective BP 102/70 Pulse 81 Temp 37 C (98.6 F) Ht 167.6 cm (5' 6) Wt 81.2 kg (179 lb) SpO2 97% BMI 28.89 kg/m Physical Exam Constitutional: Appearance: Normal appearance. HENT: Head: Normocephalic and atraumatic. Nose: Nose normal. Mouth/Throat: Mouth: Mucous membranes are moist. Dentition: Normal dentition. Eyes: General: Lids are normal. Extraocular Movements: Extraocular movements intact. Conjunctiva/sclera: Conjunctivae normal. Pupils: Pupils are equal, round, and reactive to light. Neck: Thyroid: No thyroid mass or thyromegaly. Vascular: No carotid bruit. Trachea: Phonation normal. Cardiovascular: Rate and Rhythm: Normal rate and regular rhythm. Heart sounds: Normal heart sounds. No murmur heard. No friction rub. No gallop. Pulmonary: Effort: Pulmonary effort is normal. Breath sounds: Normal breath sounds. No wheezing or rales. Abdominal: General: Bowel sounds are normal. There is no distension. Palpations: Abdomen is soft. There is no mass. Tenderness: There is no abdominal tenderness. Musculoskeletal: General: No swelling or tenderness. Normal range of motion. Cervical back: Normal range of motion and neck supple. No edema. Lymphadenopathy: Cervical: No cervical adenopathy. Skin: General: Skin is warm and dry. Findings: No erythema or rash. Nails: There is no clubbing. Neurological: Mental Status: She is alert and oriented to person, place, and time. Cranial Nerves: No cranial nerve deficit. Motor: Motor function is intact. Coordination: Coordination normal. Gait: Gait is intact. Psychiatric: Attention and Perception: Attention normal. Mood and Affect: Mood and affect normal. Speech: Speech normal. Behavior: Behavior normal. Behavior is cooperative. Thought Content: Thought content normal. Cognition and Memory: Cognition and memory normal. Judgment: Judgment normal. ASSESSMENT/PLAN: 1. Primary hypertension (I10) - Blood pressure readings have been low, with recent measurements as low as 91 mmHg systolic; patient reports fatigue and occasional dizziness. - Current antihypertensive regimen includes amlodipine 5 mg daily, benazepril 10 mg daily, HCTZ 12.5 mg daily, metoprolol ER 25 mg daily, and spironolactone 25 mg daily. - Oil Analyst Dr. Mando Stevens at [facility] in [place] is managing care; next appointment in May. - Will consult with Dr. Stevens regarding potential adjustments to antihypertensive therapy to prevent hypotensive episodes. - No episodes of syncope reported. 2. ASCVD (arteriosclerotic cardiovascular disease) (I25.10) - Under the care of Dr. Stevens, size mixer 3. Chronic insomnia (F51.04) - Stable on zolpidem; prescription for 90-day supply sent to [facility] in [place]. - ZOLPIDEM 10 MG TABLET 4. Chronic obstructive pulmonary disease, unspecified COPD type (HCC) (J44.9) - no recent exacerbations 5. Stage 3 chronic kidney disease, unspecified whether stage 3a or 3b CKD (HCC) (N18.30) - monitor, avoid nephrotoxins 6. Hyperlipidemia, mixed (E78.2) - Managed with atorvastatin 80 mg daily. 7. Smoker (F17.200) - Currently smoking approximately one pack per day; not ready to quit at this time. Elana Chery DO The patient consented to the use of [employer] software for draft documentation of the visit consistent with [facility] s Notice of Privacy Practices. PDMP website checked and validated. All prescriptions have been APPROPRIATELY filled. No suspicious activity was identified. 12/06/2024 by Elana Chery DO documented in this encounter [facility] 11-24-2024 Telephone encounter Note pharmacy electronically requesting refills as follows: Last seen 09/06/24 . Last refill 09/13/24 . Requested Prescriptions Pending Prescriptions Disp Refills potassium chloride (K-TAB) 10 mEq tablet [Pharmacy Med Name: Potassium Chloride ER Oral Tablet Extended Release 10 MEQ] 90 tablet 3 Sig: TAKE 1 TABLET EVERY DAY Please review and advise. Ayana Sandhu MA [facility] 11-24-2024 Miscellaneous Notes pharmacy electronically requesting refills as follows: Last seen 09/06/24 . Last refill 09/13/24 . Requested Prescriptions Pending Prescriptions Disp Refills potassium chloride (K-TAB) 10 mEq tablet [Pharmacy Med Name: Potassium Chloride ER Oral Tablet Extended Release 10 MEQ] 90 tablet 3 Sig: TAKE 1 TABLET EVERY DAY Please review and advise. Ayana Sandhu MA documented in this encounter [facility] 10-18-2024 Telephone encounter Note pharmacy electronically requesting refills as follows: Last seen 09/06/24 . Last refill 06/06/24 . Requested Prescriptions Pending Prescriptions Disp Refills albuterol HFA (PROVENTIL HFA, VENTOLIN HFA) 90 mcg/actuation inhaler 40.2 g 3 Sig: USE 2 INHALATIONS BY MOUTH EVERY 4 HOURS NEEDED Please review and advise. Ayana Sandhu MA [facility] 10-18-2024 Miscellaneous Notes pharmacy electronically requesting refills as follows: Last seen 09/06/24 . Last refill 06/06/24 . Requested Prescriptions Pending Prescriptions Disp Refills albuterol HFA (PROVENTIL HFA, VENTOLIN HFA) 90 mcg/actuation inhaler 40.2 g 3 Sig: USE 2 INHALATIONS BY MOUTH EVERY 4 HOURS NEEDED Please review and advise. Ayana Sandhu MA documented in this encounter [facility] 09-16-2024 Telephone encounter Note pharmacy faxes requesting refills as follows: Last seen 09/06/24 . Last refill 08/25/24 to local pharmacy. Requested Prescriptions Pending Prescriptions Disp Refills zolpidem (AMBIEN) 10 mg 90 tablet 0 Sig: Take 1 tablet by mouth at bedtime as needed for up to 30 days. for insomnia. Please review and advise. Ayana Sandhu MA [facility] 09-16-2024 Miscellaneous Notes pharmacy faxes requesting refills as follows: Last seen 09/06/24 . Last refill 08/25/24 to local pharmacy. Requested Prescriptions Pending Prescriptions Disp Refills zolpidem (AMBIEN) 10 mg 90 tablet 0 Sig: Take 1 tablet by mouth at bedtime as needed for up to 30 days. for insomnia. Please review and advise. Ayana Sandhu MA documented in this encounter [facility] 09-12-2024 Telephone encounter Note ----- Message from Ayana Lee MA sent at 09/06/2024 8:35 AM EST ----- Send all medications to [facility] pharmacy as patient's insurance changed. Ayana Sandhu MA [facility] 09-12-2024 Miscellaneous Notes ----- Message from Ayana Lee MA sent at 09/06/2024 8:35 AM EST ----- Send all medications to [facility] pharmacy as patient's insurance changed. Ayana Sandhu MA documented in this encounter [facility] 09-06-2024 Note HNO ID: [id number] Author: ELANA CHERY, DO Service: ? Author Type: Physician Type: Progress Notes Filed: 09/24/2024 18:16 Note Text: Subjective HPI F/u for pain, bad today, all over today in shoulders, hips BP is low today, she will call her size mixer to discuss She takes ambien as needed for bedtime She takes percocet as needed, usually once a day Takes it when she gets home from work if needed She smokes up to 1 PPD ALLERGIES Allergen Reactions Tramadol Itching Niacin Rash Gabapentin Swelling Current Outpatient Medications Medication Sig Dispense Refill zolpidem (AMBIEN) 10 mg Take 1 tablet by mouth at bedtime as needed for up to 30 days. for insomnia. 30 tablet 0 albuterol HFA (PROVENTIL HFA, VENTOLIN HFA) 90 mcg/actuation inhaler Inhale 2-4 Puffs as instructed every 2 hours as needed for wheezing/shortness of breath. 1 Each 0 albuterol HFA (PROVENTIL HFA, VENTOLIN HFA) 90 mcg/actuation inhaler USE 2 INHALATIONS BY MOUTH EVERY 4 HOURS NEEDED 40.2 g 3 famotidine (PEPCID) 20 mg tablet Take 1 tablet by mouth once daily. 90 tablet 3 potassium chloride (K-TAB) 10 mEq tablet TAKE 1 TABLET BY MOUTH EVERY DAY 90 tablet 0 oxyCODONE-acetaminophen (PERCOCET) 5-325 mg tablet TAKE 1/2 TO 1 TABLET UP TO 3 TIMES DAILY NEEDED FOR PAIN tiZANidine (ZANAFLEX) 4 mg tablet TAKE 1/2 TO 1 TABLET BY MOUTH UP TO 3 TIMES A DAY, NEEDED FOR MUSCLE SPASMS amLODIPine (NORVASC) 5 mg tablet Take 1 tablet by mouth once daily. 90 tablet 3 nitroglycerin sublingual (NITROQUICK) 0.4 mg SL tablet DISSOLVE 1 TABLET UNDER THE TONGUE EVERY 5 MINUTES NEEDED. 100 tablet 0 docusate sodium (COLACE) 100 mg capsule Take 1 capsule by mouth twice daily. 60 capsule 0 benazepril (LOTENSIN) 10 mg tablet 1 po every day calcium carbonate (TUMS) 500 mg chew Take 500 mg by mouth as needed. hydroCHLOROthiazide (HYDRODIURIL, ESIDRIX) 12.5 mg tablet TAKE 1 TABLET BY MOUTH ONCE DAILY. 90 tablet 3 atorvastatin (LIPITOR) 80 mg tablet TAKE 1 TABLET BY MOUTH ONCE DAILY. 30 tablet 11 spironolactone (ALDACTONE) 25 mg tablet TAKE 1 TABLET BY MOUTH ONCE DAILY. 90 tablet 3 metoprolol succinate ER (TOPROL XL) 25 mg 24 hr tablet Take 25 mg by mouth once daily. One tablet at bedtime clopidogrel (PLAVIX) 75 mg tablet Take 1 tablet by mouth once daily. 0 aspirin, enteric coated (ASPIRIN, ENTERIC COATED) 81 mg EC tablet Take 1 tablet by mouth once daily. 0 acetaminophen (TYLENOL) 500 mg tablet Take 500 mg by mouth every 8 hours as needed. (Patient not taking: Reported on 06/06/2024) No current facility-administered medications for this visit. ACTIVE PROBLEM LIST Ascvd (Arteriosclerotic Cardiovascular Disease) Gerd With Esophagitis Chronic Insomnia Chronic Midline Low Back Pain With Left-Sided Sciatica Smoker Heartburn Other Emphysema (Hcc) Hallux Limitus of Right Foot Hypertension Stage 3 Chronic Kidney Disease (Hcc) Hyponatremia Spinal Stenosis of Lumbar Region Left Lumbar Radiculitis Microscopic Hematuria Hypokalemia Hyperlipidemia, Mixed Psoriasis Lipoma Lipoma of Upper Extremity Social History Tobacco Use Smoking status: Every Day Current packs/day: 1.00 Average packs/day: 1 pack/day for 45.0 years (45.0 ttl pk-yrs) Types: Cigarettes Start date: 07/13/1984 Smokeless tobacco: Never Vaping Use Vaping status: Never Used Substance Use Topics Alcohol use: Yes Comment: rare Drug use: Never Family History Problem Relation Age of Onset Heart Mother CABG Hyperlipidemia Mother Hypertension Mother Coronary Artery Disease Mother Heart Sister stents No Known Problems Brother Diabetes No Family History Stroke No Family History Blood Disease No Family History Blood Clots No Family History Factor 5 Leiden No Family History DVT No Family History Systemic Lupus Erythematosus No Family History Multiple Sclerosis No Family History Bipolar disorder No Family History Schizophrenia No Family History Alzheimer's Disease No Family History Dementia No Family History Parkinson?s Disease No Family History COPD No Family History Aneurysm No Family History Reviewed past medical history, family history and surgeries. All medications and supplements were reviewed with the patient. Review of Systems Constitutional: Negative for chills, diaphoresis, fever, malaise/fatigue and weight loss. HENT: Negative for ear pain and hearing loss. Eyes: Negative for blurred vision and double vision. Respiratory: Negative for cough and shortness of breath. Cardiovascular: Negative for chest pain, palpitations and leg swelling. Gastrointestinal: Negative for constipation, diarrhea and heartburn. Genitourinary: Negative for dysuria and frequency. Musculoskeletal: Positive for back pain and joint pain. Negative for falls and myalgias. Skin: Negative for itching and rash. Neurological: Negative for dizziness, weakness and headaches. Endo/Heme/Allergi (more content not included)... [facility] 09-06-2024 History of Present illness Narrative Subjective HPI F/u for pain, bad today, all over today in shoulders, hips BP is low today, she will call her size mixer to discuss She takes ambien as needed for bedtime She takes percocet as needed, usually once a day Takes it when she gets home from work if needed She smokes up to 1 PPD ALLERGIES Allergen Reactions Tramadol Itching Niacin Rash Gabapentin Swelling Current Outpatient Medications Medication Sig Dispense Refill zolpidem (AMBIEN) 10 mg Take 1 tablet by mouth at bedtime as needed for up to 30 days. for insomnia. 30 tablet 0 albuterol HFA (PROVENTIL HFA, VENTOLIN HFA) 90 mcg/actuation inhaler Inhale 2-4 Puffs as instructed every 2 hours as needed for wheezing/shortness of breath. 1 Each 0 albuterol HFA (PROVENTIL HFA, VENTOLIN HFA) 90 mcg/actuation inhaler USE 2 INHALATIONS BY MOUTH EVERY 4 HOURS NEEDED 40.2 g 3 famotidine (PEPCID) 20 mg tablet Take 1 tablet by mouth once daily. 90 tablet 3 potassium chloride (K-TAB) 10 mEq tablet TAKE 1 TABLET BY MOUTH EVERY DAY 90 tablet 0 oxyCODONE-acetaminophen (PERCOCET) 5-325 mg tablet TAKE 1/2 TO 1 TABLET UP TO 3 TIMES DAILY NEEDED FOR PAIN tiZANidine (ZANAFLEX) 4 mg tablet TAKE 1/2 TO 1 TABLET BY MOUTH UP TO 3 TIMES A DAY, NEEDED FOR MUSCLE SPASMS amLODIPine (NORVASC) 5 mg tablet Take 1 tablet by mouth once daily. 90 tablet 3 nitroglycerin sublingual (NITROQUICK) 0.4 mg SL tablet DISSOLVE 1 TABLET UNDER THE TONGUE EVERY 5 MINUTES NEEDED. 100 tablet 0 docusate sodium (COLACE) 100 mg capsule Take 1 capsule by mouth twice daily. 60 capsule 0 benazepril (LOTENSIN) 10 mg tablet 1 po every day calcium carbonate (TUMS) 500 mg chew Take 500 mg by mouth as needed. hydroCHLOROthiazide (HYDRODIURIL, ESIDRIX) 12.5 mg tablet TAKE 1 TABLET BY MOUTH ONCE DAILY. 90 tablet 3 atorvastatin (LIPITOR) 80 mg tablet TAKE 1 TABLET BY MOUTH ONCE DAILY. 30 tablet 11 spironolactone (ALDACTONE) 25 mg tablet TAKE 1 TABLET BY MOUTH ONCE DAILY. 90 tablet 3 metoprolol succinate ER (TOPROL XL) 25 mg 24 hr tablet Take 25 mg by mouth once daily. One tablet at bedtime clopidogrel (PLAVIX) 75 mg tablet Take 1 tablet by mouth once daily. 0 aspirin, enteric coated (ASPIRIN, ENTERIC COATED) 81 mg EC tablet Take 1 tablet by mouth once daily. 0 acetaminophen (TYLENOL) 500 mg tablet Take 500 mg by mouth every 8 hours as needed. (Patient not taking: Reported on 06/06/2024) No current facility-administered medications for this visit. ACTIVE PROBLEM LIST Ascvd (Arteriosclerotic Cardiovascular Disease) Gerd With Esophagitis Chronic Insomnia Chronic Midline Low Back Pain With Left-Sided Sciatica Smoker Heartburn Other Emphysema (Hcc) Hallux Limitus of Right Foot Hypertension Stage 3 Chronic Kidney Disease (Hcc) Hyponatremia Spinal Stenosis of Lumbar Region Left Lumbar Radiculitis Microscopic Hematuria Hypokalemia Hyperlipidemia, Mixed Psoriasis Lipoma Lipoma of Upper Extremity Social History Tobacco Use Smoking status: Every Day Current packs/day: 1.00 Average packs/day: 1 pack/day for 45.0 years (45.0 ttl pk-yrs) Types: Cigarettes Start date: 07/13/1984 Smokeless tobacco: Never Vaping Use Vaping status: Never Used Substance Use Topics Alcohol use: Yes Comment: rare Drug use: Never Family History Problem Relation Age of Onset Heart Mother CABG Hyperlipidemia Mother Hypertension Mother Coronary Artery Disease Mother Heart Sister stents No Known Problems Brother Diabetes No Family History Stroke No Family History Blood Disease No Family History Blood Clots No Family History Factor 5 Leiden No Family History DVT No Family History Systemic Lupus Erythematosus No Family History Multiple Sclerosis No Family History Bipolar disorder No Family History Schizophrenia No Family History Alzheimer's Disease No Family History Dementia No Family History Parkinson s Disease No Family History COPD No Family History Aneurysm No Family History Reviewed past medical history, family history and surgeries. All medications and supplements were reviewed with the patient. Review of Systems Constitutional: Negative for chills, diaphoresis, fever, malaise/fatigue and weight loss. HENT: Negative for ear pain and hearing loss. Eyes: Negative for blurred vision and double vision. Respiratory: Negative for cough and shortness of breath. Cardiovascular: Negative for chest pain, palpitations and leg swelling. Gastrointestinal: Negative for constipation, diarrhea and heartburn. Genitourinary: Negative for dysuria and frequency. Musculoskeletal: Positive for back pain and joint pain. Negative for falls and myalgias. Skin: Negative for itching and rash. Neurological: Negative for dizziness, weakness and headaches. Endo/Heme/Allergies: Does not bruise/bleed easily. Psychiatric/Behavioral: Negative for depression and substance abuse. The patient does not have insomnia. Objective BP 102/62 Pulse 81 Temp 36.7 C (98.1 F) Resp 16 Ht 167.6 cm (5' 6) Wt 83 kg (183 lb) SpO2 98% BMI 29.54 kg/m Physical Exam Constitutional: Appearance: Normal appearance. HENT: Head: Normocephalic and atraumatic. Nose: Nose normal. Mouth/Throat: Mouth: Mucous membranes are moist. Dentition: Normal dentition. Eyes: General: Lids are normal. Extraocular Movements: Extraocular movements intact. Conjunctiva/sclera: Conjunctivae normal. Pupils: Pupils are equal, round, and reactive to light. Neck: Thyroid: No thyroid mass or thyromegaly. Vascular: No carotid bruit. Trachea: Phonation normal. Cardiovascular: Rate and Rhythm: Normal rate and regular rhythm. Heart sounds: Normal heart sounds. No murmur heard. No friction rub. No gallop. Pulmonary: Effort: Pulmonary effort is normal. Breath sounds: Normal breath sounds. No wheezing or rales. Abdominal: General: Bowel sounds are normal. There is no distension. Palpations: Abdomen is soft. There is no mass. Tenderness: There is no abdominal tenderness. Musculoskeletal: General: Tenderness (over paraspinous muscles of LS spine b/l) present. No swelling. Normal range of motion. Cervical back: Normal range of motion and neck supple. No edema. Lymphadenopathy: Cervical: No cervical adenopathy. Skin: General: Skin is warm and dry. Findings: No erythema or rash. Nails: There is no clubbing. Neurological: Mental Status: She is alert and oriented to person, place, and time. Cranial Nerves: No cranial nerve deficit. Motor: Motor function is intact. Coordination: Coordination normal. Gait: Gait is intact. Psychiatric: Attention and Perception: Attention normal. Mood and Affect: Mood and affect normal. Speech: Speech normal. Behavior: Behavior normal. Behavior is cooperative. Thought Content: Thought content normal. Cognition and Memory: Cognition and memory normal. Judgment: Judgment normal. ASSESSMENT/PLAN: 1. Chronic midline low back pain with left-sided sciatica - ICD9: 724.2, 724.3, 338.29, ICD10: M54.42, G89.29 Continue current meds Elana Chery DO PDMP website checked and validated. All prescriptions have been APPROPRIATELY filled. No suspicious activity was identified. 09/06/2024 by Elana Chery DO documented in this encounter [facility] 08-25-2024 Telephone encounter Note Patient requesting refills as follows: Last Office Visit 06/06/24 NOV 09/06/24. Last Refill 07/26/24. Requested Prescriptions Pending Prescriptions Disp Refills zolpidem (AMBIEN) 10 mg 30 tablet 0 Sig: Take 1 tablet by mouth at bedtime as needed for up to 30 days. for insomnia. Please review and advise. Kalyani Flores MA [facility] 08-25-2024 Miscellaneous Notes Patient requesting refills as follows: Last Office Visit 06/06/24 09/06/24. Last Refill 07/26/24. Requested Prescriptions Pending Prescriptions Disp Refills zolpidem (AMBIEN) 10 mg 30 tablet 0 Sig: Take 1 tablet by mouth at bedtime as needed for up to 30 days. for insomnia. Please review and advise. Kalyani Flores MA documented in this encounter [facility] 08-10-2024 Note SARS-COV-2 (AGENT OF COVID-19) RNA: Not detected INFLUENZA A RNA: Detected INFLUENZA B RNA: Not detected RESPIRATORY SYNCYTIAL VIRUS (RSV) RNA: Not detected [facility] Comment on above: Performed By: #### [id number] ####[facility] LABCLIA [id number] [place] [address] [facility] 07-26-2024 Telephone encounter Note Patient phones requesting refills as follows: Last seen 06/06/24 . Last refill 06/24/24 . Requested Prescriptions Pending Prescriptions Disp Refills zolpidem (AMBIEN) 10 mg 30 tablet 0 Sig: Take 1 tablet by mouth at bedtime as needed for up to 30 days. for insomnia. Please review and advise. Ayana Sandhu MA [facility] 07-26-2024 Miscellaneous Notes Patient phones requesting refills as follows: Last seen 06/06/24 . Last refill 06/24/24 . Requested Prescriptions Pending Prescriptions Disp Refills zolpidem (AMBIEN) 10 mg 30 tablet 0 Sig: Take 1 tablet by mouth at bedtime as needed for up to 30 days. for insomnia. Please review and advise. Ayana Sandhu MA documented in this encounter [facility] 07-04-2024 Note HNO ID: [id number] Author: JACQUI AVILA, ? Service: ? Author Type: ? Type: Progress Notes Filed: 07/04/2024 12:06 Note Text: [facility] POPULATION HEALTH NAVIGATION OUTREACH Action/FYI Patient called back and said she completed colon CA screening through the mail. Will bring in results into next appt. Prefers to wait and schedule AMW after next PCP appt. Patient Identified by Name and : Yes, via phone and via [employer] Reason for Outreach Care Gap or Scheduling Wellness Visits Care Gap Reviewed:: Annual Wellness visit Colorectal Cancer Screening Outreach Outcome/Action Spoke to patient / parent / legal guardian: No action required (information or reminder only) Unable to reach patient: Left message [employer] message sent Population Health Navigation Workflow Chart Review Pre-Visit Planning Payer: [facility] Navigation Signature: Jacqui Avila July 04, 2024 11:55 AM [facility] 07-04-2024 History of Present illness Narrative [facility] POP[facility] HEALTH NAVIGATION OUTREACH Action/FYI Patient called back and said she completed colon CA screening through the mail. Will bring in results into next appt. Prefers to wait and schedule AMW after next PCP appt. Patient Identified by Name and : Yes, via phone and via [employer] Reason for Outreach Care Gap or Scheduling Wellness Visits Care Gap Reviewed:: Annual Wellness visit Colorectal Cancer Screening Outreach Outcome/Action Spoke to patient / parent / legal guardian: No action required (information or reminder only) Unable to reach patient: Left message MyChart message sent Population Health Navigation Workflow Chart Review Pre-Visit Planning Payer: [facility] Navigation Signature: Jacqui Avila July 04, 2024 11:55 AM documented in this encounter [facility] 07-04-2024 Note Patient Outreach ([facility]) JACKIE YU ([id number]) 1955 F Date Time Provider Department 07/04/24 JACQUI AVILA During your visit today, we recorded the following information about you: Jacqui Avila 07/04/2024 12:06 PM Addendum [facility] POPULATION HEALTH NAVIGATION OUTREACH Action/ Patient called back and said she completed colon CA screening through the mail. Will bring in results into next appt. Prefers to wait and schedule AMW after next PCP appt. Patient Identified by Name and : Yes, via phone and via [employer] Reason for Outreach Care Gap or Scheduling Wellness Visits Care Gap Reviewed:: Annual Wellness visit Colorectal Cancer Screening Outreach Outcome/Action Spoke to patient / parent / legal guardian: No action required (information or reminder only) Unable to reach patient: Left message MyChart message sent Population Health Navigation Workflow Chart Review Pre-Visit Planning Payer: [facility] Navigation Signature: Jacqui Avila July 04, 2024 11:55 AM Allergies As of Date: 07/04/2024 Noted Allergy Reaction TRAMADOL 05/09/2016 9 - Itching NIACIN 07/26/2015 2 - Rash GABAPENTIN 03/29/2022 7 - Swelling Date Reviewed: 06/06/2024 Reviewed by: Elana Chery DO - Fully Assessed Reason for Visit: Population Health Navigation Outreach [3910] Cmt: [facility] Attributed Member - Chart Review Prescriptions as of 07/04/2024 - zolpidem (AMBIEN) 10 mg Take 1 tablet by mouth at bedtime as needed for up to 30 days. for insomnia. - albuterol HFA (PROVENTIL HFA, VENTOLIN HFA) 90 mcg/actuation inhaler USE 2 INHALATIONS BY MOUTH EVERY 4 HOURS NEEDED - famotidine (PEPCID) 20 mg tablet Take 1 tablet by mouth once daily. - potassium chloride (K-TAB) 10 mEq tablet TAKE 1 TABLET BY MOUTH EVERY DAY - oxyCODONE-acetaminophen (PERCOCET) 5-325 mg tablet TAKE 1/2 TO 1 TABLET UP TO 3 TIMES DAILY NEEDED FOR PAIN - tiZANidine (ZANAFLEX) 4 mg tablet TAKE 1/2 TO 1 TABLET BY MOUTH UP TO 3 TIMES A DAY, NEEDED FOR MUSCLE SPASMS - amLODIPine (NORVASC) 5 mg tablet Take 1 tablet by mouth once daily. - nitroglycerin sublingual (NITROQUICK) 0.4 mg SL tablet DISSOLVE 1 TABLET UNDER THE TONGUE EVERY 5 MINUTES NEEDED. - docusate sodium (COLACE) 100 mg capsule Take 1 capsule by mouth twice daily. - benazepril (LOTENSIN) 10 mg tablet 1 po every day - acetaminophen (TYLENOL) 500 mg tablet Take 500 mg by mouth every 8 hours as needed. - calcium carbonate (TUMS) 500 mg chew Take 500 mg by mouth as needed. - hydroCHLOROthiazide (HYDRODIURIL, ESIDRIX) 12.5 mg tablet TAKE 1 TABLET BY MOUTH ONCE DAILY. - atorvastatin (LIPITOR) 80 mg tablet TAKE 1 TABLET BY MOUTH ONCE DAILY. - spironolactone (ALDACTONE) 25 mg tablet TAKE 1 TABLET BY MOUTH ONCE DAILY. - metoprolol succinate ER (TOPROL XL) 25 mg 24 hr tablet Take 25 mg by mouth once daily. One tablet at bedtime - clopidogrel (PLAVIX) 75 mg tablet Take 1 tablet by mouth once daily. - aspirin, enteric coated (ASPIRIN, ENTERIC COATED) 81 mg EC tablet Take 1 tablet by mouth once daily. Problem List As Of Date 07/04/2024 Noted Resolved ASCVD (arteriosclerotic cardiovascular disease)*02/13/2012 GERD with esophagitis [K21.00] 03/23/2017 Chronic insomnia [F51.04] 03/23/2017 Chronic midline low back pain with left-sided s*03/23/2017 Smoker [F17.200] 03/23/2017 Chronic thumb pain, left [M79.645, G89.29] 05/04/2017 01/07/2018 Heartburn [R12] 11/23/2017 Other emphysema (HCC) [J43.8] 12/04/2017 Hallux limitus of right foot [M20.5X1] 09/21/2018 Hypertension [I10] 09/21/2018 Osteoarthritis of multiple joints [M15.9] 09/28/2018 09/28/2018 Obesity, Class I, BMI 30-34.9 [E66.811] 03/01/2019 04/26/2020 Stage 3 chronic kidney disease (HCC) [N18.30] 05/12/2019 Hyponatremia [E87.1] 07/01/2019 Spinal stenosis of lumbar region [M48.061] 11/16/2020 Left lumbar radiculitis [M54.16] 11/16/2020 Microscopic hematuria [R31.29] 02/14/2022 Hypokalemia [E87.6] 02/14/2022 Hyperlipidemia, mixed [E78.2] 03/13/2022 Psoriasis [L40.9] 08/22/2022 Lipoma [D17.9] 09/16/2023 Lipoma of upper extremity [D17.20] 09/16/2023 Encounter Status:Closed by JACQUI AVILA on 07/04/24 [facility] 06-24-2024 Telephone encounter Note Second call .Bing Barron MA [facility] 06-24-2024 Miscellaneous Notes Second call .Bing Barron MA patient phones requesting refills as follows: Last seen 06/06/24 . Last refill 05/26/24. States she will be out on Thursday Requested Prescriptions Pending Prescriptions Disp Refills zolpidem (AMBIEN) 10 mg 30 tablet 0 Sig: Take 1 tablet by mouth at bedtime as needed for up to 30 days. for insomnia. Please review and advise. Ayana Sandhu MA documented in this encounter [facility] 06-23-2024 Telephone encounter Note patient phones requesting refills as follows: Last seen 06/06/24 . Last refill 05/26/24. States she will be out on Thursday Requested Prescriptions Pending Prescriptions Disp Refills zolpidem (AMBIEN) 10 mg 30 tablet 0 Sig: Take 1 tablet by mouth at bedtime as needed for up to 30 days. for insomnia. Please review and advise. Ayana Sandhu MA [facility] 06-06-2024 Note HNO ID: [id number] Author: ELANA CHERY, DO Service: ? Author Type: Physician Type: Progress Notes Filed: 06/23/2024 10:23 Note Text: Jackie Yu is a 69 year old female here for a Medicare wellness visit. Medicare Health Risk Assessment General Health Very good Exercise: Minutes/Day 0 min Exercise: Days/Week 0 days Alcohol: Daily Use Never Alcohol: Drinks/Day Patient does not drink Alcohol: 6 or more drinks Never Feel off balance no Concerns: Teeth/Dentures no Concerns: Sexual function no Troubled by feelings no Frequency: Eating healthy diet yes ADLs requiring help no Safety precautions in home/vehicle no Smoke, vape, chews tobacco Yes, smokes 1 PPD Difficulty hearing no Difficulty seeing no Current Providers Specialists: I have reviewed specialist-related care of the patient in the medical record. Medical/Family history review Reviewed and updated problem list, medical/surgical/family/social history, medications, and allergies. Opioid use review Opioid Medications (last 90 days) 06/06/2024 Opioid Medications oxycodone HCl/acetaminophen TAKE 1/2 TO 1 TABLET UP TO 3 TIMES DAILY NEEDED FOR PAIN (5-325 mg tab) Details Patient-reported medication Prescribed No opioid use on file in the last 90 days Does patient have risk factors for opioid abuse? No Pain overview Current pain concerns and treatment plan reviewed. Patient not currently experiencing pain. Depression Screening PHQ-2 Score: 1 PHQ-9 Score: 2 Cognitive screening Mini Cog Score: 3 Cognitive screening reviewed and No further action needed (score 3-5). Functional Observation Was the patient's Timed Up AND Go test unsteady or >= 12 seconds? No Advance Care Planning Patient was not able to provide a surrogate decision maker or written advance directives Measurements BP 118/76 Pulse 87 Temp 36.7 ?C (98 ?F) Resp 18 Ht 167.6 cm (5' 6) Wt 83 kg (183 lb) SpO2 96% BMI 29.54 kg/m? ASSESSMENT/PLAN: 1. Medicare annual wellness visit, subsequent - ICD9: V70.0, ICD10: Z00.00 (primary diagnosis) - Counseled on healthy diet and regular exercise 2. Other emphysema (HCC) - ICD9: 492.8, ICD10: J43.8 ALBUTEROL SULFATE HFA 90 MCG/ACTUATION AEROSOL INHALER 3. Hyperlipidemia, mixed - ICD9: 272.2, ICD10: E78.2 - Controlled - Continue current medications - Counseled on healthy diet and regular exercise - HEPATIC FUNCTION DANIELLE Chery DO [facility] 06-06-2024 History of Present illness Narrative Images from the original note were not included. Jackie Yu is a 69 year old female here for a Medicare wellness visit. Medicare Health Risk Assessment General Health Very good Exercise: Minutes/Day 0 min Exercise: Days/Week 0 days Alcohol: Daily Use Never Alcohol: Drinks/Day Patient does not drink Alcohol: 6 or more drinks Never Feel off balance no Concerns: Teeth/Dentures no Concerns: Sexual function no Troubled by feelings no Frequency: Eating healthy diet yes ADLs requiring help no Safety precautions in home/vehicle no Smoke, vape, chews tobacco Yes, smokes 1 PPD Difficulty hearing no Difficulty seeing no Current Providers Specialists: I have reviewed specialist-related care of the patient in the medical record. Medical/Family history review Reviewed and updated problem list, medical/surgical/family/social history, medications, and allergies. Opioid use review Opioid Medications (last 90 days) 06/06/2024 Opioid Medications oxycodone HCl/acetaminophen TAKE 1/2 TO 1 TABLET UP TO 3 TIMES DAILY NEEDED FOR PAIN (5-325 mg tab) Details Patient-reported medication Prescribed No opioid use on file in the last 90 days Does patient have risk factors for opioid abuse? No Pain overview Current pain concerns and treatment plan reviewed. Patient not currently experiencing pain. Depression Screening PHQ-2 Score: 1 PHQ-9 Score: 2 Cognitive screening Mini Cog Score: 3 Cognitive screening reviewed and No further action needed (score 3-5). Functional Observation Was the patient's Timed Up & Go test unsteady or >= 12 seconds? No Advance Care Planning Patient was not able to provide a surrogate decision maker or written advance directives Measurements BP 118/76 Pulse 87 Temp 36.7 C (98 F) Resp 18 Ht 167.6 cm (5' 6) Wt 83 kg (183 lb) SpO2 96% BMI 29.54 kg/m ASSESSMENT/PLAN: 1. Medicare annual wellness visit, subsequent - ICD9: V70.0, ICD10: Z00.00 (primary diagnosis) - Counseled on healthy diet and regular exercise 2. Other emphysema (HCC) - ICD9: 492.8, ICD10: J43.8 ALBUTEROL SULFATE HFA 90 MCG/ACTUATION AEROSOL INHALER 3. Hyperlipidemia, mixed - ICD9: 272.2, ICD10: E78.2 - Controlled - Continue current medications - Counseled on healthy diet and regular exercise - HEPATIC FUNCTION PNL Elana Chery DO documented in this encounter [facility] 06-03-2024 Telephone encounter Note Pt[facility] and needs [facility] sent to [facility] in [place]. Last filled on 03/18/2024 with 3 refills [facility] 06-03-2024 Miscellaneous Notes Pt. [facility] and needs [facility] sent to [facility] in [place]. Last filled on 03/18/2024 with 3 refills documented in this encounter [facility] 05-27-2024 Note HNO ID: [id number] Author: MICHAEL MCNAMARA RN Service: ? Author Type: Registered Nurse Type: Progress Notes Filed: 05/27/2024 11:55 Note Text: [facility] POPULATION HEALTH NAVIGATION OUTREACH Action/FYI Patient Identified by Name and : Yes, via phone Reason for Outreach Care Gap or Scheduling Wellness Visits Care Gap Reviewed:: Colorectal Cancer Screening Outreach Outcome/Action Spoke to patient / parent / legal guardian: Patient declined to schedule Population Health Navigation Workflow Chart Review Payer: [facility] Navigation Signature: Michael Mcnamara RN May 27, 2024 11:51 AM [facility] 05-27-2024 History of Present illness Narrative [facility] POPULATION HEALTH NAVIGATION OUTREACH Action/FYI Patient Identified by Name and : Yes, via phone Reason for Outreach Care Gap or Scheduling Wellness Visits Care Gap Reviewed:: Colorectal Cancer Screening Outreach Outcome/Action Spoke to patient / parent / legal guardian: Patient declined to schedule Population Health Navigation Workflow Chart Review Payer: [facility] Navigation Signature: Michael Mcnamara RN May 27, 2024 11:51 AM documented in this encounter [facility] 05-27-2024 Note Patient Outreach (AG FAMPLE) JACKIE YU ([id number]) 1955 F Date Time Provider Department 05/27/24 MICHAEL MCNAMARA During your visit today, we recorded the following information about you: Michael Mcnamara RN 05/27/2024 11:55 AM Signed [facility] POPULATION HEALTH NAVIGATION OUTREACH Action/FYI Patient Identified by Name and : Yes, via phone Reason for Outreach Care Gap or Scheduling Wellness Visits Care Gap Reviewed:: Colorectal Cancer Screening Outreach Outcome/Action Spoke to patient / parent / legal guardian: Patient declined to schedule Population Health Navigation Workflow Chart Review Payer: [facility] Navigation Signature: Michael Mcnamara RN May 27, 2024 11:51 AM Allergies As of Date: 05/27/2024 Noted Allergy Reaction TRAMADOL 05/09/2016 9 - Itching NIACIN 07/26/2015 2 - Rash GABAPENTIN 03/29/2022 7 - Swelling Date Reviewed: 03/04/2024 Reviewed by: Kalyani Flores MA - Fully Assessed Reason for Visit: Population Health Navigation Outreach [3910] Cmt: [facility] Attributed Member - Chart Review Prescriptions as of 05/27/2024 - zolpidem (AMBIEN) 10 mg Take 1 tablet by mouth at bedtime as needed for up to 30 days. for insomnia. - potassium chloride (K-TAB) 10 mEq tablet TAKE 1 TABLET BY MOUTH EVERY DAY - famotidine (PEPCID) 20 mg tablet take 1 tablet by mouth every day - oxyCODONE-acetaminophen (PERCOCET) 5-325 mg tablet TAKE 1/2 TO 1 TABLET UP TO 3 TIMES DAILY NEEDED FOR PAIN - tiZANidine (ZANAFLEX) 4 mg tablet TAKE 1/2 TO 1 TABLET BY MOUTH UP TO 3 TIMES A DAY, NEEDED FOR MUSCLE SPASMS - amLODIPine (NORVASC) 5 mg tablet Take 1 tablet by mouth once daily. - albuterol HFA (PROVENTIL HFA, VENTOLIN HFA) 90 mcg/actuation inhaler USE 2 INHALATIONS BY MOUTH EVERY 4 HOURS NEEDED - nitroglycerin sublingual (NITROQUICK) 0.4 mg SL tablet DISSOLVE 1 TABLET UNDER THE TONGUE EVERY 5 MINUTES NEEDED. - docusate sodium (COLACE) 100 mg capsule Take 1 capsule by mouth twice daily. - benazepril (LOTENSIN) 10 mg tablet 1 po every day - acetaminophen (TYLENOL) 500 mg tablet Take 500 mg by mouth every 8 hours as needed. - calcium carbonate (TUMS) 500 mg chew Take 500 mg by mouth as needed. - hydroCHLOROthiazide (HYDRODIURIL, ESIDRIX) 12.5 mg tablet TAKE 1 TABLET BY MOUTH ONCE DAILY. - atorvastatin (LIPITOR) 80 mg tablet TAKE 1 TABLET BY MOUTH ONCE DAILY. - spironolactone (ALDACTONE) 25 mg tablet TAKE 1 TABLET BY MOUTH ONCE DAILY. - metoprolol succinate ER (TOPROL XL) 25 mg 24 hr tablet Take 25 mg by mouth once daily. One tablet at bedtime - clopidogrel (PLAVIX) 75 mg tablet Take 1 tablet by mouth once daily. - aspirin, enteric coated (ASPIRIN, ENTERIC COATED) 81 mg EC tablet Take 1 tablet by mouth once daily. Problem List As Of Date 05/27/2024 Noted Resolved ASCVD (arteriosclerotic cardiovascular disease)*02/13/2012 GERD with esophagitis [K21.00] 03/23/2017 Chronic insomnia [F51.04] 03/23/2017 Chronic midline low back pain with left-sided s*03/23/2017 Smoker [F17.200] 03/23/2017 Chronic thumb pain, left [M79.645, G89.29] 05/04/2017 01/07/2018 Heartburn [R12] 11/23/2017 Other emphysema (HCC) [J43.8] 12/04/2017 Hallux limitus of right foot [M20.5X1] 09/21/2018 Hypertension [I10] 09/21/2018 Osteoarthritis of multiple joints [M15.9] 09/28/2018 09/28/2018 Obesity, Class I, BMI 30-34.9 [E66.811] 03/01/2019 04/26/2020 Stage 3 chronic kidney disease (HCC) [N18.30] 05/12/2019 Hyponatremia [E87.1] 07/01/2019 Spinal stenosis of lumbar region [M48.061] 11/16/2020 Left lumbar radiculitis [M54.16] 11/16/2020 Microscopic hematuria [R31.29] 02/14/2022 Hypokalemia [E87.6] 02/14/2022 Hyperlipidemia, mixed [E78.2] 03/13/2022 Psoriasis [L40.9] 08/22/2022 Lipoma [D17.9] 09/16/2023 Lipoma of upper extremity [D17.20] 09/16/2023 Encounter Status:Closed by MICHAEL MCNAMARA on 05/27/24 [facility] 05-26-2024 Telephone encounter Note Patient requesting refills as follows: Last Office Visit 03/04/24 06/06/24. Last Refill 04/28/24. Requested Prescriptions Pending Prescriptions Disp Refills zolpidem (AMBIEN) 10 mg 30 tablet 0 Sig: Take 1 tablet by mouth at bedtime as needed for up to 30 days. for insomnia. Please review and advise. Kalyani Flores MA [facility] 05-26-2024 Miscellaneous Notes Patient requesting refills as follows: Last Office Visit 03/04/24 06/06/24. Last Refill 04/28/24. Requested Prescriptions Pending Prescriptions Disp Refills zolpidem (AMBIEN) 10 mg 30 tablet 0 Sig: Take 1 tablet by mouth at bedtime as needed for up to 30 days. for insomnia. Please review and advise. Kalyani Flores MA documented in this encounter [facility] 05-24-2024 Note Patient Outreach (AG ACM) JACKIE YU ([id number]) 1955 F Date Time Provider Department 05/24/24 ELANA CHERY During your visit today, we recorded the following information about you: Allergies As of Date: 05/24/2024 Noted Allergy Reaction TRAMADOL 05/09/2016 9 - Itching NIACIN 07/26/2015 2 - Rash GABAPENTIN 03/29/2022 7 - Swelling Date Reviewed: 03/04/2024 Reviewed by: Kalyani Flores MA - Fully Assessed Visit Diagnosis:Encounter for screening mammogram for breast cancer [Z12.31] Order(s):[facility] SCREENING [facility] [[id number]] Order #: [id number] FUTURE Prescriptions as of 05/27/2024 - zolpidem (AMBIEN) 10 mg Take 1 tablet by mouth at bedtime as needed for up to 30 days. for insomnia. - potassium chloride (K-TAB) 10 mEq tablet TAKE 1 TABLET BY MOUTH EVERY DAY - famotidine (PEPCID) 20 mg tablet take 1 tablet by mouth every day - oxyCODONE-acetaminophen (PERCOCET) 5-325 mg tablet TAKE 1/2 TO 1 TABLET UP TO 3 TIMES DAILY NEEDED FOR PAIN - tiZANidine (ZANAFLEX) 4 mg tablet TAKE 1/2 TO 1 TABLET BY MOUTH UP TO 3 TIMES A DAY, NEEDED FOR MUSCLE SPASMS - amLODIPine (NORVASC) 5 mg tablet Take 1 tablet by mouth once daily. - albuterol HFA (PROVENTIL HFA, VENTOLIN HFA) 90 mcg/actuation inhaler USE 2 INHALATIONS BY MOUTH EVERY 4 HOURS NEEDED - nitroglycerin sublingual (NITROQUICK) 0.4 mg SL tablet DISSOLVE 1 TABLET UNDER THE TONGUE EVERY 5 MINUTES NEEDED. - docusate sodium (COLACE) 100 mg capsule Take 1 capsule by mouth twice daily. - benazepril (LOTENSIN) 10 mg tablet 1 po every day - acetaminophen (TYLENOL) 500 mg tablet Take 500 mg by mouth every 8 hours as needed. - calcium carbonate (TUMS) 500 mg chew Take 500 mg by mouth as needed. - hydroCHLOROthiazide (HYDRODIURIL, ESIDRIX) 12.5 mg tablet TAKE 1 TABLET BY MOUTH ONCE DAILY. - atorvastatin (LIPITOR) 80 mg tablet TAKE 1 TABLET BY MOUTH ONCE DAILY. - spironolactone (ALDACTONE) 25 mg tablet TAKE 1 TABLET BY MOUTH ONCE DAILY. - metoprolol succinate ER (TOPROL XL) 25 mg 24 hr tablet Take 25 mg by mouth once daily. One tablet at bedtime - clopidogrel (PLAVIX) 75 mg tablet Take 1 tablet by mouth once daily. - aspirin, enteric coated (ASPIRIN, ENTERIC COATED) 81 mg EC tablet Take 1 tablet by mouth once daily. Problem List As Of Date 05/24/2024 Noted Resolved ASCVD (arteriosclerotic cardiovascular disease)*02/13/2012 GERD with esophagitis [K21.00] 03/23/2017 Chronic insomnia [F51.04] 03/23/2017 Chronic midline low back pain with left-sided s*03/23/2017 Smoker [F17.200] 03/23/2017 Chronic thumb pain, left [M79.645, G89.29] 05/04/2017 01/07/2018 Heartburn [R12] 11/23/2017 Other emphysema (HCC) [J43.8] 12/04/2017 Hallux limitus of right foot [M20.5X1] 09/21/2018 Hypertension [I10] 09/21/2018 Osteoarthritis of multiple joints [M15.9] 09/28/2018 09/28/2018 Obesity, Class I, BMI 30-34.9 [E66.811] 03/01/2019 04/26/2020 Stage 3 chronic kidney disease (HCC) [N18.30] 05/12/2019 Hyponatremia [E87.1] 07/01/2019 Spinal stenosis of lumbar region [M48.061] 11/16/2020 Left lumbar radiculitis [M54.16] 11/16/2020 Microscopic hematuria [R31.29] 02/14/2022 Hypokalemia [E87.6] 02/14/2022 Hyperlipidemia, mixed [E78.2] 03/13/2022 Psoriasis [L40.9] 08/22/2022 Lipoma [D17.9] 09/16/2023 Lipoma of upper extremity [D17.20] 09/16/2023 Encounter Status:Closed by RIDDHI DENNISON on 05/27/24 [facility] 05-23-2024 Telephone encounter Note pharm requesting refills: Last office visit 03/04/2024. Last refill 02/23/2024 nov 06/06/2024 Requested Prescriptions Pending Prescriptions Disp Refills potassium chloride (K-TAB) 10 mEq tablet [Pharmacy Med Name: POTASSIUM CL ER 10 MEQ TABLET] 90 tablet 0 Sig: TAKE 1 TABLET BY MOUTH EVERY DAY Please review and advise. Bing Barron MA [facility] 05-23-2024 Miscellaneous Notes pharm requesting refills: Last office visit 03/04/2024. Last refill 02/23/2024 nov 06/06/2024 Requested Prescriptions Pending Prescriptions Disp Refills potassium chloride (K-TAB) 10 mEq tablet [Pharmacy Med Name: POTASSIUM CL ER 10 MEQ TABLET] 90 tablet 0 Sig: TAKE 1 TABLET BY MOUTH EVERY DAY Please review and advise. Bing Barron MA documented in this encounter [facility] 05-18-2024 History of Present illness Narrative CARDIOLOGY OFFICE VISIT CHIEF COMPLAINT HISTORY OF PRESENT ILLNESS The patient states that she seems to be doing well as far as she is concerned from a cardiac standpoint. She denies chest discomfort or symptoms of myocardial ischemia. She has not used nitroglycerin. She denies any significant problem with dyspnea. She has occasional brief palpitations but nothing severe or bothersome. She denies presyncope and syncope. I did go over her most recent lipid profile with her. Cholesterol 139, HDL 34, LDL 80, triglycerides 126. She denies any problem with her current medications. IMPRESSION: 1. Coronary artery disease, no angina 2. Remote ST-elevation myocardial infarction. 3. Remote multivessel percutaneous coronary intervention. 4. Essential hypertension. 5. Mixed hyperlipidemia. 6. Obesity. 7. Tobacco abuse. Please excuse any errors in grammar or translation related to this dictation. Voice recognition software was utilized to prepare this document. Past Medical History Past Medical History: Diagnosis Date Coronary artery disease Hyperlipidemia Hypertension Myocardial infarction (Multi) Social History Social History Tobacco Use Smoking status: Every Day Current packs/day: 1.00 Types: Cigarettes Smokeless tobacco: Never Substance Use Topics Alcohol use: Never Drug use: Never Family History Family History Problem Relation Name Age of Onset Other (CABG) Mother Other (cardiac disorder) Mother Hypertension Mother Hyperlipidemia Mother Other (arteriosclerotic cardiovascular disease) Mother Other (arteriosclerotic cardiovascular disease) Father Other (arteriosclerotic cardiovascular disease) Sister Allergies: Allergies Allergen Reactions Tramadol Other and Itching Niacin Rash Advicor [Niacin-Lovastatin] Itching Gabapentin Swelling Wynruat-Kge-Wvm Reductase Inhibitors Rash and Myalgia Outpatient Medications: Current Outpatient Medications Medication Instructions acetaminophen (Tylenol) 500 mg tablet 1 tablet, Every 8 hours PRN albuterol 2.5 mg /3 mL (0.083 %) nebulizer solution Inhale. amLODIPine (NORVASC) 5 mg, oral, Daily, as directed aspirin 81 mg, Daily atorvastatin (LIPITOR) 40 mg, oral, Nightly benazepril (LOTENSIN) 10 mg, oral, Daily betamethasone valerate (Valisone) 0.1 % cream 2 times daily clopidogrel (PLAVIX) 75 mg, oral, Daily docusate sodium (COLACE) 100 mg, 2 times daily famotidine (PEPCID) 20 mg, Daily hydroCHLOROthiazide (MICROZIDE) 12.5 mg, oral, Daily ibuprofen 200 mg, Every 6 hours PRN ketorolac (Acular) 0.5 % ophthalmic solution 1 drop, 4 times daily metoprolol tartrate (Lopressor) 25 mg tablet TAKE 1/2 TABLET TWICE A DAY BY MOUTH nitroglycerin (NITROSTAT) 0.4 mg, sublingual, Every 5 min PRN ofloxacin (Ocuflox) 0.3 % ophthalmic solution 1 drop, 4 times daily oxyCODONE-acetaminophen (Percocet) 5-325 mg tablet 0.5-1 tablets, 3 times daily potassium chloride CR 10 mEq ER tablet 10 mEq, Daily spironolactone (ALDACTONE) 25 mg, oral, Daily tiZANidine (Zanaflex) 4 mg tablet 1 tablet, 3 times daily zolpidem (AMBIEN) 5 mg, Nightly PRN REVIEW OF SYSTEMS Review of Systems All other systems reviewed and are negative. VITALS Vitals: 05/18/24 0727 BP: 106/80 Pulse: 84 PHYSICAL EXAM Vitals and nursing note reviewed. Constitutional: Appearance: Healthy appearance. Eyes: Conjunctiva/sclera: Conjunctivae normal. Pupils: Pupils are equal, round, and reactive to light. Pulmonary: Effort: Pulmonary effort is normal. Breath sounds: Normal breath sounds. Cardiovascular: PMI at left midclavicular line. Normal rate. Regular rhythm. Murmurs: There is no murmur. No gallop. No click. No rub. Pulses: Intact distal pulses. Edema: Peripheral edema absent. Musculoskeletal: Normal range of motion. Skin: General: Skin is warm and dry. Neurological: Mental Status: Alert and oriented to person, place and time. ASSESSMENT AND PLAN Diagnoses and all orders for this visit: CAD S/P percutaneous coronary angioplasty History of [place] (myocardial infarction) Primary hypertension Mixed hyperlipidemia Class 1 obesity with body mass index (BMI) of 30.0 to 30.9 in adult, unspecified obesity type, unspecified whether serious comorbidity present Current every day smoker Past myocardial infarction @ASSESSMENTANDPLANTEXT@ documented in this encounter [facility] Work Phone: 05-18-2024 Instructions Mindy Diaz LPN - 05/18/2024 7:30 AM EST Follow up office visit in 1 year. Continue same medications/treatment. Patient educated on proper medication use. Patient educated on risk factor modification. Please bring any lab results from other providers / physicians to your next appointment. Please bring all medicines, vitamins and herbal supplements with you when you come to the office. Prescriptions will not be filled unless you are compliant with your follow up appointments or have a follow up appointment scheduled as per instruction of your physician. Refills should be requested at the time of Your visit. IMindy LPN, am scribing for and in the presence of Dr. Mando Stevens MD, [facility] documented in this encounter [facility] Work Phone: 05-17-2024 Note HNO ID: [id number] Author: JACQUI AVILA, ? Service: ? Author Type: ? Type: Progress Notes Filed: 05/17/2024 14:05 Note Text: [facility] POPULATION HEALTH NAVIGATION OUTREACH Action/FYI Patient Identified by Name and : Yes, via [employer] Reason for Outreach Care Gap or Scheduling Wellness Visits Care Gap Reviewed:: Breast Cancer screening Colorectal Cancer Screening [facility] Outreach Outcome/Action Porterohart message sent Population Health Navigation Workflow Chart Review Pre-Visit Planning Payer: [facility] Navigation Signature: Jacqui Avila May 17, 2024 2:02 PM [facility] 05-17-2024 History of Present illness Narrative [facility] POPULATION HEALTH NAVIGATION OUTREACH Action/FYI Patient Identified by Name and : Yes, via MyChart Reason for Outreach Care Gap or Scheduling Wellness Visits Care Gap Reviewed:: Breast Cancer screening Colorectal Cancer Screening [facility] Outreach Outcome/Action MyChart message sent Population Health Navigation Workflow Chart Review Pre-Visit Planning Payer: [facility] Navigation Signature: Jacqui Avila May 17, 2024 2:02 PM documented in this encounter [facility] 05-17-2024 Note Patient Outreach (AG FAMPLE) JACKIE YU ([id number]) 1955 F Date Time Provider Department 05/17/24 JACQUI AVILA During your visit today, we recorded the following information about you: Jacqui Avila 05/17/2024 2:05 PM Signed [facility] POPULATION HEALTH NAVIGATION OUTREACH Action/FYI Patient Identified by Name and : Yes, via MyChart Reason for Outreach Care Gap or Scheduling Wellness Visits Care Gap Reviewed:: Breast Cancer screening Colorectal Cancer Screening [facility] Outreach Outcome/Action MyChart message sent Population Health Navigation Workflow Chart Review Pre-Visit Planning Payer: [facility] Navigation Signature: Jacqui Avila May 17, 2024 2:02 PM Allergies As of Date: 05/17/2024 Noted Allergy Reaction TRAMADOL 05/09/2016 9 - Itching NIACIN 07/26/2015 2 - Rash GABAPENTIN 03/29/2022 7 - Swelling Date Reviewed: 03/04/2024 Reviewed by: Carlos, Kalyani, MA - Fully Assessed Reason for Visit: Population Health Navigation Outreach [3910] Cmt: [facility] Attributed Member - Chart Review Prescriptions as of 05/17/2024 - zolpidem (AMBIEN) 10 mg Take 1 tablet by mouth at bedtime as needed for up to 30 days. for insomnia. - famotidine (PEPCID) 20 mg tablet take 1 tablet by mouth every day - potassium chloride (K-TAB) 10 mEq tablet take 1 tablet by mouth every day - oxyCODONE-acetaminophen (PERCOCET) 5-325 mg tablet TAKE 1/2 TO 1 TABLET UP TO 3 TIMES DAILY NEEDED FOR PAIN - tiZANidine (ZANAFLEX) 4 mg tablet TAKE 1/2 TO 1 TABLET BY MOUTH UP TO 3 TIMES A DAY, NEEDED FOR MUSCLE SPASMS - amLODIPine (NORVASC) 5 mg tablet Take 1 tablet by mouth once daily. - albuterol HFA (PROVENTIL HFA, VENTOLIN HFA) 90 mcg/actuation inhaler USE 2 INHALATIONS BY MOUTH EVERY 4 HOURS NEEDED - nitroglycerin sublingual (NITROQUICK) 0.4 mg SL tablet DISSOLVE 1 TABLET UNDER THE TONGUE EVERY 5 MINUTES NEEDED. - docusate sodium (COLACE) 100 mg capsule Take 1 capsule by mouth twice daily. - benazepril (LOTENSIN) 10 mg tablet 1 po every day - acetaminophen (TYLENOL) 500 mg tablet Take 500 mg by mouth every 8 hours as needed. - calcium carbonate (TUMS) 500 mg chew Take 500 mg by mouth as needed. - hydroCHLOROthiazide (HYDRODIURIL, ESIDRIX) 12.5 mg tablet TAKE 1 TABLET BY MOUTH ONCE DAILY. - atorvastatin (LIPITOR) 80 mg tablet TAKE 1 TABLET BY MOUTH ONCE DAILY. - spironolactone (ALDACTONE) 25 mg tablet TAKE 1 TABLET BY MOUTH ONCE DAILY. - metoprolol succinate ER (TOPROL XL) 25 mg 24 hr tablet Take 25 mg by mouth once daily. One tablet at bedtime - clopidogrel (PLAVIX) 75 mg tablet Take 1 tablet by mouth once daily. - aspirin, enteric coated (ASPIRIN, ENTERIC COATED) 81 mg EC tablet Take 1 tablet by mouth once daily. Problem List As Of Date 05/17/2024 Noted Resolved ASCVD (arteriosclerotic cardiovascular disease)*02/13/2012 GERD with esophagitis [K21.00] 03/23/2017 Chronic insomnia [F51.04] 03/23/2017 Chronic midline low back pain with left-sided s*03/23/2017 Smoker [F17.200] 03/23/2017 Chronic thumb pain, left [M79.645, G89.29] 05/04/2017 01/07/2018 Heartburn [R12] 11/23/2017 Other emphysema (HCC) [J43.8] 12/04/2017 Hallux limitus of right foot [M20.5X1] 09/21/2018 Hypertension [I10] 09/21/2018 Osteoarthritis of multiple joints [M15.9] 09/28/2018 09/28/2018 Obesity, Class I, BMI 30-34.9 [E66.811] 03/01/2019 04/26/2020 Stage 3 chronic kidney disease (HCC) [N18.30] 05/12/2019 Hyponatremia [E87.1] 07/01/2019 Spinal stenosis of lumbar region [M48.061] 11/16/2020 Left lumbar radiculitis [M54.16] 11/16/2020 Microscopic hematuria [R31.29] 02/14/2022 Hypokalemia [E87.6] 02/14/2022 Hyperlipidemia, mixed [E78.2] 03/13/2022 Psoriasis [L40.9] 08/22/2022 Lipoma [D17.9] 09/16/2023 Lipoma of upper extremity [D17.20] 09/16/2023 Encounter Status:Closed by JACQUI AVILA on 05/17/24 [facility] 04-28-2024 Telephone encounter Note patient phones requesting refills as follows: Last seen 03/04/24 . Last refill 03/29/24 . Requested Prescriptions Pending Prescriptions Disp Refills zolpidem (AMBIEN) 10 mg 30 tablet 0 Sig: Take 1 tablet by mouth at bedtime as needed for up to 30 days. for insomnia. Please review and advise. Ayana Sandhu MA [facility] 04-28-2024 Miscellaneous Notes patient phones requesting refills as follows: Last seen 03/04/24 . Last refill 03/29/24 . Requested Prescriptions Pending Prescriptions Disp Refills zolpidem (AMBIEN) 10 mg 30 tablet 0 Sig: Take 1 tablet by mouth at bedtime as needed for up to 30 days. for insomnia. Please review and advise. Ayana Sandhu MA documented in this encounter [facility] 03-29-2024 Telephone encounter Note Patient requesting refills as follows: Last Office Visit 03/04/24 NOV 06/06/24. Last Refill 02/29/24. Requested Prescriptions Pending Prescriptions Disp Refills zolpidem (AMBIEN) 10 mg 30 tablet 0 Sig: Take 1 tablet by mouth at bedtime as needed for up to 30 days. for insomnia. Please review and advise. Kalyani Flores MA [facility] 03-29-2024 Miscellaneous Notes Patient requesting refills as follows: Last Office Visit 03/04/24 NOV 06/06/24. Last Refill 02/29/24. Requested Prescriptions Pending Prescriptions Disp Refills zolpidem (AMBIEN) 10 mg 30 tablet 0 Sig: Take 1 tablet by mouth at bedtime as needed for up to 30 days. for insomnia. Please review and advise. Kalyani Flores MA documented in this encounter [facility] 03-18-2024 Telephone encounter Note pharmacy electronically requesting refills as follows: Last seen 03/04/24 . Last refill 05/14/23 . Requested Prescriptions Pending Prescriptions Disp Refills famotidine (PEPCID) 20 mg tablet [Pharmacy Med Name: FAMOTIDINE 20 MG TABLET] 90 tablet 3 Sig: take 1 tablet by mouth every day Please review and advise. Ayana Sandhu MA [facility] 03-18-2024 Miscellaneous Notes pharmacy electronically requesting refills as follows: Last seen 03/04/24 . Last refill 05/14/23 . Requested Prescriptions Pending Prescriptions Disp Refills famotidine (PEPCID) 20 mg tablet [Pharmacy Med Name: FAMOTIDINE 20 MG TABLET] 90 tablet 3 Sig: take 1 tablet by mouth every day Please review and advise. Ayana Sandhu MA documented in this encounter [facility] 03-04-2024 Note HNO ID: [id number] Author: ELANA CHERY, DO Service: ? 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 for insomnia. 30 tablet 0 potassium chloride (K-TAB) 10 mEq tablet take 1 tablet by mouth every day 90 tablet 0 famotidine (PEPCID) 20 mg tablet take 1 tablet by mouth every day 90 tablet 3 oxyCODONE-acetaminophen (PERCOCET) 5-325 mg tablet TAKE 1/2 TO 1 TABLET UP TO 3 TIMES DAILY NEEDED FOR PAIN tiZANidine (ZANAFLEX) 4 mg tablet TAKE 1/2 TO 1 TABLET BY MOUTH UP TO 3 TIMES A DAY, NEEDED FOR MUSCLE SPASMS amLODIPine (NORVASC) 5 mg tablet Take 1 tablet by mouth once daily. 90 tablet 3 albuterol HFA (PROVENTIL HFA, VENTOLIN HFA) 90 mcg/actuation inhaler USE 2 INHALATIONS BY MOUTH EVERY 4 HOURS NEEDED 40.2 g 3 nitroglycerin sublingual (NITROQUICK) 0.4 mg SL tablet DISSOLVE 1 TABLET UNDER THE TONGUE EVERY 5 MINUTES NEEDED. 100 tablet 0 docusate sodium (COLACE) 100 mg capsule Take 1 capsule by mouth twice daily. (Patient taking differently: Take 100 mg by mouth as needed.) 60 capsule 0 benazepril (LOTENSIN) 10 mg tablet 1 po every day acetaminophen (TYLENOL) 500 mg tablet Take 500 mg by mouth every 8 hours as needed. calcium carbonate (TUMS) 500 mg chew Take 500 mg by mouth as needed. hydroCHLOROthiazide (HYDRODIURIL, ESIDRIX) 12.5 mg tablet TAKE 1 TABLET BY MOUTH ONCE DAILY. 90 tablet 3 atorvastatin (LIPITOR) 80 mg tablet TAKE 1 TABLET BY MOUTH ONCE DAILY. 30 tablet 11 spironolactone (ALDACTONE) 25 mg tablet TAKE 1 TABLET BY MOUTH ONCE DAILY. 90 tablet 3 metoprolol succinate ER (TOPROL XL) 25 mg 24 hr tablet Take 25 mg by mouth once daily. One tablet at bedtime clopidogrel (PLAVIX) 75 mg tablet Take 1 tablet by mouth once daily. 0 aspirin, enteric coated (ASPIRIN, ENTERIC COATED) 81 mg EC tablet Take 1 tablet by mouth once daily. 0 No current facility-administered medications for this visit. ACTIVE PROBLEM LIST Ascvd (Arteriosclerotic Cardiovascular Disease) Gerd With Esophagitis Chronic Insomnia Chronic Midline Low Back Pain With Left-Sided Sciatica Smoker Heartburn Other Emphysema (Hcc) Hallux Limitus of Right Foot Hypertension Stage 3 Chronic Kidney Disease (Hcc) Hyponatremia Spinal Stenosis of Lumbar Region Left Lumbar Radiculitis Microscopic Hematuria Hypokalemia Hyperlipidemia, Mixed Psoriasis Lipoma Lipoma of Upper Extremity Social History Tobacco Use Smoking status: Every Day Current packs/day: 1.00 Average packs/day: 1 pack/day for 45.0 years (45.0 ttl pk-yrs) Types: Cigarettes Start date: 07/13/1984 Smokeless tobacco: Never Vaping Use Vaping status: Never Used Substance Use Topics Alcohol use: Yes Comment: rare Drug use: Never Family History Problem Relation Age of Onset Heart Mother CABG Hyperlipidemia Mother Hypertension Mother Coronary Artery Disease Mother Heart Sister stents No Known Problems Brother Diabetes No Family History Stroke No Family History Blood Disease No Family History Blood Clots No Family History Factor 5 Leiden No Family History DVT No Family History Systemic Lupus Erythematosus No Family History Multiple Sclerosis No Family History Bipolar disorder No Family History Schizophrenia No Family History Alzheimer's Disease No Family History Dementia No Family History Parkinson?s Disease No Family History COPD No Family History Aneurysm No Family History Reviewed past medical history, family history and surgeries. All medications and supplements were reviewed with the patient. Review of Systems Constitutional: Negative for chills, diaphoresis, fever, malaise/fatigue and weight loss. HENT: Negative for ear pain and hearing loss. Eyes: Negative for blurred vision and double vision. Respiratory: Negative for cough and shortness of breath. Cardiovascular: Negative for chest pain, palpitations and leg swelling. Gastrointestinal: Negative for constipation, diarrhea and heartburn. Genitourinary: Negative for dysuria and frequency. Musculoskeletal: Positive for back pain. Negative for falls, joint pain and myalgias. Skin: Negative for itching and rash. Neurological: Positive for tingling and sensory change. Neg (more content not included)... 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 for insomnia. 30 tablet 0 potassium chloride (K-TAB) 10 mEq tablet take 1 tablet by mouth every day 90 tablet 0 famotidine (PEPCID) 20 mg tablet take 1 tablet by mouth every day 90 tablet 3 oxyCODONE-acetaminophen (PERCOCET) 5-325 mg tablet TAKE 1/2 TO 1 TABLET UP TO 3 TIMES DAILY NEEDED FOR PAIN tiZANidine (ZANAFLEX) 4 mg tablet TAKE 1/2 TO 1 TABLET BY MOUTH UP TO 3 TIMES A DAY, NEEDED FOR MUSCLE SPASMS amLODIPine (NORVASC) 5 mg tablet Take 1 tablet by mouth once daily. 90 tablet 3 albuterol HFA (PROVENTIL HFA, VENTOLIN HFA) 90 mcg/actuation inhaler USE 2 INHALATIONS BY MOUTH EVERY 4 HOURS NEEDED 40.2 g 3 nitroglycerin sublingual (NITROQUICK) 0.4 mg SL tablet DISSOLVE 1 TABLET UNDER THE TONGUE EVERY 5 MINUTES NEEDED. 100 tablet 0 docusate sodium (COLACE) 100 mg capsule Take 1 capsule by mouth twice daily. (Patient taking differently: Take 100 mg by mouth as needed.) 60 capsule 0 benazepril (LOTENSIN) 10 mg tablet 1 po every day acetaminophen (TYLENOL) 500 mg tablet Take 500 mg by mouth every 8 hours as needed. calcium carbonate (TUMS) 500 mg chew Take 500 mg by mouth as needed. hydroCHLOROthiazide (HYDRODIURIL, ESIDRIX) 12.5 mg tablet TAKE 1 TABLET BY MOUTH ONCE DAILY. 90 tablet 3 atorvastatin (LIPITOR) 80 mg tablet TAKE 1 TABLET BY MOUTH ONCE DAILY. 30 tablet 11 spironolactone (ALDACTONE) 25 mg tablet TAKE 1 TABLET BY MOUTH ONCE DAILY. 90 tablet 3 metoprolol succinate ER (TOPROL XL) 25 mg 24 hr tablet Take 25 mg by mouth once daily. One tablet at bedtime clopidogrel (PLAVIX) 75 mg tablet Take 1 tablet by mouth once daily. 0 aspirin, enteric coated (ASPIRIN, ENTERIC COATED) 81 mg EC tablet Take 1 tablet by mouth once daily. 0 No current facility-administered medications for this visit. ACTIVE PROBLEM LIST Ascvd (Arteriosclerotic Cardiovascular Disease) Gerd With Esophagitis Chronic Insomnia Chronic Midline Low Back Pain With Left-Sided Sciatica Smoker Heartburn Other Emphysema (Hcc) Hallux Limitus of Right Foot Hypertension Stage 3 Chronic Kidney Disease (Hcc) Hyponatremia Spinal Stenosis of Lumbar Region Left Lumbar Radiculitis Microscopic Hematuria Hypokalemia Hyperlipidemia, Mixed Psoriasis Lipoma Lipoma of Upper Extremity Social History Tobacco Use Smoking status: Every Day Current packs/day: 1.00 Average packs/day: 1 pack/day for 45.0 years (45.0 ttl pk-yrs) Types: Cigarettes Start date: 07/13/1984 Smokeless tobacco: Never Vaping Use Vaping status: Never Used Substance Use Topics Alcohol use: Yes Comment: rare Drug use: Never Family History Problem Relation Age of Onset Heart Mother CABG Hyperlipidemia Mother Hypertension Mother Coronary Artery Disease Mother Heart Sister stents No Known Problems Brother Diabetes No Family History Stroke No Family History Blood Disease No Family History Blood Clots No Family History Factor 5 Leiden No Family History DVT No Family History Systemic Lupus Erythematosus No Family History Multiple Sclerosis No Family History Bipolar disorder No Family History Schizophrenia No Family History Alzheimer's Disease No Family History Dementia No Family History Parkinson s Disease No Family History COPD No Family History Aneurysm No Family History Reviewed past medical history, family history and surgeries. All medications and supplements were reviewed with the patient. Review of Systems Constitutional: Negative for chills, diaphoresis, fever, malaise/fatigue and weight loss. HENT: Negative for ear pain and hearing loss. Eyes: Negative for blurred vision and double vision. Respiratory: Negative for cough and shortness of breath. Cardiovascular: Negative for chest pain, palpitations and leg swelling. Gastrointestinal: Negative for constipation, diarrhea and heartburn. Genitourinary: Negative for dysuria and frequency. Musculoskeletal: Positive for back pain. Negative for falls, joint pain and myalgias. Skin: Negative for itching and rash. Neurological: Positive for tingling and sensory change. Negative for dizziness, weakness and headaches. Endo/Heme/Allergies: Does not bruise/bleed easily. Psychiatric/Behavioral: Negative for depression and substance abuse. The patient does not have insomnia. Objective BP 124/76 Pulse 86 Temp 36.7 C (98.1 F) Resp 16 Ht 168.3 cm (5' 6.25) Wt 82.6 kg (182 lb) SpO2 94% BMI 29.15 kg/m Physical Exam Constitutional: Appearance: Normal appearance. HENT: Head: Normocephalic and atraumatic. Nose: Nose normal. Mouth/Throat: Mouth: Mucous membranes are moist. Dentition: Normal dentition. Eyes: General: Lids are normal. Extraocular Movements: Extraocular movements intact. Conjunctiva/sclera: Conjunctivae normal. Pupils: Pupils are equal, round, and reactive to light. Neck: Thyroid: No thyroid mass or thyromegaly. Vascular: No carotid bruit. Trachea: Phonation normal. Cardiovascular: Rate and Rhythm: Normal rate and regular rhythm. Heart sounds: Normal heart sounds. No murmur heard. No friction rub. No gallop. Pulmonary: Effort: Pulmonary effort is normal. Breath sounds: Normal breath sounds. No wheezing or rales. Abdominal: General: Bowel sounds are normal. There is no distension. Palpations: Abdomen is soft. There is no mass. Tenderness: There is no abdominal tenderness. Musculoskeletal: General: No swelling or tenderness. Normal range of motion. Cervical back: Normal range of motion and neck supple. No edema. Lymphadenopathy: Cervical: No cervical adenopathy. Skin: General: Skin is warm and dry. Findings: No erythema or rash. Nails: There is no clubbing. Neurological: Mental Status: She is alert and oriented to person, place, and time. Cranial Nerves: No cranial nerve deficit. Motor: Motor function is intact. Coordination: Coordination normal. Gait: Gait is intact. Psychiatric: Attention and Perception: Attention normal. Mood and Affect: Mood and affect normal. Speech: Speech normal. Behavior: Behavior normal. Behavior is cooperative. Thought Content: Thought content normal. Cognition and Memory: Cognition and memory normal. Judgment: Judgment normal. ASSESSMENT/PLAN: 1. Left lumbar radiculitis - ICD9: 724.4, ICD10: M54.16 (primary diagnosis) Continue percocet as needed 2. Smoker - ICD9: 305.1, ICD10: F17.200 - Cessation encouraged. - Physiologic and physical aspects of tobacco addiction as well as strategies for quitting were discussed. - Counseling was given focusing on the harmful effects of this addiction especially given the patient's medical condition(s) which will be worsened because of the chemicals in tobacco. Elana Chery DO PDMP website checked and validated. All prescriptions have been APPROPRIATELY filled. No suspicious activity was identified. 03/25/2024 by Elana Chery DO documented in this encounter [facility] 02-29-2024 Telephone encounter Note patient phones requesting refills as follows: Last seen 12/03/23 . Last refill 01/29/24 . Requested Prescriptions Pending Prescriptions Disp Refills zolpidem (AMBIEN) 10 mg 30 tablet 0 Sig: Take 1 tablet by mouth at bedtime as needed for up to 30 days. for insomnia. Please review and advise. Ayana Sandhu MA [facility] 02-29-2024 Miscellaneous Notes patient phones requesting refills as follows: Last seen 12/03/23 . Last refill 01/29/24 . Requested Prescriptions Pending Prescriptions Disp Refills zolpidem (AMBIEN) 10 mg 30 tablet 0 Sig: Take 1 tablet by mouth at bedtime as needed for up to 30 days. for insomnia. Please review and advise. Ayana Sandhu MA documented in this encounter [facility] 02-23-2024 Telephone encounter Note pharm requesting refills: Last office visit 12/03/2023. Last refill 11/26/2023 nov 03/04/2024 Requested Prescriptions Pending Prescriptions Disp Refills potassium chloride (K-TAB) 10 mEq tablet [Pharmacy Med Name: POTASSIUM CL ER 10 MEQ TABLET] 90 tablet 0 Sig: take 1 tablet by mouth every day Please review and advise. Bing Barron MA [facility] 02-23-2024 Miscellaneous Notes pharm requesting refills: Last office visit 12/03/2023. Last refill 11/26/2023 nov 03/04/2024 Requested Prescriptions Pending Prescriptions Disp Refills potassium chloride (K-TAB) 10 mEq tablet [Pharmacy Med Name: POTASSIUM CL ER 10 MEQ TABLET] 90 tablet 0 Sig: take 1 tablet by mouth every day Please review and advise. Bing Barron MA documented in this encounter [facility] 02-14-2024 Note HNO ID: [id number] Author: BOB MARTIN MD Service: ? Author Type: Physician Type: Progress Notes Filed: 02/14/2024 13:44 Note Text: FOLLOW UP VISIT NAME: Jackie Yu [facility] NO.: [id number] DATE OF SERVICE: 02/12/2024 : 1955 REFERRING PHYSICIAN: Elana Chery DO Jackie is a patient I am following for anal pain and occasional bleeding. Jackie is a 68 year old female with a complaint of anal pain. she has noticed anal pain with bleeding episodically for some time. she denies a history of constipation but did note some issues with frequent loose stools and straining. The patient was seen by her primary care physician and was referred for treatment. she has tried topical lidocaine. Patient's last colonoscopy was 10 years ago and she is currently due for colonoscopy. Patient has a history of coronary artery disease on Plavix and aspirin for coronary stents The patient is being seen by me today at the request of Dr. Elana Chery DO for my opinion and advice regarding anal pain likely fissure. She returns today for follow-up evaluation. She states she last noted irritation approximately 1 month ago. VITALS: Blood pressure 136/64, pulse 80, temperature 36.3 ?C (97.4 ?F), temperature source Temporal, weight 85.2 kg (187 lb 12.8 oz). On examination, deferred Assessment IMPRESSION: Anal discomfort, question fistula versus internal hemorrhoids PLAN: If the patient notes any problems or signs of recurrent bleeding, the patient should contact my office and follow-up for examination versus anoscopy and hemorrhoidal banding. Once this issue is solved we will discuss need for screening colonoscopy Diagnoses: (K62.5) Rectum bleeding (primary encounter diagnosis) (J44.9) Chronic obstructive pulmonary disease, unspecified COPD type (HCC) Return to Clinic: The patient is instructed to follow-up with me when symptomatic. Bob Martin MD [facility] 02-14-2024 History of Present illness Narrative FOLLOW UP VISIT NAME: Jackie Yu [facility] NO.: [id number] DATE OF SERVICE: 02/12/2024 : 1955 REFERRING PHYSICIAN: Elana Chery DO Jackie is a patient I am following for anal pain and occasional bleeding. Jackie is a 68 year old female with a complaint of anal pain. she has noticed anal pain with bleeding episodically for some time. she denies a history of constipation but did note some issues with frequent loose stools and straining. The patient was seen by her primary care physician and was referred for treatment. she has tried topical lidocaine. Patient's last colonoscopy was 10 years ago and she is currently due for colonoscopy. Patient has a history of coronary artery disease on Plavix and aspirin for coronary stents The patient is being seen by me today at the request of Dr. Elana Chery DO for my opinion and advice regarding anal pain likely fissure. She returns today for follow-up evaluation. She states she last noted irritation approximately 1 month ago. VITALS: Blood pressure 136/64, pulse 80, temperature 36.3 C (97.4 F), temperature source Temporal, weight 85.2 kg (187 lb 12.8 oz). On examination, deferred Assessment IMPRESSION: Anal discomfort, question fistula versus internal hemorrhoids PLAN: If the patient notes any problems or signs of recurrent bleeding, the patient should contact my office and follow-up for examination versus anoscopy and hemorrhoidal banding. Once this issue is solved we will discuss need for screening colonoscopy Diagnoses: (K62.5) Rectum bleeding (primary encounter diagnosis) (J44.9) Chronic obstructive pulmonary disease, unspecified COPD type (HCC) Return to Clinic: The patient is instructed to follow-up with me when symptomatic. Bob Martin MD documented in this encounter [facility] 02-12-2024 Note HNO ID: [id number] Author: JACQUI AVILA, ? Service: ? Author Type: ? Type: Progress Notes Filed: 02/12/2024 13:51 Note Text: [facility] POPULATION HEALTH NAVIGATION OUTREACH Action/FYI Patient needs to schedule AMW. Patient Identified by Name and : Yes, via phone and via [employer] Reason for Outreach Care Gap or Scheduling Wellness Visits Care Gap Reviewed:: Annual Wellness visit Colorectal Cancer Screening Outreach Outcome/Action Unable to reach patient: Left message [employer] message sent Population Health Navigation Workflow Chart Review Pre-Visit Planning Payer: [facility] Navigation Signature: Jacqui Avila February 12, 2024 1:46 PM [facility] 02-12-2024 History of Present illness Narrative [facility] POPULATION HEALTH NAVIGATION OUTREACH Action/FYI Patient needs to schedule AMW. Patient Identified by Name and : Yes, via phone and via MyChart Reason for Outreach Care Gap or Scheduling Wellness Visits Care Gap Reviewed:: Annual Wellness visit Colorectal Cancer Screening Outreach Outcome/Action Unable to reach patient: Left message [employer] message sent Population Health Navigation Workflow Chart Review Pre-Visit Planning Payer: [facility] Navigation Signature: Jacqui Avila February 12, 2024 1:46 PM documented in this encounter [facility] 02-12-2024 Note Patient Outreach (AG FAMPLE) JACKIE YU ([id number]) 1955 F Date Time Provider Department 02/12/24 JACQUI AVILA During your visit today, we recorded the following information about you: Jacqui Avila 02/12/2024 1:51 PM Signed [facility] POPULATION HEALTH NAVIGATION OUTREACH Action/FYI Patient needs to schedule AMW. Patient Identified by Name and : Yes, via phone and via MyChart Reason for Outreach Care Gap or Scheduling Wellness Visits Care Gap Reviewed:: Annual Wellness visit Colorectal Cancer Screening Outreach Outcome/Action Unable to reach patient: Left message MyChart message sent Population Health Navigation Workflow Chart Review Pre-Visit Planning Payer: [facility] Navigation Signature: Jacqui Avila February 12, 2024 1:46 PM Allergies As of Date: 02/12/2024 Noted Allergy Reaction TRAMADOL 05/09/2016 9 - Itching NIACIN 07/26/2015 2 - Rash GABAPENTIN 03/29/2022 7 - Swelling Date Reviewed: 02/12/2024 Reviewed by: Dominique Campos RN - Fully Assessed Reason for Visit: Population Health Navigation Outreach [[id number]] Cmt: [facility] Attributed Member- Needs 2023 Medicare Wellness Appt Scheduled Prescriptions as of 02/12/2024 - zolpidem (AMBIEN) 10 mg Take 1 tablet by mouth at bedtime as needed for up to 30 days. for insomnia. - potassium chloride (K-TAB) 10 mEq tablet take 1 tablet by mouth every day - famotidine (PEPCID) 20 mg tablet take 1 tablet by mouth every day - oxyCODONE-acetaminophen (PERCOCET) 5-325 mg tablet TAKE 1/2 TO 1 TABLET UP TO 3 TIMES DAILY NEEDED FOR PAIN - tiZANidine (ZANAFLEX) 4 mg tablet TAKE 1/2 TO 1 TABLET BY MOUTH UP TO 3 TIMES A DAY, NEEDED FOR MUSCLE SPASMS - amLODIPine (NORVASC) 5 mg tablet Take 1 tablet by mouth once daily. - albuterol HFA (PROVENTIL HFA, VENTOLIN HFA) 90 mcg/actuation inhaler USE 2 INHALATIONS BY MOUTH EVERY 4 HOURS NEEDED - nitroglycerin sublingual (NITROQUICK) 0.4 mg SL tablet DISSOLVE 1 TABLET UNDER THE TONGUE EVERY 5 MINUTES NEEDED. - docusate sodium (COLACE) 100 mg capsule Take 1 capsule by mouth twice daily. - benazepril (LOTENSIN) 10 mg tablet 1 po every day - acetaminophen (TYLENOL) 500 mg tablet Take 500 mg by mouth every 8 hours as needed. - calcium carbonate (TUMS) 500 mg chew Take 500 mg by mouth as needed. - hydroCHLOROthiazide (HYDRODIURIL, ESIDRIX) 12.5 mg tablet TAKE 1 TABLET BY MOUTH ONCE DAILY. - atorvastatin (LIPITOR) 80 mg tablet TAKE 1 TABLET BY MOUTH ONCE DAILY. - spironolactone (ALDACTONE) 25 mg tablet TAKE 1 TABLET BY MOUTH ONCE DAILY. - metoprolol succinate ER (TOPROL XL) 25 mg 24 hr tablet Take 25 mg by mouth once daily. One tablet at bedtime - clopidogrel (PLAVIX) 75 mg tablet Take 1 tablet by mouth once daily. - aspirin, enteric coated (ASPIRIN, ENTERIC COATED) 81 mg EC tablet Take 1 tablet by mouth once daily. Problem List As Of Date 02/12/2024 Noted Resolved ASCVD (arteriosclerotic cardiovascular disease)*02/13/2012 GERD with esophagitis [K21.00] 03/23/2017 Chronic insomnia [F51.04] 03/23/2017 Chronic midline low back pain with left-sided s*03/23/2017 Smoker [F17.200] 03/23/2017 Chronic thumb pain, left [M79.645, G89.29] 05/04/2017 01/07/2018 Heartburn [R12] 11/23/2017 Other emphysema (HCC) [J43.8] 12/04/2017 Hallux limitus of right foot [M20.5X1] 09/21/2018 Hypertension [I10] 09/21/2018 Osteoarthritis of multiple joints [M15.9] 09/28/2018 09/28/2018 Obesity, Class I, BMI 30-34.9 [E66.9] 03/01/2019 04/26/2020 Stage 3 chronic kidney disease (HCC) [N18.30] 05/12/2019 Hyponatremia [E87.1] 07/01/2019 Spinal stenosis of lumbar region [M48.061] 11/16/2020 Left lumbar radiculitis [M54.16] 11/16/2020 Microscopic hematuria [R31.29] 02/14/2022 Hypokalemia [E87.6] 02/14/2022 Hyperlipidemia, mixed [E78.2] 03/13/2022 Psoriasis [L40.9] 08/22/2022 Lipoma [D17.9] 09/16/2023 Lipoma of upper extremity [D17.20] 09/16/2023 Encounter Status:Closed by JACQUI AVILA on 02/12/24 [facility] 01-29-2024 Telephone encounter Note Pt requesting refills as follows: Last Office Visit: 12/03/2023 Last Refill: 12/29/2023 Next Office Visit: 03/04/2024 Requested Prescriptions Pending Prescriptions Disp Refills zolpidem (AMBIEN) 10 mg 30 tablet 0 Sig: Take 1 tablet by mouth at bedtime as needed for up to 30 days. for insomnia. Please review and advise. Maria Luisa Garcia LPN [facility] 01-29-2024 Miscellaneous Notes Pt requesting refills as follows: Last Office Visit: 12/03/2023 Last Refill: 12/29/2023 Next Office Visit: 03/04/2024 Requested Prescriptions Pending Prescriptions Disp Refills zolpidem (AMBIEN) 10 mg 30 tablet 0 Sig: Take 1 tablet by mouth at bedtime as needed for up to 30 days. for insomnia. Please review and advise. Maria Luisa Garcia LPN documented in this encounter [facility] 01-28-2024 Telephone encounter Note Patient requesting refills as follows: Last Office Visit 12/03/23 NOV 03/04/24. Last Refill 12/29/23. Requested Prescriptions Pending Prescriptions Disp Refills zolpidem (AMBIEN) 10 mg 30 tablet 0 Sig: Take 1 tablet by mouth at bedtime as needed for up to 30 days. for insomnia. Please review and advise. Kalyani Flores MA [facility] 01-28-2024 Miscellaneous Notes Patient requesting refills as follows: Last Office Visit 12/03/23 NOV 03/04/24. Last Refill 12/29/23. Requested Prescriptions Pending Prescriptions Disp Refills zolpidem (AMBIEN) 10 mg 30 tablet 0 Sig: Take 1 tablet by mouth at bedtime as needed for up to 30 days. for insomnia. Please review and advise. Kalyani Flores MA documented in this encounter [facility] 01-06-2024 Telephone encounter Note ----- Message from Bing Barron MA sent at 12/23/2023 7:32 AM EDT ----- Remind pt. Time to recheck potassium. Bing Barron MA [facility] 01-06-2024 Miscellaneous Notes ----- Message from Bing Barron MA sent at 12/23/2023 7:32 AM EDT ----- Remind pt. Time to recheck potassium. Bing Barron MA documented in this encounter [facility] 12-29-2023 Telephone encounter Note Patient requesting refills: Last office visit 12/03/2023. Last refill 11/30/2023 nov 03/04/2024 Requested Prescriptions Pending Prescriptions Disp Refills zolpidem (AMBIEN) 10 mg 30 tablet 0 Sig: Take 1 tablet by mouth at bedtime as needed for up to 30 days. for insomnia. Please review and advise. Bing Barron MA [facility] 12-29-2023 Miscellaneous Notes Patient requesting refills: Last office visit 12/03/2023. Last refill 11/30/2023 nov 03/04/2024 Requested Prescriptions Pending Prescriptions Disp Refills zolpidem (AMBIEN) 10 mg 30 tablet 0 Sig: Take 1 tablet by mouth at bedtime as needed for up to 30 days. for insomnia. Please review and advise. Bing Barron MA documented in this encounter [facility] 12-26-2023 Note HNO ID: [id number] Author: BOB MARTIN MD Service: ? Author Type: Physician Type: Progress Notes Filed: 12/26/2023 07:48 Note Text: HISTORY AND PHYSICAL Jackie Yu 1955 REFERRING PHYSICIAN: Elana Chery DO CHIEF COMPLAINT: Anal Pain HPI: Jackie is a 68 year old female with a complaint of anal pain. she has noticed anal pain with bleeding episodically for some time. she denies a history of constipation but did note some issues with frequent loose stools and straining. The patient was seen by her primary care physician and was referred for treatment. she has tried topical lidocaine. Patient's last colonoscopy was 10 years ago and she is currently due for colonoscopy. Patient has a history of coronary artery disease on Plavix and aspirin for coronary stents The patient is being seen by me today at the request of Dr. Elana Chery DO for my opinion and advice regarding anal pain likely fissure. SIGNIFICANT MEDICAL PROBLEMS: PAST MEDICAL HISTORY Diagnosis Date Arthritis ASCVD (arteriosclerotic cardiovascular disease) Chronic insomnia Chronic kidney disease, stage III (moderate) ([facility]) Closed displaced fracture of metatarsal bone of right foot DDD (degenerative disc disease), cervical GERD (gastroesophageal reflux disease) Hallux limitus of right foot Heart attack (HCC) 10/23/2006 another in apr 2015 High cholesterol Hypertension Hypokalemia Hyponatremia IBS (irritable bowel syndrome) Left lumbar radiculitis Microscopic hematuria Other emphysema (HCC) Psoriasis Spinal stenosis OPERATIONS: PAST SURGICAL HISTORY Procedure Laterality Date FOOT SURGERY HX Right 1999 heal spur, tarsal tunnel FOOT SURGERY HX Right 09/28/2018 spur removed HEART SURGERY HX stents x11 HYSTERECTOMY 2000 HYSTERECTOMY HX IMPLANT NEUROELECTRD, PERIPHER STENTS (SPECIFY) heart stents, 2006, 2008, 2007, 2009, 2014 TONSILLECTOMY HX 1984 CURRENT MEDICATIONS: Current Outpatient Medications Medication Sig Dispense Refill zolpidem (AMBIEN) 10 mg Take 1 tablet by mouth at bedtime as needed for up to 30 days. for insomnia. 30 tablet 0 potassium chloride (K-TAB) 10 mEq tablet take 1 tablet by mouth every day 90 tablet 0 famotidine (PEPCID) 20 mg tablet take 1 tablet by mouth every day 90 tablet 3 oxyCODONE-acetaminophen (PERCOCET) 5-325 mg tablet TAKE 1/2 TO 1 TABLET UP TO 3 TIMES DAILY NEEDED FOR PAIN tiZANidine (ZANAFLEX) 4 mg tablet TAKE 1/2 TO 1 TABLET BY MOUTH UP TO 3 TIMES A DAY, NEEDED FOR MUSCLE SPASMS amLODIPine (NORVASC) 5 mg tablet Take 1 tablet by mouth once daily. 90 tablet 3 albuterol HFA (PROVENTIL HFA, VENTOLIN HFA) 90 mcg/actuation inhaler USE 2 INHALATIONS BY MOUTH EVERY 4 HOURS NEEDED 40.2 g 3 nitroglycerin sublingual (NITROQUICK) 0.4 mg SL tablet DISSOLVE 1 TABLET UNDER THE TONGUE EVERY 5 MINUTES NEEDED. 100 tablet 0 docusate sodium (COLACE) 100 mg capsule Take 1 capsule by mouth twice daily. (Patient taking differently: Take 100 mg by mouth as needed.) 60 capsule 0 benazepril (LOTENSIN) 10 mg tablet 1 po every day acetaminophen (TYLENOL) 500 mg tablet Take 500 mg by mouth every 8 hours as needed. calcium carbonate (TUMS) 500 mg chew Take 500 mg by mouth as needed. hydroCHLOROthiazide (HYDRODIURIL, ESIDRIX) 12.5 mg tablet TAKE 1 TABLET BY MOUTH ONCE DAILY. 90 tablet 3 atorvastatin (LIPITOR) 80 mg tablet TAKE 1 TABLET BY MOUTH ONCE DAILY. 30 tablet 11 spironolactone (ALDACTONE) 25 mg tablet TAKE 1 TABLET BY MOUTH ONCE DAILY. 90 tablet 3 metoprolol succinate ER (TOPROL XL) 25 mg 24 hr tablet Take 25 mg by mouth once daily. One tablet at bedtime clopidogrel (PLAVIX) 75 mg tablet Take 1 tablet by mouth once daily. 0 aspirin, enteric coated (ASPIRIN, ENTERIC COATED) 81 mg EC tablet Take 1 tablet by mouth once daily. 0 No current facility-administered medications for this visit. ALLERGIES: Tramadol, Niacin, and Gabapentin PERSONAL HISTORY: Social History Tobacco Use Smoking status: Every Day Packs/day: 1.00 Years: 45.00 Additional pack years: 0.00 Total pack years: 45.00 Types: Cigarettes Start date: 07/13/1984 Smokeless tobacco: Never Vaping Use Vaping Use: Never used Substance Use Topics Alcohol use: Yes Comment: rare Drug use: Never FAMILY HISTORY: FAMILY HISTORY Problem Relation Age of Onset Heart Mother CABG Hyperlipidemia Mother Hypertension Mother Coronary Artery Disease Mother Heart Sister stents No Known Problems Brother Diabetes No Family History Stroke No Family History Blood Disease No Family History Blood Clots No Family History Factor 5 Leiden No Family History DVT No Family History Systemic Lupus Erythematosus No Family History Multiple Sclerosis No Family History Bipolar disorder No Family History Schizophrenia No Family History Alzheimer's Disease No Family History Dementia No Family History Parkinson?s Disease (more content not included)... [facility] 12-26-2023 History of Present illness Narrative HISTORY AND PHYSICAL Jackie Yu 1955 REFERRING PHYSICIAN: Elana Chery DO CHIEF COMPLAINT: Anal Pain HPI: Jackie is a 68 year old female with a complaint of anal pain. she has noticed anal pain with bleeding episodically for some time. she denies a history of constipation but did note some issues with frequent loose stools and straining. The patient was seen by her primary care physician and was referred for treatment. she has tried topical lidocaine. Patient's last colonoscopy was 10 years ago and she is currently due for colonoscopy. Patient has a history of coronary artery disease on Plavix and aspirin for coronary stents The patient is being seen by me today at the request of Dr. Elana Chery DO for my opinion and advice regarding anal pain likely fissure. SIGNIFICANT MEDICAL PROBLEMS: PAST MEDICAL HISTORY Diagnosis Date Arthritis ASCVD (arteriosclerotic cardiovascular disease) Chronic insomnia Chronic kidney disease, stage III (moderate) (HCC) Closed displaced fracture of metatarsal bone of right foot DDD (degenerative disc disease), cervical GERD (gastroesophageal reflux disease) Hallux limitus of right foot Heart attack (HCC) 10/23/2006 another in apr 2015 High cholesterol Hypertension Hypokalemia Hyponatremia IBS (irritable bowel syndrome) Left lumbar radiculitis Microscopic hematuria Other emphysema (HCC) Psoriasis Spinal stenosis OPERATIONS: PAST SURGICAL HISTORY Procedure Laterality Date FOOT SURGERY HX Right 1999 heal spur, tarsal tunnel FOOT SURGERY HX Right 09/28/2018 spur removed HEART SURGERY HX stents x11 HYSTERECTOMY 2000 HYSTERECTOMY HX IMPLANT NEUROELECTRD, PERIPHER STENTS (SPECIFY) heart stents, 2006, 2008, 2007, 2009, 2014 TONSILLECTOMY HX 1984 CURRENT MEDICATIONS: Current Outpatient Medications Medication Sig Dispense Refill zolpidem (AMBIEN) 10 mg Take 1 tablet by mouth at bedtime as needed for up to 30 days. for insomnia. 30 tablet 0 potassium chloride (K-TAB) 10 mEq tablet take 1 tablet by mouth every day 90 tablet 0 famotidine (PEPCID) 20 mg tablet take 1 tablet by mouth every day 90 tablet 3 oxyCODONE-acetaminophen (PERCOCET) 5-325 mg tablet TAKE 1/2 TO 1 TABLET UP TO 3 TIMES DAILY NEEDED FOR PAIN tiZANidine (ZANAFLEX) 4 mg tablet TAKE 1/2 TO 1 TABLET BY MOUTH UP TO 3 TIMES A DAY, NEEDED FOR MUSCLE SPASMS amLODIPine (NORVASC) 5 mg tablet Take 1 tablet by mouth once daily. 90 tablet 3 albuterol HFA (PROVENTIL HFA, VENTOLIN HFA) 90 mcg/actuation inhaler USE 2 INHALATIONS BY MOUTH EVERY 4 HOURS NEEDED 40.2 g 3 nitroglycerin sublingual (NITROQUICK) 0.4 mg SL tablet DISSOLVE 1 TABLET UNDER THE TONGUE EVERY 5 MINUTES NEEDED. 100 tablet 0 docusate sodium (COLACE) 100 mg capsule Take 1 capsule by mouth twice daily. (Patient taking differently: Take 100 mg by mouth as needed.) 60 capsule 0 benazepril (LOTENSIN) 10 mg tablet 1 po every day acetaminophen (TYLENOL) 500 mg tablet Take 500 mg by mouth every 8 hours as needed. calcium carbonate (TUMS) 500 mg chew Take 500 mg by mouth as needed. hydroCHLOROthiazide (HYDRODIURIL, ESIDRIX) 12.5 mg tablet TAKE 1 TABLET BY MOUTH ONCE DAILY. 90 tablet 3 atorvastatin (LIPITOR) 80 mg tablet TAKE 1 TABLET BY MOUTH ONCE DAILY. 30 tablet 11 spironolactone (ALDACTONE) 25 mg tablet TAKE 1 TABLET BY MOUTH ONCE DAILY. 90 tablet 3 metoprolol succinate ER (TOPROL XL) 25 mg 24 hr tablet Take 25 mg by mouth once daily. One tablet at bedtime clopidogrel (PLAVIX) 75 mg tablet Take 1 tablet by mouth once daily. 0 aspirin, enteric coated (ASPIRIN, ENTERIC COATED) 81 mg EC tablet Take 1 tablet by mouth once daily. 0 No current facility-administered medications for this visit. ALLERGIES: Tramadol, Niacin, and Gabapentin PERSONAL HISTORY: Social History Tobacco Use Smoking status: Every Day Packs/day: 1.00 Years: 45.00 Additional pack years: 0.00 Total pack years: 45.00 Types: Cigarettes Start date: 07/13/1984 Smokeless tobacco: Never Vaping Use Vaping Use: Never used Substance Use Topics Alcohol use: Yes Comment: rare Drug use: Never FAMILY HISTORY: FAMILY HISTORY Problem Relation Age of Onset Heart Mother CABG Hyperlipidemia Mother Hypertension Mother Coronary Artery Disease Mother Heart Sister stents No Known Problems Brother Diabetes No Family History Stroke No Family History Blood Disease No Family History Blood Clots No Family History Factor 5 Leiden No Family History DVT No Family History Systemic Lupus Erythematosus No Family History Multiple Sclerosis No Family History Bipolar disorder No Family History Schizophrenia No Family History Alzheimer's Disease No Family History Dementia No Family History Parkinson s Disease No Family History COPD No Family History Aneurysm No Family History REVIEW OF SYMPTOMS: The review of systems data was entered by the nurse and reviewed by mn Nursing Notes: Karyna Rogers RN 12/25/2023 1:28 PM Signed REVIEW OF SYSTEMS: General: The patient denies fatigue, denies weight loss, denies weight gain, denies feeling hot, and denies feelings of cold. Eyes: The patient denies glaucoma, denies eye injury/surgery, does not wear glasses or contacts. Ear/Nose/Throat: The patient NOTES allergies, denies hayfever, denies ear infections, and denies bloody noses. Cardiovascular: The patient denies chest pain, NOTES heart disease, NOTES high blood pressure,NOTES cardiac stent, NOTES prior heart attack, denies irregular heart beat, NOTES high cholesterol, denies poor circulation, denies heart failure, other cardiac issues, denies claudication, denies cold feet, denies peripheral arterial stent. Respiratory: The patient denies tuberculosis, denies pneumonia, NOTES frequent cough, denies pulmonary embolism, NOTES shortness of breath, and denies coughing up blood. Gastrointestinal: The patient denies difficulty swallowing, NOTES acid reflux, denies ulcers, denies vomiting, denies jaundice/hepatitis, denies gallbladder problems, denies black or tarry stools, denies hemorrhoids, NOTES bleeding from rectum, denies diverticulitis, denies constipation, denies diarrhea, denies loss of stool control, and denies hernias. Kidney/Bladder: The patient NOTES kidney disease, denies urine infections, and denies bloody urine. Skin: The patient denies a history of skin cancer, denies bleeding/changing moles, and denies a history of skin rash. Neurologic: The patient denies a history of epilepsy/convulsions, denies headaches, NOTES head/spinal injuries, and denies stroke/TIA. Psychiatric: The patient denies psychiatric medications, denies depression, and denies voices, denies substance abuse. Endocrine: The patient denies thyroid disorders, denies diabetes, and denies hormonal problems. Hematologic: The patient NOTES a history of bruising, NOTES bleeding, and denies anemia, denies blood clots. Infections: The patient NOTES a history of measles and mumps, denies rheumatic fever, and denies sexually transmitted diseases. Musculoskeletal: The patient NOTES back pain/injury, NOTES back problems, denies sciatica, denies knee/foot trouble, denies arthritis, or denies gout. When was patient's last Mammogram screening? 04/2023 Last Colonoscopy: more than 10 years ago Karyna Rogers RN PHYSICAL EXAMINATION: General: The patient is 68 year old female, well nourished, well hydrated in no acute distress. The patient is oriented to time, place, and person. VITALS: Blood pressure 110/72, pulse 95, temperature 36.6 C (97.8 F), weight 82.7 kg (182 lb 6.4 oz), SpO2 97%. Body mass index is 29.22 kg/m . HEENT: exam deferred Respiratory: exam deferred Cardiac: exam deferred. Abdominal exam: exam deferred Rectal exam: External exam -a anterior sentinal pile. An anterior and possibly small posterior midline fissure noted. Digital rectal exam - deferred Extremities: exam deferred Other: LABORATORY VALUES: As Noted RADIOLOGIC STUDIES: As Noted Assessment IMPRESSION: ANAL FISSURE PLAN: Jackie is instructed to perform sitz baths twice a day and after each bowel movement. Place dibucaine ointment on anus as needed and before all bowel movements. Keep stools soft and avoid straining if possible. Diltaizem ointment is prescribed, use twice a day. Note that this is different fron the dibucaine or pain ointment that you should use as often as needed Return if symptoms fail to improve. We discussed that regulation of stool is berger to healing of the fissure. Most fissures heal with these measures. Return if symptoms fail to improve. We will talk about and plan for colonoscopy later in the fall once her fissure has healed. Diagnoses: (J44.9) Chronic obstructive pulmonary disease, unspecified COPD type (HCC) (primary encounter diagnosis) (K62.5) Rectum bleeding My findings have been communicated to Dr. Elnaa Chery DO via shared medical record. This note will be forwarded to Dr. Elana Chery DO. Return to Clinic: The patient is instructed to follow-up with me if no improvement in symptoms. Bob Martin MD documented in this encounter [facility] 12-25-2023 Instructions Bob Martin MD - 12/25/2023 2:02 PM EDT The following instructions are important for you related to your office visit today with the [facility]. INSTRUCTIONS FOR AN ANAL FISSURE You have an anal fissure. An anal fissure is a small tear at at the edge of the anus. It is usually caused by straining with bowel movements, but sometime it occurs during periods of loose stools or diarrhea. 70% of the time, anal fissures will heal will regulation of the stools and conservative measures. Regulation of the bowel habits is most important - The fissure will not heal if there is continued straining. I usually recommend fiber for initial regularion. Add Miralax - now available over the counter, if fiber alone isn't helping the constipation. Healing of the fissure will not occur until bowel regulation is achieved I recommend that you avoid spicy foods and perform sitz baths three to four times per day and after bovel movements. A sitz bath is drawing luke warm water in the bathtub and soaking. The purpose is to relax the sphincter and rinse the anal area. DO NOT ADD EPSOM SALTS OR OTHER INGREDIENTS THIS CAN INCREASE THE BURNING. I will recommend a topical pain ointment, usually dibucaine or proctocream With each bowel movement, I recommend placing the topcial pain ointment prior to the bowel movements and use baby wipes and perform a sitz bath after each bowel movement. Dibucaine can be used between times as needed for anal pain. It the above measures are not helping within one week, call the office, and we may prescribe Diltiazem ointment. ( this is different from Dibucaine). If prescribed, it should be applied to the anal area twice a day. If you note any difficulties or concerns, you should contact our office immediately. If you note any additional difficulties, questions, or concerns, you should contact our office immediately @ [phone] and ask to be transferred to the General Surgery department. documented in this encounter [facility] 12-25-2023 Nurse Note REVIEW OF SYSTEMS: General: The patient denies fatigue, denies weight loss, denies weight gain, denies feeling hot, and denies feelings of cold. Eyes: The patient denies glaucoma, denies eye injury/surgery, does not wear glasses or contacts. Ear/Nose/Throat: The patient NOTES allergies, denies hayfever, denies ear infections, and denies bloody noses. Cardiovascular: The patient denies chest pain, NOTES heart disease, NOTES high blood pressure,NOTES cardiac stent, NOTES prior heart attack, denies irregular heart beat, NOTES high cholesterol, denies poor circulation, denies heart failure, other cardiac issues, denies claudication, denies cold feet, denies peripheral arterial stent. Respiratory: The patient denies tuberculosis, denies pneumonia, NOTES frequent cough, denies pulmonary embolism, NOTES shortness of breath, and denies coughing up blood. Gastrointestinal: The patient denies difficulty swallowing, NOTES acid reflux, denies ulcers, denies vomiting, denies jaundice/hepatitis, denies gallbladder problems, denies black or tarry stools, denies hemorrhoids, NOTES bleeding from rectum, denies diverticulitis, denies constipation, denies diarrhea, denies loss of stool control, and denies hernias. Kidney/Bladder: The patient NOTES kidney disease, denies urine infections, and denies bloody urine. Skin: The patient denies a history of skin cancer, denies bleeding/changing moles, and denies a history of skin rash. Neurologic: The patient denies a history of epilepsy/convulsions, denies headaches, NOTES head/spinal injuries, and denies stroke/TIA. Psychiatric: The patient denies psychiatric medications, denies depression, and denies voices, denies substance abuse. Endocrine: The patient denies thyroid disorders, denies diabetes, and denies hormonal problems. Hematologic: The patient NOTES a history of bruising, NOTES bleeding, and denies anemia, denies blood clots. Infections: The patient NOTES a history of measles and mumps, denies rheumatic fever, and denies sexually transmitted diseases. Musculoskeletal: The patient NOTES back pain/injury, NOTES back problems, denies sciatica, denies knee/foot trouble, denies arthritis, or denies gout. When was patient's last Mammogram screening? 04/2023 Last Colonoscopy: more than 10 years ago Karyna Rogers RN [facility] 12-25-2023 Nurse Note REVIEW OF SYSTEMS: General: The patient denies fatigue, denies weight loss, denies weight gain, denies feeling hot, and denies feelings of cold. Eyes: The patient denies glaucoma, denies eye injury/surgery, does not wear glasses or contacts. Ear/Nose/Throat: The patient NOTES allergies, denies hayfever, denies ear infections, and denies bloody noses. Cardiovascular: The patient denies chest pain, NOTES heart disease, NOTES high blood pressure,NOTES cardiac stent, NOTES prior heart attack, denies irregular heart beat, NOTES high cholesterol, denies poor circulation, denies heart failure, other cardiac issues, denies claudication, denies cold feet, denies peripheral arterial stent. Respiratory: The patient denies tuberculosis, denies pneumonia, NOTES frequent cough, denies pulmonary embolism, NOTES shortness of breath, and denies coughing up blood. Gastrointestinal: The patient denies difficulty swallowing, NOTES acid reflux, denies ulcers, denies vomiting, denies jaundice/hepatitis, denies gallbladder problems, denies black or tarry stools, denies hemorrhoids, NOTES bleeding from rectum, denies diverticulitis, denies constipation, denies diarrhea, denies loss of stool control, and denies hernias. Kidney/Bladder: The patient NOTES kidney disease, denies urine infections, and denies bloody urine. Skin: The patient denies a history of skin cancer, denies bleeding/changing moles, and denies a history of skin rash. Neurologic: The patient denies a history of epilepsy/convulsions, denies headaches, NOTES head/spinal injuries, and denies stroke/TIA. Psychiatric: The patient denies psychiatric medications, denies depression, and denies voices, denies substance abuse. Endocrine: The patient denies thyroid disorders, denies diabetes, and denies hormonal problems. Hematologic: The patient NOTES a history of bruising, NOTES bleeding, and denies anemia, denies blood clots. Infections: The patient NOTES a history of measles and mumps, denies rheumatic fever, and denies sexually transmitted diseases. Musculoskeletal: The patient NOTES back pain/injury, NOTES back problems, denies sciatica, denies knee/foot trouble, denies arthritis, or denies gout. When was patient's last Mammogram screening? 04/2023 Last Colonoscopy: more than 10 years ago Karyna Rogers RN documented in this encounter [facility] 12-23-2023 Telephone encounter Note Pt. Received my chart message. Bing Barron MA [facility] 12-23-2023 Miscellaneous Notes Pt. Received my chart message. Bing Barron MA Please notify pt request for zolpidem is too soon - please call again on 12/28 for refill Elana Chery DO Patient notified and voiced understanding. Reminder placed. Also pt. Is requesting refill on ambien. Bing Barron MA Please call pt- the blood work she had in November shows slightly low potassium and sodium. I would like for her to eat high potassium foods for 2 weeks, and we will recheck her potassium. The rest of the blood work was OK. I sent her a list of potassium rich foods in a my-chart message Elana Chery DO documented in this encounter [facility] 12-23-2023 Telephone encounter Note Please notify pt request for zolpidem is too soon - please call again on 12/28 for refill Elana Chery DO [facility] 12-23-2023 Telephone encounter Note Patient notified and voiced understanding. Reminder placed. Also pt. Is requesting refill on ambien. Bing Barron MA [facility] 12-22-2023 Telephone encounter Note Please call pt- the blood work she had in November shows slightly low potassium and sodium. I would like for her to eat high potassium foods for 2 weeks, and we will recheck her potassium. The rest of the blood work was OK. I sent her a list of potassium rich foods in a my-chart message Elana Chery DO [facility] 12-03-2023 History of Present illness Narrative Subjective HPI Pt is here for f/u for insomnia, chronic lower back pain, and for ER f/u She was seen in the ED of [facility] on 11/08 for rectal pain She has skin tags around her rectum, has burning when she has a BM She would like to see Dr. Martin, general surgeon, for colonoscopy and the rectal skin tags Her feet and ankles have been swelling and tingling since it got hot Usually when she wakes up in the morning, the swelling has improved She has low sodium, her size mixer tells her to eat more salt, but she does not like salt ALLERGIES Allergen Reactions Tramadol Itching Niacin Rash Gabapentin Swelling Current Outpatient Medications Medication Sig Dispense Refill zolpidem (AMBIEN) 10 mg Take 1 tablet by mouth at bedtime as needed for up to 30 days. for insomnia. 30 tablet 0 potassium chloride (K-TAB) 10 mEq tablet take 1 tablet by mouth every day 90 tablet 0 famotidine (PEPCID) 20 mg tablet take 1 tablet by mouth every day 90 tablet 3 oxyCODONE-acetaminophen (PERCOCET) 5-325 mg tablet TAKE 1/2 TO 1 TABLET UP TO 3 TIMES DAILY NEEDED FOR PAIN tiZANidine (ZANAFLEX) 4 mg tablet TAKE 1/2 TO 1 TABLET BY MOUTH UP TO 3 TIMES A DAY, NEEDED FOR MUSCLE SPASMS amLODIPine (NORVASC) 5 mg tablet Take 1 tablet by mouth once daily. 90 tablet 3 albuterol HFA (PROVENTIL HFA, VENTOLIN HFA) 90 mcg/actuation inhaler USE 2 INHALATIONS BY MOUTH EVERY 4 HOURS NEEDED 40.2 g 3 nitroglycerin sublingual (NITROQUICK) 0.4 mg SL tablet DISSOLVE 1 TABLET UNDER THE TONGUE EVERY 5 MINUTES NEEDED. 100 tablet 0 docusate sodium (COLACE) 100 mg capsule Take 1 capsule by mouth twice daily. (Patient taking differently: Take 100 mg by mouth as needed.) 60 capsule 0 benazepril (LOTENSIN) 10 mg tablet 1 po every day acetaminophen (TYLENOL) 500 mg tablet Take 500 mg by mouth every 8 hours as needed. calcium carbonate (TUMS) 500 mg chew Take 500 mg by mouth as needed. hydroCHLOROthiazide (HYDRODIURIL, ESIDRIX) 12.5 mg tablet TAKE 1 TABLET BY MOUTH ONCE DAILY. 90 tablet 3 atorvastatin (LIPITOR) 80 mg tablet TAKE 1 TABLET BY MOUTH ONCE DAILY. 30 tablet 11 spironolactone (ALDACTONE) 25 mg tablet TAKE 1 TABLET BY MOUTH ONCE DAILY. 90 tablet 3 metoprolol succinate ER (TOPROL XL) 25 mg 24 hr tablet Take 25 mg by mouth once daily. One tablet at bedtime clopidogrel (PLAVIX) 75 mg tablet Take 1 tablet by mouth once daily. 0 aspirin, enteric coated (ASPIRIN, ENTERIC COATED) 81 mg EC tablet Take 1 tablet by mouth once daily. 0 lidocaine (LIDODERM) 5 % Apply 1 Patch as directed once daily. REMOVE AFTER 12 HOURS. (Patient not taking: Reported on 12/03/2023) 30 Patch 2 pravastatin (PRAVACHOL) 80 mg tablet Take 80 mg by mouth daily at bedtime. (Patient not taking: Reported on 12/03/2023) No current facility-administered medications for this visit. ACTIVE PROBLEM LIST Ascvd (Arteriosclerotic Cardiovascular Disease) Gerd With Esophagitis Chronic Insomnia Chronic Midline Low Back Pain With Left-Sided Sciatica Smoker Heartburn Other Emphysema (Hcc) Hallux Limitus of Right Foot High Cholesterol Hypertension Stage 3 Chronic Kidney Disease (Hcc) Hyponatremia Spinal Stenosis of Lumbar Region Left Lumbar Radiculitis Microscopic Hematuria Hypokalemia Hyperlipidemia, Mixed Psoriasis Lipoma Lipoma of Upper Extremity Social History Tobacco Use Smoking status: Every Day Packs/day: 1.00 Years: 45.00 Additional pack years: 0.00 Total pack years: 45.00 Types: Cigarettes Start date: 07/13/1984 Smokeless tobacco: Never Vaping Use Vaping Use: Never used Substance Use Topics Alcohol use: Yes Comment: rare Drug use: Never Family History Problem Relation Age of Onset Heart Mother CABG Hyperlipidemia Mother Hypertension Mother Coronary Artery Disease Mother Heart Sister stents No Known Problems Brother Diabetes No Family History Stroke No Family History Blood Disease No Family History Blood Clots No Family History Factor 5 Leiden No Family History DVT No Family History Systemic Lupus Erythematosus No Family History Multiple Sclerosis No Family History Bipolar disorder No Family History Schizophrenia No Family History Alzheimer's Disease No Family History Dementia No Family History Parkinson s Disease No Family History COPD No Family History Aneurysm No Family History Reviewed past medical history, family history and surgeries. All medications and supplements were reviewed with the patient. Review of Systems Constitutional: Negative for chills, diaphoresis, fever, malaise/fatigue and weight loss. HENT: Negative for ear pain and hearing loss. Eyes: Negative for blurred vision and double vision. Respiratory: Negative for cough and shortness of breath. Cardiovascular: Positive for leg swelling. Negative for chest pain and palpitations. Gastrointestinal: Negative for constipation, diarrhea and heartburn. Rectal bleeding, Burning and pain with BMs, rectal skin tags Genitourinary: Negative for dysuria and frequency. Musculoskeletal: Negative for back pain, falls, joint pain and myalgias. Skin: Negative for itching and rash. Neurological: Negative for dizziness, weakness and headaches. Endo/Heme/Allergies: Does not bruise/bleed easily. Psychiatric/Behavioral: Negative for depression and substance abuse. The patient does not have insomnia. Objective BP 108/66 Pulse 85 Temp 36.7 C (98 F) Resp 16 Ht 168.3 cm (5' 6.25) Wt 84.4 kg (186 lb) SpO2 98% BMI 29.80 kg/m Physical Exam Constitutional: Appearance: Normal appearance. HENT: Head: Normocephalic and atraumatic. Nose: Nose normal. Mouth/Throat: Mouth: Mucous membranes are moist. Dentition: Normal dentition. Eyes: General: Lids are normal. Extraocular Movements: Extraocular movements intact. Conjunctiva/sclera: Conjunctivae normal. Pupils: Pupils are equal, round, and reactive to light. Neck: Thyroid: No thyroid mass or thyromegaly. Vascular: No carotid bruit. Trachea: Phonation normal. Cardiovascular: Rate and Rhythm: Normal rate and regular rhythm. Heart sounds: Normal heart sounds. No murmur heard. No friction rub. No gallop. Pulmonary: Effort: Pulmonary effort is normal. Breath sounds: Normal breath sounds. No wheezing or rales. Abdominal: General: Bowel sounds are normal. There is no distension. Palpations: Abdomen is soft. There is no mass. Tenderness: There is no abdominal tenderness. Genitourinary: Comments: Rectal exam deferred Musculoskeletal: General: Swelling (nonpitting edema to distal mcgrath b/l, no erythema or warmth) present. No tenderness. Normal range of motion. Cervical back: Normal range of motion and neck supple. No edema. Lymphadenopathy: Cervical: No cervical adenopathy. Skin: General: Skin is warm and dry. Findings: No erythema or rash. Nails: There is no clubbing. Neurological: Mental Status: She is alert and oriented to person, place, and time. Cranial Nerves: No cranial nerve deficit. Motor: Motor function is intact. Coordination: Coordination normal. Gait: Gait is intact. Psychiatric: Attention and Perception: Attention normal. Mood and Affect: Mood and affect normal. Speech: Speech normal. Behavior: Behavior normal. Behavior is cooperative. Thought Content: Thought content normal. Cognition and Memory: Cognition and memory normal. Judgment: Judgment normal. ASSESSMENT/PLAN: 1. Rectum bleeding - ICD9: 569.3, ICD10: K62.5 (primary diagnosis) - CONSULT TO GENERAL SURGERY - Dr. Martin 2. Chronic insomnia - ICD9: 780.52, ICD10: F51.04 Continue zolpidem 10 mg as needed 3. Spinal stenosis of lumbar region, unspecified whether neurogenic claudication present - ICD9: 724.02, ICD10: M48.061 Continue percocet as needed 4. Leg swelling - ICD9: 729.81, ICD10: M79.89 Pt is on spironolactone Advised to elevate lower extremities when resting 5. Other emphysema (HCC) - ICD9: 492.8, ICD10: J43.8 Smoking cessation encouraged 6. Hyponatremia - ICD9: 276.1, ICD10: E87.1 Pt advised to use more salt 7. Stage 3 chronic kidney disease, unspecified whether stage 3a or 3b CKD (HCC) - ICD9: 585.3, ICD10: N18.30 monitor 8. Smoker - ICD9: 305.1, ICD10: F17.200 - Cessation encouraged. - Physiologic and physical aspects of tobacco addiction as well as strategies for quitting were discussed. - Counseling was given focusing on the harmful effects of this addiction especially given the patient's medical condition(s) which will be worsened because of the chemicals in tobacco. Elana Chery DO PDMP website checked and validated. All prescriptions have been APPROPRIATELY filled. No suspicious activity was identified. 12/19/2023 by Elana Chery DO documented in this encounter [facility] 11-30-2023 Telephone encounter Note Patient requesting refills: Last office visit 09/04/23 Last refill 11/02/2023 nov 12/03/2023 Requested Prescriptions Pending Prescriptions Disp Refills zolpidem (AMBIEN) 10 mg 30 tablet 0 Sig: Take 1 tablet by mouth at bedtime as needed for up to 30 days. for insomnia. Please review and advise. Bing Barron MA [facility] 11-30-2023 Miscellaneous Notes Patient requesting refills: Last office visit 09/04/23 Last refill 11/02/2023 nov 12/03/2023 Requested Prescriptions Pending Prescriptions Disp Refills zolpidem (AMBIEN) 10 mg 30 tablet 0 Sig: Take 1 tablet by mouth at bedtime as needed for up to 30 days. for insomnia. Please review and advise. Bing Barron MA documented in this encounter [facility] 11-26-2023 Telephone encounter Note Patient is informed Kalyani Flores MA [facility] 11-26-2023 Miscellaneous Notes Patient is informed Kalyani Flores MA Please notify pt they are due for blood work - order attached Elana Chery DO pharmacy electronically requesting refills as follows: Last seen 09/04/23 . Last refill 08/31/23 . Requested Prescriptions Pending Prescriptions Disp Refills potassium chloride (K-TAB) 10 mEq tablet [Pharmacy Med Name: POTASSIUM CL ER 10 MEQ TABLET] 90 tablet 0 Sig: take 1 tablet by mouth every day Please review and advise. Ayana Sandhu MA documented in this encounter [facility] 11-26-2023 Telephone encounter Note Please notify pt they are due for blood work - order attached Elanaulises Chery DO [facility] 11-26-2023 Telephone encounter Note pharmacy electronically requesting refills as follows: Last seen 09/04/23 . Last refill 08/31/23 . Requested Prescriptions Pending Prescriptions Disp Refills potassium chloride (K-TAB) 10 mEq tablet [Pharmacy Med Name: POTASSIUM CL ER 10 MEQ TABLET] 90 tablet 0 Sig: take 1 tablet by mouth every day Please review and advise. Ayana Sandhu MA [facility] 11-16-2023 History of Present illness Narrative ED Follow Up: Patient discharged from [facility] ED on 11/09/23. 1. How are you feeling since your ED visit? Pt continues to have pain ins company not covering medication Have your symptoms improved or resolved? No 2. Were you prescribed any medications while in the ED or advised to stop any medication? Yes - If yes, were you able to fill your prescriptions? No -if stopped medication, what was the medication? NA 3. Were you advised to schedule a follow up appointment with your provider? Yes - If no, Do you feel like you need an appointment scheduled? Not applicable - If yes, Do you need this scheduled now or has this already been scheduled? No 4. Were you able to contact the office or butter production supervisor provider prior to your ED visit? No 5. Is there anything else I can do for you today? No documented in this encounter [facility] 11-10-2023 Telephone encounter Note Patient called she tried getting her prescription from the ER for the lidocaine gel but the insurance won't cover so she was wondering if something else could be sent Kalyani Flores MA [facility] 11-10-2023 Miscellaneous Notes Patient called she tried getting her prescription from the ER for the lidocaine gel but the insurance won't cover so she was wondering if something else could be sent Kalyani Flores MA documented in this encounter [facility] 11-10-2023 History of Present illness Narrative ED Follow Up: Patient discharged from [facility] ED on 11/09/23. 1. How are you feeling since your ED visit? same Have your symptoms improved or resolved? No 2. Were you prescribed any medications while in the ED or advised to stop any medication? Yes - If yes, were you able to fill your prescriptions? Yes -if stopped medication, what was the medication? N/A 3. Were you advised to schedule a follow up appointment with your provider? Yes - If no, Do you feel like you need an appointment scheduled? No - If yes, Do you need this scheduled now or has this already been scheduled? No 4. Were you able to contact the office or butter production supervisor provider prior to your ED visit? No 5. Is there anything else I can do for you today? Yes see other encounter Kalyani Flores MA documented in this encounter [facility] 11-02-2023 Telephone encounter Note patient phones requesting refills as follows: Last seen 09/04/23 . Last refill 09/30/23 . Requested Prescriptions Pending Prescriptions Disp Refills zolpidem (AMBIEN) 10 mg 30 tablet 0 Sig: Take 1 tablet by mouth at bedtime as needed for up to 30 days. for insomnia. Please review and advise. Ayana Sandhu MA [facility] 11-02-2023 Miscellaneous Notes patient phones requesting refills as follows: Last seen 09/04/23 . Last refill 09/30/23 . Requested Prescriptions Pending Prescriptions Disp Refills zolpidem (AMBIEN) 10 mg 30 tablet 0 Sig: Take 1 tablet by mouth at bedtime as needed for up to 30 days. for insomnia. Please review and advise. Ayana Sandhu MA documented in this encounter [facility] 09-30-2023 Miscellaneous Notes Second call pharm requesting refills: Last office visit 09/04/2023. Last refill 08/31/2023 nov 12/03/2023 Requested Prescriptions Pending Prescriptions Disp Refills zolpidem (AMBIEN) 10 mg 30 tablet 0 Sig: Take 1 tablet by mouth at bedtime as needed for up to 30 days. for insomnia. Please review and advise. Bing Barron MA documented in this encounter [facility] 09-04-2023 History of Present illness Narrative Subjective HPI Pt is here for f/u for insomnia and to discuss a knot under her right arm It sometimes feels like it is on fire, but not all the time She took a bad fall at [place] time She was going upstairs, she got lightheaded, she tried to grab the rail with both hands, and fell backwards down the steps She was badly bruised, and has had a little lump under her arm since then It has gotten a little bit smaller since the injury She was putting ice on it, rubbing it down with lotions ALLERGIES Allergen Reactions Tramadol Itching Niacin Rash Gabapentin Swelling Current Outpatient Medications Medication Sig Dispense Refill potassium chloride (K-TAB) 10 mEq tablet Take 1 tablet by mouth once daily. 90 tablet 0 zolpidem (AMBIEN) 10 mg Take 1 tablet by mouth at bedtime as needed for up to 30 days. for insomnia. 30 tablet 0 famotidine (PEPCID) 20 mg tablet take 1 tablet by mouth every day 90 tablet 3 oxyCODONE-acetaminophen (PERCOCET) 5-325 mg tablet TAKE 1/2 TO 1 TABLET UP TO 3 TIMES DAILY NEEDED FOR PAIN tiZANidine (ZANAFLEX) 4 mg tablet TAKE 1/2 TO 1 TABLET BY MOUTH UP TO 3 TIMES A DAY, NEEDED FOR MUSCLE SPASMS pravastatin (PRAVACHOL) 80 mg tablet Take 80 mg by mouth daily at bedtime. amLODIPine (NORVASC) 5 mg tablet Take 1 tablet by mouth once daily. 90 tablet 3 albuterol HFA (PROVENTIL HFA, VENTOLIN HFA) 90 mcg/actuation inhaler USE 2 INHALATIONS BY MOUTH EVERY 4 HOURS NEEDED 40.2 g 3 nitroglycerin sublingual (NITROQUICK) 0.4 mg SL tablet DISSOLVE 1 TABLET UNDER THE TONGUE EVERY 5 MINUTES NEEDED. 100 tablet 0 docusate sodium (COLACE) 100 mg capsule Take 1 capsule by mouth twice daily. (Patient taking differently: Take 100 mg by mouth as needed.) 60 capsule 0 benazepril (LOTENSIN) 10 mg tablet 1 po every day acetaminophen (TYLENOL) 500 mg tablet Take 500 mg by mouth every 8 hours as needed. calcium carbonate (TUMS) 500 mg chew Take 500 mg by mouth as needed. hydroCHLOROthiazide (HYDRODIURIL, ESIDRIX) 12.5 mg tablet TAKE 1 TABLET BY MOUTH ONCE DAILY. 90 tablet 3 atorvastatin (LIPITOR) 80 mg tablet TAKE 1 TABLET BY MOUTH ONCE DAILY. 30 tablet 11 spironolactone (ALDACTONE) 25 mg tablet TAKE 1 TABLET BY MOUTH ONCE DAILY. 90 tablet 3 metoprolol succinate ER (TOPROL XL) 25 mg 24 hr tablet Take 25 mg by mouth once daily. One tablet at bedtime clopidogrel (PLAVIX) 75 mg tablet Take 1 tablet by mouth once daily. 0 aspirin, enteric coated (ASPIRIN, ENTERIC COATED) 81 mg EC tablet Take 1 tablet by mouth once daily. 0 No current facility-administered medications for this visit. ACTIVE PROBLEM LIST Ascvd (Arteriosclerotic Cardiovascular Disease) Gerd With Esophagitis Chronic Insomnia Chronic Midline Low Back Pain With Left-Sided Sciatica Smoker Heartburn Other Emphysema (Hcc) Hallux Limitus of Right Foot High Cholesterol Hypertension Stage 3 Chronic Kidney Disease (Hcc) Hyponatremia Spinal Stenosis of Lumbar Region Left Lumbar Radiculitis Microscopic Hematuria Hypokalemia Hyperlipidemia, Mixed Psoriasis Social History Tobacco Use Smoking status: Every Day Packs/day: 1.00 Years: 45.00 Additional pack years: 0.00 Total pack years: 45.00 Types: Cigarettes Start date: 07/13/1984 Smokeless tobacco: Never Vaping Use Vaping Use: Never used Substance Use Topics Alcohol use: Yes Comment: rare Drug use: Never Family History Problem Relation Age of Onset Heart Mother CABG Hyperlipidemia Mother Hypertension Mother Coronary Artery Disease Mother Heart Sister stents No Known Problems Brother Diabetes No Family History Stroke No Family History Blood Disease No Family History Blood Clots No Family History Factor 5 Leiden No Family History DVT No Family History Systemic Lupus Erythematosus No Family History Multiple Sclerosis No Family History Bipolar disorder No Family History Schizophrenia No Family History Alzheimer's Disease No Family History Dementia No Family History Parkinson s Disease No Family History COPD No Family History Aneurysm No Family History Reviewed past medical history, family history and surgeries. All medications and supplements were reviewed with the patient. Review of Systems Constitutional: Negative for chills, diaphoresis, fever, malaise/fatigue and weight loss. HENT: Negative for ear pain and hearing loss. Eyes: Negative for blurred vision and double vision. Respiratory: Negative for cough and shortness of breath. Cardiovascular: Negative for chest pain, palpitations and leg swelling. Gastrointestinal: Negative for constipation, diarrhea and heartburn. Genitourinary: Negative for dysuria and frequency. Musculoskeletal: Negative for back pain, falls, joint pain and myalgias. Lump under right arm Skin: Negative for itching and rash. Neurological: Negative for dizziness, weakness and headaches. Endo/Heme/Allergies: Does not bruise/bleed easily. Psychiatric/Behavioral: Negative for depression and substance abuse. The patient does not have insomnia. Objective BP 114/68 Pulse 89 Temp 36.7 C (98.1 F) Resp 18 Ht 168.3 cm (5' 6.25) Wt 84.8 kg (187 lb) SpO2 97% BMI 29.96 kg/m Physical Exam Constitutional: Appearance: Normal appearance. HENT: Head: Normocephalic and atraumatic. Nose: Nose normal. Mouth/Throat: Mouth: Mucous membranes are moist. Dentition: Normal dentition. Eyes: General: Lids are normal. Extraocular Movements: Extraocular movements intact. Conjunctiva/sclera: Conjunctivae normal. Pupils: Pupils are equal, round, and reactive to light. Neck: Thyroid: No thyroid mass or thyromegaly. Vascular: No carotid bruit. Trachea: Phonation normal. Cardiovascular: Rate and Rhythm: Normal rate and regular rhythm. Heart sounds: Normal heart sounds. No murmur heard. No friction rub. No gallop. Pulmonary: Effort: Pulmonary effort is normal. Breath sounds: Normal breath sounds. No wheezing or rales. Abdominal: General: Bowel sounds are normal. There is no distension. Palpations: Abdomen is soft. There is no mass. Tenderness: There is no abdominal tenderness. Musculoskeletal: General: No swelling or tenderness. Normal range of motion. Cervical back: Normal range of motion and neck supple. No edema. Comments: 1 cm x 2 cm soft mass in the mid-shaft of the right upper arm, freely movable, non tender Lymphadenopathy: Cervical: No cervical adenopathy. Skin: General: Skin is warm and dry. Findings: No erythema or rash. Nails: There is no clubbing. Neurological: Mental Status: She is alert and oriented to person, place, and time. Cranial Nerves: No cranial nerve deficit. Motor: Motor function is intact. Coordination: Coordination normal. Gait: Gait is intact. Psychiatric: Attention and Perception: Attention normal. Mood and Affect: Mood and affect normal. Speech: Speech normal. Behavior: Behavior normal. Behavior is cooperative. Thought Content: Thought content normal. Cognition and Memory: Cognition and memory normal. Judgment: Judgment normal. ASSESSMENT/PLAN: 1. Lipoma of right upper extremity - ICD9: 214.8, ICD10: D17.21 Reassurance given Elana Chery DO documented in this encounter [facility] 08-31-2023 Miscellaneous Notes pt requesting refills: Last office visit . Last refill zolpidem last filled 07/30/2023 potassium last filled 06/09/2023 nov 09/04/2023 Requested Prescriptions Pending Prescriptions Disp Refills potassium chloride (K-TAB) 10 mEq tablet 90 tablet 0 Sig: Take 1 tablet by mouth once daily. zolpidem (AMBIEN) 10 mg 30 tablet 0 Sig: Take 1 tablet by mouth at bedtime as needed for up to 30 days. for insomnia. Please review and advise. Bing Barron MA documented in this encounter [facility] 05-20-2023 History of Present illness Narrative CARDIOLOGY OFFICE VISIT CHIEF COMPLAINT HISTORY OF PRESENT ILLNESS The patient states she is doing well from a cardiac standpoint. She states that she has been have a stimulator put in her back for chronic low back pain and sciatica tomorrow. She has been holding her antiplatelet medication. She denies chest discomfort or symptoms of myocardial ischemia. She denies any significant dyspnea with activities. She denies palpitations and syncope. She denies any problems or current medications. I did go over results of her recent lipid profile with her. She had question about whether she still needs to be on potassium. I told her that I can answer that as we have lab work done. She will have chemistry profile done today and I will call her with results. We will let her know whether to continue her current potassium and spironolactone or to make any adjustments on the potassium. IMPRESSION: 1. Coronary artery disease, no angina 2. Remote ST-elevation myocardial infarction. 3. Remote multivessel percutaneous coronary intervention. 4. Essential hypertension. 5. Mixed hyperlipidemia. 6. Obesity. 7. Tobacco abuse. Please excuse any errors in grammar or translation related to this dictation. Voice recognition software was utilized to prepare this document. Past Medical History Past Medical History: Diagnosis Date Coronary artery disease Hyperlipidemia Hypertension Myocardial infarction ([facility]) Social History Social History Tobacco Use Smoking status: Every Day Packs/day: 1 Types: Cigarettes Smokeless tobacco: Never Substance Use Topics Alcohol use: Never Drug use: Never Family History Family History Problem Relation Name Age of Onset Other (CABG) Mother Other (cardiac disorder) Mother Hypertension Mother Hyperlipidemia Mother Other (arteriosclerotic cardiovascular disease) Mother Other (arteriosclerotic cardiovascular disease) Father Other (arteriosclerotic cardiovascular disease) Sister Allergies: Allergies Allergen Reactions Tramadol Other and Itching Niacin Rash Advicor [Niacin-Lovastatin] Itching Gabapentin Swelling Zyabzjz-Ayt-Onw Reductase Inhibitors Rash and Myalgia Outpatient Medications: Current Outpatient Medications Medication Instructions acetaminophen (Tylenol) 500 mg tablet 1 tablet, oral, Every 8 hours PRN albuterol 2.5 mg /3 mL (0.083 %) nebulizer solution inhalation amLODIPine (NORVASC) 5 mg, oral, Daily, as directed aspirin 81 mg, oral, Daily atorvastatin (LIPITOR) 40 mg, oral, Nightly benazepril (LOTENSIN) 10 mg, oral, Daily betamethasone valerate (Valisone) 0.1 % cream Topical, 2 times daily, APPLY TO AFFECTED AREA clopidogrel (PLAVIX) 75 mg, oral, Daily docusate sodium (COLACE) 100 mg, oral, 2 times daily famotidine (PEPCID) 20 mg, oral, Daily hydroCHLOROthiazide (MICROZIDE) 12.5 mg, oral, Daily HYDROcodone-acetaminophen (Amboy) 5-325 mg tablet 0.5-1 tablets, oral, 2 times daily PRN ibuprofen 200 mg, oral, Every 6 hours PRN loratadine (Claritin) 10 mg tablet 1 tablet, oral, Nightly metoprolol tartrate (LOPRESSOR) 12.5 mg, oral, 2 times daily nitroglycerin (NITROSTAT) 0.4 mg, sublingual, Every 5 min PRN oxyCODONE-acetaminophen (Percocet) 5-325 mg tablet 0.5-1 tablets, oral, 3 times daily potassium chloride CR 10 mEq ER tablet 10 mEq, oral, Daily pravastatin (PRAVACHOL) 80 mg, oral, Nightly spironolactone (ALDACTONE) 25 mg, oral, Daily tiZANidine (Zanaflex) 4 mg tablet 1 tablet, oral, 3 times daily zolpidem (AMBIEN) 5 mg, oral, Nightly PRN REVIEW OF SYSTEMS Review of Systems All other systems reviewed and are negative. VITALS Vitals: 05/20/23 0734 BP: 122/60 Pulse: 80 PHYSICAL EXAM Constitutional: Appearance: Normal and healthy appearance. Well-developed and not in distress. Eyes: Conjunctiva/sclera: Conjunctivae normal. Pupils: Pupils are equal, round, and reactive to light. Neck: Vascular: No JVR. JVD normal. Pulmonary: Effort: Pulmonary effort is normal. Breath sounds: Normal breath sounds. No wheezing. No rhonchi. No rales. Chest: Chest wall: Not tender to palpatation. Cardiovascular: PMI at left midclavicular line. Normal rate. Regular rhythm. Normal S1. Normal S2. Murmurs: There is no murmur. No gallop. No click. No rub. Pulses: Intact distal pulses. Edema: Peripheral edema absent. Abdominal: Tenderness: There is no abdominal tenderness. Musculoskeletal: Normal range of motion. General: No tenderness. Cervical back: Normal range of motion. Skin: General: Skin is warm and dry. Neurological: General: No focal deficit present. Mental Status: Alert and oriented to person, place and time. Psychiatric: Behavior: Behavior is cooperative. ASSESSMENT AND PLAN Diagnoses and all orders for this visit: CAD S/P percutaneous coronary angioplasty Past myocardial infarction Primary hypertension Mixed hyperlipidemia Current every day smoker BMI 29.0-29.9,adult @[email or web address]@ documented in this encounter [facility] Work Phone: 05-20-2023 Instructions Navin Rich RN - 05/20/2023 7:30 AM EST Patient to follow up in [address] Mando Alvarez MD Please complete lab work today to check electrolytes- will call with results. Orders entered for labs in 1 year prior to your next visit. No other changes today. Continue same medications and treatments. Patient educated on proper medication use. Patient educated on risk factor modification. Please bring any lab results from other providers / physicians to your next appointment. Please bring all medicines, vitamins, and herbal supplements with you when you come to the office. Prescriptions will not be filled unless you are compliant with your follow up appointments or have a follow up appointment scheduled as per instruction of your physician. Refills should be requested at the time of your visit. I, Navin Rich RN am scribing for and in the presence of Dr. Mando Stevens MD documented in this encounter [facility] Work Phone: 04-14-2023 History of Present illness Narrative Radiology Service Progress Note PATIENT NAME: Jackie Yu DATE OF SERVICE: April 14, 2023 TIME: 12:38 PM PATIENT IDENTITY VERIFICATION COMPLETED USING TWO (2) IDENTIFIERS: Name and Date of confirmed by patient verbally. FALL SCREENING: Has the patient had 2 falls in the last year or 1 fall with injury or currently using an Ambulatory Assistive Device (Walker, Cane, Wheelchair, Crutches, etc.)? No PATIENT GENDER DATA: Female. status: : No status: N/A PATIENT RELEVANT IMPLANT DATA REVIEWED: Not Applicable RADIOLOGY DEPARTMENT: Mammography PERIPHERAL IV DATA: Not applicable SIGNED BY: RT Donis(R) April 14, 2023 12:38 PM documented in this encounter [facility] 04-14-2023 Miscellaneous Notes Pt needs b/l diagnostic mammo Elana Chery DO documented in this encounter [facility] 04-13-2023 Miscellaneous Notes patient phones requesting refills as follows: Last seen 03/02/23 . Last refill 03/02/23 . Requested Prescriptions Pending Prescriptions Disp Refills zolpidem (AMBIEN) 5 mg tablet 30 tablet 0 Sig: Take 1 tablet by mouth at bedtime as needed for up to 30 days. for insomnia. Please review and advise. Ayana Sandhu MA documented in this encounter [facility] 03-02-2023 History of Present illness Narrative Subjective HPI Pt is here for f/u for insomnia She is taking ambien, gets more sleep than she did without the ambien She sees Dr. Huber, pain management, for lower back pain She is planning on getting an internal stimulator ALLERGIES Allergen Reactions Tramadol Itching Niacin Rash Gabapentin Swelling Current Outpatient Medications Medication Sig Dispense Refill oxyCODONE-acetaminophen (PERCOCET) 5-325 mg tablet TAKE 1/2 TO 1 TABLET UP TO 3 TIMES DAILY NEEDED FOR PAIN tiZANidine (ZANAFLEX) 4 mg tablet TAKE 1/2 TO 1 TABLET BY MOUTH UP TO 3 TIMES A DAY, NEEDED FOR MUSCLE SPASMS zolpidem (AMBIEN) 5 mg tablet Take 1 tablet by mouth at bedtime as needed for up to 30 days. for insomnia. 30 tablet 0 cyclobenzaprine (FLEXERIL) 10 mg tablet TAKE 1 TABLET BY MOUTH THREE TIMES A DAY NEEDED 90 tablet 0 potassium chloride (K-TAB) 10 mEq tablet Take 1 tablet by mouth once daily. 90 tablet 3 pravastatin (PRAVACHOL) 80 mg tablet Take 80 mg by mouth daily at bedtime. famotidine (PEPCID) 20 mg tablet Take 1 tablet by mouth once daily. 90 tablet 3 amLODIPine (NORVASC) 5 mg tablet Take 1 tablet by mouth once daily. 90 tablet 3 albuterol HFA (PROVENTIL HFA, VENTOLIN HFA) 90 mcg/actuation inhaler USE 2 INHALATIONS BY MOUTH EVERY 4 HOURS NEEDED 40.2 g 3 methocarbamol (ROBAXIN) 750 mg tablet Take 1 tablet by mouth three times daily. 90 tablet 0 nitroglycerin sublingual (NITROQUICK) 0.4 mg SL tablet DISSOLVE 1 TABLET UNDER THE TONGUE EVERY 5 MINUTES NEEDED. 100 tablet 0 docusate sodium (COLACE) 100 mg capsule Take 1 capsule by mouth twice daily. (Patient taking differently: Take 100 mg by mouth as needed.) 60 capsule 0 benazepril (LOTENSIN) 10 mg tablet 1 po every day acetaminophen (TYLENOL) 500 mg tablet Take 500 mg by mouth every 8 hours as needed. calcium carbonate (TUMS) 500 mg chew Take 500 mg by mouth as needed. hydroCHLOROthiazide (HYDRODIURIL, ESIDRIX) 12.5 mg tablet TAKE 1 TABLET BY MOUTH ONCE DAILY. 90 tablet 3 atorvastatin (LIPITOR) 80 mg tablet TAKE 1 TABLET BY MOUTH ONCE DAILY. 30 tablet 11 spironolactone (ALDACTONE) 25 mg tablet TAKE 1 TABLET BY MOUTH ONCE DAILY. 90 tablet 3 metoprolol succinate ER (TOPROL XL) 25 mg 24 hr tablet Take 25 mg by mouth twice daily. clopidogrel (PLAVIX) 75 mg tablet Take 1 tablet by mouth once daily. 0 aspirin, enteric coated (ASPIRIN, ENTERIC COATED) 81 mg EC tablet Take 1 tablet by mouth once daily. 0 metoprolol tartrate, short acting, (LOPRESSOR) 25 mg tablet Take 0.5 tablets by mouth every 12 hours. No current facility-administered medications for this visit. ACTIVE PROBLEM LIST Ascvd (Arteriosclerotic Cardiovascular Disease) Gerd With Esophagitis Chronic Insomnia Chronic Midline Low Back Pain With Left-Sided Sciatica Smoker Heartburn Other Emphysema (Hcc) Hallux Limitus of Right Foot High Cholesterol Hypertension Stage 3 Chronic Kidney Disease (Hcc) Hyponatremia Spinal Stenosis of Lumbar Region Left Lumbar Radiculitis Microscopic Hematuria Hypokalemia Hyperlipidemia, Mixed Psoriasis Social History Tobacco Use Smoking status: Every Day Packs/day: 1.00 Years: 45.00 Additional pack years: 0.00 Total pack years: 45.00 Types: Cigarettes Start date: 07/13/1984 Smokeless tobacco: Never Tobacco comments: down to 07/14 ppd (09/2018) Vaping Use Vaping Use: Never used Substance Use Topics Alcohol use: Yes Comment: rare Drug use: No Family History Problem Relation Age of Onset Heart Mother CABG Hyperlipidemia Mother Hypertension Mother Coronary Artery Disease Mother Heart Sister stents No Known Problems Brother Diabetes No Family History Stroke No Family History Blood Disease No Family History Blood Clots No Family History Factor 5 Leiden No Family History DVT No Family History Systemic Lupus Erythematosus No Family History Multiple Sclerosis No Family History Bipolar disorder No Family History Schizophrenia No Family History Alzheimer's Disease No Family History Dementia No Family History Parkinson s Disease No Family History COPD No Family History Aneurysm No Family History Reviewed past medical history, family history and surgeries. All medications and supplements were reviewed with the patient. Review of Systems Constitutional: Negative for chills, diaphoresis, fever, malaise/fatigue and weight loss. HENT: Negative for ear pain and hearing loss. Eyes: Negative for blurred vision and double vision. Respiratory: Negative for cough and shortness of breath. Cardiovascular: Negative for chest pain, palpitations and leg swelling. Gastrointestinal: Negative for constipation, diarrhea and heartburn. Genitourinary: Negative for dysuria and frequency. Musculoskeletal: Positive for back pain. Negative for falls, joint pain and myalgias. Skin: Negative for itching and rash. Neurological: Negative for dizziness, weakness and headaches. Endo/Heme/Allergies: Does not bruise/bleed easily. Psychiatric/Behavioral: Negative for depression and substance abuse. The patient has insomnia. Objective BP 110/60 Pulse 89 Ht 168.3 cm (5' 6.25) Wt 83 kg (183 lb) SpO2 93% BMI 29.31 kg/m Physical Exam Constitutional: Appearance: Normal appearance. HENT: Head: Normocephalic and atraumatic. Nose: Nose normal. Mouth/Throat: Mouth: Mucous membranes are moist. Dentition: Normal dentition. Eyes: General: Lids are normal. Extraocular Movements: Extraocular movements intact. Conjunctiva/sclera: Conjunctivae normal. Pupils: Pupils are equal, round, and reactive to light. Neck: Thyroid: No thyroid mass or thyromegaly. Vascular: No carotid bruit. Trachea: Phonation normal. Cardiovascular: Rate and Rhythm: Normal rate and regular rhythm. Heart sounds: Normal heart sounds. No murmur heard. No friction rub. No gallop. Pulmonary: Effort: Pulmonary effort is normal. Breath sounds: Normal breath sounds. No wheezing or rales. Abdominal: General: Bowel sounds are normal. There is no distension. Palpations: Abdomen is soft. There is no mass. Tenderness: There is no abdominal tenderness. Musculoskeletal: General: No swelling or tenderness. Normal range of motion. Cervical back: Normal range of motion and neck supple. No edema. Lymphadenopathy: Cervical: No cervical adenopathy. Skin: General: Skin is warm and dry. Findings: No erythema or rash. Nails: There is no clubbing. Neurological: Mental Status: She is alert and oriented to person, place, and time. Cranial Nerves: No cranial nerve deficit. Motor: Motor function is intact. Coordination: Coordination normal. Gait: Gait is intact. Psychiatric: Attention and Perception: Attention normal. Mood and Affect: Mood and affect normal. Speech: Speech normal. Behavior: Behavior normal. Behavior is cooperative. Thought Content: Thought content normal. Cognition and Memory: Cognition and memory normal. Judgment: Judgment normal. ASSESSMENT/PLAN: 1. Chronic insomnia - ICD9: 780.52, ICD10: F51.04 (primary diagnosis) Continue ambien as needed - ZOLPIDEM 5 MG TABLET 2. Left lumbar radiculitis - ICD9: 724.4, ICD10: M54.16 Under the care of Dr. Huber, pain management Elana Chery DO PDMP website checked and validated. All prescriptions have been APPROPRIATELY filled. No suspicious activity was identified. 03/02/2023 by Elana Chery DO documented in this encounter [facility] 02-10-2023 Miscellaneous Notes patient phones requesting refills as follows: Last seen 11/19/22 . Last refill 01/08/23 . Next office visit 03/02/23 Requested Prescriptions Pending Prescriptions Disp Refills zolpidem (AMBIEN) 5 mg tablet 30 tablet 0 Sig: Take 1 tablet by mouth at bedtime as needed for up to 30 days. for insomnia. Please review and advise. Ayana Sandhu MA documented in this encounter [facility] 01-07-2023 Miscellaneous Notes pt requesting refills: Last office visit 11/19/2022. Last refill 12/09/2022 nov 03/02/2023 Requested Prescriptions Pending Prescriptions Disp Refills zolpidem (AMBIEN) 5 mg tablet 30 tablet 0 Sig: Take 1 tablet by mouth at bedtime as needed for up to 30 days. for insomnia. Please review and advise. Bing Barron MA p documented in this encounter [facility] 12-12-2022 Miscellaneous Notes Patient informed orders have been placed. erythromycin Addended by: ELANA CHERY on: 12/12/2022 02:30 PM Modules accepted: Orders Order for left breast mammo and US left breast attached Elana Chery DO Pt. Lm on requesting mammogram order kavya. She found lump under left breast. Please advise. Bing Barron MA documented in this encounter [facility] 12-10-2022 History of Present illness Narrative Radiology Service Progress Note PATIENT NAME: Jackie Yu DATE OF SERVICE: December 10, 2022 TIME: 12:14 PM PATIENT IDENTITY VERIFICATION COMPLETED USING TWO (2) IDENTIFIERS: Name and Date of confirmed by patient verbally. FALL SCREENING: Has the patient had 2 falls in the last year or 1 fall with injury or currently using an Ambulatory Assistive Device (Walker, Cane, Wheelchair, Crutches, etc.)? No PATIENT GENDER DATA: Female. status: : No status: NO. PATIENT RELEVANT IMPLANT DATA REVIEWED: Yes RADIOLOGY DEPARTMENT: MR; Exam(s) Completed: Spine: Lumbar spine PERIPHERAL IV DATA: Not applicable SIGNED BY: Luly Amador RDMS, RVT- [facility] [facility] December 10, 2022 12:14 PM documented in this encounter [facility] 12-09-2022 Miscellaneous Notes patient phones requesting refills as follows: Last seen 11/19/22 . Last refill 11/11/22 . Requested Prescriptions Pending Prescriptions Disp Refills zolpidem (AMBIEN) 5 mg tablet 30 tablet 0 Sig: Take 1 tablet by mouth at bedtime as needed for up to 30 days. for insomnia. Please review and advise. Ayana Sandhu MA documented in this encounter [facility] 11-19-2022 History of Present illness Narrative Subjective HPI Here for f/u for insomnia Has a lot of pain, can hardly walk because of pain She gets up every 2-3 hours due to pain When she is not in pain, the ambien works Her daughter moved in with her to help her take care of the house She is under the care of pain management, and will be getting an injection today She had a nerve root ablation, did not work ALLERGIES Allergen Reactions Tramadol Itching Niacin Rash Gabapentin Swelling Current Outpatient Medications Medication Sig Dispense Refill zolpidem (AMBIEN) 5 mg tablet Take 1 tablet by mouth at bedtime as needed for up to 30 days. for insomnia. 30 tablet 0 cyclobenzaprine (FLEXERIL) 10 mg tablet TAKE 1 TABLET BY MOUTH THREE TIMES A DAY NEEDED 90 tablet 0 betamethasone valerate 0.1 % cream Apply to affected area twice daily. 15 g 2 potassium chloride (K-TAB) 10 mEq tablet Take 1 tablet by mouth once daily. 90 tablet 3 pravastatin (PRAVACHOL) 80 mg tablet Take 80 mg by mouth daily at bedtime. famotidine (PEPCID) 20 mg tablet Take 1 tablet by mouth once daily. 90 tablet 3 amLODIPine (NORVASC) 5 mg tablet Take 1 tablet by mouth once daily. 90 tablet 3 albuterol HFA (PROVENTIL HFA, VENTOLIN HFA) 90 mcg/actuation inhaler USE 2 INHALATIONS BY MOUTH EVERY 4 HOURS NEEDED 40.2 g 3 methocarbamol (ROBAXIN) 750 mg tablet Take 1 tablet by mouth three times daily. 90 tablet 0 nitroglycerin sublingual (NITROQUICK) 0.4 mg SL tablet DISSOLVE 1 TABLET UNDER THE TONGUE EVERY 5 MINUTES NEEDED. 100 tablet 0 docusate sodium (COLACE) 100 mg capsule Take 1 capsule by mouth twice daily. (Patient taking differently: Take 100 mg by mouth as needed.) 60 capsule 0 benazepril (LOTENSIN) 10 mg tablet 1 po every day acetaminophen (TYLENOL) 500 mg tablet Take 500 mg by mouth every 8 hours as needed. calcium carbonate (TUMS) 500 mg chew Take 500 mg by mouth as needed. hydroCHLOROthiazide (HYDRODIURIL, ESIDRIX) 12.5 mg tablet TAKE 1 TABLET BY MOUTH ONCE DAILY. 90 tablet 3 atorvastatin (LIPITOR) 80 mg tablet TAKE 1 TABLET BY MOUTH ONCE DAILY. 30 tablet 11 spironolactone (ALDACTONE) 25 mg tablet TAKE 1 TABLET BY MOUTH ONCE DAILY. 90 tablet 3 metoprolol succinate ER (TOPROL XL) 25 mg 24 hr tablet Take 25 mg by mouth twice daily. clopidogrel (PLAVIX) 75 mg tablet Take 1 tablet by mouth once daily. 0 aspirin, enteric coated (ASPIRIN, ENTERIC COATED) 81 mg EC tablet Take 1 tablet by mouth once daily. 0 No current facility-administered medications for this visit. ACTIVE PROBLEM LIST Ascvd (Arteriosclerotic Cardiovascular Disease) Gerd With Esophagitis Chronic Insomnia Chronic Midline Low Back Pain With Left-Sided Sciatica Smoker Heartburn Other Emphysema (Hcc) Hallux Limitus of Right Foot High Cholesterol Hypertension Stage 3 Chronic Kidney Disease (Hcc) Hyponatremia Spinal Stenosis of Lumbar Region Left Lumbar Radiculitis Microscopic Hematuria Hypokalemia Hyperlipidemia, Mixed Psoriasis Social History Tobacco Use Smoking status: Every Day Packs/day: 1.00 Years: 45.00 Pack years: 45.00 Types: Cigarettes Start date: 07/13/1984 Smokeless tobacco: Never Tobacco comments: down to 2 ppd (09/2018) Vaping Use Vaping Use: Never used Substance Use Topics Alcohol use: Yes Comment: rare Drug use: No Family History Problem Relation Age of Onset Heart Mother CABG Hyperlipidemia Mother Hypertension Mother Coronary Artery Disease Mother Heart Sister stents No Known Problems Brother Diabetes No Family History Stroke No Family History Blood Disease No Family History Blood Clots No Family History Factor 5 Leiden No Family History DVT No Family History Systemic Lupus Erythematosus No Family History Multiple Sclerosis No Family History Bipolar disorder No Family History Schizophrenia No Family History Alzheimer's Disease No Family History Dementia No Family History Parkinson s Disease No Family History COPD No Family History Aneurysm No Family History Reviewed past medical history, family history and surgeries. All medications and supplements were reviewed with the patient. Review of Systems Constitutional: Negative for chills, diaphoresis, fever, malaise/fatigue and weight loss. HENT: Negative for ear pain and hearing loss. Eyes: Negative for blurred vision and double vision. Respiratory: Negative for cough and shortness of breath. Cardiovascular: Negative for chest pain, palpitations and leg swelling. Gastrointestinal: Negative for constipation, diarrhea and heartburn. Genitourinary: Negative for dysuria and frequency. Musculoskeletal: Positive for back pain. Negative for falls, joint pain and myalgias. Skin: Negative for itching and rash. Neurological: Negative for dizziness, weakness and headaches. Endo/Heme/Allergies: Does not bruise/bleed easily. Psychiatric/Behavioral: Negative for depression and substance abuse. The patient does not have insomnia. Objective BP 120/74 Pulse 88 Temp 36.7 C (98 F) Resp 18 Ht 168.3 cm (5' 6.25) Wt 84.3 kg (185 lb 12.8 oz) SpO2 98% BMI 29.76 kg/m Physical Exam Constitutional: Appearance: Normal appearance. HENT: Head: Normocephalic and atraumatic. Nose: Nose normal. Mouth/Throat: Mouth: Mucous membranes are moist. Dentition: Normal dentition. Eyes: General: Lids are normal. Extraocular Movements: Extraocular movements intact. Conjunctiva/sclera: Conjunctivae normal. Pupils: Pupils are equal, round, and reactive to light. Neck: Thyroid: No thyroid mass or thyromegaly. Vascular: No carotid bruit. Trachea: Phonation normal. Cardiovascular: Rate and Rhythm: Normal rate and regular rhythm. Heart sounds: Normal heart sounds. No murmur heard. No friction rub. No gallop. Pulmonary: Effort: Pulmonary effort is normal. Breath sounds: Normal breath sounds. No wheezing or rales. Abdominal: General: Bowel sounds are normal. There is no distension. Palpations: Abdomen is soft. There is no mass. Tenderness: There is no abdominal tenderness. Musculoskeletal: General: Tenderness (over paraspinous muscles of LS spine b/l) present. No swelling. Normal range of motion. Cervical back: Normal range of motion and neck supple. No edema. Lymphadenopathy: Cervical: No cervical adenopathy. Skin: General: Skin is warm and dry. Findings: No erythema or rash. Nails: There is no clubbing. Neurological: Mental Status: She is alert and oriented to person, place, and time. Cranial Nerves: No cranial nerve deficit. Motor: Motor function is intact. Coordination: Coordination normal. Gait: Gait is intact. Psychiatric: Attention and Perception: Attention normal. Mood and Affect: Mood and affect normal. Speech: Speech normal. Behavior: Behavior normal. Behavior is cooperative. Thought Content: Thought content normal. Cognition and Memory: Cognition and memory normal. Judgment: Judgment normal. ASSESSMENT/PLAN: 1. Chronic insomnia - ICD9: 780.52, ICD10: F51.04 Continue ambien as needed Elana Chery DO PDMP website checked and validated. All prescriptions have been APPROPRIATELY filled. No suspicious activity was identified. 11/22/2022 by Elana Chery DO documented in this encounter [facility] 11-11-2022 Miscellaneous Notes patient electronically requesting refills as follows: Last seen 08/22/22 . Last refill 10/10/22 . Requested Prescriptions Pending Prescriptions Disp Refills zolpidem (AMBIEN) 5 mg tablet 30 tablet 0 Sig: Take 1 tablet by mouth at bedtime as needed for up to 30 days. for insomnia. Please review and advise. Ayana Sandhu MA documented in this encounter [facility] 11-05-2022 Miscellaneous Notes pharmacy electronically requesting refills as follows: Last seen 08/22/22 . Last refill 10/09/22 . Requested Prescriptions Pending Prescriptions Disp Refills cyclobenzaprine (FLEXERIL) 10 mg tablet [Pharmacy Med Name: CYCLOBENZAPRINE 10 MG TABLET] 90 tablet 0 Sig: TAKE 1 TABLET BY MOUTH THREE TIMES A DAY NEEDED Please review and advise. Ayana Sandhu MA documented in this encounter [facility] 10-10-2022 Miscellaneous Notes Patient requesting refills: Last office visit 08/22/2022. Last refill 09/09/2022. Requested Prescriptions Pending Prescriptions Disp Refills zolpidem (AMBIEN) 5 mg tablet 30 tablet 0 Sig: Take 1 tablet by mouth at bedtime as needed for up to 30 days. for insomnia. Please review and advise. Bing Barron, documented in this encounter [facility] 10-09-2022 Miscellaneous Notes pharmacy electronically requesting refills as follows: Last seen 08/22/22 . Last refill 04/21/22 . Requested Prescriptions Pending Prescriptions Disp Refills cyclobenzaprine (FLEXERIL) 10 mg tablet [Pharmacy Med Name: CYCLOBENZAPRINE 10 MG TABLET] 90 tablet 0 Sig: TAKE 1 TABLET BY MOUTH THREE TIMES A DAY NEEDED Please review and advise. Ayana Sandhu MA documented in this encounter [facility] 09-09-2022 Miscellaneous Notes Patient phones requesting refills as follows: Last seen 08/22/22 . Last refill 08/13/22 . Requested Prescriptions Pending Prescriptions Disp Refills zolpidem (AMBIEN) 5 mg tablet 30 tablet 0 Sig: Take 1 tablet by mouth at bedtime as needed for up to 30 days. for insomnia. Please review and advise. Ayana Sandhu MA documented in this encounter [facility] 08-22-2022 Miscellaneous Notes OK. I will forward this to my fruit dumper who will work on getting the patient scheduled Patient here at PCP office and she said she has not heard anything about scheduling her colonoscopy. She did complete a virtual visit with you on 04/23/22 and would like to complete the colonoscopy. Please advise. Ayana Sandhu MA documented in this encounter [facility] 08-12-2022 Miscellaneous Notes Patient requesting refills as follows: Last Office Visit 05/23/22. Last Refill 06/27/22. Requested Prescriptions Pending Prescriptions Disp Refills zolpidem (AMBIEN) 5 mg tablet 30 tablet 0 Sig: Take 1 tablet by mouth at bedtime as needed for up to 30 days. for insomnia. Please review and advise. Kalyani Flores MA documented in this encounter [facility] 08-05-2022 Miscellaneous Notes Patient lm on vm stating she got a message on her my chart that she needs labs done. Patient wants to know if you do want her to get labs done? Please advise. Bing Barron MA documented in this encounter [facility] 06-27-2022 Miscellaneous Notes patient phones requesting refills as follows: Last seen 05/23/22 . Last refill ambien 05/23/22, potassium 06/03/21 . Requested Prescriptions Pending Prescriptions Disp Refills zolpidem (AMBIEN) 5 mg tablet 30 tablet 0 Sig: Take 1 tablet by mouth at bedtime as needed for up to 30 days. for insomnia. potassium chloride (K-TAB) 10 mEq tablet 90 tablet 3 Sig: Take 1 tablet by mouth once daily. Please review and advise. Ayana Sandhu MA documented in this encounter [facility] 05-23-2022 History of Present illness Narrative Subjective HPI Pt is here for follow up for insomnia Pt takes ambien as needed for sleep Does not take nightly, only as needed on weeknights when she knows she has to wake up for work Was taking trazodone, but it made her groggy ALLERGIES Allergen Reactions Tramadol Itching Niacin Rash Gabapentin Swelling Current Outpatient Medications Medication Sig Dispense Refill pravastatin (PRAVACHOL) 80 mg tablet Take 80 mg by mouth daily at bedtime. cyclobenzaprine (FLEXERIL) 10 mg tablet TAKE 1 TABLET BY MOUTH THREE TIMES A DAY NEEDED 90 tablet 0 zolpidem (AMBIEN) 5 mg tablet Take 1 tablet by mouth at bedtime as needed for up to 30 days. for insomnia. 30 tablet 0 amLODIPine (NORVASC) 5 mg tablet Take 1 tablet by mouth once daily. 90 tablet 3 albuterol HFA (PROVENTIL HFA, VENTOLIN HFA) 90 mcg/actuation inhaler USE 2 INHALATIONS BY MOUTH EVERY 4 HOURS NEEDED 40.2 g 3 methocarbamol (ROBAXIN) 750 mg tablet Take 1 tablet by mouth three times daily. 90 tablet 0 nitroglycerin sublingual (NITROQUICK) 0.4 mg SL tablet DISSOLVE 1 TABLET UNDER THE TONGUE EVERY 5 MINUTES NEEDED. 100 tablet 0 famotidine (PEPCID) 20 mg tablet Take 1 tablet by mouth once daily. 90 tablet 3 potassium chloride (K-TAB) 10 mEq tablet Take 1 tablet by mouth once daily. 90 tablet 3 docusate sodium (COLACE) 100 mg capsule Take 1 capsule by mouth twice daily. (Patient taking differently: Take 100 mg by mouth as needed.) 60 capsule 0 benazepril (LOTENSIN) 10 mg tablet 1 po every day acetaminophen (TYLENOL) 500 mg tablet Take 500 mg by mouth every 8 hours as needed. calcium carbonate (TUMS) 500 mg chew Take 500 mg by mouth as needed. hydroCHLOROthiazide (HYDRODIURIL, ESIDRIX) 12.5 mg tablet TAKE 1 TABLET BY MOUTH ONCE DAILY. 90 tablet 3 spironolactone (ALDACTONE) 25 mg tablet TAKE 1 TABLET BY MOUTH ONCE DAILY. 90 tablet 3 metoprolol succinate ER (TOPROL XL) 25 mg 24 hr tablet Take 25 mg by mouth twice daily. clopidogrel (PLAVIX) 75 mg tablet Take 1 tablet by mouth once daily. 0 aspirin, enteric coated (ASPIRIN, ENTERIC COATED) 81 mg EC tablet Take 1 tablet by mouth once daily. 0 ezetimibe (ZETIA) 10 mg tablet Take 10 mg by mouth once daily. (Patient not taking: Reported on 05/23/2022) atorvastatin (LIPITOR) 80 mg tablet TAKE 1 TABLET BY MOUTH ONCE DAILY. (Patient not taking: No sig reported) 30 tablet 11 No current facility-administered medications for this visit. ACTIVE PROBLEM LIST Ascvd (Arteriosclerotic Cardiovascular Disease) Gerd With Esophagitis Chronic Insomnia Chronic Midline Low Back Pain Without Sciatica Smoker Heartburn Other Emphysema (Hcc) Hallux Limitus of Right Foot High Cholesterol Hypertension Stage 3 Chronic Kidney Disease (Hcc) Hyponatremia Spinal Stenosis of Lumbar Region Left Lumbar Radiculitis Microscopic Hematuria Hypokalemia Hyperlipidemia, Mixed Social History Tobacco Use Smoking status: Every Day Packs/day: 1.00 Years: 45.00 Pack years: 45.00 Types: Cigarettes Start date: 07/13/1984 Smokeless tobacco: Never Tobacco comments: down to 07/14 ppd (09/2018) Vaping Use Vaping Use: Never used Substance Use Topics Alcohol use: Yes Comment: rare Drug use: No Family History Problem Relation Age of Onset Heart Mother CABG Hyperlipidemia Mother Hypertension Mother Coronary Artery Disease Mother Heart Sister stents No Known Problems Brother Diabetes No Family History Stroke No Family History Blood Disease No Family History Blood Clots No Family History Factor 5 Leiden No Family History DVT No Family History Systemic Lupus Erythematosus No Family History Multiple Sclerosis No Family History Bipolar disorder No Family History Schizophrenia No Family History Alzheimer's Disease No Family History Dementia No Family History Parkinson s Disease No Family History COPD No Family History Aneurysm No Family History Reviewed past medical history, family history and surgeries. All medications and supplements were reviewed with the patient. Review of Systems Constitutional: Negative for chills, diaphoresis, fever, malaise/fatigue and weight loss. HENT: Negative for ear pain and hearing loss. Eyes: Negative for blurred vision and double vision. Respiratory: Negative for cough and shortness of breath. Cardiovascular: Negative for chest pain, palpitations and leg swelling. Gastrointestinal: Negative for constipation, diarrhea and heartburn. Genitourinary: Negative for dysuria and frequency. Musculoskeletal: Negative for back pain, falls, joint pain and myalgias. Skin: Negative for itching and rash. Neurological: Negative for dizziness, weakness and headaches. Endo/Heme/Allergies: Does not bruise/bleed easily. Psychiatric/Behavioral: Negative for depression and substance abuse. The patient has insomnia. Objective BP 110/68 Pulse 84 Temp 36.8 C (98.3 F) Resp 16 Ht 168.3 cm (5' 6.25) Wt 85.4 kg (188 lb 3.2 oz) SpO2 96% BMI 30.15 kg/m Physical Exam Nursing note reviewed. Constitutional: Appearance: Normal appearance. She is obese. HENT: Head: Normocephalic and atraumatic. Nose: Nose normal. Mouth/Throat: Mouth: Mucous membranes are moist. Dentition: Normal dentition. Eyes: General: Lids are normal. Extraocular Movements: Extraocular movements intact. Conjunctiva/sclera: Conjunctivae normal. Pupils: Pupils are equal, round, and reactive to light. Neck: Thyroid: No thyroid mass or thyromegaly. Vascular: No carotid bruit. Trachea: Phonation normal. Cardiovascular: Rate and Rhythm: Normal rate and regular rhythm. Heart sounds: Normal heart sounds. No murmur heard. No friction rub. No gallop. Pulmonary: Effort: Pulmonary effort is normal. Breath sounds: Normal breath sounds. No wheezing or rales. Abdominal: General: Bowel sounds are normal. There is no distension. Palpations: Abdomen is soft. There is no mass. Tenderness: There is no abdominal tenderness. Musculoskeletal: General: No swelling or tenderness. Normal range of motion. Cervical back: Normal range of motion and neck supple. No edema. Lymphadenopathy: Cervical: No cervical adenopathy. Skin: General: Skin is warm and dry. Findings: No erythema or rash. Nails: There is no clubbing. Neurological: Mental Status: She is alert and oriented to person, place, and time. Cranial Nerves: No cranial nerve deficit. Motor: Motor function is intact. Coordination: Coordination normal. Gait: Gait is intact. Psychiatric: Attention and Perception: Attention normal. Mood and Affect: Mood and affect normal. Speech: Speech normal. Behavior: Behavior normal. Behavior is cooperative. Thought Content: Thought content normal. Cognition and Memory: Cognition and memory normal. Judgment: Judgment normal. ASSESSMENT/PLAN: 1. Chronic insomnia - ICD9: 780.52, ICD10: F51.04 (primary diagnosis) No longer using trazodone Uses ambien as needed - ZOLPIDEM 5 MG TABLET 2. GERD without esophagitis - ICD9: 530.81, ICD10: K21.9 - FAMOTIDINE 20 MG TABLET Elana Chery DO PDMP website checked and validated. All prescriptions have been APPROPRIATELY filled. No suspicious activity was identified. 06/08/2022 by Elana Chery DO documented in this encounter [facility] 05-07-2022 Miscellaneous Notes [address] [address] May 07, 2022 PID: [id number] Jackie LeeJay Gigi [address] [facility] [address] [place] [address] Dear Ms. Yu, We are pleased to inform you that the results of your recent breast imaging exam on 05/06/2022 are normal. Early detection of cancer is very important. We also understand recommendations regarding breast cancer screening are controversial. Please discuss with your primary care provider which strategy is best for you and whether a mammogram is right for you. Your imaging studies and report will be kept on file at [facility] as part of your permanent medical record and are available for your continuing care. Thank you for allowing us to help in meeting your health care needs. Sincerely, Dr. Paige Interpreting Radiologist [facility] (Normal over 40) documented in this encounter [facility] 05-06-2022 History of Present illness Narrative Radiology Service Progress Note PATIENT NAME: Jackie Yu DATE OF SERVICE: May 06, 2022 TIME: 4:17 PM PATIENT IDENTITY VERIFICATION COMPLETED USING TWO (2) IDENTIFIERS: Name and Date of confirmed by patient verbally. FALL SCREENING: Has the patient had 2 falls in the last year or 1 fall with injury or currently using an Ambulatory Assistive Device (Walker, Cane, Wheelchair, Crutches, etc.)? No PATIENT GENDER DATA: Female. status: : No status: N/A PATIENT RELEVANT IMPLANT DATA REVIEWED: Not Applicable RADIOLOGY DEPARTMENT: Mammography PERIPHERAL IV DATA: Not applicable SIGNED BY: RT Donis(R) May 06, 2022 4:17 PM documented in this encounter [facility] 04-23-2022 History of Present illness Narrative DISTANCE HEALTH VISIT This Team Access Model visit is a virtual encounter. It required patient-provider interaction for the medical decision making as documented below. Jackie Yu is a 66 year old female seen for evaluation for a colonoscopy. Her last colonoscopy was many years ago and she was found to have polyps at that time. There is no family history of colorectal carcinoma. She occasionally has constipation but otherwise has no real change of bowel habits. She does report history of smoking and mild COPD.. HISTORY REVIEWED (electronic chart updated): - medical history - medications - allergies - family history - social history: Positive for tobacco use REVIEW OF SYSTEMS: GENERAL: feeling well without fatigue, no recent change in weight RESPIRATORY: no cough, no wheezing or shortness of breath CARDIOVASCULAR: no chest pain, no palpitations GI: normal appetite, tolerating PO well, BMs normal, and no abdominal pain PHYSICAL EXAMINATION: VIDEO EXAM: (if done, performed via video enabled technology) GENERAL: alert and appropriate, in no distress, well-hydrated, well nourished, and happy, smiling, interactive ASSESSMENT: (Z86.010) History of colon polyps (primary encounter diagnosis) (Z72.0) Tobacco use (J44.9) Chronic obstructive pulmonary disease, unspecified COPD type (HCC) PLAN: ASSESSMENT/PLAN: 1. History of colon polyps - ICD9: V12.72, ICD10: Z86.010 (primary diagnosis) Given her history of colon polyps, I did recommend proceeding with a colonoscopy. The risks, and complications of the procedure were reviewed with her in detail including bleeding, missing the lesion and perforation requiring emergency surgery and anesthetic risks. She understood and was agreeable to proceed 2. Tobacco use - ICD9: 305.1, ICD10: Z72.0 - Cessation encouraged. - Physiologic and physical aspects of tobacco addiction as well as strategies for quitting were discussed. - Counseling was given focusing on the harmful effects of this addiction especially given the patient's medical condition(s) which will be worsened because of the chemicals in tobacco. - Counseling was given 3-4 minutes. 3. Chronic obstructive pulmonary disease, unspecified COPD type (HCC) - ICD9: 496, ICD10: J44.9 Management per primary/pulmonary Total time of telephone encounter: 10 MINUTES Adan Butt MD documented in this encounter [facility] 04-21-2022 Miscellaneous Notes pharm requesting refills: Last office visit 02/14/2022. Last refill 03/25/2022 05/23/2022 Requested Prescriptions Pending Prescriptions Disp Refills cyclobenzaprine (FLEXERIL) 10 mg tablet [Pharmacy Med Name: CYCLOBENZAPRINE 10 MG TABLET] 90 tablet 0 Sig: TAKE 1 TABLET BY MOUTH THREE TIMES A DAY NEEDED Please review and advise. Bing Barron MA documented in this encounter [facility] 04-16-2022 Miscellaneous Notes pt requesting refills: Last office visit 02/14/2022. Last refill 10/13/2016 05/23/2022 Requested Prescriptions Pending Prescriptions Disp Refills amLODIPine (NORVASC) 5 mg tablet 90 tablet 3 Sig: Take 1 tablet by mouth once daily. Please review and advise. Bing Barron MA documented in this encounter [facility] 04-11-2022 Miscellaneous Notes Noted - that is aman Chery DO Patient aware. Patient states her size mixer is going to take of this. She states he is going to put her back on liptior 80mg . She states he has to take care of this do to insurance. Bing Barron MA Please call pt - her blood work shows slightly low sodium and slightly high cholesterol. I would like for her to start on cholesterol medication, but her chart states she is allergic to lipitor - is that true? Thanks Elana Chery DO documented in this encounter [facility] 03-31-2022 History of Present illness Narrative ED Follow Up: Patient discharged from [facility] ED on 03/29/22. 1. How are you feeling since your ED visit? Feeling better Have your symptoms improved or resolved? Yes 2. Were you prescribed any medications while in the ED or advised to stop any medication? No - If yes, were you able to fill your prescriptions? Not applicable -if stopped medication, what was the medication? N/A 3. Were you advised to schedule a follow up appointment with your provider? Yes - If no, Do you feel like you need an appointment scheduled? Not applicable - If yes, Do you need this scheduled now or has this already been scheduled? No states she is feeling better 4. Were you able to contact the office or butter production supervisor provider prior to your ED visit? Not applicable 5. Is there anything else I can do for you today? No Ayana Sandhu MA documented in this encounter [facility] 03-25-2022 Miscellaneous Notes Pharmacy requesting refills: Last office visit 02/14/2022 Last refill 02/14/2022 nov 05/23/2022 Requested Prescriptions Pending Prescriptions Disp Refills cyclobenzaprine (FLEXERIL) 10 mg tablet [Pharmacy Med Name: CYCLOBENZAPRINE 10 MG TABLET] 90 tablet 0 Sig: TAKE 1 TABLET BY MOUTH THREE TIMES A DAY NEEDED Please review and advise. Bing Barron MA documented in this encounter [facility] 03-05-2022 Miscellaneous Notes pharmacy electronically requesting refills as follows: Last seen 02/14/22 . Last refill 01/08/22 . Requested Prescriptions Pending Prescriptions Disp Refills albuterol HFA (PROVENTIL HFA, VENTOLIN HFA) 90 mcg/actuation inhaler [Pharmacy Med Name: ALBUTEROL HFA (PV)] 40.2 g 3 Sig: USE 2 INHALATIONS BY MOUTH EVERY 4 HOURS NEEDED Please review and advise. Ayana Sandhu MA documented in this encounter [facility] 02-25-2022 Miscellaneous Notes Our office called the patient to schedule appt for screening colon cancer. Patient declined appt due to location. Selin Lee February 25, 2022 2:01 PM documented in this encounter [facility] 02-14-2022 Nurse Note Immunizations were given as ordered. Vaccination information sheet(s) given. Ayana Sandhu MA documented in this encounter [facility] 02-14-2022 History of Present illness Narrative SUBJECTIVE: 66 year old female for annual checkup. I have fully reviewed the past medical, surgical, social and family history and updated the Histories section of [facility]. Pt has hypokalemia Taking potassium Needs bloodwork Saw urologist for microscopic hematuria - no concerns She is going to pain management left leg is better but now has pain in right lower extremity, and can barely walk She cannot take lyrica She will be seeing Dr. Huber in [place] She does not want to take pain medication, wants to have the problem fixed She is taking muscle relaxers, are not working She is not sleeping well One trazodone, 1 does not work, 2 make her too groggy in the morning She is not sleeping more than 3 hours per night. No LMP recorded. Patient has had a hysterectomy. ALLERGIES Allergen Reactions Tramadol Itching Niacin Rash Current Outpatient Medications Medication Sig Dispense Refill ezetimibe (ZETIA) 10 mg tablet Take 10 mg by mouth once daily. methocarbamol (ROBAXIN) 750 mg tablet Take 1 tablet by mouth three times daily. 90 tablet 0 albuterol HFA (PROVENTIL HFA, VENTOLIN HFA) 90 mcg/actuation inhaler INHALE 2 PUFFS BY MOUTH EVERY 4 HOURS NEEDED 1 Each 5 nitroglycerin sublingual (NITROQUICK) 0.4 mg SL tablet DISSOLVE 1 TABLET UNDER THE TONGUE EVERY 5 MINUTES NEEDED. 100 tablet 0 famotidine (PEPCID) 20 mg tablet Take 1 tablet by mouth once daily. 90 tablet 3 potassium chloride (K-TAB) 10 mEq tablet Take 1 tablet by mouth once daily. 90 tablet 3 docusate sodium (COLACE) 100 mg capsule Take 1 capsule by mouth twice daily. (Patient taking differently: Take 100 mg by mouth as needed. ) 60 capsule 0 benazepril (LOTENSIN) 10 mg tablet 1 po every day acetaminophen (TYLENOL EXTRA STRENGTH) 500 mg tablet Take 500 mg by mouth every 8 hours as needed. calcium carbonate (TUMS) 500 mg chew Take 500 mg by mouth as needed. amLODIPine (NORVASC) 5 mg tablet TAKE 1 TABLET BY MOUTH ONCE DAILY. 90 tablet 3 hydroCHLOROthiazide (HYDRODIURIL, ESIDRIX) 12.5 mg tablet TAKE 1 TABLET BY MOUTH ONCE DAILY. 90 tablet 3 spironolactone (ALDACTONE) 25 mg tablet TAKE 1 TABLET BY MOUTH ONCE DAILY. 90 tablet 3 metoprolol succinate ER (TOPROL XL) 25 mg 24 hr tablet Take 25 mg by mouth twice daily. clopidogrel (PLAVIX) 75 mg tablet Take 1 tablet by mouth once daily. 0 aspirin, enteric coated (ECOTRIN LOW STRENGTH) 81 mg EC tablet Take 1 tablet by mouth once daily. 0 loratadine (CLARITIN) 10 mg tablet Take 1 tablet by mouth once daily. (Patient not taking: Reported on 02/14/2022 ) 30 tablet 11 pregabalin (LYRICA) 50 mg capsule Take 1 capsule by mouth three times daily for 90 days. (Patient not taking: Reported on 02/14/2022) 90 capsule 2 gabapentin (NEURONTIN) 300 mg capsule Take 1 capsule by mouth three times daily for 90 days. 90 capsule 2 atorvastatin (LIPITOR) 80 mg tablet TAKE 1 TABLET BY MOUTH ONCE DAILY. (Patient not taking: Reported on 02/14/2022) 30 tablet 11 No current facility-administered medications for this visit. ACTIVE PROBLEM LIST Ascvd (Arteriosclerotic Cardiovascular Disease) Gerd With Esophagitis Chronic Insomnia Chronic Midline Low Back Pain Without Sciatica Smoker Heartburn Other Emphysema (Hcc) Hallux Limitus of Right Foot High Cholesterol Hypertension Stage 3 Chronic Kidney Disease (Hcc) Hyponatremia Spinal Stenosis of Lumbar Region Left Lumbar Radiculitis Social History Tobacco Use Smoking status: Current Every Day Smoker Packs/day: 1.00 Years: 45.00 Pack years: 45.00 Types: Cigarettes Start date: 07/13/1984 Smokeless tobacco: Never Used Tobacco comment: down to 07/14 ppd (09/2018) Vaping Use Vaping Use: Never used Substance Use Topics Alcohol use: Yes Comment: rare Drug use: No Family History Problem Relation Age of Onset Heart Mother CABG Hyperlipidemia Mother Hypertension Mother Coronary Artery Disease Mother Heart Sister stents No Known Problems Brother Diabetes No Family History Stroke No Family History Blood Disease No Family History Blood Clots No Family History Factor 5 Leiden No Family History DVT No Family History Systemic Lupus Erythematosus No Family History Multiple Sclerosis No Family History Bipolar disorder No Family History Schizophrenia No Family History Alzheimer's Disease No Family History Dementia No Family History Parkinson s Disease No Family History COPD No Family History Aneurysm No Family History Reviewed past medical history, family history and surgeries. All medications and supplements were reviewed with the patient. REVIEW OF SYSTEMS GENERAL: No weight loss, malaise or fevers HEENT: Negative for frequent or significant headaches, No changes in hearing or vision, no nose bleeds or other nasal problems NECK: Negative for lumps, goiter, pain and significant neck swelling RESPIRATORY: Negative for cough, hemoptysis, wheezing, COPD, dyspnea or shortness of breath CARDIOVASCULAR: Negative for chest pain, leg swelling, hypertension, CHF or palpitations GI: No nausea, vomiting, or diarrhea : No history of dysuria, frequency or incontinence MUSCULOSKELETAL: positive for chronic back pain SKIN: Negative for lesions, rash, and itching PSYCH: positive for insomnia, negative for mood disorder and recent psychosocial stressors HEMATOLOGY/LYMPHOLOGY: Negative for prolonged bleeding, bruising easily or swollen nodes ENDOCRINE: Negative for cold or heat intolerance, polyuria, polydipsia and goiter NEURO: No history of headaches, syncope, paralysis, seizures or tremors PHYSICAL EXAMINATION: BP 108/74 (BP Site: Right Arm, BP Position: Sitting, BP Cuff Size: Regular Adult) Pulse 80 Temp 36.9 C (98.4 F) Resp 18 Ht 168.3 cm (5' 6.25) Wt 84.9 kg (187 lb 3.2 oz) SpO2 95% BMI 29.99 kg/m General appearance: Well appearing, alert, in no acute distress, well-hydrated, well nourished. Skin: Skin color, texture, turgor normal, no suspicious rashes or lesions Head: Normocephalic, no masses, lesions, tenderness or abnormalities Eyes: Anicteric sclera. Pupils are equally round and reactive to light. Extraocular movements are intact. Ears: External ears normal, canals clear Nose/Sinuses: Nares normal, septum midline, mucosa normal, no drainage or sinus tenderness Oropharynx: Lips, mucosa, and tongue normal, teeth and gums normal, oropharynx normal Neck: Supple, no adenopathy; thyroid symmetric, normal size, no bruits Back: Normal exam Lungs: Lungs clear to auscultation. No wheezing, rhonchi, rales. Heart: RRR without murmur, gallop, or rubs. No ectopy Abdomen: Normal abdominal exam, Abdomen soft, non-tender. Bowel sounds normal. No masses, organomegaly Extremities: No deformities, edema, skin discoloration, clubbing or cyanosis. Good capillary refill. Musculoskeletal: tender over paraspinous muscles of LS spine b/l Peripheral pulses: Normal Neuro: Gait normal. Reflexes normal and symmetric. Sensation grossly intact. ASSESSMENT/PLAN: 1. Primary hypertension - ICD9: 401.9, ICD10: I10 (primary diagnosis) - good control - Continue current medication(s) - Recommended regular aerobic exercise. - Recommend home blood pressure monitoring, to bring results in on next visit - Goal of BP <130/80 - COMP METABOLIC PANEL - LIPID PANEL BASIC - CBC 2. Chronic midline low back pain without sciatica - ICD9: 724.2, 338.29, ICD10: M54.50, G89.29 - CYCLOBENZAPRINE 10 MG TABLET 3. Chronic insomnia - ICD9: 780.52, ICD10: F51.04 - ZOLPIDEM 5 MG TABLET 4. Hyperlipidemia, mixed - ICD9: 272.2, ICD10: E78.2 - EZETIMIBE 10 MG TABLET 5. Hypokalemia - ICD9: 276.8, ICD10: E87.6 Continue supplemental potasium 6. Screening for colon cancer - ICD9: V76.51, ICD10: Z12.11 - CONSULT TO GENERAL SURGERY 7. Encounter for screening mammogram for breast cancer - ICD9: V76.12, ICD10: Z12.31 - MAURA SCREENING 8. Encounter for immunization - ICD9: V03.89, ICD10: Z23 - PNEUMOCOCCAL VACCINE (PREVNAR 20) - IMADM PRQ ID SUBQ/IM NJXS 1 VACC Elana Chery DO documented in this encounter [facility] 01-29-2022 History of Present illness Narrative SPINE SURGERY FOLLOW UP SERVICE DATE: 01/29/2022 SURGERY DATE: 01/25/2021 Left L4/5 microdiscectomy Jackie Yu is seen for 1 year post operative follow up. Patient is overall doing well. She does report of intermittent recurrence of her symptoms. Otherwise no major concerns. ANTIPLATELET OR ANTICOAGULATION STATUS: No Patient Entered Questionnaires Spine Questions 02/11/2021 04/15/2021 08/19/2021 Pain Location: Leg Leg None, my primary complaint is not pain-related Pain Duration: 1-3 months - - Symptoms from neck/cervical spine: No No No Employment Status: Disabled due to back pain, permanently or temporarily - Working now Off work 1 month or more due to back/neck pain: No - - Applied for/receive disability/WC due to low back/neck pain No - - Involved in law suit/legal claim: No - No PROMIS Score Percentiles Physical Health 04/15/2021 08/19/2021 10/26/2021 Physical Function Percentile 8 4 - Sleep Percentile 4 1 - Fatigue Percentile 18* 8 - Pain Interference Percentile 4 5 5 PROMIS SOCIAL ROLE SCORE 02/11/2021 04/15/2021 08/19/2021 Social Role Satisfaction Percentile 4 58 10 PROMIS Global Health Scale 02/11/2021 08/19/2021 Physical Health Percentile 7 10 Mental Health Percentile 43 53 Percentiles provide an indication of how the patient's score ranks in relation to the general population. Higher percentile rankings indicate better function/quality of life. 50th percentile is the average of the general population and indicates half of respondents had a worse score. Depression Screening: PHQ-9 02/11/2021 04/15/2021 08/19/2021 Score 14 8 10 PHQ-9 Self-harm Question 02/11/2021 04/15/2021 08/19/2021 Thoughts that you would be better off , or of hurting yourself in some way 0 0 0 PHQ-9 Self-Harm (Item 9) response options: 0 Not at all 1 Several days 2 More than half the days 3 Nearly every day PHQ-9 Levels: 0-4 No to mild depression 5-9 Mild depression 10-14 Moderate depression 15-19 Moderately severe depression 20-27 Severe depression PHYSICAL EXAM: BP 108/66 (BP Site: Left Arm, BP Position: Sitting, BP Cuff Size: Regular Adult) Pulse 84 Ht 170.2 cm (5' 7) Wt 87.1 kg (192 lb 1.6 oz) SpO2 97% BMI 30.09 kg/m Oriented x3 PERRL FS Motor: UE D 5/5, B 5/5, T 5/5, G 5/5, HI 5/5 LE HF 5/5, KE 5/5, DF 5/5, PF 5/5, EHL 5/5 Incision C/D/I DATA REVIEW No additional images reviewed today ASSESSMENT/PLAN (M54.16) Radiculopathy, lumbar region (primary encounter diagnosis) At the moment we will continue conservative management 1. Lyrica ordered 2. Follow up: Following above SIGNATURE: Aquilino Hill MD PATIENT NAME: Jackie Yu DATE: January 29, 2022 TIME: 9:10 AM PAGER: documented in this encounter [facility] 01-24-2022 History of Present illness Narrative POPULATION HEALTH NAVIGATION OUTREACH Action/FYI Already scheduled Pt identified by name and : NO Outreach Outcome/Action PCP field updated Did you use a PCP flex slot to schedule this appointment? No Reason for Outreach Care Gap or Scheduling/Wellness visits Payer: Payor: [facility] MEDICARE / Plan: [facility] DUAL COMPLETE HMO SNP / Product Type: Medicare / Care Gap Reviewed:: N/A Reminder: Reminder note to check Health Maintenance for items below Health Maintenance items due: PNEUMOCOCCAL: 66+(1 - PCV) Never done COLORECTAL CANCER SCREENING due on 03/13/2021 COVID-19 VACCINE(3 - Booster for Moderna series) due on 04/01/2021 SHINGRIX VACCINE(2 of 2) due on 05/03/2021 BONE DENSITY Never done ADVANCE DIRECTIVE DISCUSSION Never done Message Sent to Practice: No Navigation Signature: Hue Foster January 24, 2022 10:55 AM documented in this encounter [facility] 01-20-2022 Miscellaneous Notes Call from [facility] requesting refill. Pending Prescriptions Disp Refills METHOCARBAMOL 750 MG TABLET 90 tablet 0 Sig: Take 1 tablet by mouth three times daily. CA: No Patient last seen12-30-21 next appt: 02-24-22 Brandy Macias documented in this encounter [facility] 01-15-2022 Miscellaneous Notes Received fax from [employer] requesting signature for claritin. Placed in green folder. Bing Barron MA documented in this encounter [facility] 01-15-2022 History of Present illness Narrative This note was created using [employer]. Subjective Jackie Yu is a 66 year old female patient of Dr Chery here today for acute visit for complaints of continued chronic pain hips/legs. PMH HTN, insomnia, lumbar stenosis, chronic back pain, GERD, CKD St 3. Pt reports pain from lower lumbar and upper legs. This is chronic and has been seen and managed by Dr Hill. States she is just getting tired of the pain and how it interferes with her ability to walk and do things. She reports left side pain has improved since having surgery last year 01/[address] Hill. States pain slowly improving in that leg. Reports now she has pain in right upper. Pt reports she has tried gabapentin and can not tolerate this. Reports it caused swelling in her extremities so she stopped this. States she is not interested in Lyrica which she reports Dr Hill suggested. She reports she just wants answers or to fix the problem, no mask it. She reports she has tried PT in the past prior to surgery but states this does not work for her and doesn't have time for this. Reports she has tried chiropractic, massage, TENS unit without relief. She is taking muscle relaxer and 2 tylenol 3 times a day to take the edge off She reports she is going to try and go to pain management for recommendations. She has an appt with Dr Huber in [place] on 02/21/22. Denies numbness in legs, no loss of bowel or bladder or numbness in groin. Reports occasional radiation of pain into lower legs. ALLERGIES Allergen Reactions Tramadol Itching Niacin Rash Current Outpatient Medications Medication Sig Dispense Refill loratadine (CLARITIN) 10 mg tablet Take 1 tablet by mouth once daily. 30 tablet 11 albuterol HFA (PROVENTIL HFA, VENTOLIN HFA) 90 mcg/actuation inhaler INHALE 2 PUFFS BY MOUTH EVERY 4 HOURS NEEDED 1 Each 5 pregabalin (LYRICA) 50 mg capsule Take 1 capsule by mouth three times daily for 90 days. 90 capsule 2 methocarbamol (ROBAXIN) 750 mg tablet TAKE 1 TABLET BY MOUTH THREE TIMES A DAY 90 tablet 0 gabapentin (NEURONTIN) 300 mg capsule Take 1 capsule by mouth three times daily for 90 days. 90 capsule 2 nitroglycerin sublingual (NITROQUICK) 0.4 mg SL tablet DISSOLVE 1 TABLET UNDER THE TONGUE EVERY 5 MINUTES NEEDED. 100 tablet 0 famotidine (PEPCID) 20 mg tablet Take 1 tablet by mouth once daily. 90 tablet 3 potassium chloride (K-TAB) 10 mEq tablet Take 1 tablet by mouth once daily. 90 tablet 3 docusate sodium (COLACE) 100 mg capsule Take 1 capsule by mouth twice daily. (Patient taking differently: Take 100 mg by mouth as needed. ) 60 capsule 0 benazepril (LOTENSIN) 10 mg tablet 1 po every day acetaminophen (TYLENOL EXTRA STRENGTH) 500 mg tablet Take 500 mg by mouth every 8 hours as needed. calcium carbonate (TUMS) 500 mg chew Take 500 mg by mouth as needed. amLODIPine (NORVASC) 5 mg tablet TAKE 1 TABLET BY MOUTH ONCE DAILY. 90 tablet 3 hydroCHLOROthiazide (HYDRODIURIL, ESIDRIX) 12.5 mg tablet TAKE 1 TABLET BY MOUTH ONCE DAILY. 90 tablet 3 atorvastatin (LIPITOR) 80 mg tablet TAKE 1 TABLET BY MOUTH ONCE DAILY. (Patient taking differently: 40 mg. ) 30 tablet 11 spironolactone (ALDACTONE) 25 mg tablet TAKE 1 TABLET BY MOUTH ONCE DAILY. 90 tablet 3 metoprolol succinate ER (TOPROL XL) 25 mg 24 hr tablet Take 25 mg by mouth twice daily. clopidogrel (PLAVIX) 75 mg tablet Take 1 tablet by mouth once daily. 0 aspirin, enteric coated (ECOTRIN LOW STRENGTH) 81 mg EC tablet Take 1 tablet by mouth once daily. 0 No current facility-administered medications for this visit. ACTIVE PROBLEM LIST Ascvd (Arteriosclerotic Cardiovascular Disease) Gerd With Esophagitis Chronic Insomnia Chronic Midline Low Back Pain Without Sciatica Smoker Heartburn Other Emphysema (Hcc) Hallux Limitus of Right Foot High Cholesterol Hypertension Stage 3 Chronic Kidney Disease (Hcc) Hyponatremia Spinal Stenosis of Lumbar Region Left Lumbar Radiculitis PAST MEDICAL HISTORY Diagnosis Date Arthritis Closed displaced fracture of metatarsal bone of right foot DDD (degenerative disc disease), cervical GERD (gastroesophageal reflux disease) Hallux limitus of right foot Heart attack (HCC) 10/23/2006 another in apr 2015 High cholesterol Hypertension IBS (irritable bowel syndrome) PAST SURGICAL HISTORY Procedure Laterality Date FOOT SURGERY HX Right 1999 heal spur, tarsal tunnel FOOT SURGERY HX Right 09/28/2018 spur removed HEART SURGERY HX stents x11 HYSTERECTOMY 2001 HYSTERECTOMY HX STENTS (SPECIFY) heart stents, 2006, 2008, 2007, 2009, 2014 TONSILLECTOMY HX 1984 Social History Tobacco Use Smoking status: Current Every Day Smoker Packs/day: 1.00 Years: 45.00 Pack years: 45.00 Types: Cigarettes Start date: 07/13/1984 Smokeless tobacco: Never Used Tobacco comment: down to 07/14 ppd (09/2018) Vaping Use Vaping Use: Never used Substance Use Topics Alcohol use: Yes Comment: rare Drug use: No Family History Problem Relation Age of Onset Heart Mother CABG Hyperlipidemia Mother Hypertension Mother Coronary Artery Disease Mother Heart Sister stents No Known Problems Brother Diabetes No Family History Stroke No Family History Blood Disease No Family History Blood Clots No Family History Factor 5 Leiden No Family History DVT No Family History Systemic Lupus Erythematosus No Family History Multiple Sclerosis No Family History Bipolar disorder No Family History Schizophrenia No Family History Alzheimer's Disease No Family History Dementia No Family History Parkinson s Disease No Family History COPD No Family History Aneurysm No Family History Review of Systems Constitutional: Negative for activity change, appetite change, chills, fatigue and fever. Respiratory: Negative for cough, shortness of breath and wheezing. Cardiovascular: Positive for leg swelling. Negative for chest pain and palpitations. After taking gabapentin. Is improving Genitourinary: Negative. Negative for difficulty urinating. Musculoskeletal: Positive for arthralgias and back pain. See HPI Neurological: Negative for dizziness, light-headedness, numbness and headaches. Objective 01/15/22 0712 BP: 122/70 BP Site: Right Arm BP Position: Sitting BP Cuff Size: Large Adult Pulse: 86 Resp: 18 Temp: 36.8 C (98.2 F) TempSrc: Oral SpO2: 97% Weight: 85.1 kg (187 lb 9.6 oz) Height: 170.2 cm (5' 7) Physical Exam Vitals and nursing note reviewed. Constitutional: Appearance: Normal appearance. HENT: Head: Normocephalic. Cardiovascular: Rate and Rhythm: Normal rate and regular rhythm. Pulses: Normal pulses. Heart sounds: Normal heart sounds. Pulmonary: Effort: Pulmonary effort is normal. Breath sounds: Normal breath sounds. No wheezing, rhonchi or rales. Musculoskeletal: Lumbar back: No tenderness or bony tenderness. Decreased range of motion. Negative right straight leg raise test and negative left straight leg raise test. Right hip: No tenderness or bony tenderness. Normal range of motion. Decreased strength. Left hip: No tenderness or bony tenderness. Normal range of motion. Decreased strength. Right upper leg: No tenderness or bony tenderness. Left upper leg: No tenderness or bony tenderness. Skin: General: Skin is warm and dry. Neurological: Mental Status: She is alert and oriented to person, place, and time. Deep Tendon Reflexes: Reflex Scores: Patellar reflexes are 2+ on the right side and 2+ on the left side. Psychiatric: Attention and Perception: Attention and perception normal. Mood and Affect: Mood normal. Speech: Speech normal. Behavior: Behavior normal. Behavior is cooperative. Thought Content: Thought content normal. Cognition and Memory: Cognition and memory normal. Judgment: Judgment normal. ASSESSMENT/PLAN: 1. Bilateral hip pain - ICD9: 719.45, ICD10: M25.551, M25.552 (primary diagnosis) - Chronic, encouraged to follow up with pain management as scheduled. Also long discussion regarding PT for evaluation. Pt is reluctant but will consider. Pt is not interested in any other medication management at this time. - support provided. - CONSULT TO PHYSICAL THERAPY 2. Spinal stenosis of lumbar region, unspecified whether neurogenic claudication present - ICD9: 724.02, ICD10: M48.061 - chronic stable, no alarm symptoms or exam findings - see above - CONSULT TO PHYSICAL THERAPY Follow up with PCP for LUIS ALBERTO Lancaster APRN.[employer] documented in this encounter [facility] 01-08-2022 Miscellaneous Notes Patient requesting albuterol inhaler last filled 03/05/2021 and claratin lasts filled 05/21/2021 . [facility]ing to go to [facility]. Nov none Last seen 07/16/2021 documented in this encounter [facility] 01-03-2022 Miscellaneous Notes Noted and done. Pooja Ugarte Patient notified. Please process referral. Bing Barron MA Referral to Dr. Merritt attached Elana Chery DO Patient left message requesting a referral to Dr. Merritt in [place]. Last office visit was 07/16/21. Would you like to see patient before referring. Please advise. Ayana Sandhu MA documented in this encounter [facility] 11-18-2021 History of Present illness Narrative SPINE SURGERY FOLLOW UP SERVICE DATE: 11/18/2021 SURGERY DATE: 01/25/2021 Left L4/5 microdiscectomy Jackie Yu is seen for 9 month post operative follow up. Patient with complaint of recurrence of her symptoms. Mostly buttock but also radiating anterior thigh on left. ANTIPLATELET OR ANTICOAGULATION STATUS: No Patient Entered Questionnaires Spine Questions 02/11/2021 04/15/2021 08/19/2021 Pain Location: Leg Leg None, my primary complaint is not pain-related Pain Duration: 1-3 months - - Symptoms from neck/cervical spine: No No No Employment Status: Disabled due to back pain, permanently or temporarily - Working now Off work 1 month or more due to back/neck pain: No - - Applied for/receive disability/WC due to low back/neck pain No - - Involved in law suit/legal claim: No - No PROMIS Score Percentiles Physical Health 04/15/2021 08/19/2021 10/26/2021 Physical Function Percentile 8 4 - Sleep Percentile 4 1 - Fatigue Percentile 18* 8 - Pain Interference Percentile 4 5 5 PROMIS SOCIAL ROLE SCORE 02/11/2021 04/15/2021 08/19/2021 Social Role Satisfaction Percentile 4 58 10 PROMIS Global Health Scale 02/11/2021 08/19/2021 Physical Health Percentile 7 10 Mental Health Percentile 43 53 Percentiles provide an indication of how the patient's score ranks in relation to the general population. Higher percentile rankings indicate better function/quality of life. 50th percentile is the average of the general population and indicates half of respondents had a worse score. Depression Screening: PHQ-9 02/11/2021 04/15/2021 08/19/2021 Score 14 8 10 PHQ-9 Self-harm Question 02/11/2021 04/15/2021 08/19/2021 Thoughts that you would be better off , or of hurting yourself in some way 0 0 0 PHQ-9 Self-Harm (Item 9) response options: 0 Not at all 1 Several days 2 More than half the days 3 Nearly every day PHQ-9 Levels: 0-4 No to mild depression 5-9 Mild depression 10-14 Moderate depression 15-19 Moderately severe depression 20-27 Severe depression PHYSICAL EXAM: BP 116/68 (BP Site: Left Arm, BP Position: Sitting, BP Cuff Size: Regular Adult) Pulse 87 Ht 170.2 cm (5' 7) Wt 87.2 kg (192 lb 4.8 oz) SpO2 97% BMI 30.12 kg/m Oriented x3 PERRL FS Motor: UE D 5/5, B 5/5, T 5/5, G 5/5, HI 5/5 LE HF 5/5, KE 5/5, DF 5/5, PF 5/5, EHL 5/5 Incision C/D/I DATA REVIEW No additional images reviewed today ASSESSMENT/PLAN (M48.062) Spinal stenosis of lumbar region with neurogenic claudication 1. We will plan to repeat MRI lumbar spine 2. Robaxin ordered 3. Follow up: Following above SIGNATURE: Aquilino Hill MD PATIENT NAME: Jackie Yu DATE: November 18, 2021 TIME: 12:11 PM PAGER: documented in this encounter [facility] 11-15-2021 Miscellaneous Notes Call from patient requesting refill. Pending Prescriptions Disp Refills METHOCARBAMOL 750 MG TABLET 70 tablet 0 Sig: Take 1 tablet by mouth three times daily. CA: No [facility] Patient last seen 10-28-2021 Iris Worthington [employer] documented in this encounter [facility] 11-06-2021 Miscellaneous Notes Filled 10/14 with refills. Call from [facility] requesting refill. Pending Prescriptions Disp Refills GABAPENTIN 300 MG CAPSULE 90 capsule 2 Sig: Take 1 capsule by mouth three times daily for 90 days. CA: No Patient last seen 10-28-21 next appt: 12-30-21 Brandy Macias documented in this encounter [facility] 10-29-2021 History of Present illness Narrative POPULATION HEALTH NAVIGATION OUTREACH Action/JAYE Spoke with patient. Patient is on [employer] for the following HM care gaps: Mammogram - Due 05/02/22. Last done 05/02/21 at [facility]. Appointment declined. COLORECTAL CANCER SCREENING - Colonoscopy, FOBT and FIT testing declined. ADVANCE DIRECTIVE DISCUSSION - Patient does not have advanced directives. Patient declines further information at this time. Pt identified by name and : YES, via phone Outreach Outcome/Action Spoke to patient or caregiver: Patient declined Reason for Outreach Care Gap or Scheduling/Wellness visits Payer: Payor: [employer] MEDICARE / Plan: [employer] PLUS / Product Type: HMO / Care Gap Reviewed:: Breast Cancer screening Colorectal Cancer Screening Reminder: Reminder note to check Health Maintenance for items below Health Maintenance items due: COLORECTAL CANCER SCREENING due on 03/13/2021 COVID-19 VACCINE(3 - Booster for Moderna series) due on 04/01/2021 SHINGRIX VACCINE(2 of 2) due on 05/03/2021 BONE DENSITY Never done PNEUMOVAX AGE 65 AND OVER WITH 5YR LOOKBACK(1) Never done ADVANCE DIRECTIVE DISCUSSION Never done Message Sent to Practice: No Navigation Signature: Sunita Nava MA October 29, 2021 7:29 AM documented in this encounter [facility] 09-02-2021 Note HNO ID: [id number] Author: Brandy Gagnon, CHAR Service: Radiology Author Type: Technologist Type: Progress Notes Filed: 09/02/2021 8:49 AM Note Text: Radiology Service Progress Note DATE OF SERVICE: September 02, 2021 TIME: 8:48 AM PATIENT IDENTITY VERIFICATION COMPLETED USING TWO (2) STANDARD IDENTIFIERS: Name and Date of confirmed by patient verbally and Name and Date of confirmed by identification band. FALL SCREENING: Has the patient had 2 falls in the last year or 1 fall with injury or currently using an Ambulatory Assistive Device (Walker, Cane, Wheelchair, Crutches, etc.)? No PATIENT GENDER DATA: Female. status: : No status: NO. PATIENT RELEVANT IMPLANT DATA REVIEWED: Not Applicable ALLERGIES: Reviewed and unchanged CONTRAST ALLERGY: NO. EXAM: CT -CONTRAST INDUCED NEPHROPATHY RISK FACTORS: Patient age > 60 years CREATININE: Creatinine Date Value Ref Range Status 08/13/2021 0.92 0.58 - 0.96 mg/dL Final 01/15/2021 0.82 0.58 - 0.96 mg/dL Final 12/11/2020 0.87 0.58 - 0.96 mg/dL Final 10/08/2019 0.99 (H) 0.58 - 0.96 mg/dL Final 09/01/2019 1.13 (H) 0.51 - 0.95 mg/dL Final Comment: Use of this assay is not recommended for patients undergoing treatment with phenindione, due to the potential for falsely depressed results. eGFR-All Other Races Date Value Ref Range Status 08/13/2021 >60 . Final Comment: eGFR (Estimated GFR) Units of measure: mL/min/1.73 meters squared eGFR is derived from the reexpressed MDRD Study equation using the following parameters: serum creatinine, age, gender and race. The creatinine assay has been calibrated to be traceable to IDMS. An eGFR <60 mL/min/1.73m2 for >3 months is consistent with chronic kidney disease. Refer to KDOQI guidelines for clinical interpretation. In patients with unstable renal function, e.g. those with acute kidney injury, the eGFR may not accurately reflect actual GFR. Note: On 09/07/2021, the eGFR calculation will be updated to the NKF-ASN Task Force recommended 2020 CKD-EPI creatinine equation which does not include a race variable. For more information or to access a 2020 CKD-EPI calculator, visit the [employer] website at kidney.org/professionals/kdoqi/gf r_calculator. eGFR- Date Value Ref Range Status 08/13/2021 >60 Final P.O.C.T. RESULTS: N/A September 02, 2021 TREATMENT: N/A PERIPHERAL IV DATA: Ambulatory: A peripheral IV was started in the Left antecubital site with a Angio cath: 22 gauge. RADIOLOGY DEPARTMENT: CT; Exam(s) Completed: urogram SIGNATURE: CHAR Salazar PATIENT NAME: Jackie Yu DATE: September 02, 2021 TIME: 8:48 AM [facility] 03-14-2021 Note HNO ID: [id number] Author: Aquilino Hill MD Service: ? Author Type: Physician Type: Progress Notes Filed: 03/14/2021 8:44 PM Note Text: SPINE SURGERY FOLLOW UP SERVICE DATE: 03/14/2021 SURGERY DATE: 01/25/2021 Left L4/5 microdiscectomy Jackie Yu is seen for 6 week post operative follow up. Since last time I saw the patient reports slight improvement in her symptoms. She denies having any further back pain but still complaining of intermittent left leg pain. No major concerns. PAIN EVALUATION 03/14/2021 1004 Pain Level: 9 Pain Location: Leg-Left Description: Aching;Sharp;Shooting;Radiating Duration Units: Months Frequency: Intermittent Intervention/Comfort measure: Medication ANTIPLATELET OR ANTICOAGULATION STATUS: No Patient Entered Questionnaires Spine Questions 02/11/2021 Pain Location: Leg Pain Duration: 1-3 months Symptoms from neck/cervical spine: No Employment Status: Disabled due to back pain, permanently or temporarily Off work 1 month or more due to back/neck pain: No Applied for/receive disability/WC due to low back/neck pain No Involved in law suit/legal claim: No PROMIS Score Percentiles Physical Health 02/11/2021 Physical Function Percentile 8 Sleep Percentile 16* Fatigue Percentile 18* Pain Interference Percentile 4 Social Health 02/11/2021 Social Role Satisfaction Percentile 4 PROMIS Global Health Scale 02/11/2021 Physical Health Percentile 7 Mental Health Percentile 43 Percentiles provide an indication of how the patient's score ranks in relation to the general population. Higher percentile rankings indicate better function/quality of life. 50th percentile is the average of the general population and indicates half of respondents had a worse score. Depression Screening: PHQ-9 02/11/2021 Score 14 PHQ-9 Self-harm Question 02/11/2021 Thoughts that you would be better off , or of hurting yourself in some way 0 PHQ-9 Self-Harm (Item 9) response options: 0 Not at all 1 Several days 2 More than half the days 3 Nearly every day PHQ-9 Levels: 0-4 No to mild depression 5-9 Mild depression 10-14 Moderate depression 15-19 Moderately severe depression 20-27 Severe depression PHYSICAL EXAM: BP 114/65 (BP Site: Left Arm, BP Position: Sitting, BP Cuff Size: Large Adult) Pulse 72 Temp 36.4 ?C (97.5 ?F) Ht 170.2 cm (5' 7) Wt 84.8 kg (187 lb) SpO2 97% BMI 29.29 kg/m? Oriented x3 PERRL FS Motor: UE D 5/5, B 5/5, T 5/5, G 5/5, HI 5/5 LE HF 5/5, KE 5/5, DF 5/5, PF 5/5, EHL 5/5 Incision C/D/I DATA REVIEW No additional images reviewed today ASSESSMENT/PLAN (M54.16) Radiculopathy, lumbar region (primary encounter diagnosis) 1. Percocet ordered 2. Okay to return to work 3. Follow up: 4 weeks SIGNATURE: Aquilino Hill MD PATIENT NAME: Jackie Yu DATE: March 14, 2021 TIME: 8:42 PM PAGER: [facility] 01-25-2021 Note HNO ID: [id number] Author: JUANITA Liao Service: Anesthesiology Author Type: Office Machine Punch Operator Type: Anesthesia Procedure Notes Filed: 01/25/2021 1:27 PM Note Text: ANESTHESIOLOGY PROCEDURE NOTE Airway General Information Procedure Start Time/Medication Administration: 01/25/2021 12:55 PM Patient location during procedure: OR Staffing Anesthesiologist: Semaj Rolon MD DIRECTOR NEW PRODUCT: Cody Sterling APRN.DIRECTOR NEW PRODUCT Performed by: ONEL Indications and Patient Condition Preoxygenated: yes Patient position: sniffing Difficult Mask: No Indications for airway management: anesthesia anesthesia circuit Method: asleep Final Airway Details Final airway type: endotracheal airway Final Endotracheal Airway: ETT Cuffed: yes Successful intubation technique: direct laryngoscopy Endotracheal tube insertion site: oral Blade: Jabier Blade size: #4 ETT size (mm): 7.0 Measured from: lips Placement verified by: capnometry Number of attempts at approach: 1 Airway not difficult SIGNATURE: JUANITA Liao PATIENT NAME: Jackie Yu DATE: January 25, 2021 TIME: 1:26 PM CSN: [id number] [facility] 03-01-2019 History of Past i llness Narrative Problem Noted Date Resolved Date Obesity, Class I, BMI 30-34.9 03/01/2019 Osteoarthritis of multiple joints 09/28/2018 09/28/2018 Chronic thumb pain, left 05/04/2017 018 documented as of this encounter (statuses as of 10/29/2021) [facility]20[facility]2019 History of Past illness Narrative* Problem Noted Date Resolved Date Obesity, Class I, BMI 30-34.9 03/01/2019 Osteoarthritis of multiple joints 09/28/2018 09/28/2018 Chronic thumb pain, left 05/04/2017 018 documented as of this encounter (statuses as of 11/04/2021) [facility] History of Past illness Narrative* Problem Noted Date Resolved Date Obesity, Class I, BMI 30-34.9 03/01/2019 Osteoarthritis of multiple joints 09/28/2018 09/28/2018 Chronic thumb pain, left 05/04/2017 018 documented as of this encounter (statuses as of 11/06/2021) [facility] History of Past illness Narrative* Problem Noted Date Resolved Date Obesity, Class I, BMI 30-34.9 03/01/2019 Osteoarthritis of multiple joints 09/28/2018 09/28/2018 Chronic thumb pain, left 05/04/2017 018 documented as of this encounter (statuses as of 11/14/2021) [address]20-2019 History of Past illness Narrative* Problem Noted Date Resolved Date Obesity, Class I, BMI 30-34.9 03/01/2019 Osteoarthritis of multiple joints 09/28/2018 09/28/2018 Chronic thumb pain, left 05/04/201701/07/2 018 documented as of this encounter (statuses as of 11/15/2021) [address]20-2019 History of Past illness Narrative* Problem Noted Date Resolved Date Obesity, Class I, BMI 30-34.9 03/01/2019 Osteoarthritis of multiple joints 09/28/2018 09/28/2018 Chronic thumb pain, left 05/04/2017 018 documented as of this encounter (statuses as of 11/18/2021) [address]20-2019 History of Past illness Narrative* Problem Noted Date Resolved Date Obesity, Class I, BMI 30-34.9 03/01/2019 Osteoarthritis of multiple joints 09/28/2018 09/28/2018 Chronic thumb pain, left 05/04/2017 018 documented as of this encounter (statuses as of 12/16/2021) [address]20-2019 History of Past illness Narrative* Problem Noted Date Resolved Date Obesity, Class I, BMI 30-34.9 03/01/2019 Osteoarthritis of multiple joints 09/28/2018 09/28/2018 Chronic thumb pain, left 05/04/20172 018 documented as of this encounter (statuses as of 01/03/2022) [address]20-2019 History of Past illness Narrative* Problem Noted Date Resolved Date Obesity, Class I, BMI 30-34.9 03/01/2019 Osteoarthritis of multiple joints 09/28/2018 09/28/2018 Chronic thumb pain, left 05/04/2017 018 documented as of this encounter (statuses as of 01/08/2022) [address]20-2019 History of Past illness Narrative* Problem Noted Date Resolved Date Obesity, Class I, BMI 30-34.9 03/01/2019 Osteoarthritis of multiple joints 09/28/2018 09/28/2018 Chronic thumb pain, left 05/04/2017 018 documented as of this encounter (statuses as of 01/15/2022) [address]20-2019 History of Past illness Narrative* Problem Noted Date Resolved Date Obesity, Class I, BMI 30-34.9 03/01/2019 Osteoarthritis of multiple joints 09/28/2018 09/28/2018 Chronic thumb pain, left 05/04/2017 018 documented as of this encounter (statuses as of 01/20/2022) [address]20-2019 History of Past illness Narrative* Problem Noted Date Resolved Date Obesity, Class I, BMI 30-34.9 03/01/2019 Osteoarthritis of multiple joints 09/28/2018 09/28/2018 Chronic thumb pain, left 05/04/2017 018 documented as of this encounter (statuses as of 01/21/2022) [address]20-2019 History of Past illness Narrative* Problem Noted Date Resolved Date Obesity, Class I, BMI 30-34.9 03/01/2019 Osteoarthritis of multiple joints 09/28/2018 09/28/2018 Chronic thumb pain, left 05/04/2017 018 documented as of this encounter (statuses as of 01/24/2022) [address]20-2019 History of Past illness Narrative* Problem Noted Date Resolved Date Obesity, Class I, BMI 30-34.9 03/01/2019 Osteoarthritis of multiple joints 09/28/2018 09/28/2018 Chronic thumb pain, left 05/04/2017 018 documented as of this encounter (statuses as of 01/29/2022) [address]20-2019 History of Past illness Narrative* Problem Noted Date Resolved Date Obesity, Class I, BMI 30-34.9 03/01/2019 Osteoarthritis of multiple joints 09/28/2018 09/28/2018 Chronic thumb pain, left 05/04/20172 018 documented as of this encounter (statuses as of 02/25/2022) [address]20-2019 History of Past illness Narrative* Problem Noted Date Resolved Date Obesity, Class I, BMI 30-34.9 03/01/2019 Osteoarthritis of multiple joints 09/28/2018 09/28/2018 Chronic thumb pain, left 05/04/2017 018 documented as of this encounter (statuses as of 03/05/2022) [address]20-2019 History of Past illness Narrative* Problem Noted Date Resolved Date Obesity, Class I, BMI 30-34.9 03/01/2019 Osteoarthritis of multiple joints 09/28/2018 09/28/2018 Chronic thumb pain, left 05/04/20172 018 documented as of this encounter (statuses as of 03/14/2022) [address]20-2019 History of Past illness Narrative* Problem Noted Date Resolved Date Obesity, Class I, BMI 30-34.9 03/01/2019 Osteoarthritis of multiple joints 09/28/2018 09/28/2018 Chronic thumb pain, left 05/04/2017 018 documented as of this encounter (statuses as of 03/25/2022) [address]20-2019 History of Past illness Narrative* Problem Noted Date Resolved Date Obesity, Class I, BMI 30-34.9 03/01/2019 Osteoarthritis of multiple joints 09/28/2018 09/28/2018 Chronic thumb pain, left 05/04/2017 018 documented as of this encounter (statuses as of 03/31/2022) [address]20-2019 History of Past illness Narrative* Problem Noted Date Resolved Date Obesity, Class I, BMI 30-34.9 03/01/2019 Osteoarthritis of multiple joints 09/28/2018 09/28/2018 Chronic thumb pain, left 05/04/20172 018 documented as of this encounter (statuses as of 04/11/2022) [address]20-2019 History of Past illness Narrative* Problem Noted Date Resolved Date Obesity, Class I, BMI 30-34.9 03/01/2019 Osteoarthritis of multiple joints 09/28/2018 09/28/2018 Chronic thumb pain, left 05/04/201701/07/2 018 documented as of this encounter (statuses as of 04/16/2022) [address]20-2019 History of Past illness Narrative* Problem Noted Date Resolved Date Obesity, Class I, BMI 30-34.9 03/01/2019 Osteoarthritis of multiple joints 09/28/2018 09/28/2018 Chronic thumb pain, left 05/04/201701/07/ 018 documented as of this encounter (statuses as of 04/21/2022) [facility] History of Past illness Narrative* Problem Noted Date Resolved Date Obesity, Class I, BMI 30-34.9 03/01/2019 Osteoarthritis of multiple joints 09/28/2018 09/28/2018 Chronic thumb pain, left 05/04/201701/07/ 018 documented as of this encounter (statuses as of 04/23/2022) [facility] History of Past illness Narrative* Problem Noted Date Resolved Date Obesity, Class I, BMI 30-34.9 03/01/2019 Osteoarthritis of multiple joints 09/28/2018 09/28/2018 Chronic thumb pain, left 05/04/2017 018 documented as of this encounter (statuses as of 05/07/2022) [facility]2019 History of Past illness Narrative* Problem Noted Date Resolved Date Obesity, Class I, BMI 30-34.9 03/01/2019 Osteoarthritis of multiple joints 09/28/2018 09/28/2018 Chronic thumb pain, left 05/04/2017 018 documented as of this encounter (statuses as of 05/09/2022) [facility] History of Past illness Narrative* Problem Noted Date Resolved Date Obesity, Class I, BMI 30-34.9 03/01/2019 Osteoarthritis of multiple joints 09/28/2018 09/28/2018 Chronic thumb pain, left 05/04/201701/07/2 018 documented as of this encounter (statuses as of 06/02/2022) [facility] History of Past illness Narrative* Problem Noted Date Resolved Date Obesity, Class I, BMI 30-34.9 03/01/2019 Osteoarthritis of multiple joints 09/28/2018 09/28/2018 Chronic thumb pain, left 05/04/20172 018 documented as of this encounter (statuses as of 06/09/2022) [address]20-2019 History of Past illness Narrative* Problem Noted Date Resolved Date Obesity, Class I, BMI 30-34.9 03/01/2019 Osteoarthritis of multiple joints 09/28/2018 09/28/2018 Chronic thumb pain, left 05/04/201701/07/2 018 documented as of this encounter (statuses as of 06/27/2022) [address]20-2019 History of Past illness Narrative* Problem Noted Date Resolved Date Obesity, Class I, BMI 30-34.9 03/01/2019 Osteoarthritis of multiple joints 09/28/2018 09/28/2018 Chronic thumb pain, left 05/04/2017 018 documented as of this encounter (statuses as of 08/05/2022) [address]20-2019 History of Past illness Narrative* Problem Noted Date Resolved Date Obesity, Class I, BMI 30-34.9 03/01/2019 Osteoarthritis of multiple joints 09/28/2018 09/28/2018 Chronic thumb pain, left 05/04/2017 018 documented as of this encounter (statuses as of 08/05/2022) [address]20-2019 History of Past illness Narrative* Problem Noted Date Resolved Date Obesity, Class I, BMI 30-34.9 03/01/2019 Osteoarthritis of multiple joints 09/28/2018 09/28/2018 Chronic thumb pain, left 05/04/20172 018 documented as of this encounter (statuses as of 08/13/2022) [address]20-2019 History of Past illness Narrative* Problem Noted Date Resolved Date Obesity, Class I, BMI 30-34.9 03/01/2019 Osteoarthritis of multiple joints 09/28/2018 09/28/2018 Chronic thumb pain, left 05/04/2017 018 documented as of this encounter (statuses as of 08/22/2022) [address]20-2019 History of Past illness Narrative* Problem Noted Date Resolved Date Obesity, Class I, BMI 30-34.9 03/01/2019 Osteoarthritis of multiple joints 09/28/2018 09/28/2018 Chronic thumb pain, left 05/04/201701/07/2 018 documented as of this encounter (statuses as of 09/10/2022) [address]20-2019 History of Past illness Narrative* Problem Noted Date Resolved Date Obesity, Class I, BMI 30-34.9 03/01/2019 Osteoarthritis of multiple joints 09/28/2018 09/28/2018 Chronic thumb pain, left 05/04/201701/07/2 018 documented as of this encounter (statuses as of 10/09/2022) [address]20-2019 History of Past illness Narrative* Problem Noted Date Resolved Date Obesity, Class I, BMI 30-34.9 03/01/2019 Osteoarthritis of multiple joints 09/28/2018 09/28/2018 Chronic thumb pain, left 05/04/2017 018 documented as of this encounter (statuses as of 10/11/2022) [address]20-2019 History of Past illness Narrative* Problem Noted Date Resolved Date Obesity, Class I, BMI 30-34.9 03/01/2019 Osteoarthritis of multiple joints 09/28/2018 09/28/2018 Chronic thumb pain, left 05/04/201701/07/2 018 documented as of this encounter (statuses as of 11/05/2022) [address]20-2019 History of Past illness Narrative* Problem Noted Date Resolved Date Obesity, Class I, BMI 30-34.9 03/01/2019 Osteoarthritis of multiple joints 09/28/2018 09/28/2018 Chronic thumb pain, left 05/04/201701/07/2 018 documented as of this encounter (statuses as of 11/11/2022) [address]20-2019 History of Past illness Narrative* Problem Noted Date Resolved Date Obesity, Class I, BMI 30-34.9 03/01/2019 Osteoarthritis of multiple joints 09/28/2018 09/28/2018 Chronic thumb pain, left 05/04/201701/07/2 018 documented as of this encounter (statuses as of 11/22/2022) [address]20-2019 History of Past illness Narrative* Problem Noted Date Resolved Date Obesity, Class I, BMI 30-34.9 03/01/2019 Osteoarthritis of multiple joints 09/28/2018 09/28/2018 Chronic thumb pain, left 05/04/2017 018 documented as of this encounter (statuses as of 12/09/2022) [address]20-2019 History of Past illness Narrative* Problem Noted Date Resolved Date Obesity, Class I, BMI 30-34.9 03/01/2019 Osteoarthritis of multiple joints 09/28/2018 09/28/2018 Chronic thumb pain, left 05/04/2017 018 documented as of this encounter (statuses as of 12/11/2022) [address]20-2019 History of Past illness Narrative* Problem Noted Date Resolved Date Obesity, Class I, BMI 30-34.9 03/01/2019 Osteoarthritis of multiple joints 09/28/2018 09/28/2018 Chronic thumb pain, left 05/04/2017 018 documented as of this encounter (statuses as of 12/12/2022) [address]20-2019 History of Past illness Narrative* Problem Noted Date Resolved Date Obesity, Class I, BMI 30-34.9 03/01/2019 Osteoarthritis of multiple joints 09/28/2018 09/28/2018 Chronic thumb pain, left 05/04/2017 018 documented as of this encounter (statuses as of 01/08/2023) [address]20-2019 History of Past illness Narrative* Problem Noted Date Diagnosed Date Resolved Date Obesity, Class I, BMI 30-34.9 03/01/2019 04/26/2020 Osteoarthritis of multiple joints 09/28/2018 09/28/2018 Chronic thumb pain, left 05/04/2017 documented as of this encounter (statuses as of 02/10/2023) [address]20-2019 History of Past illness Narrative* Problem Noted Date Diagnosed Date Resolved Date Obesity, Class I, BMI 30-34.9 03/01/2019 04/26/2020 Osteoarthritis of multiple joints 09/28/2018 09/28/2018 Chronic thumb pain, left 05/04/2017 documented as of this encounter (statuses as of 03/02/2023) [address]20-2019 History of Past illness Narrative* Problem Noted Date Diagnosed Date Resolved Date Obesity, Class I, BMI 30-34.9 03/01/2019 04/26/2020 Osteoarthritis of multiple joints 09/28/2018 09/28/2018 Chronic thumb pain, left 05/04/2017 documented as of this encounter (statuses as of 04/14/2023) [address]20-2019 History of Past illness Narrative* Problem Noted Date Diagnosed Date Resolved Date Obesity, Class I, BMI 30-34.9 03/01/2019 04/26/2020 Osteoarthritis of multiple joints 09/28/2018 09/28/2018 Chronic thumb pain, left 05/04/2017 documented as of this encounter (statuses as of 04/15/2023) [address]20-2019 History of Past illness Narrative* Problem Noted Date Diagnosed Date Resolved Date Obesity, Class I, BMI 30-34.9 03/01/2019 04/26/2020 Osteoarthritis of multiple joints 09/28/2018 09/28/2018 Chronic thumb pain, left 05/04/2017 documented as of this encounter (statuses as of 04/16/2023) [address]20-2019 History of Past illness Narrative* Problem Noted Date Diagnosed Date Resolved Date Obesity, Class I, BMI 30-34.9 03/01/2019 04/26/2020 Osteoarthritis of multiple joints 09/28/2018 09/28/2018 Chronic thumb pain, left 05/04/2017 documented as of this encounter (statuses as of 08/31/2023) [address]20-2019 History of Past illness Narrative* Problem Noted Date Diagnosed Date Resolved Date Obesity, Class I, BMI 30-34.9 03/01/2019 04/26/2020 Osteoarthritis of multiple joints 09/28/2018 09/28/2018 Chronic thumb pain, left 05/04/2017 documented as of this encounter (statuses as of 09/17/2023) [address]20-2019 History of Past illness Narrative* Problem Noted Date Diagnosed Date Resolved Date Obesity, Class I, BMI 30-34.9 03/01/2019 04/26/2020 Osteoarthritis of multiple joints 09/28/2018 09/28/2018 Chronic thumb pain, left 05/04/2017 documented as of this encounter (statuses as of 10/01/2023) [facility] note* Diagnosis Spinal stenosis of lumbar region with neurogenic claudication Spinal stenosis, lumbar region, with neurogenic claudication [facility] Diagnosis Spinal stenosis of lumbar region with neurogenic claudication Spinal stenosis, lumbar region, with neurogenic claudication [facility] Diagnosis Spinal stenosis of lumbar region with neurogenic claudication- Primary Spinal stenosis, lumbar region, with neurogenic claudication [facility]* Diagnosis Acute rhinosinusitis Acute sinusitis, unspecified Other emphysema (HCC) Other emphysema [facility]* Diagnosis Bilateral hip pain- Primary Pain in joint, pelvic region and thigh Spinal stenosis of lumbar region, unspecified whether neurogenic claudication present [facility] Diagnosis Radiculopathy, lumbar region- Primary Thoracic or lumbosacral neuritis or radiculitis, unspecified [facility]* Diagnosis Other emphysema (HCC) Other emphysema [facility] Diagnosis Primary hypertension- Primary Unspecified essential hypertension Chronic midline low back pain without sciatica Chronic insomnia Insomnia, unspecified Hyperlipidemia, mixed Mixed hyperlipidemia Hypokalemia Hypopotassemia Screening for colon cancer Special screening for malignant neoplasms, colon Encounter for screening mammogram for breast cancer Encounter for immunization Need for other specified prophylactic vaccination against single bacterial disease [facility] Diagnosis Chronic midline low back pain without sciatica [facility] Diagnosis Chronic midline low back pain without sciatica [facility] Diagnosis History of colon polyps- Primary Personal history of colonic polyps Tobacco use Tobacco use disorder Chronic obstructive pulmonary disease, unspecified COPD type (HCC) [facility]* Diagnosis Encounter for screening mammogram for breast cancer [facility]* Diagnosis Tobacco abuse Tobacco use disorder [facility] Diagnosis Chronic insomnia- Primary Insomnia, unspecified GERD without esophagitis Esophageal reflux [facility]* Diagnosis Chronic insomnia Insomnia, unspecified Hypokalemia Hypopotassemia documented in this encounter [facility] note* Diagnosis Medication management Encounter for long-term (current) use of other medications documented in this encounter [facility] note* Diagnosis Chronic insomnia Insomnia, unspecified documented in this encounter [facility] note* Diagnosis Chronic insomnia Insomnia, unspecified documented in this encounter [facility] note* Diagnosis Chronic midline low back pain without sciatica documented in this encounter [facility] note* Diagnosis Chronic insomnia Insomnia, unspecified documented in this encounter [facility] note* Diagnosis Chronic insomnia- Primary Insomnia, unspecified documented in this encounter [facility] note* Diagnosis Chronic insomnia Insomnia, unspecified documented in this encounter [facility] note* Diagnosis Mass of lower outer quadrant of left breast- Primary documented in this encounter [facility] note* Diagnosis Chronic insomnia Insomnia, unspecified documented in this encounter [facility] note* Diagnosis Chronic insomnia- Primary Insomnia, unspecified Left lumbar radiculitis Thoracic or lumbosacral neuritis or radiculitis, unspecified documented in this encounter [facility] note* Diagnosis Chronic insomnia Insomnia, unspecified documented in this encounter [facility] note* Diagnosis Mass of lower outer quadrant of left breast- Primary documented in this encounter [facility] note* Diagnosis Mass of lower outer quadrant of left breast documented in this encounter [facility] note* Diagnosis CAD S/P percutaneous coronary angioplasty Past myocardial infarction Old myocardial infarction Primary hypertension Unspecified essential hypertension Mixed hyperlipidemia Current every day smoker BMI 29.0-29.9,adult documented in this encounter [facility] Work Phone: Evaluation note* Diagnosis Hypokalemia Hypopotassemia Chronic insomnia Insomnia, unspecified documented in this encounter [facility] note* Diagnosis Lipoma of right upper extremity Lipoma of other specified sites documented in this encounter [facility] note* Diagnosis Chronic insomnia Insomnia, unspecified documented in this encounter [facility] note* Diagnosis Primary hypertension- Primary Unspecified essential hypertension Hypokalemia Hypopotassemia documented in this encounter [facility] note* Diagnosis Chronic insomnia Insomnia, unspecified documented in this encounter [facility] note* Diagnosis Rectum bleeding- Primary Hemorrhage of rectum and anus Chronic insomnia Insomnia, unspecified Spinal stenosis of lumbar region, unspecified whether neurogenic claudication present Leg swelling Swelling of limb Other emphysema (HCC) Other emphysema Hyponatremia Hyposmolality and/or hyponatremia Stage 3 chronic kidney disease, unspecified whether stage 3a or 3b CKD (HCC) Smoker Tobacco use disorder [facility] Insomnia, unspecified [facility] Diagnosis Chronic obstructive pulmonary disease, unspecified COPD type (HCC)- Primary Rectum bleeding Hemorrhage of rectum and anus [facility] Diagnosis Chronic insomnia Insomnia, unspecified [facility] Diagnosis History of low potassium- Primary [facility] Diagnosis Chronic insomnia Insomnia, unspecified [facility] Diagnosis Rectum bleeding- Primary Hemorrhage of rectum and anus Chronic obstructive pulmonary disease, unspecified COPD type (HCC) [facility]* Diagnosis Hypokalemia Hypopotassemia [facility]* Diagnosis Preoperative examination- Primary Preoperative examination, unspecified Hallux limitus of right foot ASCVD (arteriosclerotic cardiovascular disease) Unspecified cardiovascular disease High cholesterol Pure hypercholesterolemia Essential hypertension Unspecified essential hypertension Other emphysema (HCC) Other emphysema GERD with esophagitis Pre-op evaluation- Primary Preoperative examination, unspecified Heartburn ASCVD (arteriosclerotic cardiovascular disease) Unspecified cardiovascular disease Essential hypertension Unspecified essential hypertension High cholesterol Pure hypercholesterolemia Other emphysema (HCC) Other emphysema Smoker Tobacco use disorder Stage 3 chronic kidney disease, unspecified whether stage 3a or 3b CKD (HCC) Hyponatremia Hyposmolality and/or hyponatremia Chronic insomnia Insomnia, unspecified [facility] Preoperative examination- Primary Preoperative examination, unspecified Hallux limitus of right foot ASCVD (arteriosclerotic cardiovascular disease) Unspecified cardiovascular disease High cholesterol Pure hypercholesterolemia Essential hypertension Unspecified essential hypertension Other emphysema (HCC) Other emphysema GERD with esophagitis Pre-op evaluation- Primary Preoperative examination, unspecified Heartburn ASCVD (arteriosclerotic cardiovascular disease) Unspecified cardiovascular disease Essential hypertension Unspecified essential hypertension High cholesterol Pure hypercholesterolemia Other emphysema (HCC) Other emphysema Smoker Tobacco use disorder Stage 3 chronic kidney disease, unspecified whether stage 3a or 3b CKD (HCC) Hyponatremia Hyposmolality and/or hyponatremia GERD without esophagitis Esophageal reflux [facility] Diagnosis Preoperative examination- Primary Preoperative examination, unspecified Hallux limitus of right foot ASCVD (arteriosclerotic cardiovascular disease) Unspecified cardiovascular disease High cholesterol Pure hypercholesterolemia Essential hypertension Unspecified essential hypertension Other emphysema (HCC) Other emphysema GERD with esophagitis Pre-op evaluation- Primary Preoperative examination, unspecified Heartburn ASCVD (arteriosclerotic cardiovascular disease) Unspecified cardiovascular disease Essential hypertension Unspecified essential hypertension High cholesterol Pure hypercholesterolemia Other emphysema (HCC) Other emphysema Smoker Tobacco use disorder Stage 3 chronic kidney disease, unspecified whether stage 3a or 3b CKD (HCC) Hyponatremia Hyposmolality and/or hyponatremia Left lumbar radiculitis- Primary Thoracic or lumbosacral neuritis or radiculitis, unspecified Smoker Tobacco use disorder [facility]* Diagnosis Preoperative examination- Primary Preoperative examination, unspecified Hallux limitus of right foot ASCVD (arteriosclerotic cardiovascular disease) Unspecified cardiovascular disease High cholesterol Pure hypercholesterolemia Essential hypertension Unspecified essential hypertension Other emphysema (HCC) Other emphysema GERD with esophagitis Pre-op evaluation- Primary Preoperative examination, unspecified Heartburn ASCVD (arteriosclerotic cardiovascular disease) Unspecified cardiovascular disease Essential hypertension Unspecified essential hypertension High cholesterol Pure hypercholesterolemia Other emphysema (HCC) Other emphysema Smoker Tobacco use disorder Stage 3 chronic kidney disease, unspecified whether stage 3a or 3b CKD (HCC) Hyponatremia Hyposmolality and/or hyponatremia Chronic insomnia Insomnia, unspecified [facility] Diagnosis CAD S/P percutaneous coronary angioplasty History of [place] (myocardial infarction) Old myocardial infarction Primary hypertension Unspecified essential hypertension Mixed hyperlipidemia Class 1 obesity with body mass index (BMI) of 30.0 to 30.9 in adult, unspecified obesity type, unspecified whether serious comorbidity present Current every day smoker Past myocardial infarction Old myocardial infarction documented in this encounter [facility] Work Phone: Evaluation note* Diagnosis Preoperative examination- Primary Preoperative examination, unspecified Hallux limitus of right foot ASCVD (arteriosclerotic cardiovascular disease) Unspecified cardiovascular disease High cholesterol Pure hypercholesterolemia Essential hypertension Unspecified essential hypertension Other emphysema (HCC) Other emphysema GERD with esophagitis Pre-op evaluation- Primary Preoperative examination, unspecified Heartburn ASCVD (arteriosclerotic cardiovascular disease) Unspecified cardiovascular disease Essential hypertension Unspecified essential hypertension High cholesterol Pure hypercholesterolemia Other emphysema (HCC) Other emphysema Smoker Tobacco use disorder Stage 3 chronic kidney disease, unspecified whether stage 3a or 3b CKD (HCC) Hyponatremia Hyposmolality and/or hyponatremia Hypokalemia Hypopotassemia documented in this encounter [facility] note* Diagnosis Preoperative examination- Primary Preoperative examination, unspecified Hallux limitus of right foot ASCVD (arteriosclerotic cardiovascular disease) Unspecified cardiovascular disease High cholesterol Pure hypercholesterolemia Essential hypertension Unspecified essential hypertension Other emphysema (HCC) Other emphysema GERD with esophagitis Pre-op evaluation- Primary Preoperative examination, unspecified Heartburn ASCVD (arteriosclerotic cardiovascular disease) Unspecified cardiovascular disease Essential hypertension Unspecified essential hypertension High cholesterol Pure hypercholesterolemia Other emphysema (HCC) Other emphysema Smoker Tobacco use disorder Stage 3 chronic kidney disease, unspecified whether stage 3a or 3b CKD (HCC) Hyponatremia Hyposmolality and/or hyponatremia Encounter for screening mammogram for breast cancer documented in this encounter [facility] note* Diagnosis Preoperative examination- Primary Preoperative examination, unspecified Hallux limitus of right foot ASCVD (arteriosclerotic cardiovascular disease) Unspecified cardiovascular disease High cholesterol Pure hypercholesterolemia Essential hypertension Unspecified essential hypertension Other emphysema (HCC) Other emphysema GERD with esophagitis Pre-op evaluation- Primary Preoperative examination, unspecified Heartburn ASCVD (arteriosclerotic cardiovascular disease) Unspecified cardiovascular disease Essential hypertension Unspecified essential hypertension High cholesterol Pure hypercholesterolemia Other emphysema (HCC) Other emphysema Smoker Tobacco use disorder Stage 3 chronic kidney disease, unspecified whether stage 3a or 3b CKD (HCC) Hyponatremia Hyposmolality and/or hyponatremia GERD without esophagitis Esophageal reflux documented in this encounter [facility] note* Diagnosis Preoperative examination- Primary Preoperative examination, unspecified Hallux limitus of right foot ASCVD (arteriosclerotic cardiovascular disease) Unspecified cardiovascular disease High cholesterol Pure hypercholesterolemia Essential hypertension Unspecified essential hypertension Other emphysema (HCC) Other emphysema GERD with esophagitis Pre-op evaluation- Primary Preoperative examination, unspecified Heartburn ASCVD (arteriosclerotic cardiovascular disease) Unspecified cardiovascular disease Essential hypertension Unspecified essential hypertension High cholesterol Pure hypercholesterolemia Other emphysema (HCC) Other emphysema Smoker Tobacco use disorder Stage 3 chronic kidney disease, unspecified whether stage 3a or 3b CKD (HCC) Hyponatremia Hyposmolality and/or hyponatremia Medicare annual wellness visit, subsequent- Primary Routine general medical examination at a health care facility Other emphysema (HCC) Other emphysema Hyperlipidemia, mixed Mixed hyperlipidemia [facility]* Diagnosis Preoperative examination- Primary Preoperative examination, unspecified Hallux limitus of right foot ASCVD (arteriosclerotic cardiovascular disease) Unspecified cardiovascular disease High cholesterol Pure hypercholesterolemia Essential hypertension Unspecified essential hypertension Other emphysema (HCC) Other emphysema GERD with esophagitis Pre-op evaluation- Primary Preoperative examination, unspecified Heartburn ASCVD (arteriosclerotic cardiovascular disease) Unspecified cardiovascular disease Essential hypertension Unspecified essential hypertension High cholesterol Pure hypercholesterolemia Other emphysema (HCC) Other emphysema Smoker Tobacco use disorder Stage 3 chronic kidney disease, unspecified whether stage 3a or 3b CKD (HCC) Hyponatremia Hyposmolality and/or hyponatremia Chronic insomnia Insomnia, unspecified [facility]* Diagnosis Preoperative examination- Primary Preoperative examination, unspecified Hallux limitus of right foot ASCVD (arteriosclerotic cardiovascular disease) Unspecified cardiovascular disease High cholesterol Pure hypercholesterolemia Essential hypertension Unspecified essential hypertension Other emphysema (HCC) Other emphysema GERD with esophagitis Pre-op evaluation- Primary Preoperative examination, unspecified Heartburn ASCVD (arteriosclerotic cardiovascular disease) Unspecified cardiovascular disease Essential hypertension Unspecified essential hypertension High cholesterol Pure hypercholesterolemia Other emphysema (HCC) Other emphysema Smoker Tobacco use disorder Stage 3 chronic kidney disease, unspecified whether stage 3a or 3b CKD (HCC) Hyponatremia Hyposmolality and/or hyponatremia Chronic insomnia Insomnia, unspecified [facility]* Diagnosis Preoperative examination- Primary Preoperative examination, unspecified Hallux limitus of right foot ASCVD (arteriosclerotic cardiovascular disease) Unspecified cardiovascular disease High cholesterol Pure hypercholesterolemia Essential hypertension Unspecified essential hypertension Other emphysema (HCC) Other emphysema GERD with esophagitis Pre-op evaluation- Primary Preoperative examination, unspecified Heartburn ASCVD (arteriosclerotic cardiovascular disease) Unspecified cardiovascular disease Essential hypertension Unspecified essential hypertension High cholesterol Pure hypercholesterolemia Other emphysema (HCC) Other emphysema Smoker Tobacco use disorder Stage 3 chronic kidney disease, unspecified whether stage 3a or 3b CKD (HCC) Hyponatremia Hyposmolality and/or hyponatremia Chronic insomnia Insomnia, unspecified [facility]* Diagnosis Preoperative examination- Primary Preoperative examination, unspecified Hallux limitus of right foot ASCVD (arteriosclerotic cardiovascular disease) Unspecified cardiovascular disease High cholesterol Pure hypercholesterolemia Essential hypertension Unspecified essential hypertension Other emphysema (HCC) Other emphysema GERD with esophagitis Pre-op evaluation- Primary Preoperative examination, unspecified Heartburn ASCVD (arteriosclerotic cardiovascular disease) Unspecified cardiovascular disease Essential hypertension Unspecified essential hypertension High cholesterol Pure hypercholesterolemia Other emphysema (HCC) Other emphysema Smoker Tobacco use disorder Stage 3 chronic kidney disease, unspecified whether stage 3a or 3b CKD (HCC) Hyponatremia Hyposmolality and/or hyponatremia Chronic midline low back pain with left-sided sciatica- Primary documented [facility]* Diagnosis Preoperative examination- Primary Preoperative examination, unspecified Hallux limitus of right foot ASCVD (arteriosclerotic cardiovascular disease) Unspecified cardiovascular disease High cholesterol Pure hypercholesterolemia Essential hypertension Unspecified essential hypertension Other emphysema (HCC) Other emphysema GERD with esophagitis Pre-op evaluation- Primary Preoperative examination, unspecified Heartburn ASCVD (arteriosclerotic cardiovascular disease) Unspecified cardiovascular disease Essential hypertension Unspecified essential hypertension High cholesterol Pure hypercholesterolemia Other emphysema (HCC) Other emphysema Smoker Tobacco use disorder Stage 3 chronic kidney disease, unspecified whether stage 3a or 3b CKD (HCC) Hyponatremia Hyposmolality and/or hyponatremia Other emphysema (HCC) Other emphysema [facility]* Diagnosis Preoperative examination- Primary Preoperative examination, unspecified Hallux limitus of right foot ASCVD (arteriosclerotic cardiovascular disease) Unspecified cardiovascular disease High cholesterol Pure hypercholesterolemia Essential hypertension Unspecified essential hypertension Other emphysema (HCC) Other emphysema GERD with esophagitis Pre-op evaluation- Primary Preoperative examination, unspecified Heartburn ASCVD (arteriosclerotic cardiovascular disease) Unspecified cardiovascular disease Essential hypertension Unspecified essential hypertension High cholesterol Pure hypercholesterolemia Other emphysema (HCC) Other emphysema Smoker Tobacco use disorder Stage 3 chronic kidney disease, unspecified whether stage 3a or 3b CKD (HCC) Hyponatremia Hyposmolality and/or hyponatremia Hypokalemia Hypopotassemia documented in this encounter [facility] note* Diagnosis Chest pain, unspecified type CAD S/P percutaneous coronary angioplasty History of [place] (myocardial infarction) Old myocardial infarction Primary hypertension Unspecified essential hypertension Mixed hyperlipidemia BMI 27.0-27.9,adult Current every day smoker documented in this encounter [facility] Work Phone: Evaluation note* Diagnosis Preoperative examination- Primary Preoperative examination, unspecified Hallux limitus of right foot ASCVD (arteriosclerotic cardiovascular disease) Unspecified cardiovascular disease High cholesterol Pure hypercholesterolemia Essential hypertension Unspecified essential hypertension Other emphysema (HCC) Other emphysema GERD with esophagitis Pre-op evaluation- Primary Preoperative examination, unspecified Heartburn ASCVD (arteriosclerotic cardiovascular disease) Unspecified cardiovascular disease Essential hypertension Unspecified essential hypertension High cholesterol Pure hypercholesterolemia Other emphysema (HCC) Other emphysema Smoker Tobacco use disorder Stage 3 chronic kidney disease, unspecified whether stage 3a or 3b CKD (HCC) Hyponatremia Hyposmolality and/or hyponatremia Hypotensive episode- Primary Hypotension, unspecified Primary hypertension Unspecified essential hypertension Dizziness Dizziness and giddiness ASCVD (arteriosclerotic cardiovascular disease) Unspecified cardiovascular disease Chronic insomnia Insomnia, unspecified Chronic obstructive pulmonary disease, unspecified COPD type (HCC) Stage 3 chronic kidney disease, unspecified whether stage 3a or 3b CKD (HCC) Hyperlipidemia, mixed Mixed hyperlipidemia Smoker Tobacco use disorder [facility] The patient states she has been doing well from a cardiac standpoint. She denies chest discomfort or symptoms of myocardial ischemia. She has not used nitroglycerin. She denies any significant problem with dyspnea. She denies any significant palpitations or syncope. She denies any problem with her medications. Unfortunately still continues to smoke cigarettes. I did go over results of her lipid profile with her. Her cholesterol is very good. Her LDL cholesterol 59. * IMPRESSION: * 1. Coronary artery disease, no angina * 2. Remote ST-elevation myocardial infarction. * 3. Remote multivessel percutaneous coronary intervention. * 4. Essential hypertension. * 5. Mixed hyperlipidemia. * 6. Obesity. * 7. Tobacco abuse. * Please excuse any errors in grammar or translation related to this dictation. Voice recognition software was utilized to prepare this document. [facility] [address] DO Work Phone: History of Present illness Narrative* The patient states she has been doing well from a cardiac standpoint. She denies chest discomfort or symptoms of myocardial ischemia. She denies any significant dyspnea on exertion. She denies any significant palpitations, preceding syncope. She has not used nitroglycerin. We did discuss managementof her lipids. I am going to try her on atorvastatin 40 mg a day when she finishes her current doseof pravastatin. I am going to recheck lipids in 2 months after she is on atorvastatin. * IMPRESSION: * 1. Coronary artery disease, no angina * 2. Remote ST-elevation myocardial infarction. * 3. Remote multivessel percutaneous coronary intervention. * 4. Essential hypertension. * 5. Mixed hyperlipidemia. * 6. Obesity. * 7. Tobacco abuse. * Please excuse any errors in grammar or translation related to this dictation. Voice recognition software was utilized to prepare this document. [facility] for referral (narrative)* Diagnostic Procedure Only (Routine) - Closed Specialty Diagnoses / Procedures Referred By Aubree wyman Referred To Contact [facility] Diagnoses Encounter for screening mammogram for breast cancer Procedures [facility]A SCREENING SCREENING MAMMOGRAPHY BI 2-VIEW BREAST INC CAD Elana Chery DO [address] [place] [address] [facility] [address] [address] Referral ID Status Reason Start Date Expiration Date V isits Requested Visits Authorized [id number] Closed Auto-Generate d Referral 02/14/2022 03/16/2023 1 1 [facility] for referral (narrative)* Diagnostic Procedure Only (Routine) - Authorized Specialty Diagnoses / Procedures Referred By Aubree wyman Referred To Contact [facility] Diagnoses Mass of lower outer quadrant of left breast Procedures US BREAST LTD LEFT US BREAST UNI REAL TIME WITH IMAGE LIMITED Elana Chery DO [address] [place] [address] [facility] [address] [address] Referral ID Status Reason Start Date Expiration Date Visits Requested Visits Authorized [id number] Authorized Auto-Generat ed Referral 12/12/2022 01/11/2024 1 1 * Diagnostic Procedure Only (Routine) - Authorized Specialty Diagnoses / Procedures Referred By Aubree t Referred To Contact [facility] Diagnoses Mass of lower outer quadrant of left breast Procedures [facility]A DIAGNOSTIC LEFT DIAGNOSTIC MAMMOGRAPHY COMPUTER-AIDED DETCJ UNI Poonam, Elana C, DO [address] [place] [address] [facility] [address] [place] [address] Referral ID Status Reason Start Date Expiration Date Visits Requested Visits Authorized [id number] Authorized Auto-Generat ed Referral 12/12/2022 01/11/2024 1 1 [facility] for referral (narrative)* Diagnostic Procedure Only (Routine) - New Request Specialty Diagnoses / Procedures Referred By Aubree wyman Referred To Contact [facility] Diagnoses Encounter for screening mammogram for breast cancer Procedures MAURA SCREENING W SANDY SCREENING DIGITAL BREAST TOMOSYNTHESIS BI SCREENING MAMMOGRAPHY BI 2-VIEW BREAST INC Elana Monsivais, DO [address] [place] [address] [facility] [address] [place] [address] Referral ID Status Reason Start Date Expiration Date Visits Requested Visits Authorized [id number] New Request Auto-Generat ed Referral 06/23/2025 1 1 [facility] for visit Narrative* Diagnostic Procedure Only (Routine) - Closed Specialty Diagnoses / Procedures Referred By Aubree wyman Referred To Contact BR IMAGING Diagnoses Encounter for screening mammogram for breast cancer Procedures MAURA SCREENING SCREENING MAMMOGRAPHY BI 2-VIEW BREAST INC Elana Monsivais, DO [address] [place] [address] [facility] [address] [place] [address] Referral ID Status Reason Start Date Expiration Date V isits Requested Visits Authorized [id number] Closed Auto-Generate d Referral 02/14/2022 03/16/2023 1 1 [facility] for visit Narrative* Diagnostic Procedure Only (Routine) - Closed Specialty Diagnoses / Procedures Referred By Aubree t Referred To Contact BR IMAGING Diagnoses Mass of lower outer quadrant of left breast Procedures MAURA DIAGNOSTIC LEFT DIAGNOSTIC MAMMOGRAPHY COMPUTER-AIDED DETCJ Elana Damon C, [address] [place] [address] [facility] [address] [place] [address] Referral ID Status Reason Start Date Expiration Date V isits Requested Visits Authorized [id number] Closed Auto-Generate d Referral 12/12/2022 01/11/2024 1 1 [facility] Summary Purpose Family History No Family History Records FoundUnknown Family Member Name Dates Details Family history of arterioscl erotic cardiovascular disease: Mother, Father, Sister(V17.49, Z82.49) Status:Active Family history of CABG: Moth er(V17.49, Z82.49) Status:Active Family history of cardiac di sorder: Mother(V17.49, Z82.49) Status:Active Family history of hyperlipid emia: Mother(V18.19, Z83.438) Status:Active Family history of hypertensi on: Mother(V17.49, Z82.49) Status:Active Unknown Family Member Name Dates Details Family history of arterioscl erotic cardiovascular disease: Mother, Father, Sister(V17.49, Z82.49) Status:Active Family history of CABG: Moth er(V17.49, Z82.49) Status:Active Family history of cardiac di sorder: Mother(V17.49, Z82.49) Status:Active Family history of hyperlipid emia: Mother(V18.19, Z83.438) Status:Active Family history of hypertensi on: Mother(V17.49, Z82.49) Status:Active Unknown Family Member Name Dates Details Family history of arterioscl erotic cardiovascular disease: Mother, Father, Sister(V17.49, Z82.49) Status:Active Family history of CABG: Moth er(V17.49, Z82.49) Status:Active Family history of cardiac di sorder: Mother(V17.49, Z82.49) Status:Active Family history of hyperlipid emia: Mother(V18.19, Z83.438) Status:Active Family history of hypertensi on: Mother(V17.49, Z82.49) Status:Active Unknown Family Member Name Dates Details Family history of hypertensi on: Mother(V17.49, Z82.49) Status:Active Family history of hyperlipid emia: Mother(V18.19, Z83.438) Status:Active Family history of cardiac di sorder: Mother(V17.49, Z82.49) Status:Active Family history of CABG: Moth er(V17.49, Z82.49) Status:Active Family history of arterioscl erotic cardiovascular disease: Mother, Father, Sister(V17.49, Z82.49) Status:Active Unknown Family Member Name Dates Details Family history of arterioscl erotic cardiovascular disease: Mother, Father, Sister(V17.49, Z82.49) Status:Active Family history of CABG: Moth er(V17.49, Z82.49) Status:Active Family history of cardiac di sorder: Mother(V17.49, Z82.49) Status:Active Family history of hyperlipid emia: Mother(V18.19, Z83.438) Status:Active Family history of hypertensi on: Mother(V17.49, Z82.49) Status:Active Unknown Family Member Name Dates Details Family history of arterioscl erotic cardiovascular disease: Mother, Father, Sister(V17.49, Z82.49) Status:Active Family history of CABG: Moth er(V17.49, Z82.49) Status:Active Family history of cardiac di sorder: Mother(V17.49, Z82.49) Status:Active Family history of hyperlipid emia: Mother(V18.19, Z83.438) Status:Active Family history of hypertensi on: Mother(V17.49, Z82.49) Status:Active Unknown Family Member Name Dates Details Family history of arterioscl erotic cardiovascular disease: Mother, Father, Sister(V17.49, Z82.49) Status:Active Family history of CABG: Moth er(V17.49, Z82.49) Status:Active Family history of cardiac di sorder: Mother(V17.49, Z82.49) Status:Active Family history of hyperlipid emia: Mother(V18.19, Z83.438) Status:Active Family history of hypertensi on: Mother(V17.49, Z82.49) Status:Active Unknown Family Member Name Dates Details Family history of arterioscl erotic cardiovascular disease: Mother, Father, Sister(V17.49, Z82.49) Status:Active Family history of CABG: Moth er(V17.49, Z82.49) Status:Active Family history of cardiac di sorder: Mother(V17.49, Z82.49) Status:Active Family history of hyperlipid emia: Mother(V18.19, Z83.438) Status:Active Family history of hypertensi on: Mother(V17.49, Z82.49) Status:Active Unknown Family Member Name Dates Details Family history of hypertensi on: Mother(V17.49, Z82.49) Status:Active Family history of hyperlipid emia: Mother(V18.19, Z83.438) Status:Active Family history of cardiac di sorder: Mother(V17.49, Z82.49) Status:Active Family history of CABG: Moth er(V17.49, Z82.49) Status:Active Family history of arterioscl erotic cardiovascular disease: Mother, Father, Sister(V17.49, Z82.49) Status:Active Unknown Family Member Name Dates Details Family history of arterioscl erotic cardiovascular disease: Mother, Father, Sister(V17.49, Z82.49) Status:Active Family history of CABG: Moth er(V17.49, Z82.49) Status:Active Family history of cardiac di sorder: Mother(V17.49, Z82.49) Status:Active Family history of hyperlipid emia: Mother(V18.19, Z83.438) Status:Active Family history of hypertensi on: Mother(V17.49, Z82.49) Status:Active Unknown Family Member Name Dates Details Family history of arterioscl erotic cardiovascular disease: Mother, Father, Sister(V17.49, Z82.49) Status:Active Family history of CABG: Moth er(V17.49, Z82.49) Status:Active Family history of cardiac di sorder: Mother(V17.49, Z82.49) Status:Active Family history of hyperlipid emia: Mother(V18.19, Z83.438) Status:Active Family history of hypertensi on: Mother(V17.49, Z82.49) Status:Active Unknown Family Member Name Dates Details Family history of hypertensi on: Mother(V17.49, Z82.49) Status:Active Family history of hyperlipid emia: Mother(V18.19, Z83.438) Status:Active Family history of cardiac di sorder: Mother(V17.49, Z82.49) Status:Active Family history of CABG: Moth er(V17.49, Z82.49) Status:Active Family history of arterioscl erotic cardiovascular disease: Mother, Father, Sister(V17.49, Z82.49) Status:Active Unknown Family Member Name Dates Details Family history of arterioscl erotic cardiovascular disease: Mother, Father, Sister(V17.49, Z82.49) Status:Active Family history of CABG: Moth er(V17.49, Z82.49) Status:Active Family history of cardiac di sorder: Mother(V17.49, Z82.49) Status:Active Family history of hyperlipid emia: Mother(V18.19, Z83.438) Status:Active Family history of hypertensi on: Mother(V17.49, Z82.49) Status:Active Unknown Family Member Name Dates Details Family history of arterioscl erotic cardiovascular disease: Mother, Father, Sister(V17.49, Z82.49) Status:Active Family history of CABG: Moth er(V17.49, Z82.49) Status:Active Family history of cardiac di sorder: Mother(V17.49, Z82.49) Status:Active Family history of hyperlipid emia: Mother(V18.19, Z83.438) Status:Active Family history of hypertensi on: Mother(V17.49, Z82.49) Status:Active Unknown Family Member Name Dates Details Family history of arterioscl erotic cardiovascular disease: Mother, Father, Sister(V17.49, Z82.49) Status:Active Family history of CABG: Moth er(V17.49, Z82.49) Status:Active Family history of cardiac di sorder: Mother(V17.49, Z82.49) Status:Active Family history of hyperlipid emia: Mother(V18.19, Z83.438) Status:Active Family history of hypertensi on: Mother(V17.49, Z82.49) Status:Active Advance Directives No Advanced Directives Records FoundDocuments on File Type Date Recorded 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 Advance Directive(s) 01/25/2021 9:17 AM Advance Directive(s) 01/18/2021 4:18 PM Advance Directive(s) 12/06/2020 8:33 AM Advance Directive(s) 12/05/2020 12:04 PM Advance Directive(s) 11/13/2020 9:13 AM Advance Directive(s) 10/11/2020 4:05 PM Advance Directive(s) 02/08/2020 6:49 PM Advance Directive(s) 09/01/2019 2:22 PM Advance Directive(s) 06/12/2019 10:41 AM Advance Directive(s) 02/10/2019 6:04 PM Advance Directive(s) 11/23/2018 9:14 PM Advance Directive(s) 09/28/2018 10:43 AM Advance Directive(s) 09/14/2018 9:17 AM Advance Directive(s) 06/28/2018 4:50 AM Advance Directive(s) 04/15/2018 5:01 PM Advance Directive(s) 03/11/2018 2:21 PM Advance Directive(s) 01/05/2018 1:07 PM Advance Directive(s) 10/18/2017 10:24 PM Documents on File Type Date Recorded 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 Advance Directive(s) 01/25/2021 9:17 AM Advance Directive(s) 01/18/2021 4:18 PM Advance Directive(s) 12/06/2020 8:33 AM Advance Directive(s) 12/05/2020 12:04 PM Advance Directive(s) 11/13/2020 9:13 AM Advance Directive(s) 10/11/2020 4:05 PM Advance Directive(s) 02/08/2020 6:49 PM Advance Directive(s) 09/01/2019 2:22 PM Advance Directive(s) 06/12/2019 10:41 AM Advance Directive(s) 02/10/2019 6:04 PM Advance Directive(s) 11/23/2018 9:14 PM Advance Directive(s) 09/28/2018 10:43 AM Advance Directive(s) 09/14/2018 9:17 AM Advance Directive(s) 06/28/2018 4:50 AM Advance Directive(s) 04/15/2018 5:01 PM Advance Directive(s) 03/11/2018 2:21 PM Advance Directive(s) 01/05/2018 1:07 PM Advance Directive(s) 10/18/2017 10:24 PM Chief Complaint Patient here for 1 year follow-up.Patient here for 1 year follow-up.Patient here for 1 year follow-up. Reason for Referral Specialty Diagnoses / Procedures Referred By Contac t Referred To Contact MR IMAGING Diagnoses Spinal stenosis of lumbar region with neurogenic claudication Procedures MRI LUMBAR SPINE WO IVCON MRI SPINAL CANAL LUMBAR W/[place] [address] [address] Mr Imaging Referral ID Status Reason Start Date Expiration Date V isits Requested Visits Authorized [id number] Closed Auto-Generate d Referral 11/13/2021 12/13/2021 1 1 Specialty Diagnoses / Procedures Referred By Contac t Referred To Contact Diagnoses Spinal stenosis of lumbar region with neurogenic claudication Procedures CONSULT TO PAIN MGT Elana Chery DO [address] [place] [address] [facility] [address] [address] Referral ID Status Reason Start Date Expiration Date Visits Requested Visits Authorized [id number] Ref Not Required PCP Requested Referral 01/02/2022 01/02/2023 1 1 Specialty Diagnoses / Procedures Referred By Contac t Referred To Contact [facility] Diagnoses Bilateral hip pain Spinal stenosis of lumbar region, unspecified whether neurogenic claudication present Procedures CONSULT TO PHYSICAL THERAPY PHYSICAL THERAPY EVALUATION HIGH COMPLEX 45 MINS Phi Lancaster, HYDRAULIC PILE HAMMER OPERATOR.CLUTCH ASSEMBLER [address] [place] [address] [facility] [place] [address] [place] [address] Referral ID Status Reason Start Date Expiration Date Visits Requested Visits Authorized [id number] Pending Review Auto-Generat ed Referral 01/15/2022 01/15/2023 1 1 Specialty Diagnoses / Procedures Referred By Contac t Referred To Contact General Surgery / GENERAL SURGERY Diagnoses Screening for colon cancer Procedures CONSULT TO GENERAL SURGERY OFFICE/OUTPATIENT [facility] 60-74 MINUTES PoonamSusanElana C, DO [address] [place] [address] Adan Butt MD [address] [address] Referral ID Status Reason Start Date Expiration Date Visits Requested Visits Authorized [id number] Pending Review PCP Requested Referral 02/14/2022 02/14/2023 1 1 Specialty Diagnoses / Procedures Referred By Contac t Referred To Contact [facility] IMAGING Diagnoses Encounter for screening mammogram for breast cancer Procedures MAURA SCREENING SCREENING MAMMOGRAPHY BI 2-VIEW BREAST INC CAD Susan Cherykalyan Mccord, DO [address] [place] [address] [facility] [address] [place] [address] Referral ID Status Reason Start Date Expiration Date Visits Requested Visits Authorized [id number] Pending Review Auto-Generat ed Referral 02/14/2022 03/16/2023 1 1 Specialty Diagnoses / Procedures Referred By Contac t Referred To Contact General Surgery / GENERAL SURGERY Diagnoses Rectum bleeding Procedures CONSULT TO GENERAL SURGERY OFFICE/OUTPATIENT [facility] 60 MINUTES Poonam Elana C, DO [address] [place] [address] Bob Martin MD [address] [place] [address] Referral ID Status Reason Start Date Expiration Date Visits Requested Visits Authorized [id number] Authorized PCP Requested Referral 12/03/2023 12/02/2024 1 1 Additional Source Comments INFORMATION SOURCE (unrecogn ized section and content) DATE CREATED AUTHOR 01/06/2018 [facility] DATE CREATED AUTHOR AUTHOR'S ORGANIZ ATION 04/10/2020 [facility] DATE CREATED AUTHOR AUTHOR'S ORGANIZ ATION 09/25/2020 [facility] DATE CREATED AUTHOR AUTHOR'S ORGANIZ ATION 01/26/2021 [facility] DATE CREATED AUTHOR AUTHOR'S ORGANIZ ATION 09/02/2021 [facility] DATE CREATED AUTHOR AUTHOR'S ORGANIZ ATION 10/15/2021 [facility] DATE CREATED AUTHOR AUTHOR'S ORGANIZ ATION 05/15/2022 [facility] DATE CREATED AUTHOR AUTHOR'S ORGANIZ ATION 06/13/[address] [facility] DATE CREATED AUTHOR AUTHOR'S ORGANIZ ATION 02/14/2024 [facility] DATE CREATED AUTHOR AUTHOR'S ORGANIZ ATION 05/16/2024 [facility] DATE CREATED AUTHOR AUTHOR'S ORGANIZ ATION 12/29/2024 [facility] DATE CREATED AUTHOR AUTHOR'S ORGANIZ ATION 01/02/[address] [facility] [place] [place] [facility] DATE CREATED AUTHOR AUTHOR'S ORGANIZ ATION 01/13/2025 [facility] DATE CREATED AUTHOR AUTHOR'S ORGANIZ ATION 02/06/2025 [facility] Source Comments (unrecognize d section and content) In the event this informatio n is protected by the Federal Confidentiality of Alcohol and Drug Abuse Patient Records regulations: The Federal rules restrict any use of the information to criminally investigate or prosecute any alcohol or drug abuse patient.[facility] the event this information is protected by the Federal Confidentiality of Alcohol and Drug Abuse Patient Records regulations: The Federal rules restrict any use of the information to criminally investigate or prosecute any alcohol or drug abuse patient.[facility] the event this information is protected by the Federal Confidentiality of Alcohol and Drug Abuse Patient Records regulations: The Federal rules restrict any use of the information to criminally investigate or prosecute any alcohol or drug abuse patient.[facility] the event this information is protected by the Federal Confidentiality of Alcohol and Drug Abuse Patient Records regulations: The Federal rules restrict any use of the information to criminally investigate or prosecute any alcohol or drug abuse patient.[facility] the event this information is protected by the Federal Confidentiality of Alcohol and Drug Abuse Patient Records regulations: The Federal rules restrict any use of the information to criminally investigate or prosecute any alcohol or drug abuse patient.[facility] the event this information is protected by the Federal Confidentiality of Alcohol and Drug Abuse Patient Records regulations: The Federal rules restrict any use of the information to criminally investigate or prosecute any alcohol or drug abuse patient.[facility] Center[facility] the event this information is protected by the Federal Confidentiality of Alcohol and Drug Abuse Patient Records regulations: The Federal rules restrict any use of the information to criminally investigate or prosecute any alcohol or drug abuse patient.[facility] Center[facility] the event this information is protected by the Federal Confidentiality of Alcohol and Drug Abuse Patient Records regulations: The Federal rules restrict any use of the information to criminally investigate or prosecute any alcohol or drug abuse patient.[facility] Center[facility] the event this information is protected by the Federal Confidentiality of Alcohol and Drug Abuse Patient Records regulations: The Federal rules restrict any use of the information to criminally investigate or prosecute any alcohol or drug abuse patient.[facility] Center[facility] the event this information is protected by the Federal Confidentiality of Alcohol and Drug Abuse Patient Records regulations: The Federal rules restrict any use of the information to criminally investigate or prosecute any alcohol or drug abuse patient.[facility] Center[facility] the event this information is protected by the Federal Confidentiality of Alcohol and Drug Abuse Patient Records regulations: The Federal rules restrict any use of the information to criminally investigate or prosecute any alcohol or drug abuse patient.[facility] Center[facility] the event this information is protected by the Federal Confidentiality of Alcohol and Drug Abuse Patient Records regulations: The Federal rules restrict any use of the information to criminally investigate or prosecute any alcohol or drug abuse patient.[facility] CenterIn the event this information is protected by the Federal Confidentiality of Alcohol and Drug Abuse Patient Records regulations: The Federal rules restrict any use of the information to criminally investigate or prosecute any alcohol or drug abuse patient.[facility] Center[facility] the event this information is protected by the Federal Confidentiality of Alcohol and Drug Abuse Patient Records regulations: The Federal rules restrict any use of the information to criminally investigate or prosecute any alcohol or drug abuse patient.[facility] Center[facility] the event this information is protected by the Federal Confidentiality of Alcohol and Drug Abuse Patient Records regulations: The Federal rules restrict any use of the information to criminally investigate or prosecute any alcohol or drug abuse patient.[facility] Center[facility] the event this information is protected by the Federal Confidentiality of Alcohol and Drug Abuse Patient Records regulations: The Federal rules restrict any use of the information to criminally investigate or prosecute any alcohol or drug abuse patient.[facility] CenterIn the event this information is protected by the Federal Confidentiality of Alcohol and Drug Abuse Patient Records regulations: The Federal rules restrict any use of the information to criminally investigate or prosecute any alcohol or drug abuse patient.[facility] CenterIn the event this information is protected by the Federal Confidentiality of Alcohol and Drug Abuse Patient Records regulations: The Federal rules restrict any use of the information to criminally investigate or prosecute any alcohol or drug abuse patient.[facility] CenterIn the event this information is protected by the Federal Confidentiality of Alcohol and Drug Abuse Patient Records regulations: The Federal rules restrict any use of the information to criminally investigate or prosecute any alcohol or drug abuse patient.[facility] CenterIn the event this information is protected by the Federal Confidentiality of Alcohol and Drug Abuse Patient Records regulations: The Federal rules restrict any use of the information to criminally investigate or prosecute any alcohol or drug abuse patient.[facility] CenterIn the event this information is protected by the Federal Confidentiality of Alcohol and Drug Abuse Patient Records regulations: The Federal rules restrict any use of the information to criminally investigate or prosecute any alcohol or drug abuse patient.[facility] CenterIn the event this information is protected by the Federal Confidentiality of Alcohol and Drug Abuse Patient Records regulations: The Federal rules restrict any use of the information to criminally investigate or prosecute any alcohol or drug abuse patient.[facility] Center[facility] the event this information is protected by the Federal Confidentiality of Alcohol and Drug Abuse Patient Records regulations: The Federal rules restrict any use of the information to criminally investigate or prosecute any alcohol or drug abuse patient.[facility] Center[facility] the event this information is protected by the Federal Confidentiality of Alcohol and Drug Abuse Patient Records regulations: The Federal rules restrict any use of the information to criminally investigate or prosecute any alcohol or drug abuse patient.[facility] CenterIn the event this information is protected by the Federal Confidentiality of Alcohol and Drug Abuse Patient Records regulations: The Federal rules restrict any use of the information to criminally investigate or prosecute any alcohol or drug abuse patient.[facility] CenterIn the event this information is protected by the Federal Confidentiality of Alcohol and Drug Abuse Patient Records regulations: The Federal rules restrict any use of the information to criminally investigate or prosecute any alcohol or drug abuse patient.[facility] CenterIn the event this information is protected by the Federal Confidentiality of Alcohol and Drug Abuse Patient Records regulations: The Federal rules restrict any use of the information to criminally investigate or prosecute any alcohol or drug abuse patient.[facility] CenterIn the event this information is protected by the Federal Confidentiality of Alcohol and Drug Abuse Patient Records regulations: The Federal rules restrict any use of the information to criminally investigate or prosecute any alcohol or drug abuse patient.[facility] CenterIn the event this information is protected by the Federal Confidentiality of Alcohol and Drug Abuse Patient Records regulations: The Federal rules restrict any use of the information to criminally investigate or prosecute any alcohol or drug abuse patient.[facility] CenterIn the event this information is protected by the Federal Confidentiality of Alcohol and Drug Abuse Patient Records regulations: The Federal rules restrict any use of the information to criminally investigate or prosecute any alcohol or drug abuse patient.[facility] CenterIn the event this information is protected by the Federal Confidentiality of Alcohol and Drug Abuse Patient Records regulations: The Federal rules restrict any use of the information to criminally investigate or prosecute any alcohol or drug abuse patient.[facility] CenterIn the event this information is protected by the Federal Confidentiality of Alcohol and Drug Abuse Patient Records regulations: The Federal rules restrict any use of the information to criminally investigate or prosecute any alcohol or drug abuse patient.[facility] CenterIn the event this information is protected by the Federal Confidentiality of Alcohol and Drug Abuse Patient Records regulations: The Federal rules restrict any use of the information to criminally investigate or prosecute any alcohol or drug abuse patient.[facility] CenterIn the event this information is protected by the Federal Confidentiality of Alcohol and Drug Abuse Patient Records regulations: The Federal rules restrict any use of the information to criminally investigate or prosecute any alcohol or drug abuse patient.[facility] CenterIn the event this information is protected by the Federal Confidentiality of Alcohol and Drug Abuse Patient Records regulations: The Federal rules restrict any use of the information to criminally investigate or prosecute any alcohol or drug abuse patient.[facility] CenterIn the event this information is protected by the Federal Confidentiality of Alcohol and Drug Abuse Patient Records regulations: The Federal rules restrict any use of the information to criminally investigate or prosecute any alcohol or drug abuse patient.[facility] CenterIn the event this information is protected by the Federal Confidentiality of Alcohol and Drug Abuse Patient Records regulations: The Federal rules restrict any use of the information to criminally investigate or prosecute any alcohol or drug abuse patient.[facility] CenterIn the event this information is protected by the Federal Confidentiality of Alcohol and Drug Abuse Patient Records regulations: The Federal rules restrict any use of the information to criminally investigate or prosecute any alcohol or drug abuse patient.[facility] CenterIn the event this information is protected by the Federal Confidentiality of Alcohol and Drug Abuse Patient Records regulations: The Federal rules restrict any use of the information to criminally investigate or prosecute any alcohol or drug abuse patient.[facility] CenterIn the event this information is protected by the Federal Confidentiality of Alcohol and Drug Abuse Patient Records regulations: The Federal rules restrict any use of the information to criminally investigate or prosecute any alcohol or drug abuse patient.[facility] CenterIn the event this information is protected by the Federal Confidentiality of Alcohol and Drug Abuse Patient Records regulations: The Federal rules restrict any use of the information to criminally investigate or prosecute any alcohol or drug abuse patient.[facility] CenterIn the event this information is protected by the Federal Confidentiality of Alcohol and Drug Abuse Patient Records regulations: The Federal rules restrict any use of the information to criminally investigate or prosecute any alcohol or drug abuse patient.[facility] CenterIn the event this information is protected by the Federal Confidentiality of Alcohol and Drug Abuse Patient Records regulations: The Federal rules restrict any use of the information to criminally investigate or prosecute any alcohol or drug abuse patient.[facility] CenterIn the event this information is protected by the Federal Confidentiality of Alcohol and Drug Abuse Patient Records regulations: The Federal rules restrict any use of the information to criminally investigate or prosecute any alcohol or drug abuse patient.[facility] CenterIn the event this information is protected by the Federal Confidentiality of Alcohol and Drug Abuse Patient Records regulations: The Federal rules restrict any use of the information to criminally investigate or prosecute any alcohol or drug abuse patient.[facility] CenterIn the event this information is protected by the Federal Confidentiality of Alcohol and Drug Abuse Patient Records regulations: The Federal rules restrict any use of the information to criminally investigate or prosecute any alcohol or drug abuse patient.[facility] CenterIn the event this information is protected by the Federal Confidentiality of Alcohol and Drug Abuse Patient Records regulations: The Federal rules restrict any use of the information to criminally investigate or prosecute any alcohol or drug abuse patient.[facility] CenterIn the event this information is protected by the Federal Confidentiality of Alcohol and Drug Abuse Patient Records regulations: The Federal rules restrict any use of the information to criminally investigate or prosecute any alcohol or drug abuse patient.[facility] CenterIn the event this information is protected by the Federal Confidentiality of Alcohol and Drug Abuse Patient Records regulations: The Federal rules restrict any use of the information to criminally investigate or prosecute any alcohol or drug abuse patient.[facility] the event this information is protected by the Federal Confidentiality of Alcohol and Drug Abuse Patient Records regulations: The Federal rules restrict any use of the information to criminally investigate or prosecute any alcohol or drug abuse patient.[facility] CenterIn the event this information is protected by the Federal Confidentiality of Alcohol and Drug Abuse Patient Records regulations: The Federal rules restrict any use of the information to criminally investigate or prosecute any alcohol or drug abuse patient.[facility] CenterIn the event this information is protected by the Federal Confidentiality of Alcohol and Drug Abuse Patient Records regulations: The Federal rules restrict any use of the information to criminally investigate or prosecute any alcohol or drug abuse patient.[facility]In the event this information is protected by the Federal Confidentiality of Alcohol and Drug Abuse Patient Records regulations: The Federal rules restrict any use of the information to criminally investigate or prosecute any alcohol or drug abuse patient.[facility] CenterIn the event this information is protected by the Federal Confidentiality of Alcohol and Drug Abuse Patient Records regulations: The Federal rules restrict any use of the information to criminally investigate or prosecute any alcohol or drug abuse patient.[facility] CenterIn the event this information is protected by the Federal Confidentiality of Alcohol and Drug Abuse Patient Records regulations: The Federal rules restrict any use of the information to criminally investigate or prosecute any alcohol or drug abuse patient.[facility] CenterIn the event this information is protected by the Federal Confidentiality of Alcohol and Drug Abuse Patient Records regulations: The Federal rules restrict any use of the information to criminally investigate or prosecute any alcohol or drug abuse patient.[facility] CenterIn the event this information is protected by the Federal Confidentiality of Alcohol and Drug Abuse Patient Records regulations: The Federal rules restrict any use of the information to criminally investigate or prosecute any alcohol or drug abuse patient.[facility] CenterIn the event this information is protected by the Federal Confidentiality of Alcohol and Drug Abuse Patient Records regulations: The Federal rules restrict any use of the information to criminally investigate or prosecute any alcohol or drug abuse patient.[facility] CenterIn the event this information is protected by the Federal Confidentiality of Alcohol and Drug Abuse Patient Records regulations: The Federal rules restrict any use of the information to criminally investigate or prosecute any alcohol or drug abuse patient.[facility] CenterIn the event this information is protected by the Federal Confidentiality of Alcohol and Drug Abuse Patient Records regulations: The Federal rules restrict any use of the information to criminally investigate or prosecute any alcohol or drug abuse patient.[facility] CenterIn the event this information is protected by the Federal Confidentiality of Alcohol and Drug Abuse Patient Records regulations: The Federal rules restrict any use of the information to criminally investigate or prosecute any alcohol or drug abuse patient.[facility] CenterIn the event this information is protected by the Federal Confidentiality of Alcohol and Drug Abuse Patient Records regulations: The Federal rules restrict any use of the information to criminally investigate or prosecute any alcohol or drug abuse patient.[facility] CenterIn the event this information is protected by the Federal Confidentiality of Alcohol and Drug Abuse Patient Records regulations: The Federal rules restrict any use of the information to criminally investigate or prosecute any alcohol or drug abuse patient.[facility] CenterIn the event this information is protected by the Federal Confidentiality of Alcohol and Drug Abuse Patient Records regulations: The Federal rules restrict any use of the information to criminally investigate or prosecute any alcohol or drug abuse patient.[facility] CenterIn the event this information is protected by the Federal Confidentiality of Alcohol and Drug Abuse Patient Records regulations: The Federal rules restrict any use of the information to criminally investigate or prosecute any alcohol or drug abuse patient.[facility] CenterIn the event this information is protected by the Federal Confidentiality of Alcohol and Drug Abuse Patient Records regulations: The Federal rules restrict any use of the information to criminally investigate or prosecute any alcohol or drug abuse patient.[facility] CenterIn the event this information is protected by the Federal Confidentiality of Alcohol and Drug Abuse Patient Records regulations: The Federal rules restrict any use of the information to criminally investigate or prosecute any alcohol or drug abuse patient.[facility] CenterIn the event this information is protected by the Federal Confidentiality of Alcohol and Drug Abuse Patient Records regulations: The Federal rules restrict any use of the information to criminally investigate or prosecute any alcohol or drug abuse patient.[facility] CenterIn the event this information is protected by the Federal Confidentiality of Alcohol and Drug Abuse Patient Records regulations: The Federal rules restrict any use of the information to criminally investigate or prosecute any alcohol or drug abuse patient.[facility] CenterIn the event this information is protected by the Federal Confidentiality of Alcohol and Drug Abuse Patient Records regulations: The Federal rules restrict any use of the information to criminally investigate or prosecute any alcohol or drug abuse patient.[facility] CenterIn the event this information is protected by the Federal Confidentiality of Alcohol and Drug Abuse Patient Records regulations: The Federal rules restrict any use of the information to criminally investigate or prosecute any alcohol or drug abuse patient.[facility] CenterIn the event this information is protected by the Federal Confidentiality of Alcohol and Drug Abuse Patient Records regulations: The Federal rules restrict any use of the information to criminally investigate or prosecute any alcohol or drug abuse patient.[facility] CenterIn the event this information is protected by the Federal Confidentiality of Alcohol and Drug Abuse Patient Records regulations: The Federal rules restrict any use of the information to criminally investigate or prosecute any alcohol or drug abuse patient.[facility] CenterIn the event this information is protected by the Federal Confidentiality of Alcohol and Drug Abuse Patient Records regulations: The Federal rules restrict any use of the information to criminally investigate or prosecute any alcohol or drug abuse patient.[facility] CenterIn the event this information is protected by the Federal Confidentiality of Alcohol and Drug Abuse Patient Records regulations: The Federal rules restrict any use of the information to criminally investigate or prosecute any alcohol or drug abuse patient.[facility] CenterIn the event this information is protected by the Federal Confidentiality of Alcohol and Drug Abuse Patient Records regulations: The Federal rules restrict any use of the information to criminally investigate or prosecute any alcohol or drug abuse patient.[facility] CenterIn the event this information is protected by the Federal Confidentiality of Alcohol and Drug Abuse Patient Records regulations: The Federal rules restrict any use of the information to criminally investigate or prosecute any alcohol or drug abuse patient.[facility] CenterIn the event this information is protected by the Federal Confidentiality of Alcohol and Drug Abuse Patient Records regulations: The Federal rules restrict any use of the information to criminally investigate or prosecute any alcohol or drug abuse patient.[facility] CenterIn the event this information is protected by the Federal Confidentiality of Alcohol and Drug Abuse Patient Records regulations: The Federal rules restrict any use of the information to criminally investigate or prosecute any alcohol or drug abuse patient.[facility] CenterIn the event this information is protected by the Federal Confidentiality of Alcohol and Drug Abuse Patient Records regulations: The Federal rules restrict any use of the information to criminally investigate or prosecute any alcohol or drug abuse patient.[facility] CenterIn the event this information is protected by the Federal Confidentiality of Alcohol and Drug Abuse Patient Records regulations: The Federal rules restrict any use of the information to criminally investigate or prosecute any alcohol or drug abuse patient.[facility] CenterIn the event this information is protected by the Federal Confidentiality of Alcohol and Drug Abuse Patient Records regulations: The Federal rules restrict any use of the information to criminally investigate or prosecute any alcohol or drug abuse patient.[facility] CenterIn the event this information is protected by the Federal Confidentiality of Alcohol and Drug Abuse Patient Records regulations: The Federal rules restrict any use of the information to criminally investigate or prosecute any alcohol or drug abuse patient.[facility] CenterIn the event this information is protected by the Federal Confidentiality of Alcohol and Drug Abuse Patient Records regulations: The Federal rules restrict any use of the information to criminally investigate or prosecute any alcohol or drug abuse patient.[facility] CenterIn the event this information is protected by the Federal Confidentiality of Alcohol and Drug Abuse Patient Records regulations: The Federal rules restrict any use of the information to criminally investigate or prosecute any alcohol or drug abuse patient.[facility] CenterIn the event this information is protected by the Federal Confidentiality of Alcohol and Drug Abuse Patient Records regulations: The Federal rules restrict any use of the information to criminally investigate or prosecute any alcohol or drug abuse patient.[facility] CenterIn the event this information is protected by the Federal Confidentiality of Alcohol and Drug Abuse Patient Records regulations: The Federal rules restrict any use of the information to criminally investigate or prosecute any alcohol or drug abuse patient.[facility] CenterIn the event this information is protected by the Federal Confidentiality of Alcohol and Drug Abuse Patient Records regulations: The Federal rules restrict any use of the information to criminally investigate or prosecute any alcohol or drug abuse patient.[facility] CenterIn the event this information is protected by the Federal Confidentiality of Alcohol and Drug Abuse Patient Records regulations: The Federal rules restrict any use of the information to criminally investigate or prosecute any alcohol or drug abuse patient.[facility] CenterIn the event this information is protected by the Federal Confidentiality of Alcohol and Drug Abuse Patient Records regulations: The Federal rules restrict any use of the information to criminally investigate or prosecute any alcohol or drug abuse patient.[facility] Reason for Visit (unrecogniz ed section and content) Reason Onset Date Comments Population Health Navigation Outreach 10/29/2021 [employer] Gaps Reason Comments Refill Request Reason Onset Date Comments Refill Request 11/06/2021 Specialty Diagnoses / Procedures Referred By Contac t Referred To Contact MR IMAGING Diagnoses Spinal stenosis of lumbar region with neurogenic claudication Procedures MRI LUMBAR SPINE WO IVCON MRI SPINAL CANAL LUMBAR W/[place] [address] [place] [id number] Mr Imaging Referral ID Status Reason Start Date Expiration Date V isits Requested Visits Authorized [id number] Closed Auto-Generate d Referral 11/13/2021 12/13/2021 1 1 Reason Onset Date Comments Refill Request 11/14/2021 Reason Comments Cervical spondylosis without myelopathy Reason Comments Patient Question Reason Comments Leg Pain Reason Onset Date Comments Refill Request 01/19/2022 Reason Comments optum form Reason Comments Spinal stenosis of lumbar region wiht ne urogenic claudicatio Reason Comments Appointment Reason Comments Well Adult Reason Onset Date Comments ER F/U 03/31/2022 Reason Comments Results Reason Onset Date Comments Refill Request 04/16/2022 Reason Comments Outpatient Colonoscopy Specialty Diagnoses / Procedures Referred By Contac t Referred To Contact General Surgery / GENERAL SURGERY Diagnoses Screening for colon cancer Procedures CONSULT TO GENERAL SURGERY OFFICE/OUTPATIENT [facility] 60-74 MINUTES Elana Chery DO [address] [place] [address] Adan Butt MD [address] [address] Referral ID Status Reason Start Date Expiration Date V isits Requested Visits Authorized [id number] Closed PCP Requested Referral 02/14/2022 02/14/2023 1 1 Reason Comments F/U 3 Month insomnia Reason Onset Date Comments Refill Request 06/27/2022 Reason Comments Orders Reason Onset Date Comments Refill Request 08/12/2022 Reason Comments Patient Question Reason Onset Date Comments Refill Request 09/09/2022 Reason Onset Date Comments Refill Request 10/10/2022 Reason Onset Date Comments Refill Request 11/11/2022 Reason Comments 3 month follow up chronic insomnia Reason Onset Date Comments Refill Request 12/09/2022 Specialty Diagnoses / Procedures Referred By Contac t Referred To Contact [facility] [place] [facility] Diagnoses Radiculopathy, lumbosacral region Lumbar Radicuapathy M54.17 order in scanned docs Procedures MRI SPINAL CANAL LUMBAR W/O CONTRAST MATERIAL MRI WO LAITH [address] Elana Mccord, DO [address] [place] [address] [facility] [address] [place] [address] Referral ID Status Reason Start Date Expiration Date Visits Re quested Visits Authorized [id number] Closed 07/13/2022 07/12/2023 1 1 Reason Comments Orders Reason Onset Date Comments Refill Request 01/07/2023 Reason Onset Date Comments Refill Request 02/10/2023 Reason Comments Sleep Problem Reason Onset Date Comments Refill Request 04/13/2023 Reason Comments Follow-up 1 year Reason Onset Date Comments Refill Request 08/30/2023 Reason Comments F/U 3 Month Insomnia. Renetta Parker, still having pain in her right upper arm, has a lump that feels like it is on fire off and on, fell backwards down 12 steps onto the landing more on her right side and her arm/hip took the blunt of it Reason Onset Date Comments Refill Request 09/29/2023 Reason Onset Date Comments Refill Request 11/02/2023 Reason Comments Medication Question Reason Onset Date Comments Refill Request 11/30/2023 Reason Comments F/U 3 Month Feet and ankles have been swelling for the last month when the weather started getting warmer Reason Comments Consult Rectal bleeding Specialty Diagnoses / Procedures Referred By Aubree wyman Referred To Contact General Surgery / GENERAL SURGERY Diagnoses Rectum bleeding Procedures CONSULT TO GENERAL SURGERY OFFICE/OUTPATIENT [facility] 60 MINUTES Elana Chery, DO [address] [place] [address] Bob Martin MD [address] [place] [address] Referral ID Status Reason Start Date Expiration Date V isits Requested Visits Authorized [id number] Closed PCP Requested Referral 12/03/2023 12/02/2024 1 1 Reason Onset Date Comments Refill Request 12/29/2023 Reason Comments Lab Orders Reason Onset Date Comments Refill Request 01/29/2024 Reason Onset Date Comments Refill Request 01/28/2024 Reason Onset Date Comments Population Health Navigation Outreach 02/12/2024 [facility] Attributed Member- Needs 2023 Medicare Wellness Appt Scheduled Reason Comments Established Patient Reason Onset Date Comments Refill Request 02/29/2024 Reason Comments F/U 3 Month Reason Onset Date Comments Refill Request 03/29/2024 Reason Onset Date Comments Refill Request 04/28/2024 Reason Onset Date Comments Population Health Navigation Outreach 05/17/2024 [facility] Attributed Member - Chart Review Reason Onset Date Comments Refill Request 05/26/2024 Reason Onset Date Comments Population Health Navigation Outreach 05/27/2024 [facility] Attributed Member - Chart Review Reason Onset Date Comments Refill Request 06/03/2024 Reason Comments Medicare Wellness Exam Reason Onset Date Comments Refill Request 06/23/2024 Reason Comments Outside Lab Results Reason Onset Date Comments Population Health Navigation Outreach 07/04/2024 [facility] Attributed Member - Chart Review Reason Onset Date Comments Refill Request 07/26/2024 Reason Onset Date Comments Refill Request 08/25/2024 Reason Comments Medication Problem Reason Onset Date Comments Refill Request 09/16/2024 Reason Comments F/U 3 Month Chronic pain Reason Onset Date Comments Refill Request 10/18/2024 Reason Comments Follow-up Pt is here today fol lowing up with c/o chest pain Specialty Diagnoses / Procedures Referred By Aubree t Referred To Contact Diagnoses Chest pain, unspecified type Procedures ECG 12 lead (Clinic Performed) Mando Stevens MD [address] [place] [address] Phone: tel: fax: Referral ID Status Reason Start Date Expiration Date V isits Requested Visits Authorized [id number] Canceled 12/26/2024 12/26/2025 1 1 Reason Comments Pain Follow up. Blood pre ssure was low patient contacted size mixer but was not satisfied with the answer she got. Care Teams (unrecognized sec tion and content) Bonding Equipment Operator Relationship Specialty Start Date End Date Elana Chery DO [address] [place], [place] [id number] PCP - General Family Practice 01/28/17 Bonding Equipment Operator Relationship Specialty Start Date End Date Sheets, Elana Mccord, DO [address] [place] [address] PCP - General Family Practice 01/28/17 Bonding Equipment Operator Relationship Specialty Start Date End Date Sheets, Elana Mccord, DO [address] [place] [address] PCP - General Family Practice 01/28/17 Bonding Equipment Operator Relationship Specialty Start Date End Date Sheets, Elana Mccord, DO [address] [place] [address] PCP - General Family Practice 01/28/17 Bonding Equipment Operator Relationship Specialty Start Date End Date Sheets, Elana Mccord DO [address] [place] [address] PCP - General Family Practice 01/28/17 Bonding Equipment Operator Relationship Specialty Start Date End Date Sheets, Elana Mccord, DO [address] [place] [address] PCP - General Family Practice 01/28/17 Bonding Equipment Operator Relationship Specialty Start Date End Date Sheets, Elana Mccord, DO [address] [place] [address] PCP - General Family Practice 01/28/17 Bonding Equipment Operator Relationship Specialty Start Date End Date Sheets, Elana Mccord, DO [address] [place] [address] PCP - General Family Practice 01/28/17 Bonding Equipment Operator Relationship Specialty Start Date End Date Sheets, Elana Mccord, DO [address] [place] [address] PCP - General Family Practice 01/28/17 Bonding Equipment Operator Relationship Specialty Start Date End Date Sheets, Elana Mccord DO [address] [place] [address] PCP - General Family Practice 01/28/17 Bonding Equipment Operator Relationship Specialty Start Date End Date SheetsElana, DO [address] [place] [address] PCP - General Family Practice 01/28/17 Bonding Equipment Operator Relationship Specialty Start Date End Date Sheets, Elana Mccord DO [address] [place] [address] PCP - General Family Practice 01/28/17 Bonding Equipment Operator Relationship Specialty Start Date End Date Sheets, Elana Mccord DO [address] [place] [address] PCP - General Family Medicine 01/28/17 Bonding Equipment Operator Relationship Specialty Start Date End Date SheetsElana DO [address] [place] [address] PCP - General Family Medicine 01/28/17 Bonding Equipment Operator Relationship Specialty Start Date End Date SheetsElana DO [address] [place] [address] PCP - General Family Medicine 01/28/17 Bonding Equipment Operator Relationship Specialty Start Date End Date SheetsElana DO [address] [place] [address] PCP - General Family Medicine 01/28/17 Bonding Equipment Operator Relationship Specialty Start Date End Date Sheets, Elana Mccord DO [address] [place] [address] PCP - General Family Medicine 01/28/17 Bonding Equipment Operator Relationship Specialty Start Date End Date SheetsElana DO [address] [place] [address] PCP - General Family Medicine 01/28/17 Bonding Equipment Operator Relationship Specialty Start Date End Date SheetsElana DO [address] [place] [address] PCP - General Family Medicine 01/28/17 Bonding Equipment Operator Relationship Specialty Start Date End Date Sheets Elana Mccord DO [address] [place] [address] PCP - General Family Medicine 01/28/17 Bonding Equipment Operator Relationship Specialty Start Date End Date Sheets Elana Mccord DO [address] [place] [address] PCP - General Family Medicine 01/28/17 Bonding Equipment Operator Relationship Specialty Start Date End Date Sheets Elana Mccord DO [address] [place] [address] PCP - General Family Medicine 01/28/17 Bonding Equipment Operator Relationship Specialty Start Date End Date SheetsElana DO [address] [place] [address] PCP - General Family Medicine 01/28/17 Bonding Equipment Operator Relationship Specialty Start Date End Date Sheets Elana Mccord DO [address] [place] [address] PCP - General Family Medicine 01/28/17 Bonding Equipment Operator Relationship Specialty Start Date End Date Poonam Elana Mccord DO [address] [place] [address] PCP - General Family Medicine 01/28/17 Bonding Equipment Operator Relationship Specialty Start Date End Date SheetsElana DO [address] [place] [address] PCP - General Family Medicine 01/28/17 Bonding Equipment Operator Relationship Specialty Start Date End Date SheetsElana DO [address] [place] [address] PCP - General Family Medicine 01/28/17 Bonding Equipment Operator Relationship Specialty Start Date End Date Elana Chery DO [address] [place] [address] PCP - General Family Medicine 01/28/17 Bonding Equipment Operator Relationship Specialty Start Date End Date Elana Chery DO [address] [place] [address] PCP - General Family Medicine 01/28/17 Bonding Equipment Operator Relationship Specialty Start Date End Date Elana Chery DO [address] [place] [address] PCP - General 01/05/19 Bonding Equipment Operator Relationship Specialty Start Date End Date Elana Chery DO [address] [place] [address] PCP - General Family Medicine 01/28/17 Bonding Equipment Operator Relationship Specialty Start Date End Date Elana Chery DO [address] [place] [address] PCP - General Family Medicine 01/28/17 Bonding Equipment Operator Relationship Specialty Start Date End Date Elana Chery DO [address] [place] [address] PCP - General Family Medicine 01/28/17 Bonding Equipment Operator Relationship Specialty Start Date End Date Elana Chery DO [address] [place] [address] PCP - General Family Medicine 01/28/17 Bonding Equipment Operator Relationship Specialty Start Date End Date Elana Chery DO [address] [place] [address] PCP - General Family Medicine 01/28/17 Bonding Equipment Operator Relationship Specialty Start Date End Date Poonam Elana Mccord DO [address] [place] [address] PCP - General Family Medicine 01/28/17 Bonding Equipment Operator Relationship Specialty Start Date End Date Sheets Elana Mccord DO [address] [place] [address] PCP - General Family Medicine 01/28/17 Bonding Equipment Operator Relationship Specialty Start Date End Date Elana Chery DO [address] [place] [address] PCP - General Family Medicine 01/28/17 Bonding Equipment Operator Relationship Specialty Start Date End Date Poonam Elana Mccord DO [address] [place] [address] PCP - General Family Medicine 01/28/17 Bonding Equipment Operator Relationship Specialty Start Date End Date Poonam Elana Mccord DO [address] [place] [address] PCP - General Family Medicine 01/28/17 Bonding Equipment Operator Relationship Specialty Start Date End Date Poonam Elana Mccord DO [address] [place] [address] PCP - General Family Medicine 01/28/17 Bonding Equipment Operator Relationship Specialty Start Date End Date Poonam Elana Mccord DO [address] [place] [address] PCP - General Family Medicine 01/28/17 Bonding Equipment Operator Relationship Specialty Start Date End Date Elana Chery DO [address] [place] [address] PCP - General 01/05/19 Mando Stevens MD [address] [facility] [address], [address] [place], [place] [id number] Oil Analyst Interventional Cardiology 05/11/24 Bonding Equipment Operator Relationship Specialty Start Date End Date Elana Chery DO [address] [place] [address] PCP - General Family Medicine 01/28/17 Bonding Equipment Operator Relationship Specialty Start Date End Date Elana Chery DO [address] [place] [address] PCP - General Family Medicine 01/28/17 Bonding Equipment Operator Relationship Specialty Start Date End Date Elana Chery DO [address] [place] [address] PCP - General Family Medicine 01/28/17 Bonding Equipment Operator Relationship Specialty Start Date End Date Elana Chery DO [address] [place] [address] PCP - General Family Medicine 01/28/17 Bonding Equipment Operator Relationship Specialty Start Date End Date Elana Chery DO [address] [place] [address] PCP - General Family Medicine 01/28/17 Bonding Equipment Operator Relationship Specialty Start Date End Date Elana Chery DO [address] [place] [address] PCP - General Family Medicine 01/28/17 Bonding Equipment Operator Relationship Specialty Start Date End Date Elana Chery DO [address] [place] [address] PCP - General Family Medicine 01/28/17 Bonding Equipment Operator Relationship Specialty Start Date End Date Elana Chery DO [address] [place] [address] PCP - General Family Medicine 01/28/17 Bonding Equipment Operator Relationship Specialty Start Date End Date Elana Chery [address] [place] [address] PCP - General 01/05/19 Mando Stevens MD [address] [facility] [address], [address] [place], [place] [id number] Oil Analyst Interventional Cardiology 05/11/24 FOR RECORDS PERTAINING TO PATIENTS WHO ARE OR HAVE BEEN ENROLLED IN A CHEMICAL DEPENDENCY/SUBSTANCEABUSE PROGRAM, SOME INFORMATION MAY BE OMITTED. This clinical summary was aggregated from multiple sources. Caution should be exercised in using it in the provision of clinical care. This summary normalizes information from multiple sources, and as a consequence, information in this document may materially change the coding, format and clinical context of patient data. In addition, data may be omitted in some cases. CLINICAL DECISIONS SHOULD BE BASED ON THE PRIMARY CLINICAL RECORDS. [employer] provides no warranty or guarantee of the accuracy or completeness of information in this document.
== END | disposition home or self-care (01) ==
PROVIDERS: PCP Family Medicine; Referring Provider Otolaryngology; Visit Provider Otolaryngology
DX: R22.1 Localized swelling, mass and lump, neck (principal)
CPT/HCPCS: 70491; Q9967